=== PATIENT | male | born 1950 | race Caucasian/White ===

== ENCOUNTER → 2019-10-29 11:01 | Outpatient (BNVA) | payer OTHER, SELFPAY | PROVIDERS: Family Provider Internal Medicine; Visit Provider Internal Medicine | DX: B18.2 Chronic viral hepatitis C (principal) | CPT/HCPCS: 80053; 82140; 85025 ==

== ENCOUNTER 2020-02-15 10:03 | Outpatient (CLI) | payer OTHER, SELFPAY ==
--- NOTE | 2020-02-15 10:29 | CT_ITS ---
WS: [id number] CT CHEST WITH INTRAVENOUS CONTRAST HISTORY: ABNORMAL CT, FOLLOW UP TECHNIQUE: Contiguous 5 mm axial imaging performed on the thorax. Coronal and sagittal reformats are submitted. All CT scans at [facility] use at least one of these dose optimization techniq ues: automated exposure control; mA and/or kV adjustment per patient size (includes targeted exams wh ere dose is matched to clinical indication); or iterative reconstruction. CONTRAST: Omnipaque 300; 95 mL IV. DLP: 853.72 mGycm COMPARISON: 01/05/2019 Lungs and central airway: Hyperexpanded lungs with chronic emphysema. There are several small microno dules distributed in the periphery of the RIGHT upper lobe as seen on the prior study. No enlarging n odule or pneumonia. Pleura: Normal. No pleural effusion. Heart and pericardium: Normal size heart. No pericardial effusion. Mediastinum and jerel: Small subcentimeter mediastinal and hilar lymph nodes. Vessels: Atherosclerosis aorta. No aneurysm. Pulmonary artery size is normal. Chest wall and lower neck: No soft tissue masses. Upper abdomen: Moderate to large hiatal hernia. Bilateral renal cysts. The largest on the RIGHT is in completely visualized measuring at least 6.5 cm. No adrenal mass. Osseous structures: Thoracolumbar scoliosis. No fractures or osteolytic lesions. CT/CT chest w con* [id number] IMPRESSION: 1. RIGHT upper lobe micronodules. No interval increase in size since 01/05/2019 . 12 month follow-up for nodules of this size is at the discretion of the order ing physician as per Fleischner criteria. 2. Chronic emphysema. 3. Moderate to large hiatal hernia. 4. Bilateral renal cysts.
[2020-02-15 11:04] LABS: Blood Urea Nitrogen 12 mg/dL (8-23); Glomerular Filtration Rate 83.4 mL/min (90-130)
[2020-02-15] MEDS: iohexol 300 mg/mL 100 mL Btl IV (11:10)
== END 2020-02-15 10:04 | disposition home or self-care (01) ==
LOC: RADWPI 10:07
PROVIDERS: Family Provider Internal Medicine; Visit Provider Internal Medicine
DX: R93.89 Abnormal findings on diagnostic imaging of other specified body structures (principal); R91.8 Other nonspecific abnormal finding of lung field; J43.9 Emphysema, unspecified; K44.9 Diaphragmatic hernia without obstruction or gangrene; N28.1 Cyst of kidney, acquired
CPT/HCPCS: 71260; 82565; 84520; Q9967

== ENCOUNTER 2020-12-12 17:44 | Inpatient (IN) | payer OTHER, MEDICARE, SELFPAY ==
[2020-12-12] VITALS (19 sets, daily range): BP systolic 112–158; BP diastolic 66–94; PULSE 74–130; RESP 16–36; TEMP 37.7–37.8; O2SAT 84–98; BMI 23.6
--- NOTE | 2020-12-12 18:27 | ED_ITS ---
HPI - Abdominal Pain General: Chief Complaint: Abdominal Pain Stated Complaint: abd pain Time Seen by Provider: 12/12/20 18:20 History of Present Illness: HPI narrative: The patient is a 70-year-old male who comes to the ER complaining of diffuse abdominal pain for the past several hours. He says he woke this morning had a normal bowel movement and later in the day began to have severe right lower quadrant pain which then radiated throughout the entire rest of his abdomen. He said his belly feels full and is hard. EMS arrived with a blood pressure of 103/58. They gave him a liter of fluids IV and brought him to the ER. Here his belly is firm and he is complaining of severe pain. He says he has had 2 surgeries in the past for inguinal hernias but this does not feel similar to that. MD elicited complaint: abdominal pain Pertinent past history: none Onset (ago): hour(s) (6) Pain Consistency: constant Location: Diffuse Severity: severe Quality: sharp Associated Symptoms: Reports no associated symptoms; Denies GI cramping and diarrhea Review of Systems General: Reports: 10 or more systems reviewed and unremarkable except in HPI and below Const: Denies: fatigue Eyes: Denies: change in vision, blurry vision or eye redness ENMT: Denies: throat pain, swelling of lips/tongue, ear or mastoid pain or nasal congestion Card: Denies: chest pain, palpitations, irregular heart rhythm, edema, dyspnea on exertion or orthopnea Resp: Denies: dyspnea, productive cough or non-productive cough GI: Denies: abdominal pain, diarrhea or GI cramping : Denies: flank pain, urinary frequency or urinary urgency Musc: Denies: neck pain, back pain, extremity pain, joint pain, joint redness, limited range of motion or muscle weakness Skin/Breast: Denies: rash, pruritus, erythema, skin pain or skin tenderness Neuro: Denies: headache(s), numbness in extremities, weakness in extremities, sensory changes, difficulty walking, dizziness, confusion or Slurred speech present Psych: Denies: anxiety or depression Endo: Denies: polyuria All/Imm: Denies: urticaria, throat swelling or tongue swelling PFSH ED PFSH: Medical History (Updated 12/12/20 @ 21:37 by Neftali Goncalves MD) Arthritis COPD (chronic obstructive pulmonary disease) Diverticulosis Hepatitis C Completed Epclusa in 2019 Hiatal hernia Hypertension Surgical History (Updated 12/12/20 @ 20:49 by Neftali Goncalves MD) Bilateral inguinal hernia Bilateral repairs History of penile cancer local excision History of surgery on upper extremity L forearm fracture Social History (Updated 12/12/20 @ 20:50 by Neftali Goncalves MD) Smoking and tobacco status: current every day smoker cigarettes Packs smoked per day: 0.5 Years cigarettes smoked: 55 [ Other cigarette details: Heavier smoker in the past ] Alcohol intake: current Alcohol intake frequency: few times a month Alcohol type: hard liquor Alcohol use comment: Usually only once a month History of recent travel: No Current gender identity: Male Physical Exam Const: COMMON NORMALS: no acute distress, average body habitus, patient oriented x3, no limitations, healthy appearing, alert and well nourished GENERAL APPEARANCE: cooperative, comfortable, well kempt and well developed ORIENTATION/CONSCIOUSNESS: Yes awake, Yes oriented to person, Yes oriented to place and Yes oriented to time HENMT: COMMON NORMALS: normocephalic, external ears normal and Normal external nose present HEAD & SCALP: normal to inspection and normocephalic NOSE: Normal external nose present EXTERNAL EAR: Yes external ears normal MOUTH: Normal oral and palatal mucosa present THROAT: posterior oropharynx normal Eye: COMMON NORMALS: Equal, round and reactive pupils present and EOMs intact bilaterally GENERAL EYE: appearance normal, both eyes and all related structures PUPIL: Yes Equal, round and reactive pupils present Neck/C-Spine: COMMON NORMALS: full ROM, no lymphadenopathy, no meningeal signs and no JVD GENERAL: Yes normal visual inspection Lymph: LYMPHATIC: no lymphadenopathy noted Chest: COMMONS NORMALS: normal inspection of the chest and normal palpation of entire chest wall Resp: COMMON NORMALS: normal respiratory effort, No retractions, No use of accessory muscles, clear to auscultation bilaterally and percussion normal EFFORT & INSPECTION: Yes able to speak in complete sentences AUSCULTATION: clear to auscultation bilaterally PERCUSSION: percussion normal Cardio: COMMON NORMALS: no JVD, regular rate, regular rhythm, S1 normal heart sound present, S2 normal heart sound present and Peripheral pulses 2+ throughout RATE: regular rate RHYTHM: regular rhythm HEART SOUNDS: S1 normal heart sound present and S2 normal heart sound present PERIPHERAL PULSES: Peripheral pulses 2+ throughout GI: COMMON NORMALS: Normal to inspection, nondistended, normoactive bowel sounds present, non-tender and no masses INSPECTION: Yes abdominal distension (mild) PALPATION: Yes Firmness to palpation present (GI) and Yes Tenderness to palpation present (GI) (Tender in all areas. RLQ the greatest.) : COMMON NORMALS: Yes no CVA tenderness BLADDER/KIDNEY EXAM: Yes no CVA tenderness Back/Pelvis: COMMON NORMALS: no CVA tenderness, thoracic and lumbar spine no rmal to inspection, no thoracic nor lumbar tenderness and thoraco-lumbar ROM normal Extremity: COMMON NORMALS: normal to inspection, full ROM, capillary refill normal, no joint enlargement and no pedal edema GENERAL: Yes normal exam except as noted Neuro: COMMON NORMALS: patient oriented x3, CN's II-XII intact bilaterally, moves all extremities, no focal motor deficits, no sensory deficits noted and gait normal SENSORIUM/ORIENTATION: Yes alert, Yes oriented to person, Yes oriented to place and Yes oriented to time MENINGEAL SIGNS: Yes no meningeal signs Psych: COMMON NORMALS: mental status grossly normal, Normal thought process present, cooperative, normal affect and speech normal APPEARANCE: Yes well kempt ATTITUDE: Yes calm SPEECH: Yes normal speech THOUGHT PROCESS: Normal thought process present Skin: COMMON NORMALS: no rashes or lesions noted GENERAL SKIN EXAM: no rashes or lesions noted Course Vital Signs: Vital signs: Vital Signs Pulse Rate 84 12/12/20 21:32 Respiratory Rate 18 12/12/20 21:32 Blood Pressure 118/74 12/12/20 21:32 Pulse Oximetry 94 12/12/20 21:32 MDM - Abdominal Pain MDM Narrative: Medical decision making narrative: Patient is a 70-year-old male who comes to the ER complaining of abdominal pain. CT shows appendicitis and ileitis. Discussed with Dr. Goncalves who will admit the patient to surgery. Lab Data: Labs: Lab Results 12/12/20 12/12/20 12/12/20 Range/Units 18:22 18:22 19:27 WBC 16.5 H (4.0-10.0) 10^3/ uL RBC 4.02 L (4.1-5.3) 10^6/u L Hgb 12.8 (11.7-16.6) g/dL Hct 39.7 L (42.0-52.0) % MCV 98.8 H (80-94) fL MCH 31.8 (28.0-34.0) pg MCHC 32.2 (30.0-36.0) g/dL RDW 14.0 (12.1-15.1) % Plt Count 406 H (130-400) 10^3/c mm MPV 11.4 H (7.4-10.4) fL Neut % (Auto) 81.2 % Lymph % (Auto) 11.6 % [place] % (Auto) 6.1 % Eos % (Auto) 0.3 % Baso % (Auto) 0.4 % Neut # (Auto) 13.36 H (1.8-7.7) 10^3/u L Lymph # (Auto) 1.9 (0.8-4.8) 10^3/u L [place] # (Auto) 1.0 H (0.2-0.9) 10^3/u L Eos # (Auto) 0.1 (0.0-0.8) 10^3/u L Baso # (Auto) 0.1 (0.0-0.1) 10^3/u L Nucleated RBC % (a uto) 0 % Nucleated RBCs # 0.0 /100WBC Sodium 138 (136-145) mmol/L Potassium 3.8 (3.5-5.1) mmol/L Chloride 104 (98-107) mmol/L Carbon Dioxide 20 L (22-29) mmol/L Anion Gap 17.8 (5-19) BUN 12 (8-23) mg/dL Creatinine 1.0 (0.7-1.2) mg/dL GFR Calculation Not Reportable Glucose 127 H (65-115) mg/dL Calculated Osmolal ity 287 (285-295) mOsm/k g Lactate 3.2 H (0.5-2.2) mmol/L Calcium 8.7 (8.5-10.5) mg/dL Total Bilirubin 0.2 (0.15-1.2) mg/dL AST 13 (0-40) U/L ALT 8 (0-41) U/L Alkaline Phosphata se 77 (40-130) IU/L Total Protein 6.6 (6.6-8.7) g/dL Albumin 3.7 (3.5-5.2) g/dL Globulin 2.9 (1.3-4.6) g/dL Lipase 16 (13-60) U/L Discharge Plan Discharge Patient Disposition: Admitted As Inpatient Clinical Impression: Acute appendicitis Condition: Stable Coding Level of Care Code 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
--- NOTE | 2020-12-12 18:35 | CTR_ITS ---
PROCEDURE INFORMATION: Exam: CT Abdomen And Pelvis With Contrast Exam date and time: 12/12/2020 7:29 PM Age: 70 years old Clinical indication: Abdominal pain; Localized; Right lower quadrant (rlq); Prior surgery; Surgery type: Hernia; Additional info: Diffuse abd tenderness worst rlq TECHNIQUE: Imaging protocol: Computed tomography of the abdomen and pelvis with contrast. Total images: 235 Radiation optimization: All CT scans at this facility use at least one of these dose optimization techniques: automated exposure control; mA and/or kV adjustment per patient size (includes targeted exams where dose is matched to clinical indication); or iterative reconstruction. Contrast material: OMNI 300; Contrast volume: 95 ml; Contrast route: INTRAVENOUS (IV); COMPARISON: CT abdomen pelvis w con* [id number] 04/29/2016 7:50 PM RADIATION DOSE METRICS: Total DLP (mGy-cm): 668.69 FINDINGS: Lungs: Limited assessment lung bases reveals mild dependent atelectasis. Coronary artery disease. No visible pericardial effusion. Mediastinal space: Large hiatal hernia. Liver: No visible hepatic mass or cystic structure. Gallbladder and bile ducts: Gallbladder free of cholelithiasis. No visible intra or extrahepatic biliary ectasia. Pancreas: Pancreas unremarkable. No visible pancreatic ductal ectasia. Spleen: Spleen unremarkable. Adrenal glands: Adrenal glands unremarkable. Kidneys and ureters: No visible hydronephrosis or perinephric fluid. Stable bilateral simple renal cortical cysts the largest off the superior pole of the right kidney measuring 7 cm in diameter. No follow-up recommended. Renal arteriosclerosis. Stomach and bowel: Diverticulosis coli, primarily the sigmoid colon, without visible evidence for acute diverticulitis. Nonobstructive bowel pattern. Mucosal thickening of the ileal bowel loops suggesting either inflammatory or infectious ileitis. Appendix: Examination reveals evidence of uncomplicated low-grade acute appendicitis. No visible periappendiceal abscess or extraluminal gas. Mild periappendiceal fat inflammatory response. Intraperitoneal space: No visible pneumoperitoneum or intraperitoneal ascites. Vasculature: The abdominal aorta is nonaneurysmal. Moderately advanced arterial sclerotic disease. Lymph nodes: Unremarkable. No enlarged lymph nodes. Urinary bladder: Urinary bladder unremarkable. No visible filling defect or bladder stone. Reproductive: Prostate hypertrophy. Bones/joints: No visible active or acute osseous pathology. Dextroscoliosis. Degenerative disease and degenerative disc disease. Cavernous hemangioma T11. Soft tissues: Small right inguinal hernia containing fat only. Other findings: No visible significant adynamic or reactive ileus. CT/CT abdomen pelvis w con* [id number] IMPRESSION: 1. Acute uncomplicated low-grade appendicitis. 2. Mucosal thickening of the ileal bowel loops suggesting either inflammatory or infectious ileitis. 3. Diverticulosis coli without visible evidence for acute diverticulitis. 4. Other nonurgent, nonemergent, chronic, and age related findings as detailed in text above. Radiation Dose CTDIVOL = (mGy): DLP = 668.69 (mGy-cm)
[2020-12-12 18:36] LABS: Basophils # 0.1 10^3/uL (0.0-0.1); Basophils % 0.4 %; Eosinophils # 0.1 10^3/uL (0.0-0.8); Eosinophils % 0.3 %; Hematocrit 39.7 % (42.0-52.0); Hemoglobin 12.8 g/dL (11.7-16.6); Lymphocytes # 1.9 10^3/uL (0.8-4.8); Lymphocytes % 11.6 %; Mean Corpuscular HGB Conc 32.2 g/dL (30.0-36.0); Mean Corpuscular Hemoglobin 31.8 pg (28.0-34.0); Mean Corpuscular Volume 98.8 fL (80-94); Mean Platelet Volume 11.4 fL (7.4-10.4); Monocytes % 6.1 %; Neutrophils # 13.36 10^3/uL (1.8-7.7); Neutrophils % 81.2 %; Nucleated Red Blood Cells % 0 %; Platelet Count 406 10^3/cmm (130-400); Red Blood Count 4.02 10^6/uL (4.1-5.3); White Blood Count 16.5 10^3/uL (4.0-10.0)
[2020-12-12 19:07] LABS: Alanine Aminotransferase 8 U/L (0-41); Albumin Level 3.7 g/dL (3.5-5.2); Alkaline Phosphatase 77 IU/L (40-130); Anion Gap 17.8 (5-19); Aspartate Amino Transferase 13 U/L (0-40); Blood Urea Nitrogen 12 mg/dL (8-23); Calcium 8.7 mg/dL (8.5-10.5); Carbon Dioxide 20 mmol/L (22-29); Chloride 104 mmol/L (98-107); Creatinine Clr Calc Pharmacy 68.4729; Globulin 2.9 g/dL (1.3-4.6); Glucose 127 mg/dL (65-115); Lipase 16 U/L (13-60); Osmolality Calculated 287 mOsm/kg (285-295); Potassium 3.8 mmol/L (3.5-5.1); Sodium 138 mmol/L (136-145); Total Bilirubin 0.2 mg/dL (0.15-1.2); Total Protein 6.6 g/dL (6.6-8.7)
[2020-12-12] MEDS: morphine 4 mg/mL SDV 1 mL 2 MG IVP (19:20)
[2020-12-12] MEDS: iohexol 300 mg/mL 100 mL Btl IV (19:39)
[2020-12-12 19:53] LABS: Lactate (Lactic Acid level) 3.2 mmol/L (0.5-2.2)
[2020-12-12] MEDS: piperacillin-tazobactam 3.375 GM in sodium chloride 0.9% (plus) 50 ML IV (20:26)
--- NOTE | 2020-12-12 20:51 | P.HP_ITS ---
Providers/Chief Complaint Admitting Physician: General Surgery Neftali Goncalves MD Primary Care Provider: [facility] Chief Complaint: abd pain History of Present Illness Lonnie Rogers is a 70 year old male who says he developed a little bit of nausea this morning. It did not stop him from eating breakfast and running some errands. He says he had a normal bowel movement this morning. This afternoon around 1 PM he developed some right-sided abdominal pain in the right lower quadrant. He says that the pain subsequently seemed to spread superiorly as well as across his abdomen to the point where he came into the emergency department. A CAT scan showed changes consistent with acute appendicitis as well as some possible ileitis, etc. He denies any known fevers. He does tell me he had a colonoscopy about a year ago and everything was normal. Review of Systems General: Reports: 10 or more systems reviewed and unremarkable except in HPI and below Const: Denies: fever(s) GI: Reports: abdominal pain and nausea Medications/Allergies Home Medications Medication Instructions Recorded Confirmed Last Taken Type amlodipine 5 mg tablet 5 mg PO ONCE tab 10/16/19 02/02/20 Unknown History aspirin 81 mg tablet,delayed 81 mg PO ONCE 10/16/19 02/02/20 Unknown History release cetirizine 10 mg capsule PO ONCE cap 10/16/19 02/02/20 Unknown History diclofenac sodium 75 mg 75 mg PO BID 10/16/19 02/02/20 Unknown History tablet,delayed release lisinopril 40 mg tablet 40 mg PO ONCE 10/16/19 02/02/20 Unknown History metoprolol tartrate 100 mg tablet 100 mg PO ONCE tab 10/16/19 02/02/20 Unknown History multivitamin 1 tab PO QAM 10/16/19 02/02/20 Unknown History omeprazole 20 mg capsule,delayed 20 mg PO ONCE cap 10/16/19 02/02/20 Unknown History release prazosin 1 mg capsule 1 mg PO .AT BEDTIME cap 10/16/19 02/02/20 Unknown History trazodone 100 mg tablet 100 mg PO .AT BEDTIME tab 10/16/19 02/02/20 Unknown History sofosbuvir 400 mg-velpatasvir 100 1 tab PO DAILY 84 Days #28 tab 11/16/19 02/02/20 Unknown Rx mg tablet Allergies Allergy/AdvReac Type Severity Reaction Status Date / Time codeine Allergy rash Verified 12/12/20 20:57 PFSH Acute PFSH: Medical History (Updated 12/12/20 @ 21:00 by Neftali Goncalves MD) Arthritis Diverticulosis Hepatitis C Completed Epclusa in 2019 Hypertension Surgical History (Updated 12/12/20 @ 20:49 by Neftali Goncalves MD) Bilateral inguinal hernia Bilateral repairs History of penile cancer local excision History of surgery on upper extremity L forearm fracture Social History (Updated 12/12/20 @ 20:50 by Neftali Goncalves MD) Smoking and tobacco status: current every day smoker cigarettes Packs smoked per day: 0.5 Years cigarettes smoked: 55 [ Other cigarette details: Heavier smoker in the past ] Alcohol intake: current Alcohol intake frequency: few times a month Alcohol type: hard liquor Alcohol use comment: Usually only once a month History of recent travel: No Current gender identity: Male Vitals/I&O/Wt Last Vital Signs Pulse 83 12/12/20 18:38 Resp 22 H 12/12/20 19:20 BP 127/66 12/12/20 18:38 Pulse Ox 92 12/12/20 18:38 Weight last 48 hrs Weight 160 lb Physical Exam Narrative: EXAM NARRATIVE: The patient was encountered in his room in the emergency department. He does not appear to be in any acute distress but actually he does not feel very well. The pupils are equal. No carotid bruits are heard. The lungs are clear anteriorly. The heart is regular. The abdomen is somewhat protuberant but is fairly soft and has bowel sounds, although they are somewhat hypoactive. The patient does have tenderness over McBurney's point as well as superiorly and even into the epigastrium somewhat. Rovsing's sign is negative. No obvious masses are palpated. The extremities reveal no edema. Neurologically the patient appears to be grossly intact. Data : 12/12/20 18:22 12/12/20 18:22 Other Labs: Laboratory Tests 12/12/20 19:[address] Abd/Pel: Radiologist's impression: CT abdomen/pelvis 12/12/2020 IMPRESSION: 1. Acute uncomplicated low-grade appendicitis. 2. Mucosal thickening of the ileal bowel loops suggesting either inflammatory or infectious ileitis. 3. Diverticulosis coli without visible evidence for acute diverticulitis. A&P Assessment and plan (1) Acute appendicitis: CT reviewed. The patient appears to have a retrocecal appendix which is involved in an inflammatory process. I suspect all of his other inflammatory changes are secondary to this. Given the fact that his appendix is retrocecal, I imagine that it is probably been inflamed a little longer than what his sym ptoms would dictate. I discussed appendicitis with the patient in detail. Both medical and surgical techniques of management were gone over. Surgical risks of bleeding, infection, internal organ injury, etc. were all gone over. He seems to understand and would like to proceed with an appendectomy tonight. The patient says he last had something to drink around noon today, although he does admit that that was a bottle of whiskey. I am going to make arrangements for a laparoscopic or possibly open appendectomy tonight. Status: Acute Attestations Medical Necessity Statement*: Based on my medical assessment, presenting symptoms and consideration of the scope of surgical therapy, I expect this patient will require treatment in the hospital for a period of time spanning less than 2 midnights, and is therefore being placed in observation status. 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
[2020-12-12] MEDS: lactated ringers 1,000 ML 150 ML IV (21:08)
[2020-12-12] MEDS: metroNIDAZOLE IV 500 MG/100 ML PREMIX 100 MG IV (21:11)
--- NOTE | 2020-12-12 21:31 | ANES.PREANE2 ---
Pre-Anesthetic Assessment Pre-Anesthetic Assessment: Height/Weight: Height 1.75 m Weight 72.575 kg Pulse Resp BP Pulse Ox 78 16 118/74 96 12/12/20 20:44 12/12/20 20:44 12/12/20 20:44 12/12/20 20:44 Preop Diagnosis: Acute appendicitis Proposed Procedure: Operation Date: 12/12/20 21:15 Proposed Procedures p Laparoscopic Appendectomy(Not Applicable) - Neftali Goncalves MD Familial anesthetic complications: None Was Beta Silvina taken within 24 hours: Yes (took metoprolol this morning) Last intake: Intake Last Liquid Date 12/12/20 Last Liquid Time 12:00 Last Solid Date 12/12/20 Last Solid Time 11:00 Social: Social History: Tobacco and No alcohol Exam: Pre-Anes Outpt Exam: alert, oriented x 3, clear to auscultation bilaterally and regular rate & rhythm Airway: Cervical ROM: WNL MP: 4 Dentition: Other (no teeth) CV/HEM: CV/HEM: HTN Comments: States able to climb 2 flights of stairs w/ out SOB or chest pain Hepatic: Hepatic: Hepatitis (Hep C) GI: GI: Hiatus hernia Anesthetic Plan: ASA status: 2E Anesthesia: General Risk of > 500 ml blood loss (7ml/kg in children): No Meds/Allergies Current Medications: Current Medications Generic Name Dose Route Start Last Admin Trade Name Freq PRN Reason Stop Dose Admin Lactated Ringer's 1,000 mls @ 150 m ls/hr 12/12/20 21:00 12/12/20 21:08 Lactated Ringers IV 150 mls/hr .[id number] GENIA Administration Cefazolin Sodium/D extrose 2 gm in 50 mls @ 100 mls/hr 12/12/20 21:30 12/12/20 21:09 Kefzol IV 12/12/20 21:59 100 mls/hr PRODUCT DEVELOPMENT INTERN ONE Administration Protocol Metronidazole 500 mg in 100 mls @ 100 mls/hr 12/12/20 21:30 12/12/20 21:11 Flagyl Iv IV 12/12/20 22:29 100 mls/hr PRODUCT DEVELOPMENT INTERN ONE Administration PFSH Anesthesia PFSH: Medical History (Updated 12/12/20 @ 21:00 by Neftali Goncalves MD) Arthritis Diverticulosis Hepatitis C Completed Epclusa in 2019 Hypertension Surgical History (Updated 12/12/20 @ 20:49 by Neftali Goncalves MD) Bilateral inguinal hernia Bilateral repairs History of penile cancer local excision History of surgery on upper extremity L forearm fracture Social History (Updated 12/12/20 @ 20:50 by Neftali Goncalves MD) Smoking and tobacco status: current every day smoker cigarettes Packs smoked per day: 0.5 Years cigarettes smoked: 55 [ Other cigarette details: Heavier smoker in the past ] Alcohol intake: current Alcohol intake frequency: few times a month Alcohol type: hard liquor Alcohol use comment: Usually only once a month History of recent travel: No Current gender identity: Male Data Anesthesia CBC & Chem 7: 12/12/20 18:22 12/12/20 18:22 Other Labs: Laboratory Results - last 48 hr 12/12/20 12/12/20 12/12/20 18:22 18:22 19:27 WBC 16.5 H RBC 4.02 L Hgb 12.8 Hct 39.7 L MCV 98.8 H MCH 31.8 MCHC 32.2 RDW 14.0 Plt Count 406 H MPV 11.4 H Neut % (Auto) 81.2 Lymph % (Auto) 11.6 [place] % (Auto) 6.1 Eos % (Auto) 0.3 Baso % (Auto) 0.4 Neut # (Auto) 13.36 H Lymph # (Auto) 1.9 [place] # (Auto) 1.0 H Eos # (Auto) 0.1 Baso # (Auto) 0.1 Nucleated RBC % (auto) 0 Nucleated RBCs # 0.0 Sodium 138 Potassium 3.8 Chloride 104 Carbon Dioxide 20 L Anion Gap 17.8 BUN 12 Creatinine 1.0 GFR Calculation Not Reportable Glucose 127 H Calculated Osmolality 287 Lactate 3.2 H Calcium 8.7 Total Bilirubin 0.2 AST 13 ALT 8 Alkaline Phosphatase 77 Total Protein 6.6 Albumin 3.7 Globulin 2.9 Lipase 16 Cardiac Studies: No Data to Display
--- NOTE | 2020-12-12 21:57 | SUR.PHASEI ---
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
--- NOTE | 2020-12-12 22:46 | P.OP_ITS ---
Operative Report Date of procedure: December 12, 2020 Pre-op Diagnosis: Acute appendicitis. Post-op Diagnosis: Perforated appendicitis. Procedure Done: Laparoscopic appendectomy. Specimens removed/disposition: 1. Peritoneal fluid for Gram stain and culture. 2. Appendix. Surgeon: Neftali Goncalves Anesthesia: General Estimated blood loss (mL): 5 Complications: None. Condition: stable Disposition: PACU Procedure: The patient was brought to the Operating Room and was placed in a supine position on the operating room table. General endotracheal anesthesia was induced. The abdomen was prepped and draped in a sterile fashion. A small vertical incision was carried out in the superior aspect of the umbilicus. Blunt dissection was carried out down to the fascia, where a small umbilical hernia was found. The defect was simply enlarged somewhat superiorly and the underlying peritoneum was opened bluntly. A stay suture of 0 Vicryl was placed on either side of the fascial opening and the Jamir port was placed directly into the peritoneal cavity and was held in place with the inflatable balloon. The peritoneal cavity was insufflated with carbon dioxide. The laparoscope was used to inspect the peritoneal cavity. The patient was found to have some light yellow, watery purulent material in the pelvis. He had some very light omental adhesions in the left mid abdomen somewhat laterally which were eventually taken down. Two 5-millimeter ports were placed in the left lower quadrant under direct vision. The patient was tilted in a Trendelenburg position and slightly to the left side. Some of the pelvic fluid was obtained in a sterile container for Gram stain and culture. A laparoscopic [place] was used to elevate the cecum and the appendix was identified. The appendix was dilated and had exudate on its surface. Upon raising the appendix a little further some omentum that was surrounding the base fell off and a small perforation was noted. The mesoappendix was divided using cautery to maintain hemostasis at the base of the appendix. The base of the appendix appeared relatively healthy proximal to the small perforation and was divided using an endoscopic stapler. The appendix was removed from the peritoneal cavity after being placed in a laparoscopic bag. The abdomen was then extensively irrigated with multiple liters of saline in all quadrants until the irrigant returned reasonably clear. The staple line on the cecum was identified and appeared to be in good condition. The Jamir port was removed from the umbilical site and the stay sutures of Vicryl were tied to each other at the umbilicus, closing the fascial defect so that it was airtight. A final round of irrigation was carried out in the right lower quadrant and the pelvis. No ongoing problems were seen. The remaining ports were removed from the abdominal wall as the pneumoperitoneum was evacuated. All skin incisions were closed using inverted interrupted sutures of 4-0 Vicryl. Benzoin and Steri-Strips were placed over the incisions and Band- Aids followed. The patient was taken to the Recovery Room in stable condition postoperatively.
--- NOTE | 2020-12-12 23:20 | ANE.PACU2 ---
Inpatient post-anesthesia follow up: Airway intact: Yes Vital signs: Temperature 100.1 F Pulse Rate [Monito r] 80 Pulse Rate 110 Respiratory Rate 23 Blood Pressure [Ri ght Arm] 112/66 Blood Pressure 133/68 Pulse Oximetry 91 Oxygen Delivery Me thod Oxymask Oxygen Flow Rate 8 Fraction of Inspir ed Oxygen Hydration adequate: Yes Nausea and vomiting: No Pain level: 3 Mental status: Baseline Additional Comments: Requiring 8 L O2 to maintain spo2 90%, still febrile with tachycardia. Was 90% on room air pre-op. Will send to ICU for closer monitoring overnight.
[2020-12-13] VITALS (66 sets, daily range): BP systolic 120–146; BP diastolic 61–77; PULSE 75–110; RESP 10–29; TEMP 36.8; O2SAT 85–95
--- NOTE | 2020-12-13 00:10 | SUR.PHASEI ---
2330 PT REMAINS ORIENTED , AWAKES EASILY TO VOICE, RESP RAPID BUT NOT LABORED, HR ELEVATED MONITOR ST NO ECTOPY, DR MONSIVAIS AND DR QUIROZ CALLED WITH PT HR AND SATS OF 90% ON 8 LITER, ATTEMPTED TO WEAN TO 6LNC SATS DOWN TO 85% AND RESP UP TO 36 PT VERBALLY DENIES PAIN AND NAUSEA, ABD SOFT LUNGS CLEAR WITH SCATTERED RHONCHI TO LT LOWER LOBE ONLY, GOOD AIR MOVEMENT NOTED, ORDERS RECIEVED FROM DR MONSIVAIS AND DR QUIROZ TO SEND PT TO ICU [id number] REPORT CALLED AND PT TO ICU PER CART ON 8L O2 MASK PT ALERT AND VERBALIZING, HANDOFF AT BEDSIDE.
[2020-12-13] MEDS: piperacillin-tazobactam 3.375 GM in sodium chloride 0.9% (plus) 50 ML IV ×3 (01:11→15:38)
[2020-12-13] MEDS: D5-NS 0.45% + KCL 20 mEq 20 MEQ/1,000 ML BAG 100 MEQ IV (01:11)
[2020-12-13] MEDS: pantoprazole DR 40 mg Tablet PO (01:13)
[2020-12-13] MEDS: metoprolol tartrate 50 mg Tablet 100 MG PO (01:13)
[2020-12-13] MEDS: heparin 5,000 unit/mL INJ 1 mL 5000 UNIT SUBCUT ×2 (01:15→14:00)
[2020-12-13 01:21] LABS: Add Urine Microscopic? NO
[2020-12-13 01:23] LABS: Bilirubin Urine Neg (Negative); Blood Urine Neg (Negative); Glucose Urine UA Norm (Normal); Ketones Urine Negative (Negative); Leukocyte Esterase Urine Negative (Negative); Nitrate Urine Negative (Negative); Protein Urine Neg (Negative); Specific Gravity, Urine 1.005 (1.005-1.030); Urine Appearance Clear (CLEAR); Urine Color Yellow (Yellow); Urobilinogen Urine 1 mg/dL (Negative); pH Urine 6 (5-7)
[2020-12-13 05:13] LABS: Basophils # 0.1 10^3/uL (0.0-0.1); Basophils % 0.3 %; Eosinophils # 0.5 10^3/uL (0.0-0.8); Eosinophils % 2.4 %; Hematocrit 37.6 % (42.0-52.0); Lymphocytes # 0.7 10^3/uL (0.8-4.8); Lymphocytes % 3.3 %; Mean Corpuscular HGB Conc 31.9 g/dL (30.0-36.0); Mean Corpuscular Hemoglobin 31.7 pg (28.0-34.0); Mean Corpuscular Volume 99.2 fL (80-94); Mean Platelet Volume 11.1 fL (7.4-10.4); Monocytes # 0.9 10^3/uL (0.2-0.9); Monocytes % 4.4 %; Neutrophils # 18.64 10^3/uL (1.8-7.7); Neutrophils % 89.1 %; Nucleated Red Blood Cells % 0 %; Platelet Count 344 10^3/cmm (130-400); Red Blood Count 3.79 10^6/uL (4.1-5.3); White Blood Count 20.9 10^3/uL (4.0-10.0)
[2020-12-13 05:34] LABS: Lactate (Lactic Acid level) 1.9 mmol/L (0.5-2.2)
[2020-12-13 05:39] LABS: Anion Gap 13.7 (5-19); Blood Urea Nitrogen 11 mg/dL (8-23); Carbon Dioxide 21 mmol/L (22-29); Chloride 111 mmol/L (98-107); Creatinine Clr Calc Pharmacy 85.5911; Glucose 109 mg/dL (65-115); Osmolality Calculated 292 mOsm/kg (285-295); Potassium 4.7 mmol/L (3.5-5.1); Sodium 141 mmol/L (136-145)
--- NOTE | 2020-12-13 07:20 | PC.NURSE ---
ASSUMING CARE 2351 Patient received from JAIL KEEPERShelley at 2352. Patient on simple mask at 8L, respiratory changed to oxymask at 8L. Temperature of 100.8. 1L NS finished infusing. Incisions covered with steri-strips, belly button incision covered with steri strips and guaze with ABD to soak up drainage from irrigating abdominal cavity. Patient is alert and oriented x 4 and requesting drink of water.
--- NOTE | 2020-12-13 07:23 | PC.NURSE ---
SHIFT SUMMARY Patient alert and oriented since return from PACU. Patient has been independently using urinal throughout the night and using call light for assistance. Patient denies needs at this time and report given to YASMIN Villalta.
--- NOTE | 2020-12-13 07:31 | XR_ITS ---
WS: [id number] PORTABLE CHEST HISTORY: hypoxia, R rales COMPARISON: 10/31/2011 Diffusely thickened reticulations throughout both lungs. There is a new dense area of consolidation a t the medial RIGHT lung base with adjacent stranding. This consolidation was not present at the lung bases on 12/12/2020 CT evaluation. No pleural effusion or pneumothorax. Cardiac size: Normal. Mediastinum/Aorta: Mild atherosclerosis aorta. No osseous abnormality seen. XR/XR chest 1V portable [id number] IMPRESSION: 1. Development of a RIGHT lower lobe consolidation. This is most consistent wi th pneumonia with adjacent atelectasis. 2. Mild diffuse CHF superimposed on chronic interstitial fibrosis.
--- NOTE | 2020-12-13 07:33 | P.PN_ITS ---
Subjective Subjective: Interval history: The patient's appendix was found to be perforated at the time of surgery. In recovery, the patient remained tachycardic and somewhat hypoxic even though his blood pressure was adequate. The decision was made to put him in the intensive care unit overnight. The patient says he feels 100% better today as opposed to yesterday before surgery. He does report a productive cough but denies dyspnea. He is not passing any flatus. Vitals/I&O/Wt Last Vital Signs Temp 100.1 F H 12/12/20 23:45 Pulse 77 12/13/20 06:25 Resp 23 H 12/13/20 01:12 BP 133/68 12/12/20 23:45 Pulse Ox 91 12/13/20 01:12 12/12/20 12/13/20 12/13/20 22:59 06:59 14:59 Intake Total 970 / 970 Output Total 400 / 1305 905 / 1305 Balance -400 / -335 65 / -335 Weight last 48 hrs Weight 160 lb Physical Exam Narrative: EXAM NARRATIVE: The patient seems to have some rales on the right side. His oxygen saturations remain in the high 80s on nasal cannula. Bowel sounds are fairly infrequent. The abdominal dressings are intact (and ABD pad was placed over the umbilicus as the patient was waking up yesterday and some irrigation fluid was leaking from the umbilical incision). Data : 12/13/20 04:48 12/13/20 04:48 A&P Assessment and plan (1) Acute appendicitis: The patient's appendix was found to be perforated at the time of surgery yesterday. His white blood cell count remains elevated although his lactate is improved. He feels much better but remains somewhat hypoxic and has some rales on exam. Plan: Chest x-ray, continue intravenous antibiotics, increase activity. I am going to leave the patient in the intensive care unit for now. 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
[2020-12-13] MEDS: levalbuterol 0.63 mg/3 mL Neb INHALATION ×5 (08:21→20:49)
[2020-12-13] MEDS: nicotine 7 mg Patch 1 PATCH TRANSDERMA (08:29)
[2020-12-13] MEDS: FUROsemide 10 mg/mL SDV 10mL 60 MG IVP (09:13)
[2020-12-13 09:19] LABS: ABG PCO2 36.9 mmHg (35-45); ABG PH Result 7.37 (7.35-7.45); Alveolar-Arterial Oxygen Gradi 43.3 mmHg (5-10); Arterial Blood Gas Hematocrit 41.8 % (42-52); Base Excess ABG -3.6 mmol/L (-2.0-2.0); Blood Gas Allen Test Pos; Blood Gas Operator Identificat CAK; Blood Gas Sample Site Radial, right; Blood Gas Sample Type Arterial; Carboxyhemoglobin 1.4 %THgb (0.4-20.1); HCO3 ABG 21.2 mmol/L (22-26); HGB O2 Sat 87.4 % (95-100); Ionized Calcium Level - ABG 1.2 mmol/L (1.1-1.4); Methemoglobin 0.5 % (0.4-1.5); Oxygen Device BIPAP; Oxygen Saturation ABG 89.1; PO2 ABG 53.3 mmHg (80.0-100.0); Potassium Level - ABG 4.3 mmol/L (3.5-5.0); Total Hemoglobin 13.6 g/dL (14-18)
--- NOTE | 2020-12-13 09:39 | PC.CHAP ---
Pastoral Care Encounter/Spiritual Assessment Type of Contact [] Declined executive director of nursing visit [] Patient/Family/Request visit [] Outpatient visit [] Follow-up visit [] Physician referral [] Code/Alert [x] Routine visit [] Staff referral [] Actively dying [] Patient sleeping [] Family support [] [] Out of room [] Palliative care [] [x] Receiving care in room [] Pre-surgical visit [] Trauma [] Long length of stay [x] ICU visit [x] Other: ventilator Relational/Emotional Strength [] Patient feels connected with others/family/visitors/staff [] Distress [] Loneliness/isolation [] Abandonment Spirituality of Patient [] Person of Amanda [] Attends Anabaptist of their Amanda [] Believes in Prayer [] Reads Bible or Tenriism materials [] There are Spiritual issues to be addressed Glass Melt Operator Interventions [x] Prayer [] Active listening [] Non-anxious presence [] Spiritual/emotional support [] Crisis/trauma care [] Spiritual counseling [] Bereavement support [] Provided bereavement packet [] Provided Bible/devotional materials [] Provided toy/stuffed animal, coloring book to patient or family member [] Provided Communion [] Anointing/[place] [] Salvation [x] Completed spiritual assessment [] Other: Impact on Illness or Injury [] Angry [] Fearful [] Anxious [] Often cries [] Exhaustion [] Unable to work [] Unable to attend sikhism [] Unable to walk/stand [] Unable to read [] Unable to drive [] Unable to eat/drink [] Unable to sleep [] Unable to be with family [] Patient intubated [] Other: Summary Time spent with patient
--- NOTE | 2020-12-13 10:37 | P.HP_ITS ---
Providers/Chief Complaint Admitting Physician: Neftali Goncalves MD Chief Complaint: abd pain History of Present Illness Note the following should have been listed as a consultation. Lonnie Rogers is a 70 year old male who I was consulted by Dr. John for respiratory failure. He was rapidly requiring a large amount of FiO2 this morning. He presented to the hospital yesterday through the emergency department with abdominal discomfort. On evaluation there he was found to have appendicitis per CT. He was taken for an operative repair the same day, and found to have perforated appendicitis. He was moved to the ICU following surgery on IV antibiotics with close monitoring. From my understanding and recovery he was tachycardic and somewhat hypoxic and that was why he was placed in the ICU. He denies any vomiting prior to coming to the hospital. He reported no issues with dyspnea prior to coming to the hospital but does note t hat he has some currently. His abdomen does feel better than it did on admission prior to surgery. Review of Systems General: Reports: 10 or more systems reviewed and unremarkable except in HPI and below Const: Denies: fever(s) or chills Eyes: Denies: change in vision ENMT: Denies: throat pain Card: Denies: chest pain Resp: Reports: dyspnea and non-productive cough GI: Denies: abdominal pain : Denies: flank pain Musc: Denies: neck pain Skin/Breast: Denies: rash Neuro: Denies: headache(s) Psych: Denies: anxiety Endo: Denies: polyuria Greg/Lymph: Denies: easy bruising All/Imm: Denies: urticaria Medications/Allergies Home Medications Medication Instructions Recorded Confirmed Last Taken Type amlodipine 5 mg tablet 5 mg PO DAILY tab 10/16/19 12/13/20 Unknown History cetirizine 10 mg capsule 10 mg PO DAILY cap 10/16/19 12/13/20 Unknown History diclofenac sodium 75 mg 75 mg PO BID 10/16/19 12/13/20 Unknown History tablet,delayed release lisinopril 40 mg tablet 40 mg PO DAILY 10/16/19 12/13/20 Unknown History multivitamin 1 tab PO QAM 10/16/19 12/13/20 Unknown History omeprazole 20 mg capsule,delayed 20 mg PO DAILY cap 10/16/19 12/13/20 Unknown History release prazosin 1 mg capsule 1 mg PO BEDTIME cap 10/16/19 12/13/20 Unknown History trazodone 100 mg tablet 100 mg PO BEDTIME tab 10/16/19 12/13/20 Unknown History Allergies Allergy/AdvReac Type Severity Reaction Status Date / Time codeine Allergy rash Verified 12/12/20 20:57 PFSH Acute PFSH: Medical History (Updated 12/13/20 @ 10:51 by Cameron Macias MD) Arthritis COPD (chronic obstructive pulmonary disease) Diverticulosis Hepatitis C Completed Epclusa in 2019 Hiatal hernia Hypertension PTSD (post-traumatic stress disorder) Surgical History Bilateral inguinal hernia Bilateral repairs History of penile cancer local excision History of surgery on upper extremity L forearm fracture Family History (Updated 12/13/20 @ 10:42 by Cameron Macias MD) Other Dementia Social History Smoking and tobacco status: current every day smoker cigarettes Packs smoked per day: 0.5 Years cigarettes smoked: 55 [ Other cigarette details: Heavier smoker in the past ] Alcohol intake: current Alcohol intake frequency: few times a month Alcohol type: hard liquor Alcohol use comment: Usually only once a month History of recent travel: No Current gender identity: Male Vitals/I&O/Wt Last Vital Signs Temp 100.1 F H 12/12/20 23:45 Pulse 77 12/13/20 09:23 Resp 16 12/13/20 08:22 BP 133/68 12/12/20 23:45 Pulse Ox 90 12/13/20 09:23 12/12/20 12/13/20 12/13/20 22:59 06:59 14:59 Intake Total 970 / 970 Output Total 400 / 400 905 / 1305 300 / 300 Balance -400 / -400 65 / -335 -300 / -300 Weight last 48 hrs Weight 72.575 kg Physical Exam Narrative: EXAM NARRATIVE: General exam is a white male, with some shortness of breath. HEENT: Pupils equally round. Oropharynx clear. Neck is supple no lymphadenopathy or thyromegaly Cardiovascular regular rate and rhythm without murmur, no S3 or S4 Lungs few bibasilar expiratory wheezes and crackles Abdomen is soft with dressing intact. Hypoactive bowel sounds exam deferred Extremities no cyanosis clubbing or edema Data : 12/13/20 04:48 12/13/20 04:48 Other data: Chest x-ray which I reviewed demonstrates right-sided infiltrate, and evidence of interstitial edema consistent with pulmonary edema ABG demonstrates a pH of 7.37, PCO2 of 37, PO2 153 LFTs were normal Urinalysis negative A&P Assessment and plan (1) Acute respiratory failure: Acute hypoxic respiratory failure. Secondary to significant worsening just since this morning I suspect this is fluid overload. 60 mg of Lasix IV x1 given. ABG was performed to make sure no CO2 retention was present, and none was Patient was placed on BiPAP If improvement does not occur as anticipated would consider CTA Check BNP, echocardiogram Status: Acute (2) Pneumonia: May have evidence of right lower lobe infiltrate and pneumonia as well. Zosyn should be sufficient. Check MRSA PCR If any worsening consider addition of vancomycin Status: Acute (3) Pulmonary edema: See notations under acute respiratory failure Status: Acute (4) Acute appendicitis: Postoperative day number #1 for perforated appendicitis Currently on Zosyn Incentive spirometry Status: Acute (5) Hepatitis C: Hold medicines currently Status: Acute Qualifiers: Viral hepatitis chronicity: chronic Hepatic coma status: without hepatic coma Qualified Code(s): B18.2 - Chronic viral hepatitis C Additional A&P Information Hypertension. Add hydralazine as needed History of COPD. Xopenex as needed should be sufficient currently. No active wheezing Full code Heparin will suffice for DVT prophylaxis Attestations Medical Necessity Statement*: Needs continued close follow-up of respiratory failure following appendectomy. 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
--- NOTE | 2020-12-13 10:44 | USCV_ITS ---
Lonnie Rogers Age: 70 Gender: M : 1950 Exam Date: 12/13/2020 14:00 Ordering Phys: Cameron Macias MD Technologist: Isidoro Pang [place] [facility] [place]: CP BP: 130 / 87 HR: 79 Rhythm: Sinus Technical Quality: Fair MEASUREMENTS (Male / Female) Normal Values 2D ECHO LV Diastolic Diameter PLAX 4.4 cm 4.2 - 5.9 / 3.9 - 5.3 cm LV Systolic Diameter PLAX 3.2 cm IVS Diastolic Thickness 0.9 cm 0.6 - 1.0 / 0.6 - 0.9 cm IVS Systolic Thickness 1.2 cm LVPW Diastolic Thickness 1.2 cm 0.6 - 1.0 / 0.6 - 0.9 cm LVPW Systolic Thickness 1.2 cm LVOT Diameter 2.0 cm LV Ejection Fraction 2D Teich 55.2 % LV Ejection Fraction MOD 2C 73.4 % LV Ejection Fraction 2C AL 75.0 % LA Diameter 4.7 cm LA Width 3.7 cm LA Height 5.3 cm RA Width 3.2 cm RA Height 4.4 cm M-MODE LV Diastolic Diameter MM 6.6 cm 4.2 - 5.9 / 3.9 - 5.3 cm LV Systolic Diameter MM 5.2 cm LV Ejection Fraction MM Teich 43.0 % IVS Diastolic Thickness MM 1.1 cm 0.6 - 1.0 / 0.6 - 0.9 cm IVS Systolic Thickness MM 1.1 cm LVPW Diastolic Thickness MM 1.2 cm 0.6 - 1.0 / 0.6 - 0.9 cm LVPW Systolic Thickness MM 1.9 cm RV Diastolic Diameter MM 1.6 cm Aortic Annulus Diameter 4.0 cm LA Ao Ratio MM 1.4 MV E Point Septal Separation 2.6 cm DOPPLER AV Peak Velocity 126.0 cm/s LVOT Peak Velocity 101.0 cm/s AV Area Cont Eq vti 2.2 cm squared AV Area Cont Eq pk 2.5 cm squared MV Area PHT 5.0 cm squared Mitral E to A Ratio 1.8 MV E' Velocity 69.0 cm/s Mitral E to MV E' Ratio 11.4 Mitral E to LV E' Lateral Ratio 9.7 Mitral E to LV E' Septal Ratio 13.9 TR Peak Velocity 271.7 cm/s TR Peak Gradient 29.5 mmHg TV Peak E Velocity 69.0 cm/s Right Atrial Pressure 3.0 mmHg Pulmonary Artery Systolic Pressu 32.5 mmHg PV Peak Velocity 78.0 cm/s FINDINGS Left Ventricle Normal left ventricular size and systolic function, EF 62 %. No regional wall motion abnormalities. Right Ventricle The right ventricle is normal in size and function. Right Atrium The right atrium is normal in size. Left Atrium Mildly increased left atrial size. Mitral Valve Thickened mitral valve. Mild mitral annular calcification. Moderate-severe mitral valve regurgitation. Aortic Valve Thickened aortic valve. Tricuspid Valve Trace tricuspid valve regurgitation. Pulmonic Valve Trace pulmonary valve regurgitation. Pericardium Normal pericardium without effusion. Aorta Normal ascending aorta dimension. CONCLUSIONS Normal left ventricular size and systolic function, EF 62 %. No regional wall motion abnormalities. Thickened mitral valve. Mild mitral annular calcification. Moderately severe mitral valve regurgitation. Mildly increased left atrial size. Trace tricuspid valve regurgitation. Thickened aortic valve. There is no pericardial effusion. There are no intracardiac masses. No previous study is available for comparison. Dr Leo Pinto MD [facility] (Electronically Signed) Final Date: 14 December 2020 07:03 S
[2020-12-13 11:36] LABS: NT Pro B Type Natriuretic Pept 795 pg/mL (0-125)
[2020-12-13] MEDS: morphine 4 mg/mL SDV 1 mL IVP (15:39)
--- NOTE | 2020-12-13 18:30 | ECG_ITS ---
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
[2020-12-13] MEDS: FUROsemide 10 mg/mL SDV 2mL 20 MG IVP (19:01)
[2020-12-14] VITALS (106 sets, daily range): BP systolic 112–152; BP diastolic 70–109; PULSE 74–146; RESP 11–35; O2SAT 86–98
[2020-12-14] MEDS: heparin 5,000 unit/mL INJ 1 mL 5000 UNIT SUBCUT ×2 (00:27→11:43)
[2020-12-14] MEDS: piperacillin-tazobactam 3.375 GM in sodium chloride 0.9% (plus) 50 ML IV ×4 (00:27→23:37)
[2020-12-14] MEDS: morphine 4 mg/mL SDV 1 mL IVP ×2 (00:27→06:28)
--- NOTE | 2020-12-14 02:49 | PC.NURSE ---
ASSUMING CARE 1900 Patient is on high flow nasal cannula at 10L. Patient is alert and oriented x 4 and denies any need for pain medication at this time. IV zosyn is running. Abdominal incisions are covered with dermabond and steristrips, belly button incision covered in the same thing with guaze covering it to soak up drainage from irrigation. No drainage at this time or redness.
[2020-12-14 03:56] LABS: Basophils # 0.1 10^3/uL (0.0-0.1); Basophils % 0.3 %; Eosinophils # 0.1 10^3/uL (0.0-0.8); Eosinophils % 0.4 %; Hematocrit 39.5 % (42.0-52.0); Hemoglobin 12.6 g/dL (11.7-16.6); Lymphocytes # 1.7 10^3/uL (0.8-4.8); Lymphocytes % 8.8 %; Mean Corpuscular HGB Conc 31.9 g/dL (30.0-36.0); Mean Corpuscular Hemoglobin 31.7 pg (28.0-34.0); Mean Corpuscular Volume 99.2 fL (80-94); Mean Platelet Volume 11.8 fL (7.4-10.4); Monocytes # 0.6 10^3/uL (0.2-0.9); Monocytes % 2.9 %; Neutrophils # 16.83 10^3/uL (1.8-7.7); Neutrophils % 87.2 %; Nucleated Red Blood Cells % 0 %; Platelet Count 324 10^3/cmm (130-400); Red Blood Count 3.98 10^6/uL (4.1-5.3); Red Cell Distribution Width 13.9 % (12.1-15.1); White Blood Count 19.3 10^3/uL (4.0-10.0)
[2020-12-14 04:09] LABS: Lactate (Lactic Acid level) 1.1 mmol/L (0.5-2.2)
[2020-12-14 04:21] LABS: Anion Gap 12.6 (5-19); Blood Urea Nitrogen 15 mg/dL (8-23); Calcium 8.1 mg/dL (8.5-10.5); Carbon Dioxide 25 mmol/L (22-29); Chloride 104 mmol/L (98-107); Glucose 108 mg/dL (65-115); Osmolality Calculated 287 mOsm/kg (285-295); Potassium 3.6 mmol/L (3.5-5.1); Sodium 138 mmol/L (136-145)
--- NOTE | 2020-12-14 06:40 | XR_ITS ---
WS: [id number] Portable AP upright chest, 12/14/2020 Clinical Data: follow up pneumonia Comparison: Portable chest, 12/13/2020. Findings: Diffuse bilateral pulmonary opacities remain the same. The most dense area of opacification is in the right hilum extending toward the lung base and lateral aspect of the right middle lobe. No nodules or masses are seen. There are small bilateral pleural effusions. The heart is normal. The p ulmonary vascularity is not increased. No pneumothorax is seen. Monitor leads are on the chest wall. There is a dextroscoliosis of thoracic spine. XR/XR chest 1V portable [id number] Impression: 1. Bilateral pulmonary opacities with the largest opacity in the right hilum. 2. Small bilateral pleural effusions.
--- NOTE | 2020-12-14 06:42 | PM.PN ---
Subjective Subjective: Interval history: The patient continued to have some worsening hypoxia yesterday. Dr. Macias was consulted and the patient was diuresed. His chest xray showed some right-sided consolidation/pneumonia. The patient remains in the ICU. He says he had a really good night. He is now passing flatus. He still does not have much of an appetite. Vitals/I&O/Wt Last Vital Signs Temp 98.2 F 12/13/20 19:00 Pulse 92 12/14/20 06:00 Resp 17 12/14/20 06:28 BP 120/61 12/13/20 23:05 Pulse Ox 90 12/14/20 06:28 12/13/20 12/13/20 12/14/20 14:59 22:59 06:59 Intake Total 2610 / 2710 50 / 2710 50 / 2710 Output Total 2300 / 3425 925 / 3425 200 / 3425 Balance 310 / -715 -875 / -715 -150 / -715 Weight last 48 hrs Weight 160 lb Physical Exam Narrative: EXAM NARRATIVE: Bowel sounds are active. The superficial dressings were removed and all of the incisions look good. Data : 12/14/20 03:18 12/14/20 03:18 Micro: Microbiology 12/13/20 13:30 Gram Stain - Final Sputum - Expectorated Sputum 12/12/20 22:24 Gram Stain - Final Peritoneal Fluid A&P Assessment and plan (1) Acute appendicitis: The patient's appendix was found to be perforated at the time of surgery. Gram stain of peritoneal fluid surprisingly so far shows no organisms. Continue Zosyn. Appreciate Dr. Macias's assistance. Status: Acute Attestations Medical Necessity Statement*: The patient requires continued inpatient care/intravenous antibiotics for treatment following perforated appendicitis and pneumonia. 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
[2020-12-14] MEDS: levalbuterol 0.63 mg/3 mL Neb INHALATION (07:27)
[2020-12-14] MEDS: FUROsemide 10 mg/mL SDV 10mL 60 MG IVP (08:35)
[2020-12-14] MEDS: nicotine 7 mg Patch 1 PATCH TRANSDERMA (08:35)
[2020-12-14 08:57] LABS: SARS Covid-2 Antigen Negative (Negative)
--- NOTE | 2020-12-14 10:09 | PM.PN ---
Subjective Subjective: Interval history: Lonnie reports he feels better today. He weaned down to 7 L high flow nasal cannula. He denies any chest pain. Medications: Reviewed: Yes Vitals/I&O/Wt Last Vital Signs Temp 98.2 F 12/13/20 19:00 Pulse 89 12/14/20 07:35 Resp 18 12/14/20 07:25 BP 120/61 12/13/20 23:05 Pulse Ox 92 12/14/20 07:25 12/13/20 12/14/20 12/14/20 22:59 06:59 14:59 Intake Total 50 / 2660 50 / 2710 860 / 860 Output Total 925 / 3225 200 / 3425 1280 / 1280 Balance -875 / -565 -150 / -715 -420 / -420 Weight last 48 hrs Weight 79.651 kg Weight 72.575 kg Physical Exam Narrative: EXAM NARRATIVE: General exam is a white male no apparent shortness of breath HEENT: Pupils equally round. Oropharynx clear. Neck is supple no lymphadenopathy or thyromegaly Cardiovascular regular rate and rhythm without murmur, no S3 or S4 Lungs few bibasilar crackles. I do not hear any wheezing today. Abdomen is soft with dressing intact. Hypoactive bowel sounds exam deferred Extremities no cyanosis clubbing or edema Data : 12/14/20 03:18 12/14/20 03:18 Micro: Microbiology 12/13/20 13:30 Gram Stain - Final Sputum - Expectorated Sputum Sputum Culture - Preliminary 12/12/20 22:24 Gram Stain - Final Peritoneal Fluid Body Fluid Culture - Preliminary Other data: Echo showed preserved EF, moderately severe mitral regurgitation Chest x-ray today demonstrates persistent interstitial infiltrates Rapid Covid is negative A&P Assessment and plan (1) Acute respiratory failure: Acute hypoxic respiratory failure. Secondary to significant worsening just since this morning I suspect this in part was fluid overload. This is consistent with preserved EF acute heart failure BNP was elevated. A total of 80 mg of Lasix was given yesterday Persistent abnormalities present on x-ray today and patient still requiring oxygen so 60 mg IV Lasix will be given this morning Patient no longer has needed BiPAP since yesterday May transfer out of ICU Status: Acute (2) Pneumonia: May have evidence of right lower lobe infiltrate and pneumonia as well. Continue Zosyn Await MRSA PCR If any worsening consider addition of vancomycin Covid PCR pending Status: Acute (3) Pulmonary edema: See notations under acute respiratory failure Status: Acute (4) Acute appendicitis: Postoperative day number #2 for perforated appendicitis Currently on Zosyn Incentive spirometry Status: Acute (5) Hepatitis C: Hold medicines currently Status: Acute Qualifiers: Viral hepatitis chronicity: chronic Hepatic coma status: without hepatic coma Qualified Code(s): B18.2 - Chronic viral hepatitis C Additional A&P Information Hypertension. Add hydralazine as needed History of COPD. Xopenex as needed should be sufficient currently. No active wheezing Full code Heparin will suffice for DVT prophylaxis Attestations Medical Necessity Statement*: Needs continued hospitalization post appendectomy for perforated appendix as well as pneumonia and evidence of preserved EF congestive heart failure Coding Level of Care Code Acute Flue Cleaner for [facility] Fwd Diagnoses Acute respiratory failure J96.00 Pneumonia J18.9 Pulmonary edema J81.1 Acute appendicitis K35.80 Hepatitis C B18.2 Viral hepatitis chronicity: chronic Hepatic coma status: without hepatic coma
--- NOTE | 2020-12-14 10:16 | ECG_ITS ---
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 Measurements Intervals [place] Rate: 144 P: [place]: QRS: -45 QRSD: 110 T: 82 QT: 285 QTc: 442 Interpretive Statements ATRIAL FIBRILLATION WITH RAPID VENTRICULAR RESPONSE LEFT ANTERIOR FASCICULAR BLOCK [QRS AXIS <= -45, QR IN I, RS IN II] MODERATE ST DEPRESSION [0.05+ mV ST DEPRESSION] Compared to ECG 12/13/2020 18:58:56 Left anterior fascicular block now present ST (T wave) deviation now present Sinus rhythm no longer present Ventricular premature complex(es) no longer present Electronically Signed On 12-14-2020 20:55:48 POLICE CHIEF by Leo Pinto M.D. [id number]
[2020-12-14] MEDS: lidocaine 1% 5 ML in potassium chloride premix 100 ML 25 ML IV (10:24)
[2020-12-14] MEDS: metoprolol tartrate 1 mg/1 mL SDV 5 mL 5 MG IV (10:24)
[2020-12-14 10:55] LABS: Magnesium 1.9 mg/dL (1.7-2.3); Thyroid Stimulating Hormone 1.97 uIU/mL (0.27-4.20)
[2020-12-14 11:32] LABS: Troponin(5th) Baseline 21 ng/L (0-15)
--- NOTE | 2020-12-14 12:16 | ECG_ITS ---
[facility] Test Date: 2020-12-14 Pat Name: Lonnie Rogers Department: Room: [facility]05 Gender: Male [place]: : 1950 Requested By: Cameron Mcpherson Order Number: [id number] Teddy MD: Leo Pinto M.D. Measurements Intervals [place] Rate: 137 P: [place]: QRS: -35 QRSD: 105 T: 68 QT: 289 QTc: 437 Interpretive Statements ATRIAL FIBRILLATION WITH RAPID VENTRICULAR RESPONSE MARKED LEFT AXIS DEVIATION [QRS AXIS < -30] Compared to ECG 12/14/2020 10:27:32 Left-axis deviation now present Left anterior fascicular block no longer present ST (T wave) deviation no longer present Electronically Signed On 12-14-2020 21:01:00 PROJECT ARCHIVIST by Leo Pinto M.D. [id number]
[2020-12-14] MEDS: metoprolol tartrate 25 mg Tablet PO ×2 (13:37→20:14)
--- NOTE | 2020-12-14 16:16 | ECG_ITS ---
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 Measurements Intervals [place] Rate: 81 P: 89 NE: 159 QRS: -35 QRSD: 106 T: 37 QT: 362 QTc: 421 Interpretive Statements SINUS RHYTHM MARKED LEFT AXIS DEVIATION [QRS AXIS < -30] SEPTAL MYOCARDIAL INFARCTION [40+ ms Q WAVE IN V1/V2], OF INDETERMINATE AGE Compared to ECG 12/14/2020 12:06:18 Myocardial infarct finding now present Atrial fibrillation no longer present Electronically Signed On 12-14-2020 21:02:08 SPORTS MEDICINE SPECIALIST by Leo Pinto M.D. [email or web address] [id number]
[2020-12-14 18:05] LABS: Troponin 5 6HR 19.75 ng/L (0-15)
[2020-12-14 18:06] LABS: Troponin 5 6HR Delta -1.25 ng/L (0-12)
[2020-12-14] MEDS: enoxaparin 80 mg/0.8 mL Syringe SUBCUT (20:14)
--- NOTE | 2020-12-14 23:57 | PC.NURSE ---
ASSUMING CARE 1900 Patient is lying in bed on 4L nasal cannula. Patient is alert and oriented x 4. Patient denies any need for pain medication at this time. Abdominal incisions remain dry, clean and intact. No drainge, no abdominal distention, and abdomen is soft.
[2020-12-15] VITALS (101 sets, daily range): BP systolic 132–170; BP diastolic 72–102; PULSE 67–98; RESP 7–43; TEMP 36.5–36.8; O2SAT 93–98
[2020-12-15] MEDS: morphine 4 mg/mL SDV 1 mL IVP ×4 (01:00→20:33)
[2020-12-15 05:15] LABS: Basophils % 0.3 %; Eosinophils % 0.3 %; Hematocrit 39.8 % (42.0-52.0); Hemoglobin 13.3 g/dL (11.7-16.6); Lymphocytes # 0.9 10^3/uL (0.8-4.8); Lymphocytes % 7.1 %; Mean Corpuscular HGB Conc 33.4 g/dL (30.0-36.0); Mean Corpuscular Hemoglobin 32.3 pg (28.0-34.0); Mean Corpuscular Volume 96.6 fL (80-94); Mean Platelet Volume 11.3 fL (7.4-10.4); Monocytes # 0.4 10^3/uL (0.2-0.9); Monocytes % 3.4 %; Neutrophils # 11.12 10^3/uL (1.8-7.7); Neutrophils % 88.5 %; Nucleated Red Blood Cells % 0 %; Platelet Count 308 10^3/cmm (130-400); Red Blood Count 4.12 10^6/uL (4.1-5.3); Red Cell Distribution Width 13.4 % (12.1-15.1); White Blood Count 12.6 10^3/uL (4.0-10.0)
[2020-12-15 05:32] LABS: Anion Gap 13.5 (5-19); Blood Urea Nitrogen 17 mg/dL (8-23); Calcium 8.8 mg/dL (8.5-10.5); Carbon Dioxide 25 mmol/L (22-29); Chloride 95 mmol/L (98-107); Glucose 100 mg/dL (65-115); Osmolality Calculated 272 mOsm/kg (285-295); Potassium 3.5 mmol/L (3.5-5.1); Sodium 130 mmol/L (136-145)
--- NOTE | 2020-12-15 06:31 | PM.PN ---
Subjective Subjective: Interval history: Arrangements were being made for the patient to be transferred to the regular floor yesterday when he went into atrial fibrillation with RVR. He was started on a Cardizem drip and eventually converted to his beta-neal twice a day. He reportedly converted back to sinus rhythm on his own otherwise. He states he feels well this morning, continues to pass some flatus, but still does not have much of an appetite. He does like to drink the clear liquids, however. He has minimal discomfort in his abdomen. Vitals/I&O/Wt Last Vital Signs Temp 98.2 F 12/13/20 19:00 Pulse 74 12/14/20 22:09 Resp 20 H 12/15/20 01:00 BP 132/79 12/14/20 18:00 Pulse Ox 94 12/15/20 01:00 12/14/20 12/14/20 12/15/20 14:59 22:59 06:59 Intake Total 1055.917 / 1114.917 59.000 / 1114.917 Output Total 2480 / 3080 600 / 3080 Balance -1424.083 / -1965.083 -541.000 / -1965.083 Weight last 48 hrs Weight 175 lb 9.6 oz Physical Exam Narrative: EXAM NARRATIVE: Bowel sounds are still present. The abdomen is soft with the expected amount of tenderness. Data : 12/15/20 04:57 12/15/20 04:57 Micro: Microbiology 12/12/20 22:24 Gram Stain - Final Peritoneal Fluid Anaerobic Culture - Preliminary Body Fluid Culture - Preliminary 12/13/20 13:55 MRSA Culture - Final Nose 12/13/20 13:30 Gram Stain - Final Sputum - Expectorated Sputum Sputum Culture - Preliminary A&P Assessment and plan (1) Acute appendicitis: The patient's appendix was found to be perforated at the time of surgery. Culture results of the peritoneal fluid so far have been negative. The patient continues on Zosyn. His white blood cell count has almost normalized. Transfer to floor when felt stable enough by the hospitalist team. Status: Acute Attestations Medical Necessity Statement*: Patient requires continued inpatient care for postoperative treatment following perforated appendicitis, as well as atrial fibrillation/RVR, pneumonia, etc. Coding Level of Care Code Acute Physical Science Professor for [facility] Paddy Diagnoses Acute appendicitis K35.80
[2020-12-15] MEDS: piperacillin-tazobactam 3.375 GM in sodium chloride 0.9% (plus) 50 ML IV ×3 (06:44→23:16)
[2020-12-15] MEDS: FUROsemide 40 mg Tablet PO (08:09)
[2020-12-15] MEDS: lisinopril 20 mg Tablet PO (08:09)
[2020-12-15] MEDS: metoprolol tartrate 25 mg Tablet PO (08:09)
[2020-12-15] MEDS: enoxaparin 80 mg/0.8 mL Syringe SUBCUT ×2 (08:10→20:34)
[2020-12-15] MEDS: nicotine 7 mg Patch 1 PATCH TRANSDERMA (08:10)
--- NOTE | 2020-12-15 09:09 | PC.CHAP ---
Pastoral Care Encounter/Spiritual Assessment Type of Contact [] Declined manifold builder visit [] Patient/Family/Request visit [] Outpatient visit [] Follow-up visit [] Physician referral [] Code/Alert [x] Routine visit [] Staff referral [] Actively dying [] Patient sleeping [] Family support [] [] Out of room [] Palliative care [] [] Receiving care in room [] Pre-surgical visit [] Trauma [] Long length of stay [x] ICU visit [] Other: Relational/Emotional Strength [] Patient feels connected with others/family/visitors/staff [] Distress [] Loneliness/isolation [] Abandonment Spirituality of Patient [] Person of Amanda [] Attends Episcopal of their Amanda [] Believes in Prayer [] Reads Bible or Hinduism materials [] There are Spiritual issues to be addressed Ibm Websphere Portal Developer Interventions [x] Prayer [] Active listening [] Non-anxious presence [] Spiritual/emotional support [] Crisis/trauma care [] Spiritual counseling [] Bereavement support [] Provided bereavement packet [] Provided Bible/devotional materials [] Provided toy/stuffed animal, coloring book to patient or family member [] Provided Communion [] Anointing/[place] [] Salvation [x] Completed spiritual assessment [] Other: Impact on Illness or Injury [] Angry [] Fearful [] Anxious [] Often cries [] Exhaustion [] Unable to work [] Unable to attend sabianist [] Unable to walk/stand [] Unable to read [] Unable to drive [] Unable to eat/drink [] Unable to sleep [] Unable to be with family [] Patient intubated [] Other: Summary Time spent with patient
--- NOTE | 2020-12-15 09:22 | PM.PN ---
Subjective Subjective: Interval history: Lonnie reports he feels better. Denies any significant shortness of breath currently. Down to 2 L nasal cannula. Medications: Reviewed: Yes Vitals/I&O/Wt Last Vital Signs Temp 98.2 F 12/15/20 07:05 Pulse 97 12/15/20 09:00 Resp 18 12/15/20 09:00 BP 149/72 12/15/20 09:00 Pulse Ox 98 12/15/20 09:00 12/14/20 12/15/20 12/15/20 22:59 06:59 14:59 Intake Total 59.000 / 1114.917 170 / 1284.917 Output Total 600 / 3080 400 / 3480 50 / 50 Balance -541.000 / -1965.083 -230 / -2195.083 -50 / -50 Weight last 48 hrs Weight 76.158 kg Weight 79.651 kg Physical Exam Narrative: EXAM NARRATIVE: General exam is a white male no apparent shortness of breath. Telemetry shows sinus rhythm currently. Neck is supple no lymphadenopathy or thyromegaly Cardiovascular regular rate and rhythm without murmur, no S3 or S4 Lungs relatively clear Abdomen is soft with dressing intact. Hypoactive bowel sounds Extremities no cyanosis clubbing or edema Data : 12/15/20 04:57 12/15/20 04:57 Micro: Microbiology 12/12/20 22:24 Gram Stain - Final Peritoneal Fluid Anaerobic Culture - Preliminary Body Fluid Culture - Preliminary 12/13/20 13:55 MRSA Culture - Final Nose 12/13/20 13:30 Gram Stain - Final Sputum - Expectorated Sputum Sputum Culture - Preliminary A&P Assessment and plan (1) Acute respiratory failure: Acute hypoxic respiratory failure. To multi factorial. Likely aspiration pneumonitis as well as fluid overload Initiate Lasix 40 mg p.o. daily today Wean off oxygen as tolerated Transfer out of ICU Status: Acute (2) Pneumonia: Continue Zosyn Await MRSA PCR Covid PCR pending Status: Acute (3) Pulmonary edema: See notations under acute respiratory failure Clinically resolving Status: Acute (4) Acute appendicitis: Postoperative day number #3 for perforated appendicitis Currently on Zosyn Incentive spirometry Status: Acute (5) Hepatitis C: Hold medicines currently Status: Acute Qualifiers: Viral hepatitis chronicity: chronic Hepatic coma status: without hepatic coma Qualified Code(s): B18.2 - Chronic viral hepatitis C Additional A&P Information Atrial fibrillation with rapid ventricular rate. Now converted to sinus rhythm. Continue Lovenox full dose anticoagulation. Continue metoprolol. If remains stable could consider conversion to Eliquis tonight or tomorrow. Hypokalemia. Supplement Hypertension. Restart lisinopril 20 mg Continue metoprolol that was added History of COPD. Xopenex as needed should be sufficient currently. No active wheezing Full code Lovenox will suffice for DVT prophylaxis Attestations Medical Necessity Statement*: Needs continued hospitalization for close monitoring status post perforated appendicitis with aspiration pneumonitis and atrial fibrillation with rapid ventricular rate. 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
[2020-12-15] MEDS: potassium chloride ER 20 mEq Tablet 40 MEQ PO (09:36)
[2020-12-15] MEDS: pantoprazole DR 40 mg Tablet PO (10:15)
--- NOTE | 2020-12-15 10:48 | PC.NURSE ---
patient report given to Mary HOFFMAN in the CSU department. Patient transported to CSU room 104 via wheelchair. PAtient is still pending covid rule out. supervisor plate forming cleared hallways en route.
--- NOTE | 2020-12-15 11:55 | PC.NURSE ---
patient continues to report heart burn after protonix administration at 10:15 instructions given to start Mylanta 30 ml po Q6H PRN
[2020-12-15] MEDS: alum-mag-hydroxide-sime 30 mL UDC PO ×2 (12:01→20:34)
[2020-12-15 14:51] LABS: Coronavirus Test Green County Not Detected
[2020-12-15] MEDS: ondansetron 2 mg/ML SDV 2 mL 4 MG IVP (15:31)
--- NOTE | 2020-12-15 16:08 | PC.NURSE ---
patient having 2 episodes of vomitus and pain rated 8/10 in abdomen after episodes zofran given for nausea and 3 mg morphine given for moderate pain; notified Dr. crawford of serology reports isolation precautions discontinued
[2020-12-15] MEDS: metoprolol tartrate 50 mg Tablet PO (20:34)
[2020-12-16] VITALS (59 sets, daily range): BP systolic 157–162; BP diastolic 82–89; PULSE 62–93; RESP 6–35; TEMP 36.4; O2SAT 91–96
[2020-12-16] MEDS: morphine 4 mg/mL SDV 1 mL IVP (03:33)
[2020-12-16 04:55] LABS: Basophils % 0.3 %; Eosinophils # 0.1 10^3/uL (0.0-0.8); Eosinophils % 1.3 %; Hemoglobin 14.2 g/dL (11.7-16.6); Lymphocytes % 10.9 %; Mean Corpuscular HGB Conc 33.8 g/dL (30.0-36.0); Mean Corpuscular Hemoglobin 31.8 pg (28.0-34.0); Mean Platelet Volume 11.4 fL (7.4-10.4); Monocytes # 0.5 10^3/uL (0.2-0.9); Monocytes % 5.6 %; Neutrophils # 7.49 10^3/uL (1.8-7.7); Neutrophils % 81.6 %; Nucleated Red Blood Cells % 0 %; Platelet Count 354 10^3/cmm (130-400); Red Blood Count 4.47 10^6/uL (4.1-5.3); Red Cell Distribution Width 13.3 % (12.1-15.1); White Blood Count 9.2 10^3/uL (4.0-10.0)
[2020-12-16 05:32] LABS: Anion Gap 16.5 (5-19); Blood Urea Nitrogen 18 mg/dL (8-23); Calcium 9.3 mg/dL (8.5-10.5); Carbon Dioxide 27 mmol/L (22-29); Chloride 95 mmol/L (98-107); Glucose 106 mg/dL (65-115); Osmolality Calculated 282 mOsm/kg (285-295); Potassium 3.5 mmol/L (3.5-5.1); Sodium 135 mmol/L (136-145)
[2020-12-16] MEDS: ondansetron 2 mg/ML SDV 2 mL 4 MG IVP (06:10)
[2020-12-16] MEDS: alum-mag-hydroxide-sime 30 mL UDC PO (06:10)
--- NOTE | 2020-12-16 07:59 | P.PN_ITS ---
Subjective Subjective: Interval history: Lonnie has now been moved to first floor. He says he feels great. He is anxious to get out of the hospital. He is passing a lot of flatus but has not had any bowel movements yet. He says his appetite is improving but he still seems to be most comfortable sticking with a liquid diet for now. Vitals/I&O/Wt Last Vital Signs Temp 97.7 F 12/15/20 19:17 Pulse 71 12/16/20 06:00 Resp 17 12/16/20 04:25 BP 162/89 12/16/20 04:25 Pulse Ox 96 12/16/20 03:33 12/15/20 12/16/20 12/16/20 22:59 06:59 14:59 Intake Total 290 / 510 50 / 510 Output Total 0 / 275 225 / 275 Balance 290 / 235 -175 / 235 Weight last 48 hrs Weight 164 lb 1.6 oz Weight 167 lb 14.4 oz Physical Exam Narrative: EXAM NARRATIVE: The patient has been afebrile for several days. Vital signs appear stable. He remains on a nasal cannula with low flow oxygen. Bowel sounds are present. The surgical incisions look good. Data : 12/16/20 04:25 12/16/20 04:25 Micro: Microbiology 12/12/20 22:24 Gram Stain - Final Peritoneal Fluid Anaerobic Culture - Preliminary Body Fluid Culture - Preliminary 12/13/20 13:30 Gram Stain - Final Sputum - Expectorated Sputum Sputum Culture - Final A&P Assessment and plan (1) Acute appendicitis: Status post laparoscopic appendectomy on 12/12/2020. The patient's appendix was found to be perforated at the time of surgery. Culture results of the peritoneal fluid so far have still been negative. The patient's white blood cell count has normalized and he is afebrile. The patient continues on Zosyn, but I suspect that can probably be discontinued within the next 24 to 48 hours. From my perspective, when the hospitalist team feels comfortable, the patient can be safely discharged. I may or may not leave him on some oral antibiotics at that time depending on when his discharge occurs. Status: Acute Attestations Medical Necessity Statement*: Patient requires continued inpatient care for intravenous antibiotics following perforated appendicitis and treatment for pneumonia/fluid overload in addition to an episode of atrial fibrillation with RVR. Coding Level of Care Code Acute Behavioral Psychologist for [facility] Fwd Diagnoses Acute appendicitis K35.80
[2020-12-16] MEDS: piperacillin-tazobactam 3.375 GM in sodium chloride 0.9% (plus) 50 ML IV (09:13)
[2020-12-16] MEDS: enoxaparin 80 mg/0.8 mL Syringe SUBCUT (09:14)
[2020-12-16] MEDS: FUROsemide 40 mg Tablet PO (09:14)
[2020-12-16] MEDS: nicotine 7 mg Patch 1 PATCH TRANSDERMA (09:15)
[2020-12-16] MEDS: lisinopril 20 mg Tablet PO (09:15)
[2020-12-16] MEDS: pantoprazole DR 40 mg Tablet PO (09:15)
[2020-12-16] MEDS: metoprolol tartrate 50 mg Tablet PO (09:17)
--- NOTE | 2020-12-16 10:56 | P.PN_ITS ---
Subjective Subjective: Interval history: Lonnie reports he has no chest discomfort. He is not short of breath currently. He would like to go home. He reports his abdomen is not bothering him. Medications: Reviewed: Yes Vitals/I&O/Wt Last Vital Signs Temp 97.7 F 12/15/20 19:17 Pulse 77 12/16/20 08:00 Resp 32 H 12/16/20 08:00 BP 160/82 12/16/20 08:00 Pulse Ox 94 12/16/20 10:39 12/15/20 12/16/20 12/16/20 22:59 06:59 14:59 Intake Total 290 / 460 50 / 510 120 / 120 Output Total 0 / 50 225 / 275 100 / 100 Balance 290 / 410 -175 / 235 20 / 20 Weight last 48 hrs Weight 74.435 kg Weight 76.158 kg Physical Exam Narrative: EXAM NARRATIVE: General exam is a white male no apparent shortness of breath. Telemetry continues to show sinus rhythm. Home O2 evaluation demons trates no need for oxygen Neck is supple no lymphadenopathy or thyromegaly Cardiovascular regular rate and rhythm without murmur, no S3 or S4 Lungs clear Abdomen is soft with dressing intact. Hypoactive bowel sounds Extremities no cyanosis clubbing or edema Data : 12/16/20 04:25 12/16/20 04:25 Micro: Microbiology 12/12/20 22:24 Gram Stain - Final Peritoneal Fluid Anaerobic Culture - Preliminary Body Fluid Culture - Preliminary 12/13/20 13:30 Gram Stain - Final Sputum - Expectorated Sputum Sputum Culture - Final A&P Assessment and plan (1) Acute respiratory failure: Acute hypoxic respiratory failure. To multi factorial. Likely aspiration pneumonitis as well as fluid overload Continue Lasix 40 mg p.o. daily today Wean off oxygen as tolerated Does not qualify for home oxygen Status: Acute (2) Pneumonia: Will need 7 more days of Augmentin MRSA PCR negative Covid PCR negative Status: Acute (3) Pulmonary edema: See notations under acute respiratory failure Resolved Status: Acute (4) Acute appendicitis: Postoperative day number #4 for perforated appendicitis. Doing well Currently on Zosyn Incentive spirometry Status: Deleted (5) Hepatitis C: Hold medicines currently Status: Acute Qualifiers: Viral hepatitis chronicity: chronic Hepatic coma status: without hepatic coma Qualified Code(s): B18.2 - Chronic viral hepatitis C Additional A&P Information Atrial fibrillation with rapid ventricular rate. Now converted to sinus rhythm. Continue Eliquis and metoprolol on discharge. Risks and benefits discussed. Hypokalemia. Supplement Hypertension. Lisinopril 40 mg a day on discharge Continue metoprolol that was added History of COPD. Xopenex as needed should be sufficient currently. No active wheezing Full code Lovenox will suffice for DVT prophylaxis Attestations Medical Necessity Statement*: As per primary. Potential discharge today. 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
--- NOTE | 2020-12-16 12:07 | PM.DCS ---
Discharge Providers Date of Admission: 12/13/20 07:31 Date of Discharge: December 16, 2020 Attending Provider at Admission: Neftali Goncalves MD Attending Provider at Discharge: Neftali Goncalves MD Consults: Cameron Macias, hospitalist team. Diagnoses at Discharge Discharge Diagnosis (1) Acute respiratory failure: Status: Acute (2) Pneumonia: Status: Acute (3) Pulmonary edema: Status: Acute (4) Acute appendicitis: Status: Deleted Permanent problem details: Status post appendectomy for perforated appendicitis (5) Hepatitis C: Status: Acute Permanent problem details: Completed Epclusa in 2019 Qualifiers: Viral hepatitis chronicity: chronic Hepatic coma status: without hepatic coma Qualified Code(s): B18.2 - Chronic viral hepatitis C Reason for Visit Reason for Visit: abd pain Hospital Course Hospital Course This is a 70-year-old white male who presented to the emergency room with a recent ongoing history of right lower quadrant abdominal pain. A CAT scan showed changes consistent with appendicitis. He was taken to the operating room where an obvious perforation was present. Some peritoneal fluid was collected but initial Gram stain and culture results were negative. His appendix was removed. Postoperatively he was tachycardic and somewhat hypoxic. He was placed in the intensive care unit and the hospitalist team was consulted. He was felt to be at least partially fluid overloaded and was diuresed, but also had some changes of pneumonia/consolidation involving the right lung field. He was kept on broad-spectrum antibiotics. His bowel function returned. He initially otherwise did well following diuresis but then developed an episode of atrial fibrillation with rapid ventricular response and was kept in the intensive care unit for another day. This stabilized and the patient was kept on an oral beta-neal and transferred to the cardiac floor where he continued to do well. The following day he said he felt great and was very anxious to go home. His white blood cell count had normalized and he was doing well off of oxygen. The patient was discharged on oral Augmentin for a period of 7 days. Arrangements were made for him to follow-up in my office postoperatively and arrangements were also made for him to follow-up from a cardiac standpoint with the [facility] where he normally receives his medical care. He was instructed with respect to diet, wound care, activity limitations, etc. Physical Exam Narrative: EXAM NARRATIVE: Vital signs are stable. Bowel sounds are present. The abdominal exam reveals the expected amount of tenderness. All of the surgical wounds look good. Discharge Data Data Completed and Pending: Completed Studies During Hospitalization Category Date Time Status CT abdomen pelvis w con* [id number] Stat Cat Scan 12/12/20 18:35 Completed XR chest 1V omid ble [id number] Routine Exams 12/13/20 07:31 Completed XR chest 1V omid ble [id number] Routine Exams 12/14/20 06:40 Completed Pathology: Surgic al [PTH] Routine Pth 12/12/20 22:36 Completed CV echo complete* [id number] Routine Ultrasound 12/13/20 10:44 Completed Pending at discharge Category Date Time Status Anaerobic Culture Routine Lab 12/12/20 22:24 Results Body Fluid Cultur e & GS Routine Lab 12/12/20 22:24 Results Labs from last 24 hours 12/16/20 12/16/20 12/14/20 04:25 04:25 10:40 WBC 9.2 RBC 4.47 Hgb 14.2 Hct 42.0 MCV 94.0 MCH 31.8 MCHC 33.8 RDW 13.3 Plt Count 354 MPV 11.4 H Neut % (Auto) 81.6 Lymph % (Auto) 10.9 [place] % (Auto) 5.6 Eos % (Auto) 1.3 Baso % (Auto) 0.3 Neut # (Auto) 7.49 Lymph # (Auto) 1.0 [place] # (Auto) 0.5 Eos # (Auto) 0.1 Baso # (Auto) 0.0 Nucleated RBC % (a uto) 0 Nucleated RBCs # 0.0 Sodium 135 L Potassium 3.5 Chloride 95 L Carbon Dioxide 27 Anion Gap 16.5 BUN 18 Creatinine 0.8 GFR Calculation Not Reportable Glucose 106 Calculated Osmolal ity 282 L Calcium 9.3 Nasal/Oral COVID-1 9 PCR Not detected Vitals: Last Vital Signs Temp 97.6 F 12/16/20 08:00 Pulse 77 12/16/20 08:00 Resp 32 H 12/16/20 08:00 BP 160/82 12/16/20 08:00 Pulse Ox 94 12/16/20 10:39 Discharge Plan Discharge Patient Disposition: Home Condition: Stable Prescriptions: New Eliquis 5 mg tablet 5 mg PO BID Qty: 60 RF: 0 furosemide 40 mg Tablet 40 mg PO DAILY@0800 Qty: 30 RF: 0 metoprolol tartrate 50 mg Tablet 50 mg PO BID@0900,2100 Qty: 60 RF: 0 Augmentin 875-125 mg tablet 1 tab PO BID Qty: 14 RF: 0 Combivent Respimat 20-100 mcg/actuation mist 1 puff inhalation Q6H Qty: 4 RF: 0 Continued cetirizine 10 mg capsule 10 mg PO DAILY RF: 0 prazosin 1 mg capsule 1 mg PO BEDTIME RF: 0 trazodone 100 mg tablet 100 mg PO BEDTIME RF: 0 omeprazole 20 mg capsule,delayed release(DR/EC) 20 mg PO DAILY RF: 0 multivitamin Tablet 1 tab PO QAM RF: 0 lisinopril 40 mg tablet 40 mg PO DAILY RF: 0 Discontinued amlodipine 5 mg tablet 5 mg PO DAILY RF: 0 diclofenac sodium 75 mg tablet,delayed release (DR/EC) 75 mg PO BID RF: 0 Discharge Orders: Discharge Order (Routine); Ordered 12/16/20 Ordered By: Neftali Goncalves Referrals: Neftali Goncalves MD [Physician] - 12/27/20 9:15 am (You have a hospital followup with Dr. Goncalves at his office on December 27 at 9:15am) Amie Hernández MD [Physician] - 12/29/20 12:30 pm (You have a cardiology followup with Dr. Hernández at [facility] on December 29 at 12:30) Hyun Mittal MD [Referring] - 12/20/20 1:00 pm (You have a hospital followup with Dr. Mittal at the [facility] and will have BMP & CBC bloodwork done on December 20 at 1:00pm) Discharge Diet: Advance as tolerated Discharge Activity: Limit activity as instructed Patient Instructions: Metoprolol (By mouth), Furosemide (By mouth), Amoxicillin/Clavulanate Potassium (By mouth), Ipratropium/Albuterol (By breathing), Apixaban (By mouth) Activity Restrictions/Additional Instructions: 1. Keep remaining steri-strips on abdominal wounds until they fall off (okay to shower). 2. Appointment to see Dr. Goncalves as above. Avoid lifting over 20 lbs. for now. No repetetive bending, twisting, pushing, pulling, etc. Ok to go up and down stairs if needed. Ambulate regularly. For any evidence of bleeding such as black or tarry stools, bright red blood per stool, frequent nosebleeds please return to the emergency department or contact primary care provider. You are being prescribed an anticoagulant secondary to risk of stroke with atrial fibrillation. Please arrange follow-up with cardiology clinic prior to discharge, for 2-week follow-up secondary to atrial fibrillation, mitral regurgitation. Follow-up with your primary care provider in 3 to 5 days with a CBC and BMP. Do not smoke. Discharge Attestations Time Spent in Discharge Care*: less than 30 min Quality Metrics Clinical Quality Measures During this hospital stay, did patient experience: None Coding Level of Care Code Acute Php Web Developer for Jayme Thomason Diagnoses Acute respiratory failure J96.00 Pneumonia J18.9 Pulmonary edema J81.1 Acute appendicitis K35.80 Hepatitis C B18.2 Viral hepatitis chronicity: chronic Hepatic coma status: without hepatic coma
--- NOTE | 2020-12-16 12:12 | DCPLANNER ---
IMM completed on 12/16/20 @ 4243. Copy of rights given to pt.
--- NOTE | 2020-12-16 13:09 | PC.NURSE ---
patient IV discontinued cath intact min bleeding noted patient requested a cab ride [facility]J ride set up patient assisted to wheel chair and accompanied to ANJ ride patient alert oriented and in stable condition
== END 2020-12-16 13:00 | disposition home or self-care (01) | DRG 853 ==
LOC: ER 20:57 → OR 21:03 → MEDSURG 22:11 → ICU 23:36 → CSU 12-15 10:40
PROVIDERS: Internal Medicine; Admitting Provider Surgery; Emergency Provider Family Medicine; PCP Family Medicine; Visit Provider Surgery
PROC: 0DTJ4ZZ Resection of Appendix, Percutaneous Endoscopic Approach (ICD-10-PCS; CPT 44970; principal; 2020-12-12 21:15)
DX: A41.9 Sepsis, unspecified organism (principal); K35.32 Acute appendicitis with perforation, localized peritonitis, and gangrene, without abscess; J96.01 Acute respiratory failure with hypoxia; J18.9 Pneumonia, unspecified organism; J81.0 Acute pulmonary edema; I50.31 Acute diastolic (congestive) heart failure; J44.0 Chronic obstructive pulmonary disease with (acute) lower respiratory infection; I10 Essential (primary) hypertension; B18.2 Chronic viral hepatitis C; F17.210 Nicotine dependence, cigarettes, uncomplicated
CPT/HCPCS: 12345; 36415; 36600; 71045; 74177; 80048; 80051; 80053; 81003; 82330; 82805; 83605; 83690; 83735; 83880; 84443; 84484; 85025; 87070; 87075; 87077; 87205; 87426; 87635; 87641; 88304; 90471; 90686; 93005; 93306; 94640; 94660; 96365; 96367; 96372; 96375; 99285; G0378; J0330; J0690; J1644; J1650; J1940; J2250; J2270; J2405; J2543; J2704; J2710; J3010; J3480; J3490; J3535; J7614; Q9967; S0030

== ENCOUNTER 2023-01-24 08:19 | Outpatient (CLI) | payer OTHER, SELFPAY ==
--- NOTE | 2023-01-24 08:31 | USCV_ITS ---
Rogers Lonnie Age: 72 Gender: M : 1950 Exam Date: 01/24/2023 08:54 Ordering Phys: Hyun Mittal MD Technologist: Exam Location: [facility] Indication: screening HISTORY: Diameter (cm) AP x Transverse x Length Velocity (cm/s) Waveform Prox Aorta: 2.35 x 2.22 x 106.30 Triphasic Mid Aorta: 2.35 x 2.45 x 70.00 Triphasic Distal Aorta: 1.41 x 1.73 x 77.90 Triphasic Right Iliac Prox: 0.98 x 0.94 x 84.00 Triphasic Left Iliac Prox: 0.93 x 1.07 x 77.10 Triphasic Stent Prox Landing x x Aneurysmal Sac Max x x Lt Lat Sac Dim Rt Lat Sac Dim Stent Dist Landing x x Right Iliac Stent x x Left Iliac Stent x x Right Renal Art Left Renal Art FINDINGS: CONCLUSIONS No evidence of abdominal aortic or bilateral iliac aneurysm. Eron Reyes MD (Electronically Signed) Final Date: 24 January 2023 09:47 S
--- NOTE | 2023-01-24 08:31 | CTR_ITS ---
PROCEDURE INFORMATION: Exam: CT Chest With Contrast; Diagnostic Exam date and time: 01/24/2023 9:57 AM Age: 72 years old Clinical indication: Abnormal findings; Abnormal radiologic exam of lung or chest; Additional info: Abnormal ct/lung nodules TECHNIQUE: Imaging protocol: Diagnostic computed tomography of the chest with contrast. Radiation optimization: All CT scans at this facility use at least one of these dose optimization techniques: automated exposure control; mA and/or kV adjustment per patient size (includes targeted exams where dose is matched to clinical indication); or iterative reconstruction. Contrast material: OMNI 350; Contrast volume: 100 ml; Contrast route: INTRAVENOUS (IV); REPORTING DATA: Count of CT and Cardiac NM exams in prior 12 months: This patient has received 0 known CTs and 0 known cardiac nuclear medicine studies in the 12 months prior to the current study. COMPARISON: 1. XR chest 12/14/2020. 2. CT chest 02/15/2020. 3. CT chest 01/05/2019. RADIATION DOSE METRICS: Total DLP (mGy-cm): 217.98 FINDINGS: Thyroid: Unremarkable Trachea: Unremarkable. Bronchial tree: Unremarkable. Lungs: Multiple 2 mm nodules in the anterior aspects of both upper lobes, right more than left, are benign because they are unchanged from 01/05/2019. In the right lung, they are seen on images 23, 25, 29 35, 36, and 37. In the left lung, they are seen on images 19, 24, and 25. The lungs are otherwise clear. There are no new or suspicious pulmonary nodules. Pleural spaces: Unremarkable. No pneumothorax. No pleural effusion. Heart: Heart size is normal. Esophagus: Unremarkable. Mediastinal space: The esophagus is normal. Lymph nodes: There is no hilar, mediastinal or axillary lymphadenopathy. Vasculature: There are no filling defects in the pulmonary arterial tree to suggest a pulmonary embolus. Mild calcific atherosclerosis of the thoracic aorta. There is no aneurysm. There are no filling defects in the pulmonary arterial tree to suggest a pulmonary embolus. Diaphragm: A moderate hiatal hernia is slightly larger than it was in 2019. It is 5.1 x 3.9 x 5.8 cm (previously 4.9 x 3.7 x 5.7 cm). Kidneys and ureters: At the upper pole the right kidney, a stable simple appearing cyst is 6.7 cm. Bones/joints: 22 degree dextroscoliosis between T11 and L3 is unchanged. Stable benign hemangioma in the T11 vertebral body. It has characteristic vertical striations. Soft tissues: Unremarkable. CT/CT chest w con* [id number] IMPRESSION: 1. Multiple 2 mm nodules in the anterior aspects of both upper lobes, right more than left, are benign because they are unchanged from 01/05/2019. They do not require imaging follow-up. The lungs are otherwise clear. 2. A moderate hiatal hernia is slightly larger than it was 4 years ago. 3. Mild centrilobular emphysema. 4. No lymphadenopathy.
[2023-01-24] MEDS: iohexol 350 mg/mL 500 mL Btl (per mL) IV (09:53)
[2023-01-24 09:57] LABS: Blood Urea Nitrogen 16 mg/dL (8-23)
== END 2023-01-24 08:20 | disposition home or self-care (01) ==
PROVIDERS: PCP Family Medicine; Visit Provider Family Medicine
DX: R91.8 Other nonspecific abnormal finding of lung field (principal); J43.2 Centrilobular emphysema; K44.9 Diaphragmatic hernia without obstruction or gangrene
CPT/HCPCS: 71260; 76706; 82565; 84520; Q9967

== ENCOUNTER 2023-04-04 07:16 | Outpatient (CLI) | payer OTHER, SELFPAY ==
--- NOTE | 2023-04-04 07:25 | CT_ITS ---
WS: [id number] CT ABDOMEN AND PELVIS WITH CONTRAST HISTORY: UNINTENTIONAL WEIGHT LOSS TECHNIQUE: Imaging performed of the abdomen and pelvis with IV contrast. Single phase imaging of the abdomen. Coronal and sagittal reformats are submitted. All CT scans at [facility] use at [address] one of these dose optimization techniques: automated exposure control; mA and/or kV adjustment per patient size (includes targeted exams where dose is matched to clinical indication); or iterative re construction. IV CONTRAST: Omnipaque 350; 100 mL IV. Oral contrast: Yes. DLP: 272.02 mGy.cm COMPARISON: 12/12/2021 Lower thorax: Lung bases are clear. Heart is normal size. Large hiatal hernia. Hernia has slightly in creased in size since 2020. Liver/biliary system: Normal size with no intrahepatic dilatation. Gallbladder: Normal. No gallstones or wall thickening. No pericholecystic fluid. Pancreas: Normal size pancreas and pancreatic duct. No adjacent inflammation. Spleen: Normal size spleen. No mass or infarct. Adrenal glands: Normal RIGHT adrenal gland. Stable thickening of the LEFT adrenal gland. Right kidney: Normal size RIGHT kidney. Large superior pole cyst measures 6.5 x 5.8 cm. There is earnest tional smaller cortical cyst in the mid kidney. Nonobstructing central calcifications. Left kidney: Multiple small cortical cysts. The largest in the anterior mid kidney measures 2.8 x 3.6 cm. Nonobstructing calcifications. Aorta: Moderate atherosclerosis with no aneurysm. Calcified plaque SMA and celiac axis. Lymphadenopathy: None. Free fluid: None. GI tract: Normally distended stomach. No small bowel obstruction. Mild diffuse fecal retention. Prior appendectomy. Moderate distal colon diverticular burden. No evidence for acute diverticulitis. Abdominal wall: Unremarkable abdominal wall. No hernia. Pelvis: No free fluid or adenopathy within the pelvis. Normally distended urinary bladder. Posterior RIGHT bladder nodule measuring 7 mm. There is mild enhancement. This could represent very early neopl asm in the urinary bladder or be bladder wall hypertrophy. Prostate gland is enlarged and heterogeneo us with mild encroachment centrally. Bones: Advanced degenerative changes within the lumbar spine. Asymmetric disc space narrowing. CT/CT abdomen pelvis w con* [id number] IMPRESSION: 1. Moderate-sized hiatal hernia, slightly enlarged since 2020. 2. No ascites or adenopathy. 3. Bilateral renal cysts. 4. Moderate atherosclerotic disease aorta. 5. Prior appendectomy. 6. Distal colon diverticulosis without acute diverticulitis. 7. Very subtle 7 mm nodular enhancement in the RIGHT posterior urinary bladder . Could represent very early bladder neoplasm. 8. Prostate enlargement.
--- NOTE | 2023-04-04 07:27 | US_ITS ---
WS: [id number] ULTRASOUND THYROID TECHNIQUE: Ultrasound of the thyroid. CLINICAL INFORMATION: POSSIBLE NODULE, ABNORMAL THYROID FUNCTION COMPARISON: Ultrasound 2017 FINDINGS: Thyroid: Right and left thyroid lobes are normal in size and echotexture. Right thyroid lobe: 4.3 cm x 1.5 cm x 1.6 cm No suspicious RIGHT thyroid nodules. Left thyroid lobe: 3.9 cm x 1.4 cm x 1.7 cm. Complex cystic nodule upper pole LEFT thyroid measuring 1.0 x 0.9 x 1.2 cm with internal nodule measu ring 6 mm. Isthmus: 0.3 mm. Cervical lymphadenopathy: None. US/US thyroid [id number] IMPRESSION: 1. Complex cystic nodule upper pole LEFT thyroid measuring 1.0 x 0.9 x 1.2 cm with internal nodule measuring 6 mm. Recommend 12 month follow-up. 2. No suspicious RIGHT thyroid nodules.
[2023-04-04] MEDS: iohexol 350 mg/mL 500 mL Btl (per mL) PO (07:44)
[2023-04-04] MEDS: iohexol 350 mg/mL 500 mL Btl (per mL) IV (07:44)
[2023-04-04 08:38] LABS: Blood Urea Nitrogen 18 mg/dL (8-23)
== END 2023-04-04 07:17 | disposition home or self-care (01) ==
LOC: RAD 07:16
PROVIDERS: PCP Family Medicine; Visit Provider Family Medicine
DX: R63.4 Abnormal weight loss (principal); R94.6 Abnormal results of thyroid function studies; E04.1 Nontoxic single thyroid nodule; K44.9 Diaphragmatic hernia without obstruction or gangrene; N28.1 Cyst of kidney, acquired; K57.30 Diverticulosis of large intestine without perforation or abscess without bleeding; N40.0 Benign prostatic hyperplasia without lower urinary tract symptoms
CPT/HCPCS: 74177; 76536; 82565; 84520; Q9967

== ENCOUNTER 2024-01-27 07:31 | Outpatient (CLI) | payer OTHER, SELFPAY ==
--- NOTE | 2024-01-27 08:00 | USCV_ITS ---
Lonnie Rogers Age: 73 Gender: M : 1950 Exam Date: 01/27/2024 08:09 Ordering Phys: Yuli Russ Technologist: KENIA Exam Location: [facility] [place] Indication: murmur, BP: 130 / 88 HR: 172 Rhythm: Sinus Technical Quality: Adequate MEASUREMENTS (Male / Female) Normal Values 2D ECHO LV Diastolic Diameter PLAX 4.5 cm 4.2 - 5.9 / 3.9 - 5.3 cm IVS Diastolic Thickness 0.8 cm 0.6 - 1.0 / 0.6 - 0.9 cm IVS Systolic Thickness 1.5 cm LVPW Diastolic Thickness 0.7 cm 0.6 - 1.0 / 0.6 - 0.9 cm LVPW Systolic Thickness 0.8 cm LVOT Diameter 2.2 cm LV Ejection Fraction 2D Teich 52.9 % LV Ejection Fraction MOD 2C 53.0 % LV Ejection Fraction 2C AL 53.4 % LA Diameter 3.4 cm RA Systolic Volume 4C AL 16.7 ml RA Systolic Volume 4C MOD 15.7 ml LA Sys Volume AL 31.3 cm cubed LA Sys Volume Index AL 17.2 cm cubed/m squared Aorta at Sinotubular Diameter 3.4 cm IVC Diameter 1.1 cm M-MODE LA Ao Ratio MM 0.6 AV Cusp Separation MM 2.3 cm DOPPLER AV Peak Velocity 110.0 cm/s LVOT Peak Velocity 101.0 cm/s AV Area Cont Eq vti 3.7 cm squared AV Area Cont Eq pk 3.4 cm squared MV Peak Velocity 98.0 cm/s MV Area PHT 3.0 cm squared Mitral E to A Ratio 1.4 TV Peak Velocity 191.5 cm/s TR Peak Velocity 215.0 cm/s TR Peak Gradient 18.5 mmHg TR Mean Velocity 103.0 cm/s TR Mean Gradient 5.7 mmHg TR Velocity Time Integral 37.3 cm TV Peak E Velocity 0.0 cm/s Right Atrial Pressure 3.0 mmHg Pulmonary Artery Systolic Pressu 21.5 mmHg PV Peak Velocity 78.0 cm/s RV Ejection Time 0.3 s FINDINGS Left Ventricle Left ventricle is normal in size. LV systolic function is normal with EF of 50-55%. No regional wall motion abnormalities. Right Ventricle Normal in size and function Right Atrium Normal in size Left Atrium Normal in size Mitral Valve Mild mitral annular calcification. Mild mitral regurgitation Aortic Valve Grossly normal. No significant or regurgitation. Tricuspid Valve Insufficient TR jet to calculate RVSP Pulmonic Valve Not well visualized Pericardium Normal Aorta Ascending aorta is mildly dilated with diameter of 3.72 cm. IVC Appears to be normal CONCLUSIONS LV systolic function is normal with EF of 50-55% Mild mitral regurgitation Ascending aorta is mildly dilated with diameter of 3.72cm. Chuck Almeida MD (Electronically Signed) Final Date: 10 February 2024 17:44 S
== END 2024-01-27 07:32 | disposition home or self-care (01) ==
PROVIDERS: PCP Family Medicine; Visit Provider Nurse Practitioner Family
DX: R01.1 Cardiac murmur, unspecified (principal)
CPT/HCPCS: 93306

== ENCOUNTER 2024-06-15 14:16 | Observation (INO) | payer OTHER, SELFPAY ==
[2024-06-15] VITALS (9 sets, daily range): BP systolic 86–145; BP diastolic 43–79; PULSE 66–87; RESP 16–22; TEMP 36.7–37; O2SAT 85–99; BMI 22.1; BMI 21.9
--- NOTE | 2024-06-15 14:21 | XRR_ITS ---
PROCEDURE INFORMATION: Exam: XR Chest Exam date and time: 06/15/2024 2:27 PM Age: 73 years old Clinical indication: Shortness of breath and other: Hypotensive; Additional info: Luis TECHNIQUE: Imaging protocol: Radiologic exam of the chest. Views: 1 view. COMPARISON: CT chest w con* [id number] 01/24/2023 9:57 AM FINDINGS: Lungs: Mild interstitial prominence diffusely. Pleural spaces: Unremarkable. No pleural effusion. No pneumothorax. Heart/Mediastinum: Moderate hiatal hernia. Bones/joints: Unremarkable. XR/XR chest 1V portable [id number] IMPRESSION: No acute findings.
--- NOTE | 2024-06-15 14:23 | ED_ITS ---
HPI - General Adult 2 General: Chief complaint: Dizziness Stated complaint: hypotensive, dizzy Time Seen by Provider: 06/15/24 14:17 Source: patient Mode of arrival: ambulatory Limitations: no limitations History of Present Illness: 73-year-old male states that this week h is PCP had increase his lisinopril from 40 daily to 60 daily. States his blood pressure has been running low but he still been taking his meds he states he had taken this morning and also smokes marijuana and felt like he was going to pass out patient was found to be hypotensive he is hypotensive here states he did take the 60 of lisinopril this morning. Denies any chest pain denies any headache. Associated symptoms: Reports malaise; Deny chest pain, dyspnea, headache(s), nausea, rash or vomiting Related Data Home Medications Medication Instructions Recorded Confirmed cetirizine 10 mg capsule 10 mg PO DAILY 10/16/19 12/13/20 lisinopril 40 mg tablet 40 mg PO DAILY 10/16/19 12/13/20 multivitamin 1 tab PO QAM 10/16/19 12/13/20 omeprazole 20 mg capsule,delayed 20 mg PO DAILY 10/16/19 12/13/20 release prazosin 1 mg capsule 1 mg PO BEDTIME 10/16/19 12/13/20 trazodone 100 mg tablet 100 mg PO BEDTIME 10/16/19 12/13/20 Previous Rx's Medication Instructions Recorded amoxicillin 875 mg-potassium 1 tab PO BID #14 tabs 12/16/20 clavulanate 125 mg tablet (Augmentin) apixaban 5 mg tablet (Eliquis) 5 mg PO BID #60 tabs 12/16/20 furosemide 40 mg tablet 40 mg PO DAILY@0800 #30 tabs 12/16/20 ipratropium 20 mcg-albuterol 100 1 puff inhalation Q6H #4 grams 12/16/20 mcg/actuation mist for inhalation (Combivent Respimat) metoprolol tartrate 50 mg tablet 50 mg PO BID@0900,2100 #60 tabs 12/16/20 Allergies Allergy/AdvReac Type Severity Reaction Status Date / Time codeine Allergy rash Verified 12/12/20 20:57 Review of Systems 2 Const: Reports: fatigue and malaise; Denies: fever(s), chills, body aches or change in appetite ENMT: Denies: throat pain or dental pain Card: Reports: pre-syncope; Denies: chest pain Resp: Denies: dyspnea GI: Denies: abdominal pain, nausea, vomiting or diarrhea : Denies: dysuria Musc: Denies: neck pain or back pain Skin/Breast: Denies: rash Neuro: Denies: headache(s) PFSH ED 2 PFSH: Medical History PTSD (post-traumatic stress disorder) COPD (chronic obstructive pulmonary disease) Hiatal hernia Diverticulosis Arthritis Hypertension Hepatitis C Completed Epclusa in 2019 Surgical History Bilateral inguinal hernia Bilateral repairs History of surgery on upper extremity L forearm fracture History of penile cancer local excision Family History Other Dementia Social History Smoking and tobacco/nicotine status: current every day tobacco/nicotine user cigarettes Packs smoked per day: 0.5 Years cigarettes smoked: 55 [ Other cigarette details: Heavier smoker in the past] Alcohol intake: current Alcohol intake frequency: few times a month Alcohol type: hard liquor Substance/Drug Use: never Current gender identity: Male Physical Exam 2 Const: COMMON NORMALS: no acute distress, patient oriented x3 and healthy appearing HENMT: COMMON NORMALS: normocephalic and atraumatic HEAD & SCALP: n ormocephalic and atraumatic Eye: COMMON NORMALS: conjunctivae normal CONJUNCTIVA: Yes conjunctivae normal Neck/C-Spine: COMMON NORMALS: full ROM and supple Chest: COMMONS NORMALS: normal inspection of the chest Resp: COMMON NORMALS: normal respiratory effort, No retractions, No use of accessory muscles and clear to auscultation bilaterally AUSCULTATION: clear to auscultation bilaterally Cardio: COMMON NORMALS: regular rate, regular rhythm and No murmurs present (Cardio) RATE: regular rate RHYTHM: regular rhythm GI: COMMON NORMALS: Normal to inspection, nondistended, normoactive bowel sounds present, Soft to palpation, non-tender and no masses PALPATION: Yes Soft to palpation Extremity: COMMON NORMALS: normal to inspection and full ROM Neuro: COMMON NORMALS: patient oriented x3, moves all extremities and no focal motor deficits Psych: COMMON NORMALS: mental status grossly normal, Normal thought process present and cooperative THOUGHT PROCESS: Normal thought process present Skin: COMMON NORMALS: no rashes or lesions noted and no wounds GENERAL SKIN EXAM: no rashes or lesions noted Course 2 Vital Signs: Vital signs: Vital Signs Temperature 98.1 F 06/15/24 14:22 Pulse Rate 72 06/15/24 16:21 Respiratory Rate 18 06/15/24 16:21 Blood Pressure 131/70 06/15/24 16:21 Pulse Oximetry 99 06/15/24 16:21 Oxygen Delivery Me thod Room Air 06/15/24 16:00 MDM - General Adult Medical Decision Making Patient presents here with near syncopal event he was hypotensive likely from his blood pressure medication he is also been drinking heavily he appears dehydrated on his labs with elevated creatinine he also has elevated lactate likely due to dehydration he has no signs of sepsis here. White count is normal no fever I spoke to hospitalist will admit for hydration. Medical Records I reviewed the patient's medical records. Lab Data I reviewed the patient's lab results. 06/15/24 14:01 06/15/24 14:01 Radiology Impressions Chest X-Ray 06/15/24 14:21 IMPRESSION: No acute findings. Laboratory Results WBC 9.21 10^3/uL (3.29-11.43) 06/15/24 14:01 RBC 3.27 10^6/uL (3.85-5.65) L 06/15/24 14:01 Hgb 10.60 g/dL (11.27-16.99) L 06/15/24 14:01 Hct 32.0 % (37-53) L 06/15/24 14:01 MCV 97.9 fl (82-101) 06/15/24 14:01 MCH 32.4 pg (27-33) 06/15/24 14:01 MCHC 33.1 g/dL (30-55) 06/15/24 14:01 RDW 12.8 % (12.1-15.1) 06/15/24 14:01 Plt Count 326 10^3/cmm (157-399) 06/15/24 14:01 MPV 10.4 fL (7.4-10.4) 06/15/24 14:01 Neut % (Auto) 47.8 % 06/15/24 14:01 Lymph % (Auto) 30.1 % 06/15/24 14:01 [place] % (Auto) 6.9 % 06/15/24 14:01 Eos % (Auto) 14.0 % 06/15/24 14:01 Baso % (Auto) 0.9 % 06/15/24 14:01 Neut # (Auto) 4.40 10^3/uL (1.8-7.7) 06/15/24 14:01 Lymph # (Auto) 2.8 10^3/uL (0.8-4.8) 06/15/24 14:01 [place] # (Auto) 0.6 10^3/uL (0.2-0.9) 06/15/24 14:01 Eos # (Auto) 1.3 10^3/uL (0.0-0.8) H 06/15/24 14:01 Baso # (Auto) 0.1 10^3/uL (0.0-0.1) 06/15/24 14:01 Nucleated RBC % (auto) 0 % 06/15/24 14:01 Nucleated RBCs # 0.0 /100WBC 06/15/24 14:01 Sodium 135 mmol/L (136-145) L 06/15/24 14:01 Potassium 3.9 mmol/L (3.5-5.1) 06/15/24 14:01 Chloride 102 mmol/L (98-107) 06/15/24 14:01 Carbon Dioxide 15 mmol/L (22-29) L 06/15/24 14:01 Anion Gap 21.9 (5-19) H 06/15/24 14:01 BUN 36 mg/dL (8-23) H 06/15/24 14:01 Creatinine 2.4 mg/dL (0.7-1.2) H 06/15/24 14:01 GFR Calculation Not Reportable 06/15/24 14:01 Glucose 75 mg/dL (65-115) 06/15/24 14:01 Calculated Osmolality 287 mOsm/kg (285-295) 06/15/24 14:01 Lactic Acid 4.8 mmol/L (0.5-2.2) H* 06/15/24 14:01 Lactic Acid (Sepsis) 1.3 mmol/L (0.5-2.2) 06/15/24 17:03 Calcium 8.4 mg/dL (8.5-10.5) L 06/15/24 14:01 Total Bilirubin 0.2 mg/dL (0.15-1.2) 06/15/24 14:01 AST 13 U/L (0-40) 06/15/24 14:01 ALT 8 U/L (0-41) 06/15/24 14:01 Alkaline Phosphatase 74 U/L (40-130) 06/15/24 14:01 Total Protein 6.4 g/dL (6.6-8.7) L 06/15/24 14:01 Albumin 3.9 g/dL (3.5-5.2) 06/15/24 14:01 Globulin 2.5 g/dL (1.3-4.6) 06/15/24 14:01 TSH 0.41 uIU/mL (0.27-4.20) 06/15/24 14:01 Urine Color Yellow (Yellow) 06/15/24 15:20 Urine Appearance Clear (CLEAR) 06/15/24 15:20 Urine pH 5.5 (5-7) 06/15/24 15:20 Ur Specific [place] 1.007 (1.005-1.030) 06/15/24 15:20 Urine Protein Negative (Negative) 06/15/24 15:20 Urine Glucose (UA) Negative (Normal) 06/15/24 15:20 Urine Ketones Negative (Negative) 06/15/24 15:20 Urine Blood Negative (Negative) 06/15/24 15:20 Urine Nitrate Negative (Negative) 06/15/24 15:20 Urine Bilirubin Negative (Negative) 06/15/24 15:20 Urine Urobilinogen 0.2 mg/dL (Negative) 06/15/24 15:20 Ur Leukocyte Esterase Negative (Negative) 06/15/24 15:20 Urine RBC 0-2 /hpf (0-2) 06/15/24 15:20 Urine WBC 0-5 /hpf (0-5) 06/15/24 15:20 Ur Squamous Epith Cells 0-5 /hpf (0-5) 06/15/24 15:20 Amorphous Sediment Not Reportable 06/15/24 15:20 Urine Bacteria None seen /hpf (NONE) 06/15/24 15:20 Hyaline Casts 6.17 /lpf 06/15/24 15:20 Ethyl Alcohol 168 mg/dL (0-10) H 06/15/24 14:01 All radiology interpretation(s) finalized by discharge EKG Data EKG 1: I personally reviewed and interpreted this EKG as follows: EKG interpretation date: 06/15/24 EKG interpretation time: 14:26 Interpretation: nsr hr [address] elevation qrs 105 qtc 428 Computer generated interpretation: Chest X-Ray 06/15/24 14:21 IMPRESSION: No acute findings. Discharge Plan Discharge Admit Provider: Amie Adler Condition: Stable Coding Level of Care Code ED Production Designer for Chg Paddy
--- NOTE | 2024-06-15 14:26 | ECG_ITS ---
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 Measurements Intervals [place] Rate: 73 P: 253 WV: 167 QRS: -36 QRSD: 105 T: 44 QT: 402 QTc: 444 Interpretive Statements SINUS RHYTHM LEFT AXIS DEVIATION [QRS AXIS < -30] SEPTAL MYOCARDIAL INFARCTION , OF INDETERMINATE AGE [40+ ms Q WAVE IN V1/V2] Compared to ECG 12/14/2020 16:25:17 No significant changes Electronically Signed On 06-15-2024 18:07:41 CDT by Chuck Almeida M.D. [id number]
[2024-06-15 14:35] LABS: Basophils # 0.1 10^3/uL (0.0-0.1); Basophils % 0.9 %; Eosinophils # 1.3 10^3/uL (0.0-0.8); Lymphocytes # 2.8 10^3/uL (0.8-4.8); Lymphocytes % 30.1 %; Mean Corpuscular HGB Conc 33.1 g/dL (30-55); Mean Corpuscular Hemoglobin 32.4 pg (27-33); Mean Corpuscular Volume 97.9 fl (82-101); Mean Platelet Volume 10.4 fL (7.4-10.4); Monocytes # 0.6 10^3/uL (0.2-0.9); Monocytes % 6.9 %; Neutrophils % 47.8 %; Nucleated Red Blood Cells % 0 %; Platelet Count 326 10^3/cmm (157-399); Red Blood Count 3.27 10^6/uL (3.85-5.65); Red Cell Distribution Width 12.8 % (12.1-15.1); White Blood Count 9.21 10^3/uL (3.29-11.43)
[2024-06-15] MEDS: sodium chloride 0.9% 1,000 ML 999 ML IV ×2 (14:42→15:20)
[2024-06-15 14:57] LABS: Alanine Aminotransferase 8 U/L (0-41); Albumin Level 3.9 g/dL (3.5-5.2); Alkaline Phosphatase 74 U/L (40-130); Anion Gap 21.9 (5-19); Aspartate Amino Transferase 13 U/L (0-40); Blood Urea Nitrogen 36 mg/dL (8-23); Calcium 8.4 mg/dL (8.5-10.5); Carbon Dioxide 15 mmol/L (22-29); Chloride 102 mmol/L (98-107); Creatinine Clr Calc Pharmacy 26.5969; Globulin 2.5 g/dL (1.3-4.6); Glucose 75 mg/dL (65-115); Osmolality Calculated 287 mOsm/kg (285-295); Potassium 3.9 mmol/L (3.5-5.1); Sodium 135 mmol/L (136-145); Thyroid Stimulating Hormone 0.41 uIU/mL (0.27-4.20); Total Bilirubin 0.2 mg/dL (0.15-1.2); Total Protein 6.4 g/dL (6.6-8.7)
[2024-06-15 15:17] LABS: Lactic Sepsis W/Reflex 4.8 mmol/L (0.5-2.2)
[2024-06-15 16:01] LABS: Alcohol Level 168 mg/dL (0-10)
[2024-06-15 16:16] LABS: Charge for UA Resulting for Rev
[2024-06-15] MEDS: sodium chloride 0.9% 250 ML IV (16:16)
[2024-06-15 16:17] LABS: Bilirubin Urine Negative (Negative); Blood Urine Negative (Negative); Glucose Urine UA Negative (Normal); Ketones Urine Negative (Negative); Leukocyte Esterase Urine Negative (Negative); Nitrate Urine Negative (Negative); Protein Urine Negative (Negative); Specific Gravity, Urine 1.007 (1.005-1.030); Urine Appearance Clear (CLEAR); Urine Color Yellow (Yellow); Urobilinogen Urine 0.2 mg/dL (Negative); pH Urine 5.5 (5-7)
[2024-06-15 16:22] LABS: Bacteria Urine None Seen /hpf; Hyaline Casts Urine 6.17 /lpf; RBC Urine 0-2 /hpf (0-2); Squamous Epithelial Cell Urine 0-5 /hpf (0-5); WBC Urine 0-5 /hpf (0-5)
[2024-06-15 16:40] LABS: Reflex Lactate Order REFLEX LACTIC ORDERD
--- NOTE | 2024-06-15 16:52 | P.HP_ITS ---
Providers/Chief Complaint 2 Primary Care Provider: Hyun Mittal MD Chief Complaint: hypotensive, dizzy History of Present Illness Lonnie Rogers is a 73 year old male who came in for chief complaint of feeling lethargic and Free related to low blood pressure. Patient is stating that recently his antihypertensive regimen was titrated up by his PCP. He takes Eliquis but he is not sure about indication. He drinks 4-5 beers a day, lives alone. Smokes half a pack a day. In the ER at the time of evaluation patient is hemodynamically stable blood pressure 133/73 mmHg, I requested MedSurg bed and cancel ICU request. Patient is on room air doing well. Added CIWA protocol. Review of Systems 2 Const: Denies: fever(s) Eyes: Denies: change in vision ENMT: Denies: throat pain Card: Denies: chest pain Resp: Denies: dyspnea GI: Denies: abdominal pain Medications/Allergies Home Medications Medication Instructions Recorded Confirmed Last Taken Type cetirizine 10 mg capsule 10 mg PO DAILY 10/16/19 12/13/20 Unknown History lisinopril 40 mg tablet 40 mg PO DAILY 10/16/19 12/13/20 Unknown History multivitamin 1 tab PO QAM 10/16/19 12/13/20 Unknown History omeprazole 20 mg capsule,delayed 20 mg PO DAILY 10/16/19 12/13/20 Unknown History release prazosin 1 mg capsule 1 mg PO BEDTIME 10/16/19 12/13/20 Unknown History trazodone 100 mg tablet 100 mg PO BEDTIME 10/16/19 12/13/20 Unknown History amoxicillin 875 mg-potassium 1 tab PO BID #14 tabs 12/16/20 Unknown Rx clavulanate 125 mg tablet (Augmentin) apixaban 5 mg tablet (Eliquis) 5 mg PO BID #60 tabs 12/16/20 Unknown Rx furosemide 40 mg tablet 40 mg PO DAILY@0800 #30 tabs 12/16/20 Unknown Rx ipratropium 20 mcg-albuterol 100 1 puff inhalation Q6H #4 grams 12/16/20 Unknown Rx mcg/actuation mist for inhalation (Combivent Respimat) metoprolol tartrate 50 mg tablet 50 mg PO BID@0900,2100 #60 tabs 12/16/20 Unknown Rx Allergies Allergy/AdvReac Type Severity Reaction Status Date / Time codeine Allergy rash Verified 12/12/20 20:57 PFSH Acute 2 PFSH: Medical History PTSD (post-traumatic stress disorder) COPD (chronic obstructive pulmonary disease) Hiatal hernia Diverticulosis Arthritis Hypertension Hepatitis C Completed Epclusa in 2019 Surgical History Bilateral inguinal hernia Bilateral repairs History of surgery on upper extremity L forearm fracture History of penile cancer local excision Family History Other Dementia Social History Smoking and tobacco/nicotine status: current every day tobacco/nicotine user cigarettes Packs smoked per day: 0.5 Years cigarettes smoked: 55 [ Other cigarette details: Heavier smoker in the past] Alcohol intake: current Alcohol intake frequency: few times a month Alcohol type: hard liquor Substance/Drug Use: never Current gender identity: Male Vitals/I&O/Wt Last Vital Signs Temp 98.1 F 06/15/24 14:22 Pulse 72 06/15/24 16:21 Resp 18 06/15/24 16:21 BP 131/70 06/15/24 16:21 Pulse Ox 99 06/15/24 16:21 O2 Del Method Room Air 06/15/24 16:00 06/15/24 06/15/24 06/15/24 06:59 14:59 22:59 Intake Total 1999 Balance 1999 Weight last 48 hrs Weight 68.039 kg Physical Exam 2 Narrative: Clinical looks dehydrated Awake and alert Nonfocal neuroexam CIWA 0 Pleasant cooperative abdomen soft Lower extremity no edema Currently on room air S1, S2 sinus rhythm Data 06/15/24 14:01 06/15/24 14:01 A&P Assessment and plan (1) Hypotension: (2) Alcohol intoxication: Plan Polypharmacy related hypotension Improved with IV fluids Clinically looks dehydrated Hold antihypertensive regimen and decrease the dose Alcohol intoxication Start CIWA protocol Cardiac diet DVT prophylaxis continue Eliquis patient is not sure about the indication for Eliquis but has been taking it for quite some time Currently he is in sinus rhythm It could be related to A-fib in the past I will continue metoprolol and Eliquis for now Discontinue prazosin and trazodone Attestations 2 Medical Necessity Statement*: Likely will be discharged within 48 hours Diagnoses Hypotension I95.9 Alcohol intoxication F10.922
[2024-06-15 17:50] LABS: Lactic Acid level (Lactate) 1.3 mmol/L (0.5-2.2)
[2024-06-15 20:11] LABS: Estmated Average Glucose 100; Hemoglobin A1C 5.1 % (4.0-6.0)
[2024-06-15 20:49] LABS: Vitamin B12 485 pg/mL (232-1245)
[2024-06-15 21:16] LABS: Thyroid Stimulating Hormone 0.42 uIU/mL (0.27-4.20)
--- NOTE | 2024-06-15 22:30 | PC.NURSE ---
Pt was brought to med-surg 261 at 1900 by YASMIN Austin. YASMIN Austin administered 21mg nicotine patch to pt and placed it on his left upper arm.
[2024-06-15] MEDS: sodium chloride 0.9% 1,000 ML 50 ML IV (22:47)
[2024-06-15] MEDS: pantoprazole 40 mg SDV IVP (22:51)
[2024-06-15] MEDS: metoprolol tartrate 50 mg Tablet PO (22:51)
[2024-06-15] MEDS: apixaban 5 mg Tablet PO (22:51)
[2024-06-15] MEDS: ipratropium-albuterol 3 mL Neb INHALATION (23:26)
[2024-06-16] VITALS (8 sets, daily range): BP systolic 151–181; BP diastolic 73–88; PULSE 79–88; RESP 16–18; TEMP 36.7–37; O2SAT 88–98
--- NOTE | 2024-06-16 01:07 | PC.NURSE ---
Pt requested trazodone to help him sleep, which he normally takes at bedtime each day. This nurse contacted Dr Rocha and asked if the pt's home dose of trazodone could be restarted, which he said yes. This nurse then put in the order. Shortly after this nurse reviewed Dr Adler's daytime documentation and saw that he had requested trazodone to be discontinued d/t suspected polypharmacy causing hypotension. This nurse then communicated that with Dr. Rocha who stated to discontinue trazodone, monitor blood pressures, and pass on that the use of trazodone for a sleep aid should be discussed with the daytime care team.
[2024-06-16 04:57] LABS: Basophils # 0.1 10^3/uL (0.0-0.1); Basophils % 0.9 %; Eosinophils # 0.6 10^3/uL (0.0-0.8); Eosinophils % 6.8 %; Hematocrit 31.6 % (37-53); Lymphocytes % 21.5 %; Mean Corpuscular HGB Conc 33.2 g/dL (30-55); Mean Corpuscular Hemoglobin 32.8 pg (27-33); Mean Corpuscular Volume 98.8 fl (82-101); Mean Platelet Volume 10.8 fL (7.4-10.4); Monocytes # 0.7 10^3/uL (0.2-0.9); Monocytes % 7.2 %; Neutrophils # 5.74 10^3/uL (1.8-7.7); Neutrophils % 63.4 %; Nucleated Red Blood Cells % 0 %; Platelet Count 277 10^3/cmm (157-399); White Blood Count 9.06 10^3/uL (3.29-11.43)
[2024-06-16 05:18] LABS: Anion Gap 13.4 (5-19); Blood Urea Nitrogen 24 mg/dL (8-23); Calcium 7.9 mg/dL (8.5-10.5); Carbon Dioxide 18 mmol/L (22-29); Chloride 113 mmol/L (98-107); Creatinine Clr Calc Pharmacy 48.8846; Glucose 96 mg/dL (65-115); Osmolality Calculated 294 mOsm/kg (285-295); Phosphorus 2.1 mg/dL (2.5-4.5); Potassium 4.4 mmol/L (3.5-5.1); Sodium 140 mmol/L (136-145)
[2024-06-16] MEDS: ipratropium-albuterol 3 mL Neb INHALATION ×2 (08:12→15:04)
--- NOTE | 2024-06-16 09:11 | P.DS_ITS ---
Discharge Providers Date of Admission: 06/15/24 17:45 Date of Discharge: June 16, 2024 Attending Provider at Admission: Amie Adler MD Attending Provider at Discharge: Amie Adler MD Primary Care Provider: Hyun Mittal MD Diagnoses at Discharge Discharge Diagnosis (1) Hypotension: Status: Acute (2) Alcohol intoxication: Status: Acute Reason for Visit Reason for Visit: hypotensive, dizzy Hospital Course Hospital Course 73-year-old male who was admitted for management evaluation of hypotension. Patient is stating that his lisinopril dose was increased and he took 60 mg I counseled him to only take 20 mg twice daily and avoid taking anything above 40 mg. His blood pressure remained stable after IV fluid hydration in the ER. He was monitored overnight he remained hemodynamically stable lactic acid improved he is not showing any signs of withdrawal from alcohol. B12 and TSH within normal range no signs of UTI. LINDSEY improving as well. Patient takes Eliquis but he is not sure about exact indication I do believe this is related to A-fib but right now patient is staying in sinus rhythm. I would asked patient to follow-up with PCP to discuss if we need to continue anticoagulating agent. Physical Exam Narrative: Pleasant cooperative Hemodynamic stable Sinus rhythm Nonfocal neuroexam Hypertensive Discharge Data Studies Completed and Pending Completed Studies During Hospitalization Category Date Time Status XR chest 1V portable [id number] Stat Exams 06/15/24 14:21 Completed Radiology Impressions Chest X-Ray 06/15/24 14:21 IMPRESSION: No acute findings. Laboratory Results WBC 9.06 10^3/uL (3.29-11.43) 06/16/24 04:19 RBC 3.20 10^6/uL (3.85-5.65) L 06/16/24 04:19 Hgb 10.50 g/dL (11.27-16.99) L 06/16/24 04:19 Hct 31.6 % (37-53) L 06/16/24 04:19 MCV 98.8 fl (82-101) 06/16/24 04:19 MCH 32.8 pg (27-33) 06/16/24 04:19 MCHC 33.2 g/dL (30-55) 06/16/24 04:19 RDW 13.0 % (12.1-15.1) 06/16/24 04:19 Plt Count 277 10^3/cmm (157-399) 06/16/24 04:19 MPV 10.8 fL (7.4-10.4) H 06/16/24 04:19 Neut % (Auto) 63.4 % 06/16/24 04:19 Lymph % (Auto) 21.5 % 06/16/24 04:19 [place] % (Auto) 7.2 % 06/16/24 04:19 Eos % (Auto) 6.8 % 06/16/24 04:19 Baso % (Auto) 0.9 % 06/16/24 04:19 Neut # (Auto) 5.74 10^3/uL (1.8-7.7) 06/16/24 04:19 Lymph # (Auto) 2.0 10^3/uL (0.8-4.8) 06/16/24 04:19 [place] # (Auto) 0.7 10^3/uL (0.2-0.9) 06/16/24 04:19 Eos # (Auto) 0.6 10^3/uL (0.0-0.8) 06/16/24 04:19 Baso # (Auto) 0.1 10^3/uL (0.0-0.1) 06/16/24 04:19 Nucleated RBC % (auto) 0 % 06/16/24 04:19 Nucleated RBCs # 0.0 /100WBC 06/16/24 04:19 Sodium 140 mmol/L (136-145) 06/16/24 04:19 Potassium 4.4 mmol/L (3.5-5.1) 06/16/24 04:19 Chloride 113 mmol/L (98-107) H 06/16/24 04:19 Carbon Dioxide 18 mmol/L (22-29) L 06/16/24 04:19 Anion Gap 13.4 (5-19) 06/16/24 04:19 BUN 24 mg/dL (8-23) H 06/16/24 04:19 Creatinine 1.3 mg/dL (0.7-1.2) H 06/16/24 04:19 GFR Calculation Not Reportable 06/16/24 04:19 Glucose 96 mg/dL (65-115) 06/16/24 04:19 Estimat Average Glucose 100 06/15/24 14:01 Hemoglobin A1c 5.1 % (4.0-6.0) 06/15/24 14:01 Calculated Osmolality 294 mOsm/kg (285-295) 06/16/24 04:19 Lactic Acid 4.8 mmol/L (0.5-2.2) H* 06/15/24 14:01 Lactic Acid (Sepsis) 1.3 mmol/L (0.5-2.2) 06/15/24 17:03 Calcium 7.9 mg/dL (8.5-10.5) L 06/16/24 04:19 Phosphorus 2.1 mg/dL (2.5-4.5) L 06/16/24 04:19 Magnesium 2.0 mg/dL (1.7-2.3) 06/16/24 04:19 Total Bilirubin 0.2 mg/dL (0.15-1.2) 06/15/24 14:01 AST 13 U/L (0-40) 06/15/24 14:01 ALT 8 U/L (0-41) 06/15/24 14:01 Alkaline Phosphatase 74 U/L (40-130) 06/15/24 14:01 Total Protein 6.4 g/dL (6.6-8.7) L 06/15/24 14:01 Albumin 3.9 g/dL (3.5-5.2) 06/15/24 14:01 Globulin 2.5 g/dL (1.3-4.6) 06/15/24 14:01 Vitamin B12 485 pg/mL (232-1245) 06/15/24 14:01 TSH 0.41 uIU/mL (0.27-4.20) 06/15/24 14:01 TSH 0.42 uIU/mL (0.27-4.20) 06/15/24 14:01 Urine Color Yellow (Yellow) 06/15/24 15:20 Urine Appearance Clear (CLEAR) 06/15/24 15:20 Urine pH 5.5 (5-7) 06/15/24 15:20 Ur Specific [place] 1.007 (1.005-1.030) 06/15/24 15:20 Urine Protein Negative (Negative) 06/15/24 15:20 Urine Glucose (UA) Negative (Normal) 06/15/24 15:20 Urine Ketones Negative (Negative) 06/15/24 15:20 Urine Blood Negative (Negative) 06/15/24 15:20 Urine Nitrate Negative (Negative) 06/15/24 15:20 Urine Bilirubin Negative (Negative) 06/15/24 15:20 Urine Urobilinogen 0.2 mg/dL (Negative) 06/15/24 15:20 Ur Leukocyte Esterase Negative (Negative) 06/15/24 15:20 Urine RBC 0-2 /hpf (0-2) 06/15/24 15:20 Urine WBC 0-5 /hpf (0-5) 06/15/24 15:20 Ur Squamous Epith Cells 0-5 /hpf (0-5) 06/15/24 15:20 Amorphous Sediment Not Reportable 06/15/24 15:20 Urine Bacteria None seen /hpf (NONE) 06/15/24 15:20 Hyaline Casts 6.17 /lpf 06/15/24 15:20 Ethyl Alcohol 168 mg/dL (0-10) H 06/15/24 14:01 Vitals Last Vital Signs Temp 98.6 F 06/16/24 04:00 Pulse 88 06/16/24 08:16 Resp 18 06/16/24 08:16 BP 167/88 06/16/24 07:14 Pulse Ox 91 06/16/24 08:16 O2 Del Method Nasal Cannula 06/16/24 08:16 O2 Flow Rate 3 06/16/24 08:16 Discharge Plan Discharge Patient Disposition: Home Condition: Stable Prescriptions: New folic acid 1 mg Tablet 1 mg PO DAILY Qty: 60 0RF thiamine mononitrate (vit B1) [Vitamin B-1 (mononitrate)] 100 mg Tablet 100 mg PO DAILY Qty: 60 0RF lisinopril 20 mg tablet 20 mg PO BID Qty: 60 3RF Continued cetirizine 10 mg capsule 10 mg PO DAILY omeprazole 20 mg capsule,delayed release(DR/EC) 20 mg PO DAILY multivitamin Tablet 1 tab PO QAM Eliquis 5 mg tablet 5 mg PO BID Qty: 60 0RF furosemide 40 mg Tablet 40 mg PO DAILY@0800 Qty: 30 0RF metoprolol tartrate 50 mg Tablet 50 mg PO BID@0900,2100 Qty: 60 0RF Combivent Respimat 20-100 mcg/actuation mist 1 puff inhalation Q6H Qty: 4 4RF Discontinued prazosin 1 mg capsule 1 mg PO BEDTIME trazodone 100 mg tablet 100 mg PO BEDTIME lisinopril 40 mg tablet 40 mg PO DAILY Augmentin 875-125 mg tablet 1 tab PO BID Qty: 14 0RF Discharge Orders: Discharge Order (Routine); Ordered 06/16/24 Ordered By: Amie Adler Referrals: Hyun Mittal MD [Primary Care Provider] - Patient Instructions: Opioid Safety Activity Restrictions/Additional Instructions: I would advise using lisinopril 20 mg twice a day you can take 20 mg in the morning and monitor blood pressure at nighttime if it is above 140/90 mmHg then you can take another 20 mg please do not exceed more than 40 mg in a day. You can resume your metoprolol. Continue thiamine and folic acid. Discharge Attestations Time Spent in Discharge Care*: greater than 30 min Quality Metrics Clinical Quality Measures [ No reported AMI, CVA or VTE this stay] Coding Level of Care Code Acute Code for Chg Fwd Diagnoses Hypotension I95.9 Alcohol intoxication F10.929
[2024-06-16] MEDS: apixaban 5 mg Tablet PO (09:55)
[2024-06-16] MEDS: folic acid 1 mg Tablet PO (09:55)
[2024-06-16] MEDS: metoprolol tartrate 50 mg Tablet PO (09:56)
[2024-06-16] MEDS: lisinopril 10 mg Tablet PO (09:56)
[2024-06-16] MEDS: nicotine 21 mg Patch 1 PATCH TRANSDERMA (09:56)
[2024-06-16] MEDS: pantoprazole 40 mg SDV IVP (09:56)
[2024-06-16] MEDS: multivitamin therapeutic Tablet 1 TAB PO (09:56)
[2024-06-16] MEDS: thiamine 100 mg Tablet PO (09:56)
== END 2024-06-16 15:41 | disposition home or self-care (01) ==
LOC: ER 15:55 → ICU 18:00 → MEDSURG 18:38
PROVIDERS: Admitting Provider Internal Medicine; Emergency Provider Emergency Medicine; PCP Family Medicine; Visit Provider Internal Medicine
DX: I95.9 Hypotension, unspecified (principal); Z79.01 Long term (current) use of anticoagulants; F10.929 Alcohol use, unspecified with intoxication, unspecified; Y90.6 Blood alcohol level of 120-199 mg/100 ml; M19.90 Unspecified osteoarthritis, unspecified site; I10 Essential (primary) hypertension; Z86.19 Personal history of other infectious and parasitic diseases; F17.210 Nicotine dependence, cigarettes, uncomplicated; E86.0 Dehydration
CPT/HCPCS: 36415; 71045; 80048; 80053; 80307; 81003; 81015; 82607; 83036; 83605; 83735; 84100; 84443; 85025; 93005; 94640; 94760; 96361; 96374; 96375; 99285; G0378; J2470; J3411; J7030; J7050

== ENCOUNTER 2024-07-24 09:50 | Outpatient (CLI) | payer OTHER, SELFPAY ==
--- NOTE | 2024-07-24 09:57 | USCV_ITS ---
Lonnie Rogers Age: 73 Gender: M : 1950 Exam Date: 07/24/2024 10:24 Ordering Phys: Hyun Mittal MD Technologist: LYNDSEY Exam Location: [facility] [place] Indication: HTN Aortic Velocity @ SMA (cm/s) 44.2 RIGHT KIDNEY LEFT KIDNEY Velocity (cm/s) Velocity (cm/s) Sys/Torres Sys/Torres Resistive Index Resistive Index 76.5 / 17.7 0.77 Proximal Renal Artery 80.8 / 20.0 0.75 78.3 / 21.3 0.73 Mid Renal Artery 81.6 / 22.4 0.73 109.6 / 31.0 0.72 Distal Renal Artery 66.0 / 15.5 0.77 45.1 / 10.0 0.78 [place]ilar 56.1 / 13.9 0.75 14.9 / 3.3 0.78 Upper Pole 20.8 / 4.5 0.78 31.3 / 7.4 0.76 Mid Pole 21.8 / 5.5 0.75 18.5 / 3.3 0.82 Lower Pole 15.4 / 5.0 0.67 2.46 Renal Aortic Ratio 1.85 Accleration Time (sec) 181.00 Hilar 195.20 41.90 Upper Pole 72.90 108.60 Mid Pole 105.40 77.20 Lower Pole 51.90 9.2 Kidney Length (cm) 10.3 CONCLUSIONS No evidence of renal artery stenosis No hydronephrosis in either kidney Large simple cyst RT kidney 4.8 x 5.6cm Simple LEFT renal cyst 3.9x 2.6cm Normal kidney dimensions above Eron Reyes MD (Electronically Signed) Final Date: 24 July 2024 14:21 S
== END 2024-07-24 09:51 | disposition home or self-care (01) ==
LOC: RAD 09:51
PROVIDERS: PCP Family Medicine; Visit Provider Family Medicine
DX: I15.1 Hypertension secondary to other renal disorders (principal); Q61.02 Congenital multiple renal cysts
CPT/HCPCS: 93975

== ENCOUNTER 2024-08-31 06:41 | Outpatient (CLI) | payer OTHER, SELFPAY ==
--- NOTE | 2024-08-31 06:48 | US_ITS ---
WS: [id number] Complete ABDOMINAL ULTRASOUND HISTORY: Hx Hep C COMPARISON: None available. Liver: 15.0 cm in length. Normal size liver. Surface of the liver is very slightly irregular which ca n be seen with early changes of cirrhosis. No mass identified. Portal Vein: Normal hepatopetal flow with monophasic waveform. Gallbladder: Normally distended gallbladder with numerous gallstones. No pericholecystic fluid. CBD: 0.5 cm Pancreas: Normal size and echogenicity. Right kidney: 9.8 cm x 4.2 x 4.2 cm. Cortex:0.9 cm. Mild diffuse thinning of the renal cortex. Cyst from the upper pole 5.6 x 4.3 x 4.2 cm. No solid mass or obstruction. Left kidney: 10.4 cm x 4.8 cm x 4.3 cm. Cortex: 1.1 cm. Normal size kidney. Cortical cyst lower pole 4.0 x 3.7 x 2.9 cm. No solid mass. Spleen: 8.7 cm. Spleen is very difficult to visualize due to GI tract content. Aorta and IVC: Unremarkable abdominal aorta and IVC. US/US abdomen complete* [id number] Impression: 1. Cholelithiasis. Numerous stones of nearly filling the gallbladder. No evide nce for acute cholecystitis or bowel obstruction. 2. Bilateral simple renal cysts. No obstruction. 3. Mild nodular appearance of the liver surface. Correlate for early changes o f cirrhosis.
== END 2024-08-31 06:42 | disposition home or self-care (01) ==
PROVIDERS: PCP Family Medicine; Visit Provider Family Medicine
DX: K80.20 Calculus of gallbladder without cholecystitis without obstruction (principal); Q61.02 Congenital multiple renal cysts
CPT/HCPCS: 76700

== ENCOUNTER 2025-03-17 14:32 | Inpatient (IN) | payer OTHER, SELFPAY ==
[2025-03-17] VITALS (14 sets, daily range): BP systolic 80–111; BP diastolic 51–63; PULSE 87–132; RESP 15–21; TEMP 36.4; O2SAT 89–100
--- NOTE | 2025-03-17 14:47 | W.ED.NAVMDI ---
Documented by User: Vy Crump MD 03/17/25 15:43 HPI - Nausea/Vomiting/Diarrhea General: Chief complaint: Nausea/Vomiting/Diarrhea Stated complaint: diarrhe - dizziness Time Seen by Provider: 03/17/25 14:35 History of Present Illness: 74-year-old man with a history of alcohol abuse in remission, PTSD, COPD, diverticulosis and hypertension who presents the emergency room with nausea and diarrhea. He is had no vomiting. He says the nausea is very mild. He has had diarrhea for couple of days now. Blood pressure is 80/51 on arrival. Says he thinks he drinks about well water. Alert and oriented. No abdominal pain. He did receive some Zofran en route. Related Data Home Medications ?Medication ?Instructions ?Recorded ?Confirmed cetirizine 10 mg capsule 10 mg PO DAILY 10/16/19 03/17/25 multivitamin 1 tab PO QAM 10/16/19 03/17/25 cholecalciferol (vitamin D3) 50 50 mcg PO DAILY 03/17/25 03/17/25 mcg (2,000 unit) capsule diclofenac sodium 3 % topical gel 1 applic topical BID PRN Pain 03/17/25 03/17/25 diclofenac sodium 50 mg 50 mg PO Q12H PRN Pain 03/17/25 03/17/25 tablet,delayed release ferrous gluconate 324 mg (37.5 mg 324 mg PO DAILY 03/17/25 03/17/25 iron) tablet lisinopril 40 mg tablet 40 mg PO DAILY 03/17/25 03/17/25 metoprolol tartrate 100 mg tablet 50 mg PO DAILY 03/17/25 03/17/25 omeprazole 40 mg capsule,delayed 40 mg PO DAILY 03/17/25 03/17/25 release rosuvastatin 10 mg tablet 5 mg PO BEDTIME 03/17/25 03/17/25 thiamine HCl (vitamin B1) 100 mg 100 mg PO DAILY 03/17/25 03/17/25 tablet trazodone 100 mg tablet 100 mg PO BEDTIME 03/17/25 03/17/25 Previous Rx's ?Medication ?Instructions ?Recorded apixaban 5 mg tablet (Eliquis) 5 mg PO BID #60 tabs 12/16/20 furosemide 40 mg tablet 40 mg PO DAILY@0800 #30 tabs 12/16/20 folic acid 1 mg tablet 1 mg PO DAILY #60 tabs 06/16/24 ipratropium 20 mcg-albuterol 100 1 puff inhalation Q6H #4 grams 06/16/24 mcg/actuation mist for inhalation (Combivent Respimat) Allergies Allergy/AdvReac Type Severity Reaction Status Date / Time codeine Allergy rash Verified 12/12/20 20:57 Review of Systems Narrative: Constitutional symptoms: Negative except as documented in HPI. Skin symptoms: Negative except as documented in HPI. Eye symptoms: Negative except as documented in HPI. ENMT symptoms: Negative except as documented in HPI. Respiratory symptoms: Negative except as documented in HPI. Cardiovascular symptoms: Negative except as documented in HPI. Gastrointestinal symptoms: Negative except as documented in HPI. Genitourinary symptoms: Negative except as documented in HPI. Musculoskeletal symptoms: Negative except as documented in HPI. Neurologic symptoms: Negative except as documented in HPI. Psychiatric symptoms: Negative except as documented in HPI. Endocrine symptoms: Negative except as documented in HPI. PFSH ED PFSH: Medical History PTSD (post-traumatic stress disorder) COPD (chronic obstructive pulmonary disease) Hiatal hernia Diverticulosis Arthritis Hypertension Hepatitis C Completed Epclusa in 2019 Surgical History Bilateral inguinal hernia Bilateral repairs History of surgery on upper extremity L forearm fracture History of penile cancer local excision Family History Other Dementia Social History Smoking and tobacco/nicotine status: current every day tobacco/nicotine user cigarettes Packs smoked per day: 0.5 Years cigarettes smoked: 55 [ Other cigarette details: Heavier smoker in the past] Alcohol intake: current Alcohol intake frequency: few times a month Alcohol type: hard liquor Substance/Drug Use: never Current gender identity: Male Physical Exam Narrative: EXAM NARRATIVE: General: Alert, no acute distress. Skin: Warm, dry. Head: Normocephalic, atraumatic. Neck: Supple, trachea midline. Eye: Extraocular movements are intact. Ears, nose, mouth and throat: Dry oral mucosa Cardiovascular: Regular, Normal peripheral perfusion. Respiratory: Lungs are clear to auscultation, respirations are non-labored, breath sounds are equal, Symmetrical chest wall expansion. Gastrointestinal: Soft, Nontender, Non distended Musculoskeletal: Normal ROM, no deformity. Neurological: Alert and oriented, No focal neurological deficit observed. Psychiatric: Cooperative, appropriate mood & affect. Course Vital Signs: Vital signs: Vital Signs Temperature 97.5 F L 03/17/25 17:11 Pulse Rate 131 H 03/17/25 17:54 Blood Pressure 91/60 03/17/25 17:54 Pulse Oximetry 94 03/17/25 17:54 Oxygen Delivery Me thod Room Air 03/17/25 17:54 MDM - Nausea/Vomiting/Diarrhea Medical Decision Making Medical decision making: Differential diagnosis including but not limited to and based on the above HPI, review of systems and physical exam: In this patient with diarrhea would have concern for viral gastroenteritis, C. difficile, also have concern for renal failure. Orders placed to evaluate differential diagnosis based on the above differential, HPI and physical exam Lab Review: Laboratory results were reviewed and interpreted by myself the emergency room physician. Mild leukocytosis. Mild worsening of anemia. BUN and creatinine are extremely elevated with a BUN of 167 and a creatinine of 3.2 Consultation: I spoke with Dr. Leiva who will admit the patient pending CT to rule out obstructive uropathy. Assessment and plan: Renal failure Diarrhea Dehydration ?2 L normal saline bolus. Patient will be admitted after CT scan. Care transitioned to Dr. Rosario. -I discussed the patient with the hospitalist on-call who is admitting the patient. - Discussed findings and plan with patient. Answered any questions. - All laboratory values were reviewed and interpreted personally by myself, the ER physician - All imaging was reviewed and interpreted personally by myself, the ER physician. - Evaluation and treatment of this problem were appropriate in the emergency setting Lab Data 03/17/25 14:40 03/17/25 14:40 Radiology Impressions Abdomen/Pelvis CT 03/17/25 15:30 IMPRESSION: 1. Diffuse colitis 2. Hiatal hernia 3. Cholelithiasis 4. A benign renal cyst or cysts have been detected. No further follow-up imaging is required. 5. Prostate enlargement COMMENTS: Consistent with the [employer]'s Incidental Findings Committee white paper (J Am Jake Radiol 2018): Any incidental renal lesion less than 1 cm or classified as too small to characterize, or any incidental cystic renal lesion characterized as simple-appearing, is likely benign. No follow-up imaging is recommended for these lesions per consensus recommendations based on imaging criteria. Laboratory Results WBC 12.59 10^3/uL (3.29-11.43) H 03/17/25 14:40 RBC 3.05 10^6/uL (3.85-5.65) L 03/17/25 14:40 Hgb 9.40 g/dL (11.27-16.99) L 03/17/25 14:40 Hct 27.7 % (37-53) L 03/17/25 14:40 MCV 90.8 fl (82-101) 03/17/25 14:40 MCH 30.8 pg (27-33) 03/17/25 14:40 MCHC 33.9 g/dL (30-55) 03/17/25 14:40 RDW 13.1 % (12.1-15.1) 03/17/25 14:40 Plt Count 326 10^3/cmm (157-399) 03/17/25 14:40 MPV 11.0 fL (7.4-10.4) H 03/17/25 14:40 Neut % (Auto) 84.3 % 03/17/25 14:40 Lymph % (Auto) 5.0 % 03/17/25 14:40 [place] % (Auto) 4.1 % 03/17/25 14:40 Eos % (Auto) 5.4 % 03/17/25 14:40 Baso % (Auto) 0.3 % 03/17/25 14:40 Neut # (Auto) 10.62 10^3/uL (1.8-7.7) H 03/17/25 14:40 Lymph # (Auto) 0.6 10^3/uL (0.8-4.8) L 03/17/25 14:40 [place] # (Auto) 0.5 10^3/uL (0.2-0.9) 03/17/25 14:40 Eos # (Auto) 0.7 10^3/uL (0.0-0.8) 03/17/25 14:40 Baso # (Auto) 0.0 10^3/uL (0.0-0.1) 03/17/25 14:40 Nucleated RBC % (auto) 0 % 03/17/25 14:40 Nucleated RBCs # 0.0 /100WBC 03/17/25 14:40 Sodium 130 mmol/L (136-145) L 03/17/25 14:40 Potassium 4.9 mmol/L (3.5-5.1) 03/17/25 14:40 Chloride 99 mmol/L (98-107) 03/17/25 14:40 Carbon Dioxide 9 mmol/L (22-29) L 03/17/25 14:40 Anion Gap 26.9 (5-19) H 03/17/25 14:40 BUN 167 mg/dL (8-23) H* D 03/17/25 14:40 Creatinine 3.2 mg/dL (0.7-1.2) H 03/17/25 14:40 GFR Calculation Not Reportable 03/17/25 14:40 Glucose 82 mg/dL (65-115) 03/17/25 14:40 Calculated Osmolality 324 mOsm/kg (285-295) H 03/17/25 14:40 Lactic Acid 1.4 mmol/L (0.5-2.2) 03/17/25 15:00 Calcium 7.4 mg/dL (8.5-10.5) L 03/17/25 14:40 Total Bilirubin 0.3 mg/dL (0.15-1.2) 03/17/25 14:40 AST 24 U/L (0-40) 03/17/25 14:40 ALT 14 U/L (0-41) 03/17/25 14:40 Alkaline Phosphatase 89 U/L (40-130) 03/17/25 14:40 Total Protein 6.5 g/dL (6.6-8.7) L 03/17/25 14:40 Albumin 3.4 g/dL (3.5-5.2) L 03/17/25 14:40 Globulin 3.1 g/dL (1.3-4.6) 03/17/25 14:40 Lipase 58 U/L (13-60) 03/17/25 14:40 Ethyl Alcohol < 10 mg/dL (0-10) 03/17/25 14:40 Discharge Plan Discharge Patient Disposition: Admitted As Inpatient Admit Provider: Allison Leiva Clinical Impression: Renal failure, Dehydration, Atrial fibrillation with RVR, Colitis Condition: Stable Coding Level of Care Code ED Countersinker for Jayme Thomason Documented by User: Saqib Rosario MD 03/17/25 18:25 HPI - Nausea/Vomiting/Diarrhea General: Chief complaint: Nausea/Vomiting/Diarrhea Stated complaint: diarrhe - dizziness Time Seen by Provider: 03/17/25 14:35 Related Data Home Medications ?Medication ?Instructions ?Recorded ?Confirmed cetirizine 10 mg capsule 10 mg PO DAILY 10/16/19 03/17/25 multivitamin 1 tab PO QAM 10/16/19 03/17/25 cholecalciferol (vitamin D3) 50 50 mcg PO DAILY 03/17/25 03/17/25 mcg (2,000 unit) capsule diclofenac sodium 3 % topical gel 1 applic topical BID PRN Pain 03/17/25 03/17/25 diclofenac sodium 50 mg 50 mg PO Q12H PRN Pain 03/17/25 03/17/25 tablet,delayed release ferrous gluconate 324 mg (37.5 mg 324 mg PO DAILY 03/17/25 03/17/25 iron) tablet lisinopril 40 mg tablet 40 mg PO DAILY 03/17/25 03/17/25 metoprolol tartrate 100 mg tablet 50 mg PO DAILY 03/17/25 03/17/25 omeprazole 40 mg capsule,delayed 40 mg PO DAILY 03/17/25 03/17/25 release rosuvastatin 10 mg tablet 5 mg PO BEDTIME 03/17/25 03/17/25 thiamine HCl (vitamin B1) 100 mg 100 mg PO DAILY 03/17/25 03/17/25 tablet trazodone 100 mg tablet 100 mg PO BEDTIME 03/17/25 03/17/25 Previous Rx's ?Medication ?Instructions ?Recorded apixaban 5 mg tablet (Eliquis) 5 mg PO BID #60 tabs 12/16/20 furosemide 40 mg tablet 40 mg PO DAILY@0800 #30 tabs 12/16/20 folic acid 1 mg tablet 1 mg PO DAILY #60 tabs 06/16/24 ipratropium 20 mcg-albuterol 100 1 puff inhalation Q6H #4 grams 06/16/24 mcg/actuation mist for inhalation (Combivent Respimat) Allergies Allergy/AdvReac Type Severity Reaction Status Date / Time codeine Allergy rash Verified 12/12/20 20:57 PFSH ED PFSH: Medical History PTSD (post-traumatic stress disorder) COPD (chronic obstructive pulmonary disease) Hiatal hernia Diverticulosis Arthritis Hypertension Hepatitis C Completed Epclusa in 2019 Surgical History Bilateral inguinal hernia Bilateral repairs History of surgery on upper extremity L forearm fracture History of penile cancer local excision Family History Other Dementia Social History Smoking and tobacco/nicotine status: current every day tobacco/nicotine user cigarettes Packs smoked per day: 0.5 Years cigarettes smoked: 55 [ Other cigarette details: Heavier smoker in the past] Alcohol intake: current Alcohol intake frequency: few times a month Alcohol type: hard liquor Substance/Drug Use: never Current gender identity: Male Course Vital Signs: Vital signs: Vital Signs Temperature 97.5 F L 03/17/25 17:11 Pulse Rate 131 H 03/17/25 17:54 Blood Pressure 91/60 03/17/25 17:54 Pulse Oximetry 94 03/17/25 17:54 Oxygen Delivery Me thod Room Air 03/17/25 17:54 MDM - Nausea/Vomiting/Diarrhea Medical Decision Making Medical decision making: Differential diagnosis including but not limited to and based on the above HPI, review of systems and physical exam: In this patient with diarrhea would have concern for viral gastroenteritis, C. difficile, also have concern for renal failure. Orders placed to evaluate differential diagnosis based on the above differential, HPI and physical exam Lab Review: Laboratory results were reviewed and interpreted by myself the emergency room physician. Mild leukocytosis. Mild worsening of anemia. BUN and creatinine are extremely elevated with a BUN of 167 and a creatinine of 3.2 Consultation: I spoke with Dr. Leiva who will admit the patient pending CT to rule out obstructive uropathy. Assessment and plan: Renal failure Diarrhea Dehydration ?2 L normal saline bolus. Patient will be admitted after CT scan. Care transitioned to Dr. Rosario. -I discussed the patient with the hospitalist on-call who is admitting the patient. - Discussed findings and plan with patient. Answered any questions. - All laboratory values were reviewed and interpreted personally by myself, the ER physician - All imaging was reviewed and interpreted personally by myself, the ER physician. - Evaluation and treatment of this problem were appropriate in the emergency setting I took patient over from Dr. Crump does have acute kidney injury elevated BUN likely from dehydration CT showed colitis did start IV antibiotics he did receive a sepsis bolus he was in A-fib with RVR start him on amiodarone his blood pressures improved is currently 131/70 spoke to the hospitalist will admit Medical Records I reviewed the patient's medical records. Lab Data I reviewed the patient's lab results. 03/17/25 14:40 03/17/25 14:40 Radiology Impressions Abdomen/Pelvis CT 03/17/25 15:30 IMPRESSION: 1. Diffuse colitis 2. Hiatal hernia 3. Cholelithiasis 4. A benign renal cyst or cysts have been detected. No further follow-up imaging is required. 5. Prostate enlargement COMMENTS: Consistent with the [employer]'s Incidental Findings Committee white paper (J Am Jake Radiol 2018): Any incidental renal lesion less than 1 cm or classified as too small to characterize, or any incidental cystic renal lesion characterized as simple-appearing, is likely benign. No follow-up imaging is recommended for these lesions per consensus recommendations based on imaging criteria. Laboratory Results WBC 12.59 10^3/uL (3.29-11.43) H 03/17/25 14:40 RBC 3.05 10^6/uL (3.85-5.65) L 03/17/25 14:40 Hgb 9.40 g/dL (11.27-16.99) L 03/17/25 14:40 Hct 27.7 % (37-53) L 03/17/25 14:40 MCV 90.8 fl (82-101) 03/17/25 14:40 MCH 30.8 pg (27-33) 03/17/25 14:40 MCHC 33.9 g/dL (30-55) 03/17/25 14:40 RDW 13.1 % (12.1-15.1) 03/17/25 14:40 Plt Count 326 10^3/cmm (157-399) 03/17/25 14:40 MPV 11.0 fL (7.4-10.4) H 03/17/25 14:40 Neut % (Auto) 84.3 % 03/17/25 14:40 Lymph % (Auto) 5.0 % 03/17/25 14:40 [place] % (Auto) 4.1 % 03/17/25 14:40 Eos % (Auto) 5.4 % 03/17/25 14:40 Baso % (Auto) 0.3 % 03/17/25 14:40 Neut # (Auto) 10.62 10^3/uL (1.8-7.7) H 03/17/25 14:40 Lymph # (Auto) 0.6 10^3/uL (0.8-4.8) L 03/17/25 14:40 [place] # (Auto) 0.5 10^3/uL (0.2-0.9) 03/17/25 14:40 Eos # (Auto) 0.7 10^3/uL (0.0-0.8) 03/17/25 14:40 Baso # (Auto) 0.0 10^3/uL (0.0-0.1) 03/17/25 14:40 Nucleated RBC % (auto) 0 % 03/17/25 14:40 Nucleated RBCs # 0.0 /100WBC 03/17/25 14:40 Sodium 130 mmol/L (136-145) L 03/17/25 14:40 Potassium 4.9 mmol/L (3.5-5.1) 03/17/25 14:40 Chloride 99 mmol/L (98-107) 03/17/25 14:40 Carbon Dioxide 9 mmol/L (22-29) L 03/17/25 14:40 Anion Gap 26.9 (5-19) H 03/17/25 14:40 BUN 167 mg/dL (8-23) H* D 03/17/25 14:40 Creatinine 3.2 mg/dL (0.7-1.2) H 03/17/25 14:40 GFR Calculation Not Reportable 03/17/25 14:40 Glucose 82 mg/dL (65-115) 03/17/25 14:40 Calculated Osmolality 324 mOsm/kg (285-295) H 03/17/25 14:40 Lactic Acid 1.4 mmol/L (0.5-2.2) 03/17/25 15:00 Calcium 7.4 mg/dL (8.5-10.5) L 03/17/25 14:40 Total Bilirubin 0.3 mg/dL (0.15-1.2) 03/17/25 14:40 AST 24 U/L (0-40) 03/17/25 14:40 ALT 14 U/L (0-41) 03/17/25 14:40 Alkaline Phosphatase 89 U/L (40-130) 03/17/25 14:40 Total Protein 6.5 g/dL (6.6-8.7) L 03/17/25 14:40 Albumin 3.4 g/dL (3.5-5.2) L 03/17/25 14:40 Globulin 3.1 g/dL (1.3-4.6) 03/17/25 14:40 Lipase 58 U/L (13-60) 03/17/25 14:40 Ethyl Alcohol < 10 mg/dL (0-10) 03/17/25 14:40 All radiology interpretation(s) finalized by discharge EKG Data EKG 1: I personally reviewed and interpreted this EKG as follows: EKG interpretation date: 03/17/25 EKG interpretation time: 17:14 Interpretation: atrial flutter hr [address] elevation qrs 106 qtc 375 Critical Care Time Critical Care Time: Critical Care Time: Yes Total Critical Care Time: 45 Attestation: The high probability of a clinically significant, sudden or life threatening deterioration of the patient's gi/cv system(s) required my full and direct attention, intervention and personal management. The critical care time is as shown. This time is in addition to time spent performing any reported procedures but includes the following: [x] Data and vital sign review and interpretation [x] Patient assessment, examination and intervention [x] Documentation [x] Medication orders and management Discharge Plan Discharge Patient Disposition: Admitted As Inpatient Admit Provider: Allison Leiva Clinical Impression: Renal failure, Dehydration, Atrial fibrillation with RVR, Colitis Condition: Stable Coding Level of Care Code ED Countersinker for Jayme Thomason
[2025-03-17 14:50] LABS: Basophils % 0.3 %; Eosinophils # 0.7 10^3/uL (0.0-0.8); Eosinophils % 5.4 %; Hematocrit 27.7 % (37-53); Lymphocytes # 0.6 10^3/uL (0.8-4.8); Mean Corpuscular HGB Conc 33.9 g/dL (30-55); Mean Corpuscular Hemoglobin 30.8 pg (27-33); Mean Corpuscular Volume 90.8 fl (82-101); Monocytes # 0.5 10^3/uL (0.2-0.9); Monocytes % 4.1 %; Neutrophils # 10.62 10^3/uL (1.8-7.7); Neutrophils % 84.3 %; Nucleated Red Blood Cells % 0 %; Platelet Count 326 10^3/cmm (157-399); Red Blood Count 3.05 10^6/uL (3.85-5.65); Red Cell Distribution Width 13.1 % (12.1-15.1); White Blood Count 12.59 10^3/uL (3.29-11.43)
[2025-03-17] MEDS: sodium chloride 0.9% 1,000 ML 999 ML IV ×2 (15:04→16:04)
--- NOTE | 2025-03-17 15:04 | PC.NURSE ---
dr. gutierrez, verbal order to give fluids remaining from EMS 1000 mL
[2025-03-17 15:12] LABS: Alanine Aminotransferase 14 U/L (0-41); Albumin Level 3.4 g/dL (3.5-5.2); Alkaline Phosphatase 89 U/L (40-130); Anion Gap 26.9 (5-19); Aspartate Amino Transferase 24 U/L (0-40); Calcium 7.4 mg/dL (8.5-10.5); Chloride 99 mmol/L (98-107); Creatinine Clr Calc Pharmacy 19.6455; Globulin 3.1 g/dL (1.3-4.6); Glucose 82 mg/dL (65-115); Lipase 58 U/L (13-60); Potassium 4.9 mmol/L (3.5-5.1); Sodium 130 mmol/L (136-145); Total Bilirubin 0.3 mg/dL (0.15-1.2); Total Protein 6.5 g/dL (6.6-8.7)
[2025-03-17 15:22] LABS: Alcohol Level < 10 mg/dL (0-10)
[2025-03-17 15:23] LABS: Blood Urea Nitrogen 167 mg/dL (8-23); Carbon Dioxide 9 mmol/L (22-29); Osmolality Calculated 324 mOsm/kg (285-295)
--- NOTE | 2025-03-17 15:30 | CTR_ITS ---
PROCEDURE INFORMATION: Exam: CT Abdomen And Pelvis Without Contrast Exam date and time: 03/17/2025 3:40 PM Age: 74 years old Clinical indication: Other: Diarrhea; Prior surgery; Surgery date: 6+ months; Surgery type: Penile; Additional info: Renal failure, R/O obstructive uropathy TECHNIQUE: Imaging protocol: Computed tomography of the abdomen and pelvis without contrast. Radiation optimization: All CT scans at this facility use at least one of these dose optimization techniques: automated exposure control; mA and/or kV adjustment per patient size (includes targeted exams where dose is matched to clinical indication); or iterative reconstruction. COMPARISON: CT abdomen pelvis w con* [id number] 04/04/2023 8:37 AM RADIATION DOSE METRICS: Total DLP (mGy-cm): 353.19 FINDINGS: Lungs: Lung bases are clear. No pleural effusion. Diaphragm: A hiatal hernia is noted in the lower mediastinum. Liver: Normal. No mass. Gallbladder and biliary ducts: Multiple gallstones are noted in the gallbladder but the gallbladder does not appear inflamed and demonstrates normal wall thickness. Pancreas: Normal. No ductal dilation. Spleen: Normal. No splenomegaly. Adrenal glands: Normal. No mass. Kidneys and ureters: A 5.5 cm simple cyst involves the right kidney. A 4 cm simple cyst involves the left kidney. Stomach and bowel: Multiple diverticula involve the sigmoid colon. There is no sign of diverticulitis. There is diffuse mild inflammation involving the wall of the entire colon. Liquid stool is also noted in the colon. Appendix: No evidence of appendicitis. Intraperitoneal space: Unremarkable. No free air. No significant fluid collection. Vasculature: Unremarkable. No abdominal aortic aneurysm. Lymph nodes: Unremarkable. No enlarged lymph nodes. Urinary bladder: Unremarkable as visualized. Reproductive: The prostate gland is abnormally enlarged. Bones/joints: The lumbar spine demonstrates scoliosis with multilevel arthritic changes. Soft tissues: Unremarkable. CT/CT abdomen pelvis wo con [id number] IMPRESSION: 1. Diffuse colitis 2. Hiatal hernia 3. Cholelithiasis 4. A benign renal cyst or cysts have been detected. No further follow-up imaging is required. 5. Prostate enlargement COMMENTS: Consistent with the [employer]'s Incidental Findings Committee white paper (J Am Jake Radiol 2018): Any incidental renal lesion less than 1 cm or classified as too small to characterize, or any incidental cystic renal lesion characterized as simple-appearing, is likely benign. No follow-up imaging is recommended for these lesions per consensus recommendations based on imaging criteria.
--- NOTE | 2025-03-17 15:40 | PM.HP ---
Providers/Chief Complaint Primary Care Provider: Hyun Mittal MD Chief Complaint: diarrhe - dizziness History of Present Illness Lonnie Rogers is a 74 yo man w/ HTN, HLD, GERD, COPD, who presents to the ED on 03/17/2025, via EMS, w/ complaints of diarrhea, and subsequent dizziness, light headedness. The patient states that he takes his meds in the morning. On Saturday03/15/2025, he ran out of his bottled water, so he drank the water from his faucet, which is well water. He states that 30mins later, he became nauseous and started having diarrhea. he drank well water. He states that he states that he had at least 6, voluminous, malodorous, watery, but non-bloody stools. He states that he had at least 2 BMs on 03/16/2025. He drank a lot of gatorade provided by his sister. He endorses dizziness, light headedness, He denies abdominal pain, abdominal cramps, emesis, syncope, CP, palpitations, SOB, visual disturbances, headaches, fever, chills, . He endorses a little non-productive cough, that he attributes to his COPD. He denies wheezing. He endorses dysuria, decreased UOP, increased urinary urgency/frequency. He denies hematuria. In the ED, he was hypotensive to 80/51 mmHg and HR in the 130s. His EKG showed a flutter with RVR, but no ST changes. He had a leukocytosis of 12.59, hyponatremia of 130, severe metabolic acidosis, BUN/Cr of 167/3.2 respectively (baseline Cr of 1.3 in 06/2024). A CT abd/pelvis was done in the ED that showed diffuse colitis and an abnormally enlarged prostate. His UA was negative for UTI. He was given a total of 3L NS bolus, and amiodarone bolus, Cipro IV, Flagyl IV, 100 mEq of sodium bicarb in the ED. A Philip catheter was also placed in the ED prior to the patient being admitted to the ICU. On admission, the patient briefly converted to NSR, but went back into A-fib with RVR, so the Amiodarone drip was initiated. Review of Systems Narrative: Constitutional: (-) fever(s), (-) chills, (-) body aches, (-) change in appetite, (-) change in weight, (-) fatigue, (+) malaise, (-) night sweats, (-) diaphoresis Eyes: (-) change in vision, (-) blurry vision, (-) diplopia, (-) floaters, ENT: (-) ear pain, (-) ear discharge, (-) aural fullness, (-) tinnitus, (-)nasal discharge, (-)nasal congestion, (-) post nasal drip, (-)dysphagia, (-)odynophagia, (-)hoarseness, Card: (-) Chest pain, (-) palpitations, (-) pedal edema, (-) orthopnea, (+) lightheadedness, (-) syncope, (-) pre-syncope, (-) leg pain with exertion Resp: (-)dyspnea, (-)dyspnea on exertion, (-) cough, (-) wheezing, (-) hemoptysis GI: (-) abdominal pain, (+) nausea, (-) vomiting, (-) hematemesis, (-) diarrhea, (-) constipation, (-) hematochezia, (-) melena : (-) flank pain, (-) dysuria, (-) hematuria, (+) urinary urgency, (+) urinary frequency, (+)oliguria, (-) difficulty voiding, (-) urinary incontinence, (-) urinary hesitancy, (-) dribbling, (-) nocturia MSK: (-) myalgias, (-) arthralgias Skin/Breast: (-) rash, (+) sores, (+) new lesions ( chigger bites ), (-) breast tenderness, (-) breast pain, or (-) nipple discharge Neuro: (-) headaches, (+) dizziness, (+) generalized weakness, (-) weakness in the extremities, (-) numbness in extremities, (-) tingling, (-) frequent falls, (-) Slurred speech present, (-) seizure-like activity, (-) involuntary movements, (-) restless legs Psych: (-) anxiety, (-) depression, (-)paranoia, (-) visual hallucinations, (-) auditory hallucinations, (-)tactile hallucinations, (-) suicidal ideation, (-) homicidal ideation Endo: (-) polyuria, (-) polydipsia, (-) polyphagia, (-)cold intolerance, (-) heat intolerance Heme/Lymph: (-) easy bruising, (-) easy bleeding, (-) petechiae, (-) purpura, (-) enlarged lymph nodes, (-) tender lymph nodes Allergy/Immunlogy: (-) food intolerance, (-) hives/urticaria, (-) itchy/watery eyes, (-) tongue/throat swelling, (-) facial swelling, Medications/Allergies Home Medications ?Medication ?Instructions ?Recorded ?Confirmed ?Last Taken ?Type cetirizine 10 mg capsule 10 mg PO DAILY 10/16/19 03/17/25 03/16/25 History multivitamin 1 tab PO QAM 10/16/19 03/17/25 03/16/25 History apixaban 5 mg tablet (Eliquis) 5 mg PO BID #60 tabs 12/16/20 03/17/25 03/16/25 Rx furosemide 40 mg tablet 40 mg PO DAILY@0800 #30 tabs 12/16/20 03/17/25 03/16/25 Rx folic acid 1 mg tablet 1 mg PO DAILY #60 tabs 06/16/24 03/17/25 03/16/25 Rx ipratropium 20 mcg-albuterol 100 1 puff inhalation Q6H #4 grams 06/16/24 03/17/25 03/16/25 Rx mcg/actuation mist for inhalation (Combivent Respimat) cholecalciferol (vitamin D3) 50 50 mcg PO DAILY 03/17/25 03/17/25 03/16/25 History mcg (2,000 unit) capsule diclofenac sodium 3 % topical gel 1 applic topical BID PRN Pain 03/17/25 03/17/25 Unknown History diclofenac sodium 50 mg 50 mg PO Q12H PRN Pain 03/17/25 03/17/25 Unknown History tablet,delayed release ferrous gluconate 324 mg (37.5 mg 324 mg PO DAILY 03/17/25 03/17/25 03/16/25 History iron) tablet lisinopril 40 mg tablet 40 mg PO DAILY 03/17/25 03/17/25 03/16/25 History metoprolol tartrate 100 mg tablet 50 mg PO DAILY 03/17/25 03/17/25 03/16/25 History omeprazole 40 mg capsule,delayed 40 mg PO DAILY 03/17/25 03/17/25 03/16/25 History release rosuvastatin 10 mg tablet 5 mg PO BEDTIME 03/17/25 03/17/25 03/16/25 21:00 History thiamine HCl (vitamin B1) 100 mg 100 mg PO DAILY 03/17/25 03/17/25 03/16/25 History tablet trazodone 100 mg tablet 100 mg PO BEDTIME 03/17/25 03/17/25 03/16/25 20:00 History Allergies Allergy/AdvReac Type Severity Reaction Status Date / Time codeine Allergy rash Verified 12/12/20 20:57 PFSH Acute PFSH: Medical History (Updated 03/18/25 @ 01:31 by Allison Leiva MD) Hypotension Alcohol intoxication PTSD (post-traumatic stress disorder) COPD (chronic obstructive pulmonary disease) Hiatal hernia Diverticulosis Arthritis Hypertension Hepatitis C Completed Epclusa in 2019 Surgical History (Updated 03/17/25 @ 23:57 by Allison Leiva MD) History of laparoscopic appendectomy Bilateral inguinal hernia Bilateral repairs History of surgery on upper extremity L forearm fracture History of penile cancer local excision Family History (Updated 03/17/25 @ 23:58 by Allison Leiva MD) Father Congestive heart failure (CHF) Other Dementia Social History (Updated 03/17/25 @ 23:59 by Allison Leiva MD) Smoking and tobacco/nicotine status: current every day tobacco/nicotine user cigarettes Packs smoked per day: 0.5 Years cigarettes smoked: 55 [ Other cigarette details: Heavier smoker in the past. started smoking at age 15. ] Alcohol intake: current Alcohol intake frequency: few times a month Alcohol type: hard liquor Substance/Drug Use: never Current gender identity: Male Vitals/I&O/Wt Last Vital Signs Pulse 99 03/17/25 14:34 BP 80/51 03/17/25 14:34 Pulse Ox 98 03/17/25 14:34 O2 Del Method Room Air 03/17/25 14:34 Weight last 48 hrs Weight 68.039 kg Physical Exam Narrative: Constitutional: GENERAL APPEARANCE: cooperative, comfortable, appears older than stated age; not combative, not disheveled, but he is ill appearing and frail appearing. HENT: HEAD & SCALP: normocephalic and atraumatic; cachectic, with bitemporal wasting NOSE: external nose not normal EXTERNAL EAR: no external ears normal MOUTH: Normal oral and palatal mucosa present THROAT: posterior oropharynx normal Eye: PERRL, EOMI, pale conjunctiva b/l Neck: normal visual inspection, trachea midline, No anterior neck swelling, No tracheal deviation, no submandibular swelling, Thyroid normal , cervical ROM normal Lymph: no cervical, supraclavicular LAD Resp: no use of accessory muscles, decreased breath sounds in the right middle and lower lung otero. No wheezes, rales, or rhonchi. Cardio: Difficult to appreciate rate or rhythm, given his chest. 2+ radial pulses, and difficult to appreciate DP pulses and PT pulses. Cyanotic bilateral periphery. GI: normoactive bowel sounds, non-tender, non-distended, no guarding, no rigidity, no rebound tenderness, no hepatosplenomegaly. : (+) Philip in place draining urine, (-) CVA tenderness Back/Pelvis: Deferred Extremity: No clubbing, + cyanosis in the bilateral upper and lower extremities. No edema Neuro: AO to person, place and time. CN normal except as noted. Normal gait present. 5/5 motor strength present throughout. Normal motor muscle tone present throughout. No tremor noted. No motor abnormalities present. No motor fasciculations present Psych: APPEARANCE: Yes grossly normal ATTITUDE: Yes calm and Yes engaged ACTIVITY/MOTOR BEHAVIOR: Yes appropriate eye contact SPEECH: Yes normal speech MOOD & AFFECT: Yes euthymic mood THOUGHT PROCESS: Normal thought process present THOUGHT CONTENT: Yes Normal thought content present ATTENTION/CONCENTRATION: Yes attention grossly intact MEMORY/COGNITION: Yes memory grossly intact Skin: dermis showing in the bilateral gluteal cleft with a 1cm unstageable ulcer in the R. gluteus. Data 03/17/25 14:40 03/17/25 14:40 A&P Assessment and plan (1) Sepsis: (2) Colitis: (3) Atrial fibrillation with RVR: (4) High anion gap metabolic acidosis: (5) Uremia: (6) Severe protein-calorie malnutrition: Cleve Rogers is a 74 yo man w/ HTN, HLD, GERD, COPD, who presents to the ED on 03/17/2025, via EMS, w/ complaints of diarrhea, after drinking well water, and was found to have subsequent Colitis, LINDSEY, severe metabolic acidosis, electrolyte derangement and Afib w/ RVR. #Sepsis #Diarrhea: #Diffuse Colitis: - GI pathogen panel PCR ordered. F/u BCx. - Continue ciprofloxacin and metronidazole. # Afib w/ RVR - Continue Amiodarone drip. - On Eliquis at home, but he does not know why he is on Eliquis. Start full dose Lovenox - Held on ordering ECHO until HR is improved. #LINDSEY - s/p 3L NS in the ED and started NS at 150cc/hr in the ED reduced to 100cc/hr. D/c NS and switch to bicarb drip. #likely hypotonic hypovolemic hyponatremia: - Urine electrolytes ordered in the ED, but he already received normal saline in the ED, prior to the urine electrolytes being collected -F/u repeat BMP. #Severe AGAP Metabolic Acidosis #Uremia: Continue to monitor. - s/p 2amps of bicarb in the ED. Another 3 Amps of bicarb total x1 ordered on admission to the ICU in addition to starting 150mEQ of [id number] in water @100cc/hr. #Hypotension: Responsive to IVF. #Hypertension: No acute issues at this time. Resume home meds as needed. #Alcohol use d/o: There is conflicting information from the patient and what the patient's sister called the nurse to report. Will continue folic acid and thiamine; nevertheless, per patient's sister, patient has not had a drink in approximately 2 weeks. #b/l gluteal cleft wounds with a 1cm unstageable ulcer in the R. gluteus - Consult wound care. - q2hr turns and barrier cream for now. #Severe Protein Calorie Malnutrition - Consulted [employer] for evaluation and supplement recommendations. #BPH: Defer to day hospitalist to address as appropriate. #COPD: DuoNebs ordered #GERD: PPI ordered #HLD: Held homemeds. #Insomnia: Resumed home meds DVT ppx: Lovenox GI ppx: PPI. Code Status: Full code PDMP PDMP Reviewed: Not Reviewed Attestations Medical Necessity Statement*: The patient needs to be hospitalized for >2 midnights for sepsis, due to diffuse colitis, LINDSEY, uremia, and severe protein calorie malnutrition. Critical Care Time: The high probability of a clinically significant, sudden or life threatening deterioration of the patient's [cardia, renal, infectious] system(s) required my full and direct attention, intervention and personal management. The critical care time is as shown. This time is in addition to time spent performing any reported procedures but includes the following: [x] Data and vital sign review and interpretation [x] Patient assessment, examination and intervention [x] Documentation [x] Medication orders and management Coding Level of Care Code Critical Care >/= 30 minutes Critical care time (in minutes): 70 The high probability of a clinically significant, sudden or life threatening deterioration, as referenced in this documentation, required my full and direct attention, intervention and personal management. The critical care time shown is in addition to time spent performing any reported separately billable procedures and includes the following: [x] Data and vital sign review and interpretation [x] Patient assessment, examination and intervention [x] Medication orders and management [x] Patient/Family updates as able [x] Care Coordination and Documentation. Diagnoses Sepsis A41.9 Colitis K52.9 Atrial fibrillation with RVR I48.91 High anion gap metabolic acidosis E87.29 Uremia N19 Severe protein-calorie malnutrition E43
[2025-03-17] MEDS: nicotine 21 mg Patch 1 PATCH TRANSDERMA (16:04)
[2025-03-17] MEDS: sodium chloride 0.9% 500 ML 999 ML IV (16:05)
[2025-03-17 16:14] LABS: Lactic Sepsis W/Reflex 1.4 mmol/L (0.5-2.2)
[2025-03-17] MEDS: sodium bicarbonate 8.4% 1 mEq/mL 50mL Syr 100 MEQ IVP ×2 (16:44→23:56)
[2025-03-17] MEDS: metroNIDAZOLE IV 500 MG/100 ML PREMIX 100 MG IV (16:47)
[2025-03-17] MEDS: sodium chloride 0.9% 1,000 ML 150 ML IV (17:06)
--- NOTE | 2025-03-17 17:14 | ECG_ITS ---
[facility]: 2025-03-17 Pat Name: Lonnie Rogers Department: Room: Gender: Male Process Manager: : 1950 Requested By: Saqib Rosario Order Number: [id number] Reading MD: HSANTHI ALONSO Measurements Intervals [place] Rate: 142 P: 0 UT: 0 QRS: -45 QRSD: 106 T: 93 QT: 293 QTc: 451 Interpretive Statements ATRIAL FLUTTER/TACHYCARDIA WITH RAPID VENTRICULAR RESPONSE LEFT AXIS DEVIATION [QRS AXIS < -30] ANTEROSEPTAL MYOCARDIAL INFARCTION , OF INDETERMINATE AGE [40+ ms Q WAVE IN V1-V4] Compared to ECG 06/15/2024 14:26:03 Sinus rhythm no longer present Myocardial infarct finding still present Electronically Signed On 03-17-2025 22:52:17 CDT by SHANTHI ALONSO [email or web address]
[2025-03-17] MEDS: amiodarone 150 MG/100 ML PREMIX 400 MG IV (17:30)
[2025-03-17] MEDS: ciprofloxacin 400 MG/200 ML PREMIX 200 MG IV (17:50)
[2025-03-17 18:39] LABS: Bilirubin Urine Negative (Negative); Blood Urine Trace (Negative); Glucose Urine UA Negative (Normal); Ketones Urine Negative (Negative); Leukocyte Esterase Urine Negative (Negative); Nitrate Urine Negative (Negative); Protein Urine Trace (Negative); Urine Appearance Clear (CLEAR); Urine Color Yellow (Yellow); Urobilinogen Urine 0.2 mg/dL (Negative)
[2025-03-17 18:44] LABS: Bacteria Urine None Seen /hpf; Hyaline Casts Urine 2.87 /lpf; RBC Urine 0-2 /hpf (0-2); Squamous Epithelial Cell Urine 0-5 /hpf (0-5); WBC Urine 0-5 /hpf (0-5)
[2025-03-17 18:52] LABS: Potassium, Radom Urine 19 mmol/L; Urine Random Chloride 27 mmol/L; Urine Random Sodium 30 mmol/L
--- NOTE | 2025-03-17 23:33 | ECG_ITS ---
[facility] Test Date: 2025-03-17 Pat Name: Lonnie Rogers Department: Room: ICU03 Gender: Male Second Miller: : 1950 Requested By: Allison Leiva Order Number: [id number] Reading MD: SHANTHI ALONSO Measurements Intervals [place] Rate: 92 P: -16 MN: 162 QRS: 199 QRSD: 113 T: -45 QT: 376 QTc: 466 Interpretive Statements SINUS RHYTHM WITH SINUS ARRHYTHMIA POSSIBLE RIGHT VENTRICULAR HYPERTROPHY [SOME/ALL OF: PROMINENT R IN V1, LATE TRANSITION, RAD, ARLET, SSS] SEPTAL MYOCARDIAL INFARCTION , OF INDETERMINATE AGE [40+ ms Q WAVE IN V1/V2] INFERIOR MYOCARDIAL INFARCTION , OF INDETERMINATE AGE [40+ ms Q WAVE AND/OR ST/T ABNORMALITY IN II/aVF] Compared to ECG 03/17/2025 17:14:24 Atrial flutter no longer present Left-axis deviation no longer present Myocardial infarct finding still present Electronically Signed On 03-20-2025 23:48:42 CDT by SHANTHI ALONSO [email or web address]
[2025-03-17] MEDS: thiamine 100 mg/mL 2mL SDV IVP (23:55)
[2025-03-18] VITALS (51 sets, daily range): BP systolic 79–137; BP diastolic 37–72; PULSE 72–135; RESP 11–23; TEMP 36.6–36.7; O2SAT 84–99
--- NOTE | 2025-03-18 00:13 | USR_ITS ---
PROCEDURE INFORMATION: Exam: US Duplex Bilateral Lower Extremity Arteries Exam date and time: 03/18/2025 1:54 AM Age: 74 years old Clinical indication: Other: No palpable pedal pulses; Additional info: Unpalpable pulses TECHNIQUE: Imaging protocol: Real-time ultrasound scan of the arteries of the bilateral lower extremities with 2-D toribio scale, color Doppler flow and spectral waveform analysis. Images documented and saved. COMPARISON: 1. CT abdomen pelvis wo con [id number] 03/17/2025 3:[address] abdomen pelvis w con* [id number] 04/04/2023 8:37 AM FINDINGS: Right external iliac artery: The right external iliac artery is patent. Peak systolic velocities are mildly elevated. Waveforms are biphasic. Right common femoral artery: Right common femoral artery is patent. Diffuse echogenic atherosclerotic wall plaque. Biphasic waveform. Unremarkable peak systolic velocity. Right profunda femoris artery: Right profunda femoral artery is patent. Mildly elevated velocity proximally measuring 280 cm/s. Biphasic waveform. Right superficial femoral artery: Right superficial femoral artery origin is patent. There is a large volume of atherosclerotic plaque. Peak systolic velocity is reduced. Dampened, monophasic waveform. Segmental occlusion is noted in the proximal aspect just distal to the origin. Flow reconstitutes in the midportion and distal portion which shows dampened, monophasic waveform patterns. Right popliteal artery: Right popliteal artery is patent with severe waveform dampening and monophasic waveforms. Severe reduction in the peak systolic velocity measuring 18 cm/s. Right calf/foot arteries: Right dorsalis pedis artery is occluded. Right posterior tibial artery is occluded. Left external iliac artery: Left external iliac artery is patent but the waveforms are severely dampened and monophasic. Reduced peak systolic velocities measuring between 28 and 34 cm/s. Left common femoral artery: Left common femoral artery is patent. Dampened, monophasic waveform pattern. Distal aneurysm redemonstrated. Left profunda femoris artery: Left profunda femoral artery is patent but shows severe reduction and flows with diminished velocities measuring 16 cm/s. Severely dampened, monophasic waveform. Left superficial femoral artery: Left superficial femoral artery is patent proximally but the waveforms are severely dampened and monophasic. Reduced peak systolic velocity measuring 22 cm/s. Large volume atherosclerotic plaque. Segmental occlusion in the midportion of the artery. Reconstitution distally with a severely dampened, monophasic waveform. Left popliteal artery: Left popliteal artery is patent but demonstrates a severely dampened, monophasic waveform. Left calf/foot arteries: The left posterior tibial artery is occluded. The left dorsalis pedis artery is [place]cluded. US/[place] [id number] IMPRESSION: 1. Severe bilateral lower extremity peripheral arterial occlusive disease changes are noted. 2. Multiple arterial occlusions are identified bilaterally.
--- NOTE | 2025-03-18 00:21 | XRR_ITS ---
PROCEDURE INFORMATION: Exam: XR Chest Exam date and time: 03/18/2025 12:24 AM Age: 74 years old Clinical indication: Other: Diminished breath sounds; Additional info: Diminished breath sounds in the R. Middle lower lung bases TECHNIQUE: Imaging protocol: Radiologic exam of the chest. Views: 1 view. COMPARISON: CR XR chest 1V portable [id number] 06/15/2024 2:27 PM FINDINGS: Lungs: Lungs are hyperinflated. Clear parenchyma. Pleural spaces: No pleural effusion. No pneumothorax. Skin folds are noted over the left upper chest which should not be mistaken for pneumothorax. Heart/Mediastinum: Cardiac silhouette is normal in size for technique. Bones/joints: Subjective bony demineralization. No displaced fractures. XR/XR chest 1V portable [id number] IMPRESSION: Hyperinflated but clear lungs. No other acute cardiopulmonary abnormality.
[2025-03-18] MEDS: metroNIDAZOLE IV 500 MG/100 ML PREMIX 100 MG IV ×3 (00:53→16:21)
[2025-03-18] MEDS: sodium bicarbonate 8.4% 1 mEq/mL 50mL Syr 50 MEQ IVP (00:53)
[2025-03-18] MEDS: trazodone 100 mg Tablet PO ×2 (00:53→21:15)
[2025-03-18] MEDS: sodium bicarbonate 150 MEQ in dextrose 5% 1,000 ML 100 MEQ IV ×2 (00:54→14:09)
[2025-03-18 01:16] LABS: Partial Thromboplastin Time 28.7 SECONDS (23.9-36.7)
[2025-03-18 01:23] LABS: Anion Gap 21.7 (5-19); Calcium 6.5 mg/dL (8.5-10.5); Carbon Dioxide 17 mmol/L (22-29); Chloride 107 mmol/L (98-107); Creatinine Clr Calc Pharmacy 27.1697; Glucose 93 mg/dL (65-115); Phosphorus 5.3 mg/dL (2.5-4.5); Potassium 3.7 mmol/L (3.5-5.1); Sodium 142 mmol/L (136-145)
[2025-03-18 01:32] LABS: Free T4 Free Thyroxine 1.24 ng/dL (0.82-1.77); Osmolality Calculated 333 mOsm/kg (285-295)
[2025-03-18 01:33] LABS: Blood Urea Nitrogen 123 mg/dL (8-23)
[2025-03-18 01:34] LABS: Troponin T (5th) Once 128 ng/L (0-15)
[2025-03-18 02:09] LABS: Troponin T (5th) Once 94 ng/L (0-15)
[2025-03-18] MEDS: ciprofloxacin 400 MG/200 ML PREMIX 200 MG IV (04:58)
[2025-03-18] MEDS: pantoprazole 40 mg SDV IVP (04:58)
[2025-03-18 05:11] LABS: INR 1.31 (0.8-1.2)
[2025-03-18] MEDS: magnesium sulfate premix 4 GM/100 ML PREMIX IV (05:14)
[2025-03-18 05:21] LABS: Alanine Aminotransferase 11 U/L (0-41); Albumin Level 2.5 g/dL (3.5-5.2); Alkaline Phosphatase 68 U/L (40-130); Anion Gap 18.5 (5-19); Aspartate Amino Transferase 19 U/L (0-40); Calcium 6.3 mg/dL (8.5-10.5); Carbon Dioxide 21 mmol/L (22-29); Chloride 105 mmol/L (98-107); Creatinine Clr Calc Pharmacy 27.1191; Globulin 2.6 g/dL (1.3-4.6); Glucose 136 mg/dL (65-115); Potassium 3.5 mmol/L (3.5-5.1); Sodium 141 mmol/L (136-145); Total Bilirubin 0.2 mg/dL (0.15-1.2); Total Protein 5.1 g/dL (6.6-8.7)
[2025-03-18 05:42] LABS: Osmolality Calculated 331 mOsm/kg (285-295)
[2025-03-18 05:43] LABS: Blood Urea Nitrogen 115 mg/dL (8-23)
--- NOTE | 2025-03-18 06:01 | PC.NURSE ---
Pt with multiple lab abnormalities, seen by Dr. Leiva and gave multiple verbal orders for correction. See orders and mar for administration.
[2025-03-18] MEDS: enoxaparin 30 mg/0.3 mL Syringe 70 MG SUBCUT (09:39)
[2025-03-18 09:52] LABS: Basophils % 0.3 %; Eosinophils # 0.4 10^3/uL (0.0-0.8); Eosinophils % 6.7 %; Hematocrit 23.7 % (37-53); Lymphocytes # 0.2 10^3/uL (0.8-4.8); Mean Corpuscular Volume 88.4 fl (82-101); Mean Platelet Volume 10.4 fL (7.4-10.4); Monocytes # 0.3 10^3/uL (0.2-0.9); Monocytes % 5.7 %; Neutrophils # 4.98 10^3/uL (1.8-7.7); Neutrophils % 82.8 %; Nucleated Red Blood Cells % 0 %; Platelet Count 266 10^3/cmm (157-399); Red Blood Count 2.68 10^6/uL (3.85-5.65); Red Cell Distribution Width 12.8 % (12.1-15.1); White Blood Count 6.01 10^3/uL (3.29-11.43)
--- NOTE | 2025-03-18 12:19 | P.PN_ITS ---
Subjective 2 Subjective: No acute events overnight. Patient seen at bedside and has no new complaints today. RVR is resolved. He denies worsening abdominal pain. Vitals/I&O/Wt Last Vital Signs Temp 98.0 F 03/18/25 03:30 Pulse 98 03/18/25 09:30 Resp 16 03/18/25 09:30 BP 104/53 03/18/25 09:30 Pulse Ox 98 03/18/25 09:30 O2 Del Method Room Air 03/18/25 09:21 03/17/25 03/18/25 03/18/25 22:59 06:59 14:59 Intake Total 1879 / 1879 3485.555 / 5365.555 161.699 / 161.699 Output Total 3000 / 3000 Balance 1879 485.555 / 2365.555 161.699 / 161.699 Weight last 48 hrs Weight 66.678 kg Weight 67 kg Weight 68.039 kg Physical Exam 2 Narrative: General -Awake, but lethargic, acutely ill-appearing HEENT-normocephalic, atraumatic, neck is supple Lungs-clear to auscultation bilaterally, no wheezes or crackles CVS -S1-S2, regular rate and rhythm Abdomen -soft, nontender, normal bowel sounds Extremities-no pedal edema Neurology -no gross focal deficits Urinary Catheter Management: Philip: Cath Placed During This Visit: yes Urinary Catheter Date of Insertion: 03/17/25 Urinary Catheter Time of Insertion: 20:10 Data 03/18/25 09:46 03/18/25 04:27 Micro: Microbiology 03/17/25 17:38 Blood Culture - Preliminary Blood SPECIMEN COLLECTED 03/17/25 16:16 Blood Culture - Preliminary Blood SPECIMEN COLLECTED A&P Assessment and plan (1) Sepsis: (2) Colitis: (3) Atrial fibrillation with RVR: (4) Renal failure: (5) Hypotension: Plan ##Sepsis #Diarrhea: #Diffuse Colitis - Signs of sepsis improving - Continue ciprofloxacin and Flagyl - Follow GI pathogen panel # Atrial fibrillation with RVR - RVR is resolved - Will discontinue amiodarone - Resume home metoprolol as BP tolerates - Patient currently on Lovenox, will plan to resume Eliquis # Hypotension - Blood pressure improving with IV fluids # Acute kidney injury - Prerenal etiology in the setting of diarrhea -Kidney function improving today -Continue IV fluids -Avoid nephrotoxic medications # Elevated anion gap metabolic acidosis -Complete course of bicarb infusion -Acidosis improving # Suspected alcohol use disorder -Continue thiamine, multivitamins # Suspected protein calorie malnutrition -Nutrition consult #b/l gluteal cleft wounds with a 1cm unstageable ulcer in the R. gluteus - Consult wound care. - q2hr turns and barrier cream for now. PDMP PDMP Reviewed: Not Reviewed Attestations 2 Medical Necessity Statement*: Patient to continue inpatient care for LINDSEY, colitis requiring IV fluids, antibiotics Coding Level of Care Code Acute Code for [facility] Diagnoses Sepsis A41.9 Colitis K52.9 Atrial fibrillation with RVR I48.91 Renal failure N19 Hypotension I95.9
--- NOTE | 2025-03-18 15:00 | PC.NURSE ---
Patient has converted from A Fib with RVR to A Fib with a rate of 70-80 BPM per telemetry. I called and spoke with Dr. Billings and discussed this with her as well as patient's BP of 88 systolic. She provided a verbal order to d/c the Amiodarone and administer Albumin 25 once via IV. Order read back per policy and entered in EMR. After speaking with Faye Oseguera, Critical Binder Sorter, I messaged Dr. Billings via [employer] and inquired if we should bridge with PO Amiodarone. She replied at 1530 stating that she wanted to keep her prior orders and states that she will place the order for PO Amiodarone. No further orders received. Provided this in report to Rimma Badillo RN as well.
--- NOTE | 2025-03-18 16:04 | PC.NURSE ---
Ron RN informed dr. Sierra patient is approaching 24 hour of amio drip is is in afib with controlled rate in the 80s dr germain ordered to shut off amio drip and put in order for albumin
[2025-03-18] MEDS: albumin 25 G/100 ML BAG 60 G IV (16:21)
[2025-03-18] MEDS: sodium chloride 0.9% 1,000 ML 100 ML IV (18:00)
--- NOTE | 2025-03-18 18:12 | PC.NURSE ---
PO amio ordered to start tomorrow morning, this nurse clarified that and no diet order, approved starting amio po now and diet order
[2025-03-18] MEDS: amiodarone 200 mg Tablet PO (18:34)
[2025-03-19] VITALS (35 sets, daily range): BP systolic 117–141; BP diastolic 56–78; PULSE 78–110; RESP 9–24; TEMP 36.6–36.8; O2SAT 91–98; BMI 23.1
[2025-03-19] MEDS: metroNIDAZOLE IV 500 MG/100 ML PREMIX 100 MG IV ×3 (00:28→17:51)
[2025-03-19] MEDS: folic acid 1 mg Tablet PO ×2 (00:28→08:26)
[2025-03-19] MEDS: sodium bicarbonate 150 MEQ in dextrose 5% 1,000 ML 100 MEQ IV ×2 (02:28→13:35)
[2025-03-19] MEDS: sodium chloride 0.9% 1,000 ML 100 ML IV ×3 (03:46→23:43)
[2025-03-19] MEDS: ciprofloxacin 400 MG/200 ML PREMIX 200 MG IV (03:46)
[2025-03-19 04:42] LABS: Alanine Aminotransferase 9 U/L (0-41); Albumin Level 2.7 g/dL (3.5-5.2); Alkaline Phosphatase 59 U/L (40-130); Aspartate Amino Transferase 19 U/L (0-40); Blood Urea Nitrogen 51 mg/dL (8-23); Calcium 6.1 mg/dL (8.5-10.5); Carbon Dioxide 27 mmol/L (22-29); Chloride 103 mmol/L (98-107); Creatinine Clr Calc Pharmacy 41.5827; Globulin 1.8 g/dL (1.3-4.6); Glucose 123 mg/dL (65-115); Magnesium 1.4 mg/dL (1.7-2.3); Osmolality Calculated 309 mOsm/kg (285-295); Sodium 142 mmol/L (136-145); Total Bilirubin 0.2 mg/dL (0.15-1.2); Total Protein 4.5 g/dL (6.6-8.7)
[2025-03-19 04:54] LABS: Anion Gap 15.4 (5-19); Potassium 3.4 mmol/L (3.5-5.1)
[2025-03-19] MEDS: pantoprazole 40 mg SDV IVP (05:08)
[2025-03-19] MEDS: amiodarone 200 mg Tablet PO (08:26)
[2025-03-19 09:21] LABS: Basophils % 0.4 %; Eosinophils # 0.9 10^3/uL (0.0-0.8); Eosinophils % 16.7 %; Hematocrit 22.9 % (37-53); Lymphocytes # 0.4 10^3/uL (0.8-4.8); Lymphocytes % 7.1 %; Mean Corpuscular HGB Conc 33.2 g/dL (30-55); Mean Corpuscular Hemoglobin 30.6 pg (27-33); Mean Corpuscular Volume 92.3 fl (82-101); Mean Platelet Volume 11.5 fL (7.4-10.4); Monocytes # 0.4 10^3/uL (0.2-0.9); Monocytes % 6.9 %; Neutrophils # 3.69 10^3/uL (1.8-7.7); Neutrophils % 68.3 %; Nucleated Red Blood Cells % 0 %; Platelet Count 248 10^3/cmm (157-399); Red Blood Count 2.48 10^6/uL (3.85-5.65); Red Cell Distribution Width 13.2 % (12.1-15.1); White Blood Count 5.39 10^3/uL (3.29-11.43)
[2025-03-19] MEDS: enoxaparin 80 mg/0.8 mL Syringe 70 MG SUBCUT (10:58)
--- NOTE | 2025-03-19 11:43 | PM.PN ---
Subjective Subjective: No acute events overnight. Patient seen at bedside and has no new complaints today. RVR is resolved. He denies worsening abdominal pain. Vitals/I&O/Wt Last Vital Signs Temp 98.3 F 03/19/25 04:00 Pulse 78 03/19/25 10:00 Resp 22 H 03/19/25 10:00 BP 117/57 03/19/25 10:00 Pulse Ox 93 03/19/25 10:00 O2 Del Method Room Air 03/19/25 10:00 03/18/25 03/19/25 03/19/25 22:59 06:59 14:59 Intake Total 700 / 2111.699 2670.000 / 4781.699 Output Total 1999 750 / 2750 Balance -1300 / 652.992 4217.000 / 2031.699 Weight last 48 hrs Weight 71 kg Weight 66.678 kg Weight 67 kg Weight 68.039 kg Physical Exam Narrative: General -Awake, alert , acutely ill-appearing HEENT-normocephalic, atraumatic, neck is supple Lungs-clear to auscultation bilaterally, no wheezes or crackles CVS -S1-S2, regular rate and rhythm Abdomen -soft, nontender, normal bowel sounds Extremities-no pedal edema Neurology -no gross focal deficits Urinary Catheter Management: Philip: Cath Placed During This Visit: yes Reason for Continuing Indwelling Catheter: Accurate Measurement of Urinary Output in Critically Ill Patients Urinary Catheter Date of Insertion: 03/17/25 Urinary Catheter Time of Insertion: 20:10 Data 03/19/25 03:36 03/19/25 03:36 Micro: Microbiology 03/17/25 17:38 Blood Culture - Preliminary Blood NEGATIVE TO DATE 03/17/25 16:16 Blood Culture - Preliminary Blood NEGATIVE TO DATE A&P Assessment and plan (1) Sepsis: (2) Colitis: (3) Atrial fibrillation with RVR: (4) Renal failure: (5) Hypotension: Plan ##Sepsis #Diarrhea: #Diffuse Colitis - Signs of sepsis improved - Continue ciprofloxacin and Flagyl - Follow GI pathogen panel # Atrial fibrillation with RVR - RVR is resolved - Amiodarone infusion dc - Resume home metoprolol as BP tolerates - Patient currently on Lovenox, will plan to resume Eliquis # Hypotension - Blood pressure improved with IVF # Acute kidney injury - Prerenal etiology in the setting of diarrhea -Kidney function improving today with IVF -Avoid nephrotoxic medications # Elevated anion gap metabolic acidosis -Acidosis improved after bicard infusion # Suspected alcohol use disorder -Continue thiamine, multivitamins # Suspected protein calorie malnutrition -Nutrition consult #b/l gluteal cleft wounds with a 1cm unstageable ulcer in the R. gluteus - Consult wound care. - q2hr turns and barrier cream for now. #Hypokalemia -Replace #Generalized Weakness -PT/OT Eval PDMP PDMP Reviewed: Not Reviewed Attestations Medical Necessity Statement*: Patient to continue inpatient care for LINDSEY, colitis requiring IV antibiotics Coding Level of Care Code Acute Code for [facility] Diagnoses Sepsis A41.9 Colitis K52.9 Atrial fibrillation with RVR I48.91 Renal failure N19 Hypotension I95.9
--- NOTE | 2025-03-19 13:04 | PC.SOCIAL ---
IMM Updated Updated pt on IMM. No questions voiced. Provided pt a copy. Initialed, dated, & timed a copy & placed in chart.
[2025-03-19] MEDS: potassium chloride ER 20 mEq Tablet 40 MEQ PO (13:06)
--- NOTE | 2025-03-19 14:34 | PC.NURSE ---
patient assisted back to bed with minimal assistance.
--- NOTE | 2025-03-19 14:43 | PC.NURSE ---
pt here for cardiac cath tech. unable to obtain access in right or left radial or femoral sites. gauze and tegaderm noted to each site. no hematomas noted.
[2025-03-19] MEDS: apixaban 5 mg Tablet PO (21:12)
[2025-03-19] MEDS: trazodone 100 mg Tablet PO (21:12)
[2025-03-20] VITALS (51 sets, daily range): BP systolic 110–144; BP diastolic 62–80; PULSE 77–113; RESP 4–23; TEMP 36.6–37.7; O2SAT 88–99
[2025-03-20] MEDS: metroNIDAZOLE IV 500 MG/100 ML PREMIX 100 MG IV ×3 (01:24→17:15)
[2025-03-20 03:30] LABS: Basophils % 0.4 %; Eosinophils # 0.7 10^3/uL (0.0-0.8); Eosinophils % 13.1 %; Hematocrit 21.5 % (37-53); Lymphocytes # 0.5 10^3/uL (0.8-4.8); Lymphocytes % 9.5 %; Mean Corpuscular Hemoglobin 30.9 pg (27-33); Mean Corpuscular Volume 93.5 fl (82-101); Mean Platelet Volume 10.3 fL (7.4-10.4); Monocytes # 0.4 10^3/uL (0.2-0.9); Monocytes % 6.7 %; Neutrophils # 3.72 10^3/uL (1.8-7.7); Neutrophils % 69.6 %; Nucleated Red Blood Cells % 0 %; Platelet Count 267 10^3/cmm (157-399); Red Cell Distribution Width 13.1 % (12.1-15.1); White Blood Count 5.35 10^3/uL (3.29-11.43)
[2025-03-20 03:51] LABS: Alanine Aminotransferase 9 U/L (0-41); Albumin Level 2.3 g/dL (3.5-5.2); Alkaline Phosphatase 58 U/L (40-130); Anion Gap 10.5 (5-19); Aspartate Amino Transferase 16 U/L (0-40); Blood Urea Nitrogen 26 mg/dL (8-23); Calcium 6.5 mg/dL (8.5-10.5); Carbon Dioxide 28 mmol/L (22-29); Chloride 103 mmol/L (98-107); Creatinine Clr Calc Pharmacy 53.2789; Globulin 2.2 g/dL (1.3-4.6); Glucose 97 mg/dL (65-115); Magnesium 1.2 mg/dL (1.7-2.3); Osmolality Calculated 291 mOsm/kg (285-295); Potassium 3.5 mmol/L (3.5-5.1); Sodium 138 mmol/L (136-145); Total Bilirubin 0.2 mg/dL (0.15-1.2); Total Protein 4.5 g/dL (6.6-8.7)
[2025-03-20] MEDS: ciprofloxacin 400 MG/200 ML PREMIX 200 MG IV (04:25)
[2025-03-20] MEDS: pantoprazole 40 mg SDV IVP (05:02)
[2025-03-20] MEDS: folic acid 1 mg Tablet PO (08:57)
[2025-03-20] MEDS: apixaban 5 mg Tablet PO ×2 (08:57→20:04)
[2025-03-20] MEDS: amiodarone 200 mg Tablet PO (08:57)
--- NOTE | 2025-03-20 08:58 | PC.NURSE ---
Patient up to chair for breakfast, standby assistance required. No IV access, delay in magnesium due to this.
[2025-03-20] MEDS: magnesium sulfate premix 2 GM/50 ML PIGGYBACK IV (09:10)
[2025-03-20] MEDS: metoprolol tartrate 50 mg Tablet PO (09:26)
[2025-03-20] MEDS: sodium chloride 0.9% 1,000 ML 100 ML IV ×2 (10:32→20:53)
--- NOTE | 2025-03-20 10:46 | PC.NURSE ---
Philip catheter removed, no complications. Patient instructed to use urinal and alert nurse so that accurate output can be documented.
--- NOTE | 2025-03-20 11:04 | P.PN_ITS ---
Subjective 2 Subjective: No acute events overnight. Patient seen at bedside and has no new complaints today. Vitals/I&O/Wt Last Vital Signs Temp 99.9 F H 03/20/25 08:30 Pulse 78 03/20/25 10:30 Resp 21 H 03/20/25 10:30 BP 110/66 03/20/25 10:30 Pulse Ox 90 03/20/25 10:30 O2 Del Method Room Air 03/20/25 10:30 03/19/25 03/20/25 03/20/25 22:59 06:59 14:59 Intake Total 341.667 / 3016.667 1300 / 4316.667 1550 / 1550 Output Total 1050 / 1050 400 / 400 Balance -708.333 / 3979.712 4271 / 3266.667 1150 / 1150 Weight last 48 hrs Weight 71 kg Physical Exam 2 Narrative: General -Awake, alert , no acute distress HEENT-normocephalic, atraumatic, neck is supple Lungs-clear to auscultation bilaterally, no wheezes or crackles CVS -S1-S2, regular rate and rhythm Abdomen -soft, nontender, normal bowel sounds Extremities-no pedal edema Neurology -no gross focal deficits Urinary Catheter Management: Philip: Cath Placed During This Visit: yes Reason for Continuing Indwelling Catheter: Accurate Measurement of Urinary Output in Critically Ill Patients Urinary Catheter Date of Insertion: 03/17/25 Urinary Catheter Time of Insertion: 20:10 Data 03/20/25 03:12 03/20/25 03:12 A&P Assessment and plan (1) Sepsis: (2) Colitis: (3) Atrial fibrillation with RVR: (4) Renal failure: (5) Hypotension: Plan #Sepsis #Diarrhea: #Diffuse Colitis - Signs of sepsis improved - Continue ciprofloxacin and Flagyl - Follow GI pathogen panel # Atrial fibrillation with RVR - RVR is resolved - Amiodarone infusion dc - Resume home metoprolol , Eliquis # Hypotension - Blood pressure improved with IVF # Acute kidney injury - Prerenal etiology in the setting of diarrhea -Kidney function improved with IVF -Avoid nephrotoxic medications # Elevated anion gap metabolic acidosis -Acidosis improved after bicard infusion # Suspected alcohol use disorder -Continue thiamine, multivitamins #Acute on Chronic Anemia -Repeat Hgb in the pm, transfuse as appropriate -No evidence of gross active GI bleeding -Colonoscopy/EGD needed likely outpatient # Suspected protein calorie malnutrition -Nutrition consult #b/l gluteal cleft wounds with a 1cm unstageable ulcer in the R. gluteus - Consult wound care. - q2hr turns and barrier cream for now. #Hypokalemia -Replace as appropriate #Generalized Weakness -PT/OT Eval PDMP PDMP Reviewed: Not Reviewed Attestations 2 Medical Necessity Statement*: Patient to continue inpatient care for LINDSEY, colitis requiring IV antibiotics Coding Level of Care Code Acute Code for [facility] Diagnoses Sepsis A41.9 Colitis K52.9 Atrial fibrillation with RVR I48.91 Renal failure N19 Hypotension I95.9
[2025-03-20] MEDS: trazodone 100 mg Tablet PO (20:03)
[2025-03-21] VITALS (49 sets, daily range): BP systolic 111–153; BP diastolic 69–94; PULSE 78–112; RESP 15–27; TEMP 36.4–37.2; O2SAT 88–97
[2025-03-21] MEDS: metroNIDAZOLE IV 500 MG/100 ML PREMIX 100 MG IV ×3 (02:15→17:06)
[2025-03-21] MEDS: ciprofloxacin 400 MG/200 ML PREMIX 200 MG IV (05:41)
[2025-03-21] MEDS: pantoprazole 40 mg SDV IVP (05:41)
[2025-03-21 05:59] LABS: Basophils % 0.6 %; Eosinophils # 1.2 10^3/uL (0.0-0.8); Lymphocytes # 0.8 10^3/uL (0.8-4.8); Lymphocytes % 11.5 %; Mean Corpuscular HGB Conc 32.7 g/dL (30-55); Mean Corpuscular Hemoglobin 31.3 pg (27-33); Mean Corpuscular Volume 95.7 fl (82-101); Mean Platelet Volume 10.8 fL (7.4-10.4); Monocytes # 0.5 10^3/uL (0.2-0.9); Monocytes % 6.8 %; Neutrophils # 4.53 10^3/uL (1.8-7.7); Neutrophils % 62.7 %; Nucleated Red Blood Cells % 0 %; Platelet Count 309 10^3/cmm (157-399); Red Cell Distribution Width 12.9 % (12.1-15.1); White Blood Count 7.22 10^3/uL (3.29-11.43)
[2025-03-21 06:29] LABS: Albumin Level 2.1 g/dL (3.5-5.2); Anion Gap 10.4 (5-19); Blood Urea Nitrogen 19 mg/dL (8-23); Calcium 6.7 mg/dL (8.5-10.5); Carbon Dioxide 24 mmol/L (22-29); Chloride 107 mmol/L (98-107); Creatinine Clr Calc Pharmacy 60.5846; Glucose 90 mg/dL (65-115); Magnesium 1.4 mg/dL (1.7-2.3); Phosphorus 1.6 mg/dL (2.5-4.5); Potassium 3.4 mmol/L (3.5-5.1); Sodium 138 mmol/L (136-145)
[2025-03-21] MEDS: sodium chloride 0.9% 1,000 ML 100 ML IV (07:46)
[2025-03-21] MEDS: folic acid 1 mg Tablet PO (09:39)
[2025-03-21] MEDS: amiodarone 200 mg Tablet PO (09:39)
[2025-03-21] MEDS: apixaban 5 mg Tablet PO (09:39)
[2025-03-21] MEDS: metoprolol tartrate 50 mg Tablet PO (09:39)
--- NOTE | 2025-03-21 09:47 | P.PN_ITS ---
Subjective 2 Subjective: No complaints this morning or overnight. Urine is very dark. Denies pain. Appetite diminished this morning. Medications: Reviewed: Yes Vitals/I&O/Wt Last Vital Signs Temp 98 F 03/21/25 05:50 Pulse 94 03/21/25 06:00 Resp 21 H 03/21/25 04:30 BP 140/85 03/21/25 04:30 Pulse Ox 92 03/21/25 04:30 O2 Del Method Room Air 03/21/25 05:50 O2 Flow Rate 2 03/21/25 02:00 03/20/25 03/21/25 03/21/25 22:59 06:59 14:59 Intake Total 1500 / 3050 1100 / 4150 200 / 200 Output Total 500 / 900 400 / 1300 Balance 1000 / 2150 700 / 2850 200 / 200 Weight last 48 hrs Weight 173 lb 1.006 oz Physical Exam 2 Narrative: General: Cooperative patient in no apparent distress. Well developed. HEENT: Normocephalic, Atraumatic. External ears normal. Nasal passages patent without drainage. MMM. Heart: RRR. Resp: LCTA. No respiratory distress, no use of accessory muscles. Abd: Soft, non-tender. Non-distended. Extremities: No edema. Skin: No rash or lesions on exposed areas. Neuro: No focal motor or sensory loss. Urinary Catheter Management: Philip: Cath Placed During This Visit: yes Reason for Continuing Indwelling Catheter: Accurate Measurement of Urinary Output in Critically Ill Patients Urinary Catheter Date of Insertion: 03/17/25 Urinary Catheter Time of Insertion: 20:10 Data 03/21/25 04:19 03/21/25 04:19 A&P Assessment and plan (1) Sepsis: (2) Colitis: (3) Atrial fibrillation with RVR: (4) Renal failure: (5) Hypotension: (6) Blood loss anemia: Plan 74-year-old male admitted for septic shock acute renal failure secondary to colitis. Continue close ICU monitoring. Septic shock currently resolved. Acute kidney injury is resolving. Creatinine is now at 1.1. His hemoglobin has decreased over the last several days. He is currently at 7.2. He has an elevated risk for a cardiovascular event such as NE or stroke, and he is on beta-neal and statin. Will transfuse 1 unit RBCs today. A-fib with RVR. RVR is no longer present. His rate is well-controlled. His blood pressure is beginning to elevate, and we can consider restarting his home blood pressure medications. This could also, be a result of his anemia. Will hold his Eliquis for now and recheck hgb tomorrow. If Hgb improves, can consider restarting. Recommend that he have upper endoscopy and colonoscopy once he is stable and discharged from the hospital. He should follow-up with his PCP to have this arranged. Continue Cipro and Flagyl for treatment of colitis. Blood cultures remain negative today. PT/OT to evaluate and treat. Continue turning schedule for his gluteal ulcer. There is a presumed alcohol use disorder. Will continue to monitor for withdrawal symptoms. Will also continue to supplement and replace vitamin deficiencies. Code Status: Full IVF: NS @ 50 DVT PPx: SCD's, eliquis GI PPx: Protonix ABx: Cipro, Flagyl Diet: Regular Discharge plan: Home when stable. PDMP PDMP Reviewed: Not Reviewed Attestations 2 Medical Necessity Statement*: Patient to continue inpatient care for LINDSEY, colitis requiring IV antibiotics Coding Level of Care Code Acute Code for [facility] Diagnoses Sepsis with acute renal failure and septic shock, due to unspecified organism, unspecified acute renal failure type A41.9; R65.21; N17.9 Sepsis type: sepsis due to unspecified organism Sepsis acute organ dysfunction status: with acute organ dysfunction Severe sepsis acute organ dysfunction type: acute renal failure Acute renal failure type: unspecified Severe sepsis shock status: with septic shock Colitis K52.9 Atrial fibrillation with RVR I48.91 Acute renal failure, unspecified acute renal failure type N17.9 Renal failure chronicity: acute Acute renal failure type: unspecified Other specified hypotension I95.89 Hypotension type: other hypotension type Blood loss anemia D50.0
--- NOTE | 2025-03-21 17:20 | XRR_ITS ---
PROCEDURE INFORMATION: Exam: XR Chest Exam date and time: 03/21/2025 5:34 PM Age: 74 years old Clinical indication: Shortness of breath; Additional info: Short of breath, fluid TECHNIQUE: Imaging protocol: Radiologic exam of the chest. Views: 1 view. COMPARISON: CR (CHEST, ) 03/18/2025 12:24 AM FINDINGS: Lungs: Diffuse coarsening of the lung parenchyma. Minor linear atelectasis or scarring in the right lung base. No focal consolidation. Pleural spaces: Unremarkable. No pleural effusion. No pneumothorax. Heart/Mediastinum: Unremarkable. No cardiomegaly. Bones/joints: Unremarkable. XR/XR chest 1V portable [id number] IMPRESSION: No acute findings.
--- NOTE | 2025-03-21 17:21 | PC.NURSE ---
Spoke with Dr. Mg regarding patient shortness of breath, crackles, and requirement for 2L NC. Order for Chest xray and 20 of lasix.
[2025-03-21] MEDS: FUROsemide 10 mg/mL SDV 2mL 20 MG IVP (17:32)
[2025-03-21] MEDS: trazodone 100 mg Tablet PO (20:56)
--- NOTE | 2025-03-21 22:01 | PC.NURSE ---
Nicotine patch Patient requesting nicotine patch. Dr. Soto contacted and order received for 14 mg nicotine patch daily.
[2025-03-22] VITALS (12 sets, daily range): BP systolic 103–150; BP diastolic 56–86; PULSE 86–106; RESP 16–20; TEMP 36.5–36.8; O2SAT 92–100
[2025-03-22] MEDS: metroNIDAZOLE IV 500 MG/100 ML PREMIX 100 MG IV ×2 (00:59→09:45)
[2025-03-22 02:19] LABS: Glucose Point of Care 106 mg/dL (70-110)
[2025-03-22] MEDS: ciprofloxacin 400 MG/200 ML PREMIX 200 MG IV (04:29)
[2025-03-22] MEDS: sodium chloride 0.9% 1,000 ML 100 ML IV (05:02)
[2025-03-22] MEDS: pantoprazole 40 mg SDV IVP (05:02)
[2025-03-22 05:32] LABS: Basophils # 0.1 10^3/uL (0.0-0.1); Basophils % 0.7 %; Eosinophils # 1.2 10^3/uL (0.0-0.8); Eosinophils % 17.5 %; Lymphocytes % 13.9 %; Mean Corpuscular HGB Conc 32.7 g/dL (30-55); Mean Corpuscular Hemoglobin 30.2 pg (27-33); Mean Corpuscular Volume 92.5 fl (82-101); Mean Platelet Volume 10.2 fL (7.4-10.4); Monocytes # 0.6 10^3/uL (0.2-0.9); Monocytes % 8.5 %; Neutrophils # 4.14 10^3/uL (1.8-7.7); Neutrophils % 58.3 %; Nucleated Red Blood Cells % 0 %; Platelet Count 289 10^3/cmm (157-399); Red Blood Count 2.81 10^6/uL (3.85-5.65); Red Cell Distribution Width 15.2 % (12.1-15.1)
[2025-03-22 05:51] LABS: Alanine Aminotransferase 12 U/L (0-41); Albumin Level 2.2 g/dL (3.5-5.2); Alkaline Phosphatase 103 U/L (40-130); Anion Gap 12.6 (5-19); Aspartate Amino Transferase 24 U/L (0-40); Blood Urea Nitrogen 16 mg/dL (8-23); Calcium 7.3 mg/dL (8.5-10.5); Carbon Dioxide 21 mmol/L (22-29); Chloride 106 mmol/L (98-107); Creatinine Clr Calc Pharmacy 66.6431; Globulin 2.5 g/dL (1.3-4.6); Glucose 124 mg/dL (65-115); Osmolality Calculated 285 mOsm/kg (285-295); Potassium 3.6 mmol/L (3.5-5.1); Sodium 136 mmol/L (136-145); Total Bilirubin 0.2 mg/dL (0.15-1.2); Total Protein 4.7 g/dL (6.6-8.7)
[2025-03-22] MEDS: folic acid 1 mg Tablet PO (09:45)
[2025-03-22] MEDS: amiodarone 200 mg Tablet PO (09:45)
[2025-03-22] MEDS: nicotine 14 mg Patch 1 PATCH TRANSDERMA (09:45)
[2025-03-22] MEDS: metoprolol tartrate 50 mg Tablet PO (09:46)
--- NOTE | 2025-03-22 12:00 | PC.NURSE ---
Report given to [facility] nurse. Patient's belongings were given to patient (alan in the Pyx[facility]). Patient was stable during transfer.
[2025-03-22] MEDS: FUROsemide 20 mg Tablet PO (12:26)
[2025-03-22] MEDS: metroNIDAZOLE 500 MG Tablet PO ×2 (14:18→20:20)
--- NOTE | 2025-03-22 14:28 | PC.SOCIAL ---
IMM Update pg 2 of IMM Updated and reviewed w/ patient. Copy provided and copy dated, initialed and placed in chart.
--- NOTE | 2025-03-22 14:43 | P.PN_ITS ---
Subjective 2 Subjective: Patient has been transferred from ICU to [facility] where he is seen today. Noted to have bilateral lower extremity pitting edema. Otherwise denies any new complaints. States that his diarrhea is improving. Medications: Reviewed: Yes Vitals/I&O/Wt Last Vital Signs Temp 98.2 F 03/22/25 12:00 Pulse 97 03/22/25 12:57 Resp 16 03/22/25 12:00 BP 107/68 03/22/25 12:00 Pulse Ox 93 03/22/25 12:00 O2 Del Method Room Air 03/22/25 12:00 O2 Flow Rate 2 03/22/25 10:00 03/21/25 03/22/25 03/22/25 22:59 06:59 14:59 Intake Total 1373.333 / 2073.333 100 / 2173.333 360 / 360 Output Total 950 / 1750 325 / 2075 Balance 423.333 / 323.333 -225 / 98.333 360 / 360 Weight last 48 hrs Weight 78 kg Weight 78.5 kg Physical Exam 2 Urinary Catheter Management: Philip: Cath Placed During This Visit: yes Reason for Continuing Indwelling Catheter: Accurate Measurement of Urinary Output in Critically Ill Patients Urinary Catheter Date of Insertion: 03/17/25 Urinary Catheter Time of Insertion: 20:10 Data 03/22/25 04:52 03/22/25 04:52 A&P Assessment and plan (1) Sepsis: (2) Colitis: (3) Atrial fibrillation with RVR: (4) Renal failure: (5) Hypotension: (6) Blood loss anemia: Plan 74-year-old male admitted for septic shock acute renal failure secondary to colitis. Continue close ICU monitoring. Septic shock currently resolved. Acute kidney injury is resolving. Creatinine is now at 1.1. His hemoglobin has decreased over the last several days. He is currently at 7.2. He has an elevated risk for a cardiovascular event such as [place] or stroke, and he is on beta-neal and statin. Will transfuse 1 unit RBCs today. A-fib with RVR. RVR is no longer present. His rate is well-controlled. His blood pressure is beginning to elevate, and we can consider restarting his home blood pressure medications. This could also, be a result of his anemia. Will hold his Eliquis for now and recheck hgb tomorrow. If Hgb improves, can consider restarting. Recommend that he have upper endoscopy and colonoscopy once he is stable and discharged from the hospital. He should follow-up with his PCP to have this arranged. Continue Cipro and Flagyl for treatment of colitis. Blood cultures remain negative today. PT/OT to evaluate and treat. Continue turning schedule for his gluteal ulcer. There is a presumed alcohol use disorder. Will continue to monitor for withdrawal symptoms. Will also continue to supplement and replace vitamin deficiencies. Code Status: Full IVF: NS @ 50 DVT PPx: SCD's, eliquis GI PPx: Protonix ABx: Cipro, Flagyl Diet: Regular Discharge plan: Home when stable. March 22, 2025 Chart reviewed. 74M with Admitted on 03/17 with profuse watery diarrhea. CT abdomen showed diffuse colitis. He started on treatment on Ciprofloxacin and metronidazole which improved his diarrhea. Transition from iv to po meds today as he is tolerating po intake. He was hypotensive on admission and had A fib with RVR. He received IVF and amiodarone. Today IVF has been discontinued due to devlopment of anasarca. Recived 20mg iv lasix last evening. Resume 20mg po lasix today. C diff PCR has not been sent. Will order to be taken today. Hb current admission low, s/p transfusion 1PRBC. Check iron panel, b12, folate, FOBT. Eliquis on hold due to this reason. incidentally noted to have severe PAD for which he will need outpatient follow up. PDMP PDMP Reviewed: Not Reviewed Attestations 2 Medical Necessity Statement*: transition iv to oral abx, needs C diff PCR tested as a priority. LAsix today. D/c IV fluids due to anasarca. Check FOBT before resuming eliquis Coding Level of Care Code Acute Code for [facility]g Fwd High MDM includes number and complexity of problems actively addressed during encounter, amount and/or complexity of data reviewed/ordered and described risk of complication, morbidity or mortality of management as documented Diagnoses Sepsis with acute renal failure and septic shock, due to unspecified organism, unspecified acute renal failure type A41.9; R65.21; N17.9 Sepsis type: sepsis due to unspecified organism Sepsis acute organ dysfunction status: with acute organ dysfunction Severe sepsis acute organ dysfunction type: acute renal failure Acute renal failure type: unspecified Severe sepsis shock status: with septic shock Colitis K52.9 Atrial fibrillation with RVR I48.91 Acute renal failure, unspecified acute renal failure type N17.9 Acute renal failure type: unspecified Renal failure chronicity: acute Other specified hypotension I95.89 Hypotension type: other hypotension type Blood loss anemia D50.0
[2025-03-22 16:50] LABS: C.Diff PCR (Lab) NEGATIVE (Negative)
[2025-03-22] MEDS: pantoprazole DR 40 mg Tablet PO (17:03)
[2025-03-22] MEDS: trazodone 100 mg Tablet PO (20:20)
[2025-03-22] MEDS: ciprofloxacin 500 mg Tablet PO (20:20)
[2025-03-23] VITALS: BP 103/56; PULSE 105; RESP 16; TEMP 36.5; O2SAT 92
[2025-03-23 02:00] VITALS: BP 100/52; PULSE 58; RESP 16; TEMP 36.7; O2SAT 97
[2025-03-23 04:00] VITALS: BP 100/52; PULSE 58; RESP 16; TEMP 36.7; O2SAT 97
[2025-03-23 05:22] LABS: Basophils % 0.3 %; Eosinophils # 1.2 10^3/uL (0.0-0.8); Eosinophils % 16.1 %; Hematocrit 23.6 % (37-53); Lymphocytes # 1.1 10^3/uL (0.8-4.8); Lymphocytes % 14.8 %; Mean Corpuscular HGB Conc 32.2 g/dL (30-55); Mean Corpuscular Hemoglobin 29.8 pg (27-33); Mean Corpuscular Volume 92.5 fl (82-101); Mean Platelet Volume 9.6 fL (7.4-10.4); Monocytes # 0.6 10^3/uL (0.2-0.9); Monocytes % 8.5 %; Neutrophils # 4.38 10^3/uL (1.8-7.7); Neutrophils % 59.4 %; Nucleated Red Blood Cells % 0 %; Platelet Count 312 10^3/cmm (157-399); Red Blood Count 2.55 10^6/uL (3.85-5.65); Red Cell Distribution Width 15.3 % (12.1-15.1); White Blood Count 7.38 10^3/uL (3.29-11.43)
[2025-03-23 05:41] LABS: Alanine Aminotransferase 10 U/L (0-41); Albumin Level 2.2 g/dL (3.5-5.2); Alkaline Phosphatase 60 U/L (40-130); Anion Gap 14.4 (5-19); Aspartate Amino Transferase 16 U/L (0-40); Blood Urea Nitrogen 14 mg/dL (8-23); Calcium 7.1 mg/dL (8.5-10.5); Carbon Dioxide 20 mmol/L (22-29); Chloride 111 mmol/L (98-107); Creatinine Clr Calc Pharmacy 60.4205; Globulin 2.1 g/dL (1.3-4.6); Glucose 94 mg/dL (65-115); Magnesium 1.3 mg/dL (1.7-2.3); Osmolality Calculated 294 mOsm/kg (285-295); Potassium 3.4 mmol/L (3.5-5.1); Sodium 142 mmol/L (136-145); Total Bilirubin 0.2 mg/dL (0.15-1.2); Total Protein 4.3 g/dL (6.6-8.7)
[2025-03-23 05:45] LABS: Ferritin 253 ng/mL (30-400); Iron 32 ug/dL (59-158); Percent Saturation 38.5 % (20-50); Total Iron Binding Capacity 83 mcg/dl; Unsaturated Iron Binding 51 ug/dL (112-347)
[2025-03-23 06:00] VITALS: PULSE 93
[2025-03-23 06:42] LABS: Vitamin B12 558 pg/mL (232-1245)
[2025-03-23 06:56] LABS: Folate Level > 20.0 ng/mL (4.5-32.2)
[2025-03-23 07:42] VITALS: BP 115/70; PULSE 112; RESP 16; TEMP 36.6; O2SAT 96
[2025-03-23] MEDS: metroNIDAZOLE 500 MG Tablet PO (07:50)
[2025-03-23] MEDS: amiodarone 200 mg Tablet PO (07:50)
[2025-03-23] MEDS: pantoprazole DR 40 mg Tablet PO (07:50)
[2025-03-23] MEDS: folic acid 1 mg Tablet PO (07:51)
[2025-03-23] MEDS: metoprolol tartrate 50 mg Tablet PO (07:51)
[2025-03-23] MEDS: nicotine 14 mg Patch 1 PATCH TRANSDERMA (07:51)
[2025-03-23] MEDS: ciprofloxacin 500 mg Tablet PO (07:53)
[2025-03-23 09:44] VITALS: BP 115/70; PULSE 93; O2SAT 96
--- NOTE | 2025-03-23 15:27 | P.DS_ITS ---
Discharge Providers Date of Admission: 03/17/25 17:24 Date of Discharge: March 23, 2025 Attending Provider at Admission: Allison Leiva MD Attending Provider at Discharge: Eleni Cobb MD Primary Care Provider: Hyun Mittal MD Diagnoses at Discharge Discharge Diagnosis (1) Sepsis: Status: Acute Qualifiers: Sepsis type: sepsis due to unspecified organism Sepsis acute organ dysfunction status: with acute organ dysfunction Severe sepsis acute organ dysfunction type: acute renal failure Acute renal failure type: unspecified Severe sepsis shock status: with septic shock Qualified Code(s): A41.9 - Sepsis, unspecified organism; R65.21 - Severe sepsis with septic shock; N17.9 - Acute kidney failure, unspecified (2) Colitis: Status: Acute (3) Atrial fibrillation with RVR: Status: Acute (4) Renal failure: Status: Acute Qualifiers: Acute renal failure type: unspecified Renal failure chronicity: acute Qualified Code(s): N17.9 - Acute kidney failure, unspecified (5) Hypotension: Status: Acute Qualifiers: Hypotension type: other hypotension type Qualified Code(s): I95.89 - Other hypotension (6) Blood loss anemia: Status: Acute Reason for Visit Reason for Visit: diarrhe - dizziness Hospital Course Hospital Course 5M with Admitted on 03/17 with profuse watery diarrhea. CT abdomen showed diffuse colitis. He started on treatment on Ciprofloxacin and metronidazole which improved his diarrhea. Transitioned from iv to po meds as he is tolerating po intake. He was hypotensive on admission and had A fib with RVR. He received IVF and amiodarone. C diff PCR tested on 03/22 was negative. Noted to have anemia, appeats to have some degree of chronic anemia as he is on iron and MV supplementation as oupatient, Hb current admission lowest at 7.6 s/p transfusion 1PRBC. FOBT revealed + FOBT, likely from acute colitis. He states he had colonoscopy one year ago which was normal as far as he knows. He is unwilling to have another one. Eliquis has been placed on hold over the next week while colitis improves. Lisinopril placed on hold at discharge due to remaining normotensive during admission course. Instrcuted to keep BP chart at home and resume lisinopril if SBP > 140 mmhg. Incidentally noted to have severe PAD for which he will need outpatient follow up. Currently does not have signs of acute limb ischemia. Physical Exam Narrative: General: No acute distress, AO x3 HEENT: PERRLA, pupils bilaterally equal and reactive, pallors not present Chest: Normal vesicular breath sounds, no added sounds, equal good air entry bilaterally CVS: S1-S2 regular, no murmurs, no tachycardia, no gallops, no rubs Abdomen: Soft, nontender, no organomegaly, bowel sounds present Neuro: No focal deficits, no facial deformity, AO x3, power 5/5 in all limbs Urinary Catheter Management: Philip: Cath Placed During This Visit: yes Reason for Continuing Indwelling Catheter: Accurate Measurement of Urinary Output in Critically Ill Patients Urinary Catheter Date of Insertion: 03/17/25 Urinary Catheter Time of Insertion: 20:10 Discharge Data Studies Completed and Pending Completed Studies During Hospitalization Category Date Time Status CT abdomen pelvis wo con [id number] Stat Cat Scan 03/17/25 15:30 Completed CXRP [XR chest 1V portable [id number]] Stat Exams 03/18/25 00:21 Completed XR chest 1V portable [id number] Stat Exams 03/21/25 17:20 [place] [id number] Routine Ultrasound 03/18/25 00:13 Completed Radiology Impressions Abdomen/Pelvis CT 03/17/25 15:30 IMPRESSION: 1. Diffuse colitis 2. Hiatal hernia 3. Cholelithiasis 4. A benign renal cyst or cysts have been detected. No further follow-up imaging is required. 5. Prostate enlargement COMMENTS: Consistent with the [employer]'s Incidental Findings Committee white paper (J Am Jake Radiol 2018): Any incidental renal lesion less than 1 cm or classified as too small to characterize, or any incidental cystic renal lesion characterized as simple-appearing, is likely benign. No follow-up imaging is recommended for these lesions per consensus recommendations based on imaging criteria. Duplex Scan Lower Extremity Artery 03/18/25 00:13 IMPRESSION: 1. Severe bilateral lower extremity peripheral arterial occlusive disease changes are noted. 2. Multiple arterial occlusions are identified bilaterally. Chest X-Ray 03/21/25 17:20 IMPRESSION: No acute findings. Laboratory Results WBC 7.38 10^3/uL (3.29-11.43) 03/23/25 05:01 RBC 2.55 10^6/uL (3.85-5.65) L 03/23/25 05:01 Hgb 7.60 g/dL (11.27-16.99) L 03/23/25 05:01 Hct 23.6 % (37-53) L 03/23/25 05:01 MCV 92.5 fl (82-101) 03/23/25 05:01 MCH 29.8 pg (27-33) 03/23/25 05:01 MCHC 32.2 g/dL (30-55) 03/23/25 05:01 RDW 15.3 % (12.1-15.1) H 03/23/25 05:01 Plt Count 312 10^3/cmm (157-399) 03/23/25 05:01 MPV 9.6 fL (7.4-10.4) 03/23/25 05:01 Neut % (Auto) 59.4 % 03/23/25 05:01 Lymph % (Auto) 14.8 % 03/23/25 05:01 [place] % (Auto) 8.5 % 03/23/25 05:01 Eos % (Auto) 16.1 % 03/23/25 05:01 Baso % (Auto) 0.3 % 03/23/25 05:01 Neut # (Auto) 4.38 10^3/uL (1.8-7.7) 03/23/25 05:01 Lymph # (Auto) 1.1 10^3/uL (0.8-4.8) 03/23/25 05:01 [place] # (Auto) 0.6 10^3/uL (0.2-0.9) 03/23/25 05:01 Eos # (Auto) 1.2 10^3/uL (0.0-0.8) H 03/23/25 05:01 Baso # (Auto) 0.0 10^3/uL (0.0-0.1) 03/23/25 05:01 Nucleated RBC % (auto) 0 % 03/23/25 05:01 Nucleated RBCs # 0.0 /100WBC 03/23/25 05:01 PT 17.20 SECONDS (12.1-14.9) H 03/18/25 04:27 INR 1.31 (0.8-1.2) H 03/18/25 04:27 APTT 28.7 SECONDS (23.9-36.7) 03/18/25 00:39 Sodium 142 mmol/L (136-145) 03/23/25 05:01 Potassium 3.4 mmol/L (3.5-5.1) L 03/23/25 05:01 Chloride 111 mmol/L (98-107) H 03/23/25 05:01 Carbon Dioxide 20 mmol/L (22-29) L 03/23/25 05:01 Anion Gap 14.4 (5-19) 03/23/25 05:01 BUN 14 mg/dL (8-23) 03/23/25 05:01 Creatinine 1.1 mg/dL (0.7-1.2) 03/23/25 05:01 GFR Calculation Not Reportable 03/23/25 05:01 Glucose 94 mg/dL (65-115) 03/23/25 05:01 POC Glucose 106 mg/dL (70-110) 03/22/25 01:05 Calculated Osmolality 294 mOsm/kg (285-295) 03/23/25 05:01 Lactic Acid 1.4 mmol/L (0.5-2.2) 03/17/25 15:00 Calcium 7.1 mg/dL (8.5-10.5) L 03/23/25 05:01 Phosphorus 1.6 mg/dL (2.5-4.5) L 03/21/25 04:19 Magnesium 1.3 mg/dL (1.7-2.3) L 03/23/25 05:01 Iron 32 ug/dL (59-158) L 03/23/25 05:01 TIBC 83 mcg/dl 03/23/25 05:01 % Saturation 38.5 % (20-50) 03/23/25 05:01 Unsat Iron Binding 51 ug/dL (112-347) L 03/23/25 05:01 Ferritin 253 ng/mL (30-400) 03/23/25 05:01 Total Bilirubin 0.2 mg/dL (0.15-1.2) 03/23/25 05:01 AST 16 U/L (0-40) 03/23/25 05:01 ALT 10 U/L (0-41) 03/23/25 05:01 Alkaline Phosphatase 60 U/L (40-130) 03/23/25 05:01 Troponin T 5th Gen ng/L 128 ng/L (0-15) H* 03/18/25 00:39 Total Protein 4.3 g/dL (6.6-8.7) L 03/23/25 05:01 Albumin 2.2 g/dL (3.5-5.2) L 03/23/25 05:01 Globulin 2.1 g/dL (1.3-4.6) 03/23/25 05:01 Lipase 58 U/L (13-60) 03/17/25 14:40 Vitamin B12 558 pg/mL (232-1245) 03/23/25 05:01 Folate > 20.0 ng/mL (4.5-32.2) 03/23/25 05:01 TSH 1.40 uIU/mL (0.27-4.20) 03/18/25 00:39 Free T4 1.24 ng/dL (0.82-1.77) 03/18/25 00:39 Urine Color Yellow (Yellow) 03/17/25 18:05 Urine Appearance Clear (CLEAR) 03/17/25 18:05 Urine pH 5.0 (5-7) 03/17/25 18:05 Ur Specific [place] 1.010 (1.005-1.030) 03/17/25 18:05 Urine Protein Trace (Negative) A 03/17/25 18:05 Urine Glucose (UA) Negative (Normal) 03/17/25 18:05 Urine Ketones Negative (Negative) 03/17/25 18:05 Urine Blood Trace (Negative) A 03/17/25 18:05 Urine Nitrate Negative (Negative) 03/17/25 18:05 Urine Bilirubin Negative (Negative) 03/17/25 18:05 Urine Urobilinogen 0.2 mg/dL (Negative) 03/17/25 18:05 Ur Leukocyte Esterase Negative (Negative) 03/17/25 18:05 Urine RBC 0-2 /hpf (0-2) 03/17/25 18:05 Urine WBC 0-5 /hpf (0-5) 03/17/25 18:05 Ur Squamous Epith Cells 0-5 /hpf (0-5) 03/17/25 18:05 Amorphous Sediment Not Reportable 03/17/25 18:05 Urine Bacteria None seen /hpf (NONE) 03/17/25 18:05 Hyaline Casts 2.87 /lpf 03/17/25 18:05 Ur Random Sodium 30 mmol/L 03/17/25 18:05 Ur Random Potassium 19 mmol/L 03/17/25 18:05 Ur Random Chloride 27 mmol/L 03/17/25 18:05 Ethyl Alcohol < 10 mg/dL (0-10) 03/17/25 14:40 C. difficile (PCR) Negative (Negative) 03/22/25 15:50 Blood Type O Positive 03/21/25 10:00 Rho(D) Type Rh positive 03/21/25 10:00 Antibody Screen Negative 03/21/25 10:00 Crossmatch See Detail 03/21/25 10:00 Vitals Last Vital Signs Temp 97.9 F 03/23/25 07:42 Pulse 93 03/23/25 09:44 Resp 16 03/23/25 07:42 BP 115/70 03/23/25 09:44 Pulse Ox 96 03/23/25 09:44 O2 Del Method Nasal Cannula 03/23/25 07:42 O2 Flow Rate 2 03/23/25 07:42 Discharge Plan Discharge Patient Disposition: Home Condition: Stable Prescriptions: New amiodarone [Pacerone] 200 mg Tablet 200 mg PO DAILY 30 Days Qty: 30 0RF metronidazole 500 mg Tablet 500 mg PO TID 7 Days Qty: 21 0RF ciprofloxacin HCl 500 mg Tablet 500 mg PO BID@0900,2100 7 Days Qty: 14 0RF Continued cetirizine 10 mg capsule 10 mg PO DAILY multivitamin Tablet 1 tab PO QAM furosemide 40 mg Tablet 40 mg PO DAILY@0800 Qty: 30 0RF folic acid 1 mg Tablet 1 mg PO DAILY Qty: 60 0RF Combivent Respimat 20-100 mcg/actuation mist 1 puff inhalation Q6H Qty: 4 4RF diclofenac sodium 3 % Gel 1 applic TOPICAL BID PRN (Reason: Pain) metoprolol tartrate 100 mg Tablet 50 mg PO DAILY ferrous gluconate 324 mg (37.5 mg iron) Tablet 324 mg PO DAILY thiamine HCl (vitamin B1) 100 mg Tablet 100 mg PO DAILY omeprazole 40 mg Capsule,Delayed Release(Dr/Ec) 40 mg PO DAILY trazodone 100 mg Tablet 100 mg PO BEDTIME rosuvastatin 10 mg Tablet 5 mg PO BEDTIME cholecalciferol (vitamin D3) 50 mcg (2,000 unit) Capsule 50 mcg PO DAILY Held Eliquis 5 mg tablet 5 mg PO BID Qty: 60 0RF Hold Instructions: Resume on 03/23/25. lisinopril 40 mg Tablet 40 mg PO DAILY Hold Instructions: Resume on 03/23/25. Discontinued diclofenac sodium 50 mg Tablet,Delayed Release (Dr/Ec) 50 mg PO Q12H PRN (Reason: Pain) Rx Instructions: take 1 tablet by mouth in the am and the pm do not take with diclofenac gel. Discharge Orders: Discharge Order (Routine); Ordered 03/23/25 Ordered By: Eleni Cobb Other Ambulatory Orders: DME: Bill (Order) Location: None Selected Ordered By: Allison Leiva Referrals: Hyun Mittal MD [Primary Care Provider, [facility]] - 1 week Referral Note: please contact your doctor for hospital discharge follow up for Hanks colitis, Eliquis on hold due to + FOB, 1PRBC transfusion during stay. Lisinopril held due to low BP Discharge Diet: Advance as tolerated Discharge Activity: Resume usual activity Patient Instructions: Ciprofloxacin (By mouth) (Cipro), Metronidazole (By mouth) (Flagyl, Flagyl 375, Flagyl ER, Likmez), Amiodarone (By mouth) (Cordarone, Pacerone), Sepsis (DC), Colitis (ED), Opioid Safety Discharge Attestations Time Spent in Discharge Care*: greater than 30 min Quality Metrics Clinical Quality Measures [ No reported AMI, CVA or VTE this stay] Coding Level of Care Code Acute Code for [facility] Fwd Diagnoses Sepsis with acute renal failure and septic shock, due to unspecified organism, unspecified acute renal failure type A41.9; R65.21; N17.9 Sepsis type: sepsis due to unspecified organism Sepsis acute organ dysfunction status: with acute organ dysfunction Severe sepsis acute organ dysfunction type: acute renal failure Acute renal failure type: unspecified Severe sepsis shock status: with septic shock Colitis K52.9 Atrial fibrillation with RVR I48.91 Acute renal failure, unspecified acute renal failure type N17.9 Acute renal failure type: unspecified Renal failure chronicity: acute Other specified hypotension I95.89 Hypotension type: other hypotension type Blood loss anemia D50.0
== END 2025-03-23 09:47 | disposition home or self-care (01) | DRG 871 ==
LOC: ER 15:47 → ER IP 17:26 → ICU 18:41 → MEDSURG 03-22 11:41
PROVIDERS: Emergency Medicine; Family Medicine; Student in an Organized Health Care Education/Training Program; Admitting Provider Internal Medicine; Emergency Provider Emergency Medicine; PCP Family Medicine; Visit Provider Student in an Organized Health Care Education/Training Program
DX: A41.9 Sepsis, unspecified organism (principal); E43 Unspecified severe protein-calorie malnutrition; R65.21 Severe sepsis with septic shock; N17.9 Acute kidney failure, unspecified; E87.20 Acidosis, unspecified; E87.1 Hypo-osmolality and hyponatremia; I48.92 Unspecified atrial flutter; K52.9 Noninfective gastroenteritis and colitis, unspecified; I48.91 Unspecified atrial fibrillation; D50.0 Iron deficiency anemia secondary to blood loss (chronic); F10.11 Alcohol abuse, in remission; F43.10 Post-traumatic stress disorder, unspecified; K57.90 Diverticulosis of intestine, part unspecified, without perforation or abscess without bleeding; J44.9 Chronic obstructive pulmonary disease, unspecified; K44.9 Diaphragmatic hernia without obstruction or gangrene; I10 Essential (primary) hypertension; E87.6 Hypokalemia; G47.00 Insomnia, unspecified; K21.9 Gastro-esophageal reflux disease without esophagitis; E86.1 Hypovolemia; L89.150 Pressure ulcer of sacral region, unstageable; E86.0 Dehydration; F17.210 Nicotine dependence, cigarettes, uncomplicated; Z68.23 Body mass index [BMI] 23.0-23.9, adult; Z79.891 Long term (current) use of opiate analgesic; Z86.19 Personal history of other infectious and parasitic diseases
CPT/HCPCS: 36415; 36416; 36430; 51702; 71045; 74176; 80048; 80053; 80069; 80307; 81001; 82274; 82436; 82607; 82728; 82746; 82962; 83540; 83550; 83605; 83690; 83735; 84100; 84133; 84300; 84439; 84443; 84484; 85018; 85025; 85610; 85730; 86850; 86900; 86920; 87040; 87493; 93005; 93925; 94760; 96365; 96367; 96372; 96374; 96375; 96376; 97110; 97116; 97162; 97165; 99285; 99291; 99292; J0283; J0744; J1650; J1938; J2470; J3411; J3475; J3490; J7030; J7040; J7070; J9999; P9016; P9046

== ENCOUNTER 2025-03-27 10:20 | Inpatient (IN) | payer OTHER, MEDICARE, SELFPAY ==
[2025-03-27] VITALS (9 sets, daily range): BP systolic 100–167; BP diastolic 59–98; PULSE 82–91; RESP 18–21; TEMP 36.4; O2SAT 95–99; BMI 22.1
--- NOTE | 2025-03-27 10:33 | XRR_ITS ---
PROCEDURE INFORMATION: Exam: XR Chest Exam date and time: 03/27/2025 10:45 AM Age: 74 years old Clinical indication: Other: Edema; Fluid retention; Lower ext swelling TECHNIQUE: Imaging protocol: Radiologic exam of the chest. Views: 1 view. COMPARISON: CR (CHEST, ) 03/21/2025 5:34 PM FINDINGS: Lungs: Left basilar consolidation is increased. Mild right basilar atelectasis or opacity is decreased. Interstitial prominence or opacities have nearly resolved. Pleural spaces: Small left pleural effusion is increased. Trace right pleural effusion again noted. Heart/Mediastinum: Unremarkable. No cardiomegaly. Bones/joints: Unremarkable. XR/XR chest 1V portable [id number] IMPRESSION: Increased left basilar consolidation and small left pleural effusion.
--- NOTE | 2025-03-27 10:43 | ECG_ITS ---
[facility] Test Date: 2025-03-27 Pat Name: Lonnie Rogers Department: Room: Gender: Male [employer] Research Assistant: : 1950 Requested By: Vy Ibarra Order Number: [id number] Teddy MD: Leo Pinto M.D. Measurements Intervals [place] Rate: 90 P: 43 IN: 163 QRS: -33 QRSD: 110 T: -4 QT: 387 QTc: 476 Interpretive Statements SINUS RHYTHM WITH FREQUENT SUPRAVENTRICULAR PREMATURE COMPLEXES LEFT AXIS DEVIATION [QRS AXIS < -30] LOW QRS VOLTAGE IN PRECORDIAL LEADS [QRS DEFLECTION < 1.0 mV IN CHEST LEADS] ANTEROSEPTAL MYOCARDIAL INFARCTION , OF INDETERMINATE AGE [40+ ms Q WAVE IN V1-V4] Non diagnostic T wave changes Compared to ECG 03/17/2025 23:37:56 Left-axis deviation now present Low QRS voltage now present Sinus arrhythmia no longer present Myocardial infarct finding still present Electronically Signed On 03-27-2025 14:31:50 CDT by Leo Pinto M.D. [email or web address]
--- NOTE | 2025-03-27 10:48 | W.ED.EXTPRO ---
HPI - Extremity Problem General: Chief complaint: Extremity Problem,Nontraumatic Stated complaint: swelling in legs-leaking Time Seen by Provider: 03/27/25 10:32 History of Present Illness: 74-year-old man with a history of alcohol abuse in remission, PTSD, COPD, diverticulosis and hypertension with recent admission for renal failure after having an episode of colitis and diarrhea resulting in severe dehydration who presents to the emergency room with lower extremity swelling. No history of heart failure. No chest pain anytime recently. No heart history. No history of heart failure. No shortness of breath. No orthopnea. No abdominal pain. No nausea or vomiting. He says the swelling is gone to be so much he can barely walk Related Data Home Medications ?Medication ?Instructions ?Recorded ?Confirmed cetirizine 10 mg capsule 10 mg PO DAILY 10/16/19 03/27/25 multivitamin 1 tab PO QAM 10/16/19 03/27/25 cholecalciferol (vitamin D3) 50 50 mcg PO DAILY 03/17/25 03/27/25 mcg (2,000 unit) capsule diclofenac sodium 3 % topical gel 1 applic topical BID PRN Pain 03/17/25 03/27/25 ferrous gluconate 324 mg (37.5 mg 324 mg PO DAILY 03/17/25 03/27/25 iron) tablet lisinopril 40 mg tablet 40 mg PO DAILY 03/17/25 03/27/25 Held on 03/23/25. Instructions: Resume on 03/23/25. metoprolol tartrate 100 mg tablet 50 mg PO DAILY 03/17/25 03/27/25 omeprazole 40 mg capsule,delayed 40 mg PO DAILY 03/17/25 03/27/25 release rosuvastatin 10 mg tablet 5 mg PO BEDTIME 03/17/25 03/27/25 thiamine HCl (vitamin B1) 100 mg 100 mg PO DAILY 03/17/25 03/27/25 tablet trazodone 100 mg tablet 100 mg PO BEDTIME 03/17/25 03/27/25 Previous Rx's ?Medication ?Instructions ?Recorded apixaban 5 mg tablet (Eliquis) 5 mg PO BID #60 tabs 12/16/20 Held on 03/23/25. Instructions: Resume on 03/23/25. furosemide 40 mg tablet 40 mg PO DAILY@0800 #30 tabs 12/16/20 folic acid 1 mg tablet 1 mg PO DAILY #60 tabs 06/16/24 ipratropium 20 mcg-albuterol 100 1 puff inhalation Q6H #4 grams 06/16/24 mcg/actuation mist for inhalation (Combivent Respimat) amiodarone 200 mg tablet (Pacerone) 200 mg PO DAILY 30 days #30 tabs 03/23/25 ciprofloxacin HCl 500 mg tablet 500 mg PO BID@0900,2100 7 days #14 03/23/25 tabs metronidazole 500 mg tablet 500 mg PO TID 7 days #21 tabs 03/23/25 Allergies Allergy/AdvReac Type Severity Reaction Status Date / Time codeine Allergy rash Verified 12/12/20 20:57 Review of Systems Narrative: Constitutional symptoms: Negative except as documented in HPI. Skin symptoms: Negative except as documented in HPI. Eye symptoms: Negative except as documented in HPI. ENMT symptoms: Negative except as documented in HPI. Respiratory symptoms: Negative except as documented in HPI. Cardiovascular symptoms: Negative except as documented in HPI. Gastrointestinal symptoms: Negative except as documented in HPI. Genitourinary symptoms: Negative except as documented in HPI. Musculoskeletal symptoms: Negative except as documented in HPI. Neurologic symptoms: Negative except as documented in HPI. Psychiatric symptoms: Negative except as documented in HPI. Endocrine symptoms: Negative except as documented in HPI. PFSH ED PFSH: Medical History (Updated 03/27/25 @ 15:34 by Vy Crump MD) Hypotension Alcohol intoxication PTSD (post-traumatic stress disorder) COPD (chronic obstructive pulmonary disease) Hiatal hernia Diverticulosis Arthritis Hypertension Hepatitis C Completed Epclusa in 2019 Surgical History (Updated 03/17/25 @ 23:57 by Allison Leiva MD) History of laparoscopic appendectomy Bilateral inguinal hernia Bilateral repairs History of surgery on upper extremity L forearm fracture History of penile cancer local excision Family History (Updated 03/17/25 @ 23:58 by Allison Leiva MD) Father Congestive heart failure (CHF) Other Dementia Social History (Updated 03/17/25 @ 23:59 by Allison Leiva MD) Smoking and tobacco/nicotine status: current every day tobacco/nicotine user cigarettes Packs smoked per day: 0.5 Years cigarettes smoked: 55 [ Other cigarette details: Heavier smoker in the past. started smoking at age 15. ] Alcohol intake: current Alcohol intake frequency: few times a month Alcohol type: hard liquor Substance/Drug Use: never Current gender identity: Male Physical Exam Narrative: EXAM NARRATIVE: General: Alert, no acute distress. Skin: Warm, dry. Head: Normocephalic, atraumatic. Neck: Supple, trachea midline. Eye: Extraocular movements are intact. Ears, nose, mouth and throat: mucosa moist. Cardiovascular: Regular, Normal peripheral perfusion. 2-3+ pedal and tibial edema Respiratory: Lungs are clear to auscultation, respirations are non-labored, breath sounds are equal, Symmetrical chest wall expansion. Gastrointestinal: Soft, Nontender, Non distended Musculoskeletal: Normal ROM, no deformity. Neurological: Alert and oriented, No focal neurological deficit observed. Psychiatric: Cooperative, appropriate mood & affect. Course Vital Signs: Vital signs: Vital Signs Pulse Rate 84 03/27/25 15:31 Respiratory Rate 18 03/27/25 14:19 Blood Pressure 148/84 03/27/25 15:31 Pulse Oximetry 98 03/27/25 15:31 Oxygen Delivery Me thod Room Air 03/27/25 15:31 MDM - Extremity (Nontraumatic) Medical Decision Making Medical decision making: Differential diagnosis including but not limited to and based on the above HPI, review of systems and physical exam: for patient with edema: Congestive heart failure. Kidney failure. DVT / Pulmonary embolism. Protein malnutrition. Cirrhosis. In this patient likely iatrogenic as he received copious amounts of fluids after being admitted for renal failure recently. Orders placed to evaluate differential diagnosis based on the above differential, HPI and physical exam EKG: Time 1043. Rate 90. Sinus with sinus dysrhythmia. No ST-T changes, normal AK & QRS intervals, This was reviewed and interpreted by myself the ER physician at 1047 Chest x-ray: Increased left basilar consolidation and small left pleural effusion. This was reviewed and interpreted by myself the emergency room physician. I also reviewed the radiology report. Lab Review: Laboratory results were reviewed and interpreted by myself the emergency room physician. No leukocytosis. Continued stable anemia from previous admission. Renal function has improved greatly with BUN and creatinine at 12 and 1.2. proBNP is very elevated at 22,000. Troponin is slightly elevated but unchanged at repeat at 63. I reviewed the patient's medical record. 74-year-old man with a history of alcohol abuse in remission, PTSD, COPD, diverticulosis and hypertension. I reviewed my note from a few days back. Also reviewed the discharge summary. Reexamination: Patient remained stable. No increased work of breathing. No altered mental status. No focal motor deficits. Consultation: I spoke with Dr. Pinto about an echocardiogram that I did here in the emergency room. Patient was very adamant he did not want to be admitted but after the echocardiogram and the results he has agreed to admission. Dr. Pinto will consult. Echocardiogram: Grade 3 diastolic dysfunction. EF of 64%. Severe mitral regurgitation. I discussed these findings with Dr. Pinto who read the studies. Consultation: I spoke with Dr. Solo who is on-call for the hospitalist service who agrees to admission to cardiac stepdown. Assessment and plan: Edema Grade 3 diastolic dysfunction Severe mitral regurgitation ?40 mg IV Lasix in the emergency room with good diuresis. -I discussed the patient with the hospitalist on-call who is admitting the patient. - Discussed findings and plan with patient. Answered any questions. - All laboratory values were reviewed and interpreted personally by myself, the ER physician - All imaging was reviewed and interpreted personally by myself, the ER physician. - Evaluation and treatment of this problem were appropriate in the emergency setting Lab Data 03/27/25 10:43 03/27/25 10:43 Radiology Impressions Chest X-Ray 03/27/25 10:33 IMPRESSION: Increased left basilar consolidation and small left pleural effusion. Laboratory Results WBC 8.63 10^3/uL (3.29-11.43) 03/27/25 10:43 RBC 2.60 10^6/uL (3.85-5.65) L 03/27/25 10:43 Hgb 7.80 g/dL (11.27-16.99) L 03/27/25 10:43 Hct 25.5 % (37-53) L 03/27/25 10:43 MCV 98.1 fl (82-101) 03/27/25 10:43 MCH 30.0 pg (27-33) 03/27/25 10:43 MCHC 30.6 g/dL (30-55) 03/27/25 10:43 RDW 15.9 % (12.1-15.1) H 03/27/25 10:43 Plt Count 392 10^3/cmm (157-399) 03/27/25 10:43 MPV 9.8 fL (7.4-10.4) 03/27/25 10:43 Neut % (Auto) 77.1 % 03/27/25 10:43 Lymph % (Auto) 11.4 % 03/27/25 10:43 [place] % (Auto) 7.0 % 03/27/25 10:43 Eos % (Auto) 3.2 % 03/27/25 10:43 Baso % (Auto) 0.6 % 03/27/25 10:43 Neut # (Auto) 6.66 10^3/uL (1.8-7.7) 03/27/25 10:43 Lymph # (Auto) 1.0 10^3/uL (0.8-4.8) 03/27/25 10:43 [place] # (Auto) 0.6 10^3/uL (0.2-0.9) 03/27/25 10:43 Eos # (Auto) 0.3 10^3/uL (0.0-0.8) 03/27/25 10:43 Baso # (Auto) 0.1 10^3/uL (0.0-0.1) 03/27/25 10:43 Nucleated RBC % (auto) 0 % 03/27/25 10:43 Nucleated RBCs # 0.0 /100WBC 03/27/25 10:43 Sodium 139 mmol/L (136-145) 03/27/25 10:43 Potassium 3.7 mmol/L (3.5-5.1) 03/27/25 10:43 Chloride 109 mmol/L (98-107) H 03/27/25 10:43 Carbon Dioxide 19 mmol/L (22-29) L 03/27/25 10:43 Anion Gap 14.7 (5-19) 03/27/25 10:43 BUN 12 mg/dL (8-23) 03/27/25 10:43 Creatinine 1.2 mg/dL (0.7-1.2) 03/27/25 10:43 GFR Calculation Not Reportable 03/27/25 10:43 Glucose 101 mg/dL (65-115) 03/27/25 10:43 Calculated Osmolality 288 mOsm/kg (285-295) 03/27/25 10:43 Calcium 7.5 mg/dL (8.5-10.5) L 03/27/25 10:43 Total Bilirubin 0.2 mg/dL (0.15-1.2) 03/27/25 10:43 AST 14 U/L (0-40) 03/27/25 10:43 ALT 8 U/L (0-41) 03/27/25 10:43 Alkaline Phosphatase 64 U/L (40-130) 03/27/25 10:43 Troponin T Baseline 62 ng/L (0-15) H 03/27/25 10:43 Troponin T 120 Minute 58.81 ng/L (0-15) H 03/27/25 12:20 Delta Troponin T -3.19 ABS# (0-10) L 03/27/25 12:20 NT-Pro-B Natriuret Pep 34846 pg/mL (0-450) H 03/27/25 10:43 Total Protein 4.5 g/dL (6.6-8.7) L 03/27/25 10:43 Albumin 2.7 g/dL (3.5-5.2) L 03/27/25 10:43 Globulin 1.8 g/dL (1.3-4.6) 03/27/25 10:43 All radiology interpretation(s) finalized by discharge Discharge Plan Discharge Patient Disposition: Admitted As Inpatient Clinical Impression: Edema, Severe mitral regurgitation, Grade III diastolic dysfunction Condition: Stable Coding Level of Care Code ED Bilingual Instructor for Jayme Thomason
[2025-03-27 11:26] LABS: Basophils # 0.1 10^3/uL (0.0-0.1); Basophils % 0.6 %; Eosinophils # 0.3 10^3/uL (0.0-0.8); Eosinophils % 3.2 %; Hematocrit 25.5 % (37-53); Lymphocytes % 11.4 %; Mean Corpuscular HGB Conc 30.6 g/dL (30-55); Mean Corpuscular Volume 98.1 fl (82-101); Mean Platelet Volume 9.8 fL (7.4-10.4); Monocytes # 0.6 10^3/uL (0.2-0.9); Neutrophils # 6.66 10^3/uL (1.8-7.7); Neutrophils % 77.1 %; Nucleated Red Blood Cells % 0 %; Platelet Count 392 10^3/cmm (157-399); Red Cell Distribution Width 15.9 % (12.1-15.1); White Blood Count 8.63 10^3/uL (3.29-11.43)
[2025-03-27 11:44] LABS: Troponin(5th) Baseline 62 ng/L (0-15)
[2025-03-27 11:52] LABS: Alanine Aminotransferase 8 U/L (0-41); Albumin Level 2.7 g/dL (3.5-5.2); Alkaline Phosphatase 64 U/L (40-130); Anion Gap 14.7 (5-19); Aspartate Amino Transferase 14 U/L (0-40); Blood Urea Nitrogen 12 mg/dL (8-23); Calcium 7.5 mg/dL (8.5-10.5); Carbon Dioxide 19 mmol/L (22-29); Chloride 109 mmol/L (98-107); Creatinine Clr Calc Pharmacy 52.3879; Globulin 1.8 g/dL (1.3-4.6); Glucose 101 mg/dL (65-115); NT Pro B Type Natriuretic Pept 22378 pg/mL (0-450); Osmolality Calculated 288 mOsm/kg (285-295); Potassium 3.7 mmol/L (3.5-5.1); Sodium 139 mmol/L (136-145); Total Bilirubin 0.2 mg/dL (0.15-1.2); Total Protein 4.5 g/dL (6.6-8.7)
--- NOTE | 2025-03-27 12:10 | USCV_ITS ---
Lonnie Rogers Age: 74 Gender: M : 1950 Exam Date: 03/27/2025 14:33 Ordering Phys: Vy Crump MD Technologist: Liam Wynne Exam Location: [facility] [place] Indication: new onset heart failure BP: 130 / 71 HR: 86 Rhythm: Sinus Technical Quality: Adequate MEASUREMENTS (Male / Female) Normal Values 2D ECHO LV Diastolic Diameter PLAX 4.1 cm 4.2 - 5.9 / 3.9 - 5.3 cm IVS Diastolic Thickness 1.2 cm 0.6 - 1.0 / 0.6 - 0.9 cm IVS Systolic Thickness 1.4 cm LVPW Diastolic Thickness 1.6 cm 0.6 - 1.0 / 0.6 - 0.9 cm LVPW Systolic Thickness 1.7 cm LVOT Diameter 2.0 cm LV Ejection Fraction 2D Teich 62.7 % LV Ejection Fraction MOD 4C 56.6 % LV Ejection Fraction MOD 2C 64.5 % LV Ejection Fraction 2C AL 64.3 % LA Diameter 4.1 cm RA Systolic Volume 4C AL 43.2 ml RA Systolic Volume 4C MOD 43.7 ml LA Sys Volume AL 54.6 cm cubed LA Sys Volume Index AL 30.0 cm cubed/m squared Aorta at Sinotubular Diameter 2.3 cm IVC Diameter 2.0 cm M-MODE LA Ao Ratio MM 1.2 AV Cusp Separation MM 1.6 cm DOPPLER AV Peak Velocity 119.0 cm/s LVOT Peak Velocity 98.0 cm/s AV Area Cont Eq vti 2.3 cm squared AV Area Cont Eq pk 2.7 cm squared MV Peak Velocity 147.0 cm/s MV Area PHT 5.6 cm squared Mitral E to A Ratio 1.8 TR Peak Velocity 441.0 cm/s TR Peak Gradient 77.8 mmHg TR Mean Velocity 349.0 cm/s TR Mean Gradient 52.2 mmHg TR Velocity Time Integral 124.0 cm PV Peak Velocity 65.0 cm/s RV Ejection Time 0.2 s FINDINGS Left Ventricle Normal left ventricular size and systolic function, EF 64%. Mild concentric left-ventricular hypertrophy.no regional wall motion abnormalities. Grade II/IV diastolic dysfunction, moderately elevated filling pressures. Right Ventricle The right ventricle is normal in size and function. Right Atrium The right atrium is normal in size. Left Atrium Moderately increased left atrial size. Mitral Valve Mild mitral annular calcification. Thickened mitral valve. Possibly severe mitral valve regurgitation. Aortic Valve Thickened aortic valve. Tricuspid Valve Trace to mild tricuspid valve regurgitation. Estimated pulmonary artery peak systolic pressure 55 mmHg Pulmonic Valve Pulmonic valve not well visualized. Pericardium Normal pericardium without effusion. Aorta Normal aortic annulus size. IVC Normal inferior vena cava. CONCLUSIONS Normal left ventricular size and systolic function, EF 64%. Mild concentric left-ventricular hypertrophy.no regional wall motion abnormalities. Grade II/IV diastolic dysfunction, moderately elevated filling pressures. Moderately increased left atrial size. Possibly severe mitral valve regurgitation. Mild mitral annular calcification. Thickened mitral valve. Thickened aortic valve. Trace to mild tricuspid valve regurgitation. Estimated pulmonary artery peak systolic pressure 55 mmHg. There is no pericardial effusion. There are no intracardiac masses. Compared to the study from 01/23/2024, there is worsening of the mitral regurgitation Dr. Crump was informed about these findings Dr Leo Pinto MD [facility] (Electronically Signed) Final Date: 27 March 2025 15:20 S
[2025-03-27] MEDS: FUROsemide 10 mg/mL SDV 4mL 40 MG IVP (12:14)
--- NOTE | 2025-03-27 12:33 | ECG_ITS ---
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 Measurements Intervals [place] Rate: 83 P: 83 LA: 173 QRS: -1 QRSD: 114 T: 30 QT: 421 QTc: 496 Interpretive Statements SINUS RHYTHM WITH FREQUENT SUPRAVENTRICULAR PREMATURE COMPLEXES LOW QRS VOLTAGE IN EXTREMITY LEADS [QRS DEFLECTION < 0.5 mV IN LIMB LEADS] POSSIBLE ANTERIOR MYOCARDIAL INFARCTION , OF INDETERMINATE AGE [30 ms Q WAVE IN V3/V4, OR R < 0.2 mV IN V4] Compared to ECG 03/27/2025 10:43:53 Left-axis deviation no longer present Myocardial infarct finding still present Electronically Signed On 03-27-2025 14:36:17 CDT by Leo Pinto M.D. [email or web address] [id number]
[2025-03-27 12:46] LABS: Troponin 5 2HR 58.81 ng/L (0-15)
[2025-03-27 12:48] LABS: Troponin 5 2HR Delta -3.19 ABS# (0-10)
--- NOTE | 2025-03-27 15:32 | PM.HP ---
Providers/Chief Complaint Primary Care Provider: Hyun Mittal MD Chief Complaint: swelling in legs-leaking History of Present Illness Lonnie Rogers is a 74 year old male w/ HTN, HLD, GERD, COPD, recent diarrhea and diagnosed with diffuse colitis who was treated with Cipro Flagyl with improvement in diarrhea was recently discharged on 23 March. He was hypotensive on admission and had A-fib with RVR and was treated with IV fluids and amiodarone. C. difficile testing on 03/22 was negative. He was noted to have anemia with some degree of chronic anemia and he was on iron supplementation as an outpatient. He did receive 1 unit packed RBCs at the last visit. FOBT was positive likely from acute colitis. He had a colonoscopy 1 year ago which was mainly in normal. Eliquis was held for next week until colitis improved. Lisinopril was also held at discharge. Patient had an LINDSEY secondary to dehydration at previous hospitalization. He presented to the hospital today for bilateral lower extremity edema to the point that he can barely walk. He does not have any shortness of breath no orthopnea no abdominal pain no nausea no vomiting no history of heart failure. Echo was obtained in the ER which showed grade 3 diastolic dysfunction severe mitral regurgitation, EF of 64%. His echo findings were discussed with Dr. Pinto over the phone who agreed to hospital admission for further workup. Patient's proBNP is 22,000. Creatinine was 12 at previous hospitalization and it is 1.2 today. Troponin is slightly elevated but unchanged repeat at 63. Chest x-ray also shows increased left basilar consolidation and small left oral effusion. His only complaint and main complaint today is bilateral lower extremity edema. Medications/Allergies Home Medications ?Medication ?Instructions ?Recorded ?Confirmed ?Last Taken ?Type cetirizine 10 mg capsule 10 mg PO DAILY 10/16/19 03/27/25 03/16/25 History multivitamin 1 tab PO QAM 10/16/19 03/27/25 03/26/25 History apixaban 5 mg tablet (Eliquis) 5 mg PO BID #60 tabs 12/16/20 03/27/25 03/16/25 Rx Held on 03/23/25. Instructions: Resume on 03/23/25. furosemide 40 mg tablet 40 mg PO DAILY@0800 #30 tabs 12/16/20 03/27/25 03/26/25 Rx folic acid 1 mg tablet 1 mg PO DAILY #60 tabs 06/16/24 03/27/25 03/26/25 Rx ipratropium 20 mcg-albuterol 100 1 puff inhalation Q6H #4 grams 06/16/24 03/27/25 03/16/25 Rx mcg/actuation mist for inhalation (Combivent Respimat) cholecalciferol (vitamin D3) 50 50 mcg PO DAILY 03/17/25 03/27/25 03/26/25 History mcg (2,000 unit) capsule diclofenac sodium 3 % topical gel 1 applic topical BID PRN Pain 03/17/25 03/27/25 Unknown History ferrous gluconate 324 mg (37.5 mg 324 mg PO DAILY 03/17/25 03/27/25 03/26/25 History iron) tablet lisinopril 40 mg tablet 40 mg PO DAILY 03/17/25 03/27/25 03/16/25 History Held on 03/23/25. Instructions: Resume on 03/23/25. metoprolol tartrate 100 mg tablet 50 mg PO DAILY 03/17/25 03/27/25 03/27/25 History omeprazole 40 mg capsule,delayed 40 mg PO DAILY 03/17/25 03/27/25 03/16/25 History release rosuvastatin 10 mg tablet 5 mg PO BEDTIME 03/17/25 03/27/25 03/16/25 21:00 History thiamine HCl (vitamin B1) 100 mg 100 mg PO DAILY 03/17/25 03/27/25 03/26/25 History tablet trazodone 100 mg tablet 100 mg PO BEDTIME 03/17/25 03/27/25 03/26/25 20:00 History amiodarone 200 mg tablet (Pacerone) 200 mg PO DAILY 30 days #30 tabs 03/23/25 03/27/25 03/27/25 Rx ciprofloxacin HCl 500 mg tablet 500 mg PO BID@0900,2100 7 days #14 03/23/25 03/27/25 03/27/25 Rx tabs metronidazole 500 mg tablet 500 mg PO TID 7 days #21 tabs 03/23/25 03/27/25 03/27/25 Rx Allergies Allergy/AdvReac Type Severity Reaction Status Date / Time codeine Allergy rash Verified 12/12/20 20:57 PFSH Acute PFSH: Medical History (Updated 03/27/25 @ 16:50 by Radha Solo MD) Hypotension Alcohol intoxication PTSD (post-traumatic stress disorder) COPD (chronic obstructive pulmonary disease) Hiatal hernia Diverticulosis Arthritis Hypertension Hepatitis C Completed Epclusa in 2019 Surgical History (Updated 03/17/25 @ 23:57 by Allison Leiva MD) History of laparoscopic appendectomy Bilateral inguinal hernia Bilateral repairs History of surgery on upper extremity L forearm fracture History of penile cancer local excision Family History (Updated 03/17/25 @ 23:58 by Allison Leiva MD) Father Congestive heart failure (CHF) Other Dementia Social History (Updated 03/17/25 @ 23:59 by Allison Leiva MD) Smoking and tobacco/nicotine status: current every day tobacco/nicotine user cigarettes Packs smoked per day: 0.5 Years cigarettes smoked: 55 [ Other cigarette details: Heavier smoker in the past. started smoking at age 15. ] Alcohol intake: current Alcohol intake frequency: few times a month Alcohol type: hard liquor Substance/Drug Use: never Current gender identity: Male Vitals/I&O/Wt Last Vital Signs Pulse 84 03/27/25 15:31 Resp 18 03/27/25 14:19 BP 148/84 03/27/25 15:31 Pulse Ox 98 03/27/25 15:31 O2 Del Method Room Air 03/27/25 15:31 Weight last 48 hrs Weight 68.039 kg Physical Exam Narrative: General: No acute distress, AO x3 HEENT: PERRLA, pupils bilaterally equal and reactive, pallors not present Chest: Normal vesicular breath sounds, no added sounds, equal good air entry bilaterally CVS: S1-S2 regular, no murmurs, no tachycardia, no gallops, no rubs Abdomen: Soft, nontender, no organomegaly, bowel sounds present Neuro: No focal deficits, no facial deformity, AO x3, Data 03/27/25 10:43 03/27/25 10:43 A&P Assessment and plan (1) Grade III diastolic dysfunction: (2) Severe mitral regurgitation: (3) Severe protein-calorie malnutrition: (4) Edema: (5) New onset of congestive heart failure: (6) Chronic anemia: Plan #Bilateral lower extremity edema most likely secondary to diastolic heart failure #Diastolic heart failure #Severe mitral regurgitation #CKD #Hypertension #New onset congestive heart failure ? Continue diuresis with Lasix 40 IV daily ? Patient does have bilateral lower extremity edema. Will request for compression wraps ? Consult cardiology ? Continue amiodarone 200 daily, folic acid, ? Hold metoprolol tartrate ? Continue omeprazole, rosuvastatin, thiamine ? Ciprofloxacin given at time of discharge. We will continue at this time to complete a 7-day course as per previous hospitalization. Same with metronidazole. Continue to complete 7-day course. Diarrhea has resolved. ? Echo results as follows:Normal left ventricular size and systolic function, EF 64%. Mild concentric left-ventricular hypertrophy.no regional wall motion abnormalities. Grade II/IV diastolic dysfunction, moderately elevated filling pressures. Moderately increased left atrial size. Possibly severe mitral valve regurgitation. Mild mitral annular calcification. Thickened mitral valve. Thickened aortic valve. Trace to mild tricuspid valve regurgitation. Estimated pulmonary artery peak systolic pressure 55 mmHg. There is no pericardial effusion. There are no intracardiac masses. Compared to the study from 01/23/2024, there is worsening of the mitral regurgitation Dr. Crump was informed about these findings - EKG without acute ischemic changes ? BNP 22,000. This is likely secondary to poor renal clearance due to recent LINDSEY with component of severe mitral regurgitation. We will repeat in AM. ? Does have bilateral lower extremity edema. Will continue diuresis. ? Does have chronic anemia with hemoglobin stable at 7 range. FOBT positive however that may be in setting of recent colitis. ? Iron studies obtained a few days ago with iron 32, TIBC 83, percent saturation 38.5, ferritin 253. There is possibility of anemia of chronic disease secondary to kidney disease. ? Will recheck CBC in AM. - Continue to hold Eliquis at this time. full code dvt ppx: mechanical hold of on heparin/lovenox PDMP PDMP Reviewed: Not Reviewed Attestations Medical Necessity Statement*: Greater than 2 midnight stay for workup of severe mitral regurgitation new onset diastolic heart failure. Diagnoses Grade III diastolic dysfunction I51.89 Severe mitral regurgitation I34.0 Severe protein-calorie malnutrition E43 Edema R60.9 New onset of congestive heart failure I50.9 Chronic anemia D64.9
--- NOTE | 2025-03-27 16:31 | ECG_ITS ---
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 Measurements Intervals [place] Rate: 91 P: 0 UT: 0 QRS: -10 QRSD: 109 T: 39 QT: 393 QTc: 485 Interpretive Statements Possible sinus rhythm with frequent PACs POSSIBLE ANTERIOR MYOCARDIAL INFARCTION , OF INDETERMINATE AGE [30 ms Q WAVE IN V3/V4, OR R < 0.2 mV IN V4] Compared to ECG 03/27/2025 16:27:47 Sinus rhythm no longer present Myocardial infarct finding still present Electronically Signed On 03-28-2025 21:49:33 CDT by Leo Pinto M.D. [id number] [id number]
--- NOTE | 2025-03-27 16:34 | ECG_ITS ---
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 Measurements Intervals [place] Rate: 84 P: 27 LA: 177 QRS: -6 QRSD: 106 T: 41 QT: 409 QTc: 486 Interpretive Statements SINUS RHYTHM WITH OCCASIONAL SUPRAVENTRICULAR PREMATURE COMPLEXES LOW QRS VOLTAGE IN EXTREMITY LEADS [QRS DEFLECTION < 0.5 mV IN LIMB LEADS] ANTERIOR MYOCARDIAL INFARCTION , PROBABLY RECENT [40+ ms Q WAVE AND/OR ST/T ABNORMALITY IN V3/V4] ACUTE [place] Compared to ECG 03/27/2025 12:33:40 No significant changes Electronically Signed On 03-28-2025 21:49:41 CDT by Leo Pinto M.D. [email or web address] [id number]
[2025-03-27 17:16] LABS: Cholesterol 87 mg/dL (0-200); HDL Cholesterol 30 mg/dL (60-100); LDL Cholesterol Calculated 32 mg/dL (50-129); Triglycerides 124 mg/dL (0-150); VLDL Cholestrol Calculation 25 mg/dL (0-30)
[2025-03-27 17:16] LABS: Troponin 5 6HR 58.45 ng/L (0-15); Troponin 5 6HR Delta -3.55 ng/L (0-12)
[2025-03-27 17:22] LABS: Procalcitonin 0.09 ng/mL (0-0.5)
--- NOTE | 2025-03-27 19:13 | PM.CONSULT ---
Providers/Reason For Consult Consulting Physician/Specialty*: ALONSO Pinto MD/cardiology Reason for Consult*: Patient with congestive heart failure, severe mitral regurgitation, atrial fibrillation Requesting Physician: Dr. Solo Attending Physician: Radha Solo MD Primary Care Provider: Hyun Mittal MD History of Present Illness History of Present Illness Lonnie Rogers is a 74 year old male is admitted to hospital through the emergency room where he presented with complaints of progressive swelling of the lower extremities for the last 3 or 4 days. He had an echocardiogram which revealed possibly severe mitral regurgitation with a normal ejection fraction. His BNP was in the 22,000 range. Cardiology consult is requested for further cardiac evaluation and recommendations. This patient apparently was discharged from this hospital only on the of this month . He was admitted for diarrhea, dehydration. Found to have acute kidney injury and also new onset of atrial fibrillation. He was treated with IV fluids and other symptomatic measures. He was placed on amiodarone for the arrhythmia and was discharged home in stable condition. According to the patient, he started noticing swelling of the extremities on the following day and started getting worse. He also noticed swelling of his scrotum and penis. Did not have any fever or chills. No unusual shortness of breath. He may have some shortness of breath with activities. Denies any orthopnea or PND. He was found to be anemic during the hospital admission and was given 1 unit of blood transfusion. He has no previous history of early cardiac illness. No history of any rheumatic valvular heart disease. No history of endocarditis. 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 He also has a history of hepatitis C. Currently uses marijuana. Used to drink heavily which he quit 10 years ago. No other substance abuse. Has a history of hypertension. No diabetes or dyslipidemia. No other significant past medical history. His father had a coronary disease in his 60s and of congestive heart failure. No other relevant family history. He apparently was found to be anemic during the last admission. He had features of colitis. He received 1 unit of blood. Review of Systems Narrative: CONSTITUTIONAL: No fever or chills. EYES: No blurring of vision or other visual disturbances lately. ENT: No hoarseness of voice, auditory disturbances or sore throat. CARDIOVASCULAR: As mentioned above. RESPIRATORY: No significant cough. GASTROINTESTINAL: Diarrhea/colitis GENITOURINARY: History of acute kidney injury. Edema of the scrotum and penis INTEGUMENTARY: No skin rashes . History of cancer of the penis? NEURO: No transient ischemic attacks or amaurosis. PSYCHIATRIC: No history of psychosis or major depression. HEMATOLOGIC: Anemia? Chronic ENDOCRINE: No history of polyuria or polydipsia. MUSCULOSKELETAL: No recent joint pain or swelling. ALLERGY/IMMUNOLOGY: As mentioned above. Medications/Allergies Home Medications ?Medication ?Instructions ?Recorded ?Confirmed ?Last Taken ?Type cetirizine 10 mg capsule 10 mg PO DAILY 10/16/19 03/27/25 03/16/25 History multivitamin 1 tab PO QAM 10/16/19 03/27/25 03/26/25 History apixaban 5 mg tablet (Eliquis) 5 mg PO BID #60 tabs 12/16/20 03/27/25 03/16/25 Rx Held on 03/23/25. Instructions: Resume on 03/23/25. furosemide 40 mg tablet 40 mg PO DAILY@0800 #30 tabs 12/16/20 03/27/25 03/26/25 Rx folic acid 1 mg tablet 1 mg PO DAILY #60 tabs 06/16/24 03/27/25 03/26/25 Rx ipratropium 20 mcg-albuterol 100 1 puff inhalation Q6H #4 grams 06/16/24 03/27/25 03/16/25 Rx mcg/actuation mist for inhalation (Combivent Respimat) cholecalciferol (vitamin D3) 50 50 mcg PO DAILY 03/17/25 03/27/25 03/26/25 History mcg (2,000 unit) capsule diclofenac sodium 3 % topical gel 1 applic topical BID PRN Pain 03/17/25 03/27/25 Unknown History ferrous gluconate 324 mg (37.5 mg 324 mg PO DAILY 03/17/25 03/27/25 03/26/25 History iron) tablet lisinopril 40 mg tablet 40 mg PO DAILY 03/17/25 03/27/25 03/16/25 History Held on 03/23/25. Instructions: Resume on 03/23/25. metoprolol tartrate 100 mg tablet 50 mg PO DAILY 03/17/25 03/27/25 03/27/25 History omeprazole 40 mg capsule,delayed 40 mg PO DAILY 03/17/25 03/27/25 03/16/25 History release rosuvastatin 10 mg tablet 5 mg PO BEDTIME 03/17/25 03/27/25 03/16/25 21:00 History thiamine HCl (vitamin B1) 100 mg 100 mg PO DAILY 03/17/25 03/27/25 03/26/25 History tablet trazodone 100 mg tablet 100 mg PO BEDTIME 03/17/25 03/27/25 03/26/25 20:00 History amiodarone 200 mg tablet (Pacerone) 200 mg PO DAILY 30 days #30 tabs 03/23/25 03/27/25 03/27/25 Rx ciprofloxacin HCl 500 mg tablet 500 mg PO BID@0900,2100 7 days #14 03/23/25 03/27/25 03/27/25 Rx tabs metronidazole 500 mg tablet 500 mg PO TID 7 days #21 tabs 03/23/25 03/27/25 03/27/25 Rx Allergies Allergy/AdvReac Type Severity Reaction Status Date / Time codeine Allergy rash Verified 12/12/20 20:57 Current Medications Generic Name Dose Route Start Last Admin Trade Name Freq PRN Reason Stop Dose Admin Furosemide 40 mg 03/27/25 17:00 03/27/25 18:51 Furosemide 10 Mg/Ml Sdv 4ml IVP Not Given Q24H GENIA PFSH Acute PFSH: Medical History (Updated 03/27/25 @ 19:57 by Leo Pinto MD) Hypertension Hypotension Alcohol intoxication PTSD (post-traumatic stress disorder) COPD (chronic obstructive pulmonary disease) Hiatal hernia Diverticulosis Arthritis Hepatitis C Completed Epclusa in 2019 Surgical History History of laparoscopic appendectomy Bilateral inguinal hernia Bilateral repairs History of surgery on upper extremity L forearm fracture History of penile cancer local excision Family History Father Congestive heart failure (CHF) Other Dementia Social History Smoking and tobacco/nicotine status: current every day tobacco/nicotine user cigarettes Packs smoked per day: 0.5 Years cigarettes smoked: 55 [ Other cigarette details: Heavier smoker in the past. started smoking at age 15. ] Alcohol intake: current Alcohol intake frequency: few times a month Alcohol type: hard liquor Substance/Drug Use: never Current gender identity: Male Vitals/I&O/Wt Last Vital Signs Temp 97.5 F L 03/27/25 16:54 Pulse 91 03/27/25 17:28 Resp 18 03/27/25 17:28 BP 140/79 03/27/25 16:54 Pulse Ox 95 03/27/25 17:28 O2 Del Method Room Air 03/27/25 17:28 03/27/25 03/27/25 03/27/25 06:59 14:59 22:59 Intake Total 480 / 480 Balance 480 / 480 Weight last 48 hrs Weight 154 lb 6.4 oz Weight 150 lb Physical Exam Narrative: GENERAL: The patient is alert and oriented times three. Not in any acute distress. HEENT: Moderate pallor, no icterus or lymphadenopathy.Oral cavity: There are no mucous membrane lesions. NECK: Trachea appears to be central. No masses noted. No JVD or thyromegaly appreciated. RESPIRATORY: Chest is symmetrical. No intercostals muscle retraction or any accessory muscle activation. There is no chest wall tenderness. Breath sounds are heard bilaterally. No rales or rhonchi heard. No evidence of any consolidation. BREASTS: Deferred. HEART: The heart sounds are normal. No S3 or S4. Short systolic murmur in the mitral area. No diastolic murmur. No pericardial rub ABDOMEN: No vessel pulsations or distention. No tenderness. No organomegaly appreciated. Bowel sounds are normally heard. : Deferred. RECTAL: Deferred. LYMPHATIC: No lymphadenopathy noted in the neck. EXTREMITIES: 3+ pitting edema both lower extremities. No cyanosis. MUSCULOSKELETAL: No acute joint deformities or swelling SKIN: There are no significant rashes or ecchymosis NEUROPSYCHIATRIC: The patient is alert and oriented x3. Appears to be in a good mood. No tremors or rigidity noted. Data 03/28/25 04:11 03/28/25 04:11 Other Labs: Laboratory Last Values WBC 8.63 10^3/uL (3.29-11.43) 03/27/25 10:43 RBC 2.60 10^6/uL (3.85-5.65) L 03/27/25 10:43 Hgb 7.80 g/dL (11.27-16.99) L 03/27/25 10:43 Hct 25.5 % (37-53) L 03/27/25 10:43 MCV 98.1 fl (82-101) 03/27/25 10:43 MCH 30.0 pg (27-33) 03/27/25 10:43 MCHC 30.6 g/dL (30-55) 03/27/25 10:43 RDW 15.9 % (12.1-15.1) H 03/27/25 10:43 Plt Count 392 10^3/cmm (157-399) 03/27/25 10:43 MPV 9.8 fL (7.4-10.4) 03/27/25 10:43 Neut % (Auto) 77.1 % 03/27/25 10:43 Lymph % (Auto) 11.4 % 03/27/25 10:43 [place] % (Auto) 7.0 % 03/27/25 10:43 Eos % (Auto) 3.2 % 03/27/25 10:43 Baso % (Auto) 0.6 % 03/27/25 10:43 Neut # (Auto) 6.66 10^3/uL (1.8-7.7) 03/27/25 10:43 Lymph # (Auto) 1.0 10^3/uL (0.8-4.8) 03/27/25 10:43 [place] # (Auto) 0.6 10^3/uL (0.2-0.9) 03/27/25 10:43 Eos # (Auto) 0.3 10^3/uL (0.0-0.8) 03/27/25 10:43 Baso # (Auto) 0.1 10^3/uL (0.0-0.1) 03/27/25 10:43 Nucleated RBC % (auto) 0 % 03/27/25 10:43 Nucleated RBCs # 0.0 /100WBC 03/27/25 10:43 Sodium 139 mmol/L (136-145) 03/27/25 10:43 Potassium 3.7 mmol/L (3.5-5.1) 03/27/25 10:43 Chloride 109 mmol/L (98-107) H 03/27/25 10:43 Carbon Dioxide 19 mmol/L (22-29) L 03/27/25 10:43 Anion Gap 14.7 (5-19) 03/27/25 10:43 BUN 12 mg/dL (8-23) 03/27/25 10:43 Creatinine 1.2 mg/dL (0.7-1.2) 03/27/25 10:43 GFR Calculation Not Reportable 03/27/25 10:43 Glucose 101 mg/dL (65-115) 03/27/25 10:43 Calculated Osmolality 288 mOsm/kg (285-295) 03/27/25 10:43 Calcium 7.5 mg/dL (8.5-10.5) L 03/27/25 10:43 Total Bilirubin 0.2 mg/dL (0.15-1.2) 03/27/25 10:43 AST 14 U/L (0-40) 03/27/25 10:43 ALT 8 U/L (0-41) 03/27/25 10:43 Alkaline Phosphatase 64 U/L (40-130) 03/27/25 10:43 Troponin T Baseline 62 ng/L (0-15) H 03/27/25 10:43 Troponin T 120 Minute 58.81 ng/L (0-15) H 03/27/25 12:20 Delta Troponin T -3.19 ABS# (0-10) L 03/27/25 12:20 Troponin T Hi Sens 6Hr 58.45 ng/L (0-15) H 03/27/25 16:31 Troponin T Hi Sens 6Hr Delta -3.55 ng/L (0-12) L 03/27/25 16:31 NT-Pro-B Natriuret Pep 96464 pg/mL (0-450) H 03/27/25 10:43 Total Protein 4.5 g/dL (6.6-8.7) L 03/27/25 10:43 Albumin 2.7 g/dL (3.5-5.2) L 03/27/25 10:43 Globulin 1.8 g/dL (1.3-4.6) 03/27/25 10:43 Triglycerides 124 mg/dL (0-150) 03/27/25 10:43 Cholesterol 87 mg/dL (0-200) 03/27/25 10:43 LDL Cholesterol, Calc 32 mg/dL (50-129) L 03/27/25 10:43 Total VLDL Cholesterol 25 mg/dL (0-30) 03/27/25 10:43 HDL Cholesterol 30 mg/dL (60-100) L 03/27/25 10:43 Cholesterol/HDL Ratio 2.90 mg/dL (1.0-5.00) 03/27/25 10:43 Procalcitonin 0.09 ng/mL (0-0.5) 03/27/25 10:43 EKG 1: My Interpretation: Normal sinus rhythm with occasional PACs. Poor R wave progression, Suggestive of old anterior wall NC. No acute ST-T changes. Other data: echocardiogram from today Normal left ventricular size and systolic function, EF 64%. Mild concentric left-ventricular hypertrophy.no regional wall motion abnormalities. Grade II/IV diastolic dysfunction, moderately elevated filling pressures. Moderately increased left atrial size. Possibly severe mitral valve regurgitation. Mild mitral annular calcification. Thickened mitral valve. Thickened aortic valve. Trace to mild tricuspid valve regurgitation. Estimated pulmonary artery peak systolic pressure 55 mmHg. There is no pericardial effusion. There are no intracardiac masses. Compared to the study from 01/23/2024, there is worsening of the mitral regurgitation Dr. Crump was informed about these findings A&P Assessment and plan (1) Severe mitral regurgitation: the echocardiogram is suggestive of possibly severe eccentric mitral regurgitation. But based on the auscultation, the MR does not appear to be severe. this may need to be further evaluated (2) New onset of congestive heart failure: this patient has severe diastolic dysfunction. The LV systolic function is normal. May be carefully treated with IV diuretics. (3) History of atrial fibrillation: Currently he is staying in the sinus rhythm. May continue on the current management. (4) Hepatitis C: Management as per the primary (5) Chronic anemia: ? require further workup. Etiology? (6) Severe protein-calorie malnutrition: the patient edema could be multifactorial. Anemia, hypoalbuminemia, heart failure, etc. are contributing factors Plan After appropriate diuresis, may consider doing a DEANDRE, to better evaluate the mitral valve and then decide on further management. May continue on the current medications. Need to be closely monitoring the hemoglobin Thank you for the opportunity to evaluate this patient and make these recommendations PDMP PDMP Reviewed: Not Reviewed Consult Attestations Medical Necessity Statement: Patient requires continued hospital stay for close monitoring and further management Coding Level of Care Code 45639 Diagnoses Severe mitral regurgitation I34.0 New onset of congestive heart failure I50.9 History of atrial fibrillation Z86.79 Chronic hepatitis C without hepatic coma B18.2 Hepatic coma status: without hepatic coma Viral hepatitis chronicity: chronic Chronic anemia D64.9 Severe protein-calorie malnutrition E43
[2025-03-27] MEDS: trazodone 100 mg Tablet PO (21:00)
[2025-03-27] MEDS: ciprofloxacin 500 mg Tablet PO (21:00)
[2025-03-27] MEDS: nicotine 21 mg Patch 1 PATCH TRANSDERMA (21:00)
[2025-03-27] MEDS: ATORVASTATIN 10 MG TABLET 20 MG PO (21:01)
[2025-03-27] MEDS: metroNIDAZOLE 500 MG Tablet PO (21:12)
[2025-03-28] VITALS (15 sets, daily range): BP systolic 111–141; BP diastolic 57–90; PULSE 88–114; RESP 16–30; TEMP 36.4–37.3; O2SAT 92–99
[2025-03-28 04:49] LABS: Basophils % 0.5 %; Eosinophils # 0.5 10^3/uL (0.0-0.8); Eosinophils % 5.9 %; Hematocrit 22.9 % (37-53); Lymphocytes % 11.9 %; Mean Corpuscular HGB Conc 31.9 g/dL (30-55); Mean Corpuscular Volume 94.2 fl (82-101); Mean Platelet Volume 10.3 fL (7.4-10.4); Monocytes # 0.5 10^3/uL (0.2-0.9); Monocytes % 6.5 %; Neutrophils # 6.21 10^3/uL (1.8-7.7); Neutrophils % 74.5 %; Nucleated Red Blood Cells % 0 %; Platelet Count 321 10^3/cmm (157-399); Red Blood Count 2.43 10^6/uL (3.85-5.65); Red Cell Distribution Width 15.9 % (12.1-15.1); White Blood Count 8.33 10^3/uL (3.29-11.43)
[2025-03-28 05:00] LABS: INR 1.17 (0.8-1.2)
[2025-03-28 05:13] LABS: Alanine Aminotransferase 7 U/L (0-41); Albumin Level 2.3 g/dL (3.5-5.2); Alkaline Phosphatase 57 U/L (40-130); Aspartate Amino Transferase 13 U/L (0-40); Blood Urea Nitrogen 11 mg/dL (8-23); Calcium 7.3 mg/dL (8.5-10.5); Carbon Dioxide 20 mmol/L (22-29); Chloride 109 mmol/L (98-107); Creatinine Clr Calc Pharmacy 58.2971; Glucose 93 mg/dL (65-115); Magnesium 1.4 mg/dL (1.7-2.3); Osmolality Calculated 287 mOsm/kg (285-295); Sodium 139 mmol/L (136-145); Total Bilirubin 0.2 mg/dL (0.15-1.2); Total Protein 4.3 g/dL (6.6-8.7)
[2025-03-28 05:15] LABS: Anion Gap 13.7 (5-19); Potassium 3.7 mmol/L (3.5-5.1)
[2025-03-28 05:17] LABS: NT Pro B Type Natriuretic Pept 16692 pg/mL (0-450)
[2025-03-28] MEDS: metoprolol tartrate 1 mg/1 mL SDV 5 mL 10 MG IVP (05:17)
[2025-03-28] MEDS: potassium chloride ER 20 mEq Tablet 40 MEQ PO ×2 (05:18→11:45)
[2025-03-28] MEDS: multivitamin therapeutic Tablet 1 TAB PO (05:18)
--- NOTE | 2025-03-28 05:25 | PC.NURSE ---
At approximately 0500 patient heart rate increased to the 140s. NOtified Dr. Lozano. Given orders for KCL 40meq PO ONCE and Metoprolol 10mg IVP ONCE.
[2025-03-28] MEDS: ipratropium-albuterol 3 mL Neb INHALATION (08:22)
--- NOTE | 2025-03-28 08:25 | PC.NURSE ---
Provider is notified that Mr Rogers has potassium chloride 60 meq (total) ordered for this morning (due now) his K+ = 3.7. Provider ordered, Only give 20.
[2025-03-28] MEDS: nicotine 21 mg Patch 1 PATCH TRANSDERMA (09:17)
[2025-03-28] MEDS: magnesium sulfate premix 4 GM/100 ML PREMIX IV (09:17)
[2025-03-28] MEDS: cholecalciferol (vitamin D3) 1,000 unit Tablet 2000 UNIT PO (09:18)
[2025-03-28] MEDS: thiamine 100 mg Tablet PO (09:18)
[2025-03-28] MEDS: ferrous gluconate 324 mg Tablet PO (09:18)
[2025-03-28] MEDS: potassium chloride ER 20 mEq Tablet PO (09:18)
[2025-03-28] MEDS: folic acid 1 mg Tablet PO (09:18)
[2025-03-28] MEDS: ciprofloxacin 500 mg Tablet PO ×2 (09:18→20:48)
[2025-03-28] MEDS: amiodarone 200 mg Tablet PO (09:19)
[2025-03-28] MEDS: cetirizine 10 mg Tablet PO (09:19)
--- NOTE | 2025-03-28 09:23 | P.PN_ITS ---
Subjective 2 Subjective: Patient is feeling better. Swelling is slowly improving. Denies any chest pain. No fever or chills. No cough. No other specific complaints. Medications: Medication Review Details: Current Medications Acetaminophen (Acetaminophen 325 Mg Tablet) 650 mg PO Q6H PRN PRN Reason: Mild/Mod Pain Or Temp >/= 101 Albuterol/Ipratropium (Ipratropium-Albuterol 3 Ml Neb) 3 ml INHALATION Q6H PRN PRN Reason: SHORTNESS OF BREATH Last Admin: 03/28/25 08:22 Dose: 3 ml Amiodarone HCl (Amiodarone 200 Mg Tablet) 200 mg PO DAILY [facility] Atorvastatin Calcium (Atorvastatin 10 Mg Tablet) 20 mg PO BEDTIME [facility] Last Admin: 03/27/25 21:01 Dose: 20 mg Cetirizine HCl (Cetirizine 10 Mg Tablet) 10 mg PO DAILY [facility] Ciprofloxacin HCl (Ciprofloxacin 500 Mg Tablet) 500 mg PO BID@0900,2100 [facility]; Protocol Last Admin: 03/27/25 21:00 Dose: 500 mg Ferrous Gluconate (Ferrous Gluconate 324 Mg Tablet) 324 mg PO DAILY [facility] Folic Acid (Folic Acid 1 Mg Tablet) 1 mg PO DAILY [facility] Furosemide (Furosemide 10 Mg/Ml Sdv 4ml) 40 mg IVP Q24H [facility] Last Admin: 03/27/25 18:51 Dose: Not Given Metronidazole (Metronidazole 500 Mg Tablet) 500 mg PO TID [facility] Last Admin: 03/27/25 21:12 Dose: 500 mg Multivitamins Therapeutic (Multivitamin Therapeutic Tablet) 1 tab PO QAM [facility] Last Admin: 03/28/25 05:18 Dose: 1 tab Nicotine (Nicotine 21 Mg Patch) 1 patch TRANSDERMA DAILY [facility] Last Admin: 03/27/25 21:00 Dose: 1 patch Ondansetron HCl (Ondansetron 2 Mg/Ml Sdv 2 Ml) 4 mg IVP Q8H PRN PRN Reason: vomiting, or N/V if npo Potassium Chloride (Potassium Chloride Er 20 Meq Tablet) 20 meq PO DAILY [facility] Potassium Chloride (Potassium Chloride Er 20 Meq Tablet) 40 meq PO Q4H [facility] Stop: 03/28/25 11:16 Thiamine Mononitrate (Thiamine 100 Mg Tablet) 100 mg PO DAILY [facility] Trazodone HCl (Trazodone 100 Mg Tablet) 100 mg PO BEDTIME [facility] Last Admin: 03/27/25 21:00 Dose: 100 mg Vitamin D (Cholecalciferol (Vitamin D3) 1,000 Unit Tablet) 2,000 unit PO DAILY [facility] Vitals/I&O/Wt Last Vital Signs Temp 98.4 F 03/28/25 08:00 Pulse 94 03/28/25 08:25 Resp 18 03/28/25 08:18 BP 127/68 03/28/25 08:00 Pulse Ox 97 03/28/25 08:18 O2 Del Method Nasal Cannula 03/28/25 08:18 O2 Flow Rate 0.5 03/28/25 08:18 03/27/25 03/28/25 03/28/25 22:59 06:59 14:59 Intake Total 580 / 580 120 / 700 Output Total 200 / 200 100 / 300 200 / 200 Balance 380 / 380 20 / 400 -200 / -200 Weight last 48 hrs Weight 157 lb 11.2 oz Weight 154 lb 6.4 oz Weight 150 lb Physical Exam 2 Narrative: GENERAL: The patient is alert and oriented times three. Not in any acute distress. HEENT: Moderate pallor, no icterus or lymphadenopathy.Oral cavity: There are no mucous membrane lesions. NECK: Trachea appears to be central. No masses noted. No JVD or thyromegaly appreciated. RESPIRATORY: Chest is symmetrical. No intercostals muscle retraction or any accessory muscle activation. There is no chest wall tenderness. Breath sounds are heard bilaterally. No rales or rhonchi heard. No evidence of any consolidation. BREASTS: Deferred. HEART: The heart sounds are normal. No S3 or S4. Short systolic murmur in the mitral area. No diastolic murmur. No pericardial rub ABDOMEN: No vessel pulsations or distention. No tenderness. No organomegaly appreciated. Bowel sounds are normally heard. : Deferred. RECTAL: Deferred. LYMPHATIC: No lymphadenopathy noted in the neck. EXTREMITIES:2-3+ pitting edema both lower extremities. No cyanosis. MUSCULOSKELETAL: No acute joint deformities or swelling SKIN: There are no significant rashes or ecchymosis NEUROPSYCHIATRIC: The patient is alert and oriented x3. Appears to be in a good mood. No tremors or rigidity noted. Data 03/28/25 04:11 03/28/25 04:11 Other Labs: Laboratory Last Values WBC 8.33 10^3/uL (3.29-11.43) 03/28/25 04:11 RBC 2.43 10^6/uL (3.85-5.65) L 03/28/25 04:11 Hgb 7.30 g/dL (11.27-16.99) L 03/28/25 04:11 Hct 22.9 % (37-53) L 03/28/25 04:11 MCV 94.2 fl (82-101) 03/28/25 04:11 MCH 30.0 pg (27-33) 03/28/25 04:11 MCHC 31.9 g/dL (30-55) 03/28/25 04:11 RDW 15.9 % (12.1-15.1) H 03/28/25 04:11 Plt Count 321 10^3/cmm (157-399) 03/28/25 04:11 MPV 10.3 fL (7.4-10.4) 03/28/25 04:11 Neut % (Auto) 74.5 % 03/28/25 04:11 Lymph % (Auto) 11.9 % 03/28/25 04:11 [place] % (Auto) 6.5 % 03/28/25 04:11 Eos % (Auto) 5.9 % 03/28/25 04:11 Baso % (Auto) 0.5 % 03/28/25 04:11 Neut # (Auto) 6.21 10^3/uL (1.8-7.7) 03/28/25 04:11 Lymph # (Auto) 1.0 10^3/uL (0.8-4.8) 03/28/25 04:11 [place] # (Auto) 0.5 10^3/uL (0.2-0.9) 03/28/25 04:11 Eos # (Auto) 0.5 10^3/uL (0.0-0.8) 03/28/25 04:11 Baso # (Auto) 0.0 10^3/uL (0.0-0.1) 03/28/25 04:11 Nucleated RBC % (auto) 0 % 03/28/25 04:11 Nucleated RBCs # 0.0 /100WBC 03/28/25 04:11 PT 15.70 SECONDS (12.1-14.9) H 03/28/25 04:11 INR 1.17 (0.8-1.2) 03/28/25 04:11 Sodium 139 mmol/L (136-145) 03/28/25 04:11 Potassium 3.7 mmol/L (3.5-5.1) 03/28/25 04:11 Chloride 109 mmol/L (98-107) H 03/28/25 04:11 Carbon Dioxide 20 mmol/L (22-29) L 03/28/25 04:11 Anion Gap 13.7 (5-19) 03/28/25 04:11 BUN 11 mg/dL (8-23) 03/28/25 04:11 Creatinine 1.1 mg/dL (0.7-1.2) 03/28/25 04:11 GFR Calculation Not Reportable 03/28/25 04:11 Glucose 93 mg/dL (65-115) 03/28/25 04:11 Calculated Osmolality 287 mOsm/kg (285-295) 03/28/25 04:11 Calcium 7.3 mg/dL (8.5-10.5) L 03/28/25 04:11 Magnesium 1.4 mg/dL (1.7-2.3) L 03/28/25 04:11 Total Bilirubin 0.2 mg/dL (0.15-1.2) 03/28/25 04:11 AST 13 U/L (0-40) 03/28/25 04:11 ALT 7 U/L (0-41) 03/28/25 04:11 Alkaline Phosphatase 57 U/L (40-130) 03/28/25 04:11 Troponin T Baseline 62 ng/L (0-15) H 03/27/25 10:43 Troponin T 120 Minute 58.81 ng/L (0-15) H 03/27/25 12:20 Delta Troponin T -3.19 ABS# (0-10) L 03/27/25 12:20 Troponin T Hi Sens 6Hr 58.45 ng/L (0-15) H 03/27/25 16:31 Troponin T Hi Sens 6Hr Delta -3.55 ng/L (0-12) L 03/27/25 16:31 NT-Pro-B Natriuret Pep 87100 pg/mL (0-450) H 03/28/25 04:11 Total Protein 4.3 g/dL (6.6-8.7) L 03/28/25 04:11 Albumin 2.3 g/dL (3.5-5.2) L 03/28/25 04:11 Globulin 2.0 g/dL (1.3-4.6) 03/28/25 04:11 Triglycerides 124 mg/dL (0-150) 03/27/25 10:43 Cholesterol 87 mg/dL (0-200) 03/27/25 10:43 LDL Cholesterol, Calc 32 mg/dL (50-129) L 03/27/25 10:43 Total VLDL Cholesterol 25 mg/dL (0-30) 03/27/25 10:43 HDL Cholesterol 30 mg/dL (60-100) L 03/27/25 10:43 Cholesterol/HDL Ratio 2.90 mg/dL (1.0-5.00) 03/27/25 10:43 Procalcitonin 0.09 ng/mL (0-0.5) 03/27/25 10:43 A&P Assessment and plan (1) Severe mitral regurgitation: the echocardiogram is suggestive of possibly severe eccentric mitral regurgitation. But based on the auscultation, the MR does not appear to be severe. this may need to be further evaluated May schedule the patient for a DEANDRE to further evaluate the mitral regurgitation. The needs for the study, risks and benefits were discussed with the patient. The risk of aspiration, bleeding, soft tissue injury, perforation of the stomach/esophagus and other concomitant complications were explained to the patient in detail. The patient understood this well and consented to proceed (2) New onset of congestive heart failure: This patient has severe diastolic dysfunction. The LV systolic function is normal. May be carefully treated with IV diuretics. (3) History of atrial fibrillation: Currently he is staying in the sinus rhythm. May continue on the current management. (4) Hepatitis C: Management as per the primary. May continue on the current measures (5) Chronic anemia: ? require further workup as per the primary attending. Etiology? (6) Severe protein-calorie malnutrition: the patient edema could be multifactorial. Anemia, hypoalbuminemia, heart failure, etc. are contributing factors Plan May schedule for the DEANDRE tomorrow. Continue the current medication for the time being Based on the DEANDRE findings, further recommendations will be made. PDMP PDMP Reviewed: Not Reviewed Attestations 2 Medical Necessity Statement*: Patient requires continued hospital stay for close monitoring and further management Coding Level of Care Code Acute Code for Chg Fwd Diagnoses Severe mitral regurgitation I34.0 New onset of congestive heart failure I50.9 History of atrial fibrillation Z86.79 Chronic hepatitis C without hepatic coma B18.2 Viral hepatitis chronicity: chronic Hepatic coma status: without hepatic coma Chronic anemia D64.9 Severe protein-calorie malnutrition E43
[2025-03-28] MEDS: metroNIDAZOLE 500 MG Tablet PO ×3 (09:45→20:48)
[2025-03-28] MEDS: FUROsemide 10 mg/mL SDV 4mL 40 MG IVP ×2 (10:16→20:56)
--- NOTE | 2025-03-28 10:48 | PC.NURSE ---
Provider is updated that Mr Rogers, he is asking for something for pain. Pain 10/10 in his legs/ankles Provider ordered: Morphine 2 mg iv x1. Order entered.
--- NOTE | 2025-03-28 11:03 | PC.NURSE ---
Patient questioned about his codeine allergy and the order for morphine. Patient has tolerated morphine in the past with no problems.
[2025-03-28] MEDS: morphine 4 mg/mL SDV 1 mL 2 MG IVP ×2 (11:44→18:26)
--- NOTE | 2025-03-28 12:11 | P.PN_ITS ---
Subjective 2 Subjective: seen this morning no acute events overnight, he states he feels a lot better however complains of leg pain still wearing jeans, unable to examine pedal pulses, have asked RN to switch pt into a gown so we can examine LE better. RN will check pulses with doppler Vitals/I&O/Wt Last Vital Signs Temp 98.5 F 03/28/25 11:13 Pulse 88 03/28/25 11:13 Resp 22 H 03/28/25 11:44 BP 113/62 03/28/25 11:13 Pulse Ox 99 03/28/25 11:44 O2 Del Method Nasal Cannula 03/28/25 11:13 O2 Flow Rate 0.5 03/28/25 08:18 03/27/25 03/28/25 03/28/25 22:59 06:59 14:59 Intake Total 580 / 580 120 / 700 100 / 100 Output Total 200 / 200 100 / 300 1400 / 1400 Balance 380 / 380 20 / 400 -1300 / -1300 Weight last 48 hrs Weight 71.532 kg Weight 70.035 kg Weight 68.039 kg Physical Exam 2 Narrative: General: No acute distress, AO x3 HEENT: PERRLA, pupils bilaterally equal and reactive, pallors not present Chest: Normal vesicular breath sounds, no added sounds, equal good air entry bilaterally CVS: S1-S2 regular, no murmurs, no tachycardia, no gallops, no rubs Abdomen: Soft, nontender, no organomegaly, bowel sounds present Neuro: No focal deficits, no facial deformity, AO x3, 3+ edema b/l till knees on day of admiss ion, edema slightly improving however 2+ still present, unable to check for pedal pulses. We will be checking with doppler shortly Data 03/28/25 04:11 03/28/25 04:11 A&P Assessment and plan (1) Grade III diastolic dysfunction: (2) Severe mitral regurgitation: (3) Severe protein-calorie malnutrition: (4) Edema: (5) New onset of congestive heart failure: (6) Chronic anemia: Plan #Bilateral lower extremity edema most likely secondary to diastolic heart failure #Diastolic heart failure #Severe mitral regurgitation #CKD #Hypertension #New onset congestive heart failure ? Continue diuresis with Lasix 40 IV daily ? Patient does have bilateral lower extremity edema. Will request for compression wraps ? Consult cardiology ? Continue amiodarone 200 daily, folic acid, ? Hold metoprolol tartrate ? Continue omeprazole, rosuvastatin, thiamine ? Ciprofloxacin given at time of discharge. We will continue at this time to complete a 7-day course as per previous hospitalization. Same with metronidazole. Continue to complete 7-day course. Diarrhea has resolved. ? Echo results as follows:Normal left ventricular size and systolic function, EF 64%. Mild concentric left-ventricular hypertrophy.no regional wall motion abnormalities. Grade II/IV diastolic dysfunction, moderately elevated filling pressures. Moderately increased left atrial size. Possibly severe mitral valve regurgitation. Mild mitral annular calcification. Thickened mitral valve. Thickened aortic valve. Trace to mild tricuspid valve regurgitation. Estimated pulmonary artery peak systolic pressure 55 mmHg. There is no pericardial effusion. There are no intracardiac masses. Compared to the study from 01/23/2024, there is worsening of the mitral regurgitation Dr. Crump was informed about these findings - EKG without acute ischemic changes ? BNP 22,000. This is likely secondary to poor renal clearance due to recent LINDSEY with component of severe mitral regurgitation. We will repeat in AM. ? Does have bilateral lower extremity edema. Will continue diuresis. ? Does have chronic anemia with hemoglobin stable at 7 range. FOBT positive however that may be in setting of recent colitis. ? Iron studies obtained a few days ago with iron 32, TIBC 83, percent saturation 38.5, ferritin 253. There is possibility of anemia of chronic disease secondary to kidney disease. ? Will recheck CBC in AM. - Continue to hold Eliquis at this time. full code dvt ppx: mechanical hold of on heparin/lovenox 03/28/2025 pt had arterial duplex done 03/18 indication severe PAD will check cta abd runoff, pt complains of right leg pain, will check pulses with doppler. will r/o acute limb ischemia continue lasix 40 IV daily HB 7.3 this am, transfuse for Hb < 7 add protonix 40 BID sucralfate 1g BID he will likely need GI workup going forward no active bleed at this time DEANDRE recommended by cardiology for eval of severe mitral regurg appreciate cardio recommendations continue diuresis today he does have a new O2 requirement of 2L, will continue PDMP PDMP Reviewed: Not Reviewed Attestations 2 Medical Necessity Statement*: Greater than 2 midnight stay for workup of severe mitral regurgitation new onset diastolic heart failure. Diagnoses Grade III diastolic dysfunction I51.89 Severe mitral regurgitation I34.0 Severe protein-calorie malnutrition E43 Edema R60.9 New onset of congestive heart failure I50.9 Chronic anemia D64.9
--- NOTE | 2025-03-28 12:13 | CTR_ITS ---
PROCEDURE INFORMATION: Exam: CTA Abdominal Aorta and Bilateral Lower Extremities (Run-off) With Contrast Exam date and time: 03/28/2025 2:02 PM Age: 74 years old Clinical indication: Pain; Other: Leg; Additional info: HX pad, severe leg pain TECHNIQUE: Imaging protocol: Computed tomographic angiography of the of the abdominal aorta, pelvis and bilateral lower extremities with contrast. 3D rendering (Not supervised by radiologist): MIP and/or 3D reconstructed images were created by the technologist. Radiation optimization: All CT scans at this facility use at least one of these dose optimization techniques: automated exposure control; mA and/or kV adjustment per patient size (includes targeted exams where dose is matched to clinical indication); or iterative reconstruction. Contrast material: OMNI 350; Contrast volume: 100 ml; Contrast route: INTRAVENOUS (IV); COMPARISON: CT abdomen pelvis wo con [id number] 03/17/2025 3:40 PM RADIATION DOSE METRICS: Total DLP (mGy-cm): 830.98 FINDINGS: Aorta: No aortic aneurysm. No aortic dissection. Celiac trunk and mesenteric arteries: No occlusion or significant stenosis. Renal arteries: No occlusion or significant stenosis. Right iliac arteries: Mild stenosis of the right common iliac artery and [id number] stenosis of the right external iliac artery. Right femoral/popliteal arteries: Moderate stenosis of the common femoral artery and severe stenosis of the proximal superficial femoral artery. More distally the SFA is occluded and then reconstitutes more distally. High-grade stenosis of the popliteal artery. Right infrapopliteal arteries: These are very poorly and inconsistently visualized. The distal anterior tibial artery reconstitutes and flow is seen in the dorsalis pedis artery. Left iliac arteries: Occlusion of the left common iliac and external iliac artery with reconstitution of the distal left external iliac artery. Left femoral/popliteal arteries: High-grade stenosis of the common femoral artery and moderate to severe stenosis of the superficial femoral artery throughout. The popliteal artery is poorly visualized proximally and may be occluded. More distally the popliteal artery reconstitutes. Left infrapopliteal arteries: These are poorly and inconsistently visualized. Anterior and peroneal arteries are faintly visualized at the ankle as well as the dorsalis pedis. A low bowel thank you thank you Pleural spaces: Small bilateral pleural effusions with bilateral lower lobe consolidation/atelectasis. Moderate hiatal hernia. Liver: Slight nodularity of the liver surface may represent cirrhosis. No mass. Gallbladder and biliary ducts: Unremarkable. No calcified stones. No ductal dilation. Pancreas: Unremarkable. No mass. No ductal dilation. Spleen: Normal. No splenomegaly. Adrenal glands: Minimal left adrenal nodularity again seen. Kidneys and ureters: Bilateral renal cysts, measuring up to 6 cm on the right upper pole. No hydronephrosis. Stomach and bowel: Colonic diverticulosis especially sigmoid. No obstruction. No mucosal thickening. Appendix: No evidence of appendicitis. Urinary bladder: Unremarkable. No mass. Reproductive: Unremarkable as visualized. Intraperitoneal space: Unremarkable. No free air. No significant fluid collection. Lymph nodes: No lymphadenopathy. Bones/joints: No acute fracture. No dislocation. Scoliosis of the lumbar spine convex to the left. Soft tissues: Generalized body wall edema or anasarca. CT/CT angio abd aorta runof [id number] IMPRESSION: 1. Extensive vascular disease with occlusion of the left iliac arteries in the pelvis. Moderate to severe bilateral femoral artery stenoses. High-grade stenosis of the right popliteal artery and probable occlusion of the left popliteal artery. Details discussed above. 2. Possible hepatic cirrhosis.
[2025-03-28] MEDS: iohexol 350 mg/mL 500 mL Btl (per mL) IV (14:09)
[2025-03-28 17:26] LABS: Basophils % 0.5 %; Eosinophils # 0.4 10^3/uL (0.0-0.8); Eosinophils % 4.5 %; Hematocrit 23.2 % (37-53); Lymphocytes # 1.1 10^3/uL (0.8-4.8); Lymphocytes % 13.3 %; Mean Corpuscular HGB Conc 31.5 g/dL (30-55); Mean Corpuscular Hemoglobin 29.3 pg (27-33); Mean Corpuscular Volume 93.2 fl (82-101); Mean Platelet Volume 9.7 fL (7.4-10.4); Monocytes # 0.7 10^3/uL (0.2-0.9); Monocytes % 8.7 %; Neutrophils # 5.96 10^3/uL (1.8-7.7); Neutrophils % 72.3 %; Nucleated Red Blood Cells % 0 %; Platelet Count 449 10^3/cmm (157-399); Red Blood Count 2.49 10^6/uL (3.85-5.65); Red Cell Distribution Width 15.9 % (12.1-15.1); White Blood Count 8.25 10^3/uL (3.29-11.43)
[2025-03-28] MEDS: pantoprazole DR 40 mg Tablet PO (17:42)
[2025-03-28] MEDS: sucralfate 1 gm Tablet PO (17:42)
--- NOTE | 2025-03-28 17:51 | PC.NURSE ---
Dr Solo called to verify orders with nursing. Patient is complaining of pain and would like something. Dr. Solo ordered morphine 2mg Q6hr PRN pain. Blood transfusion is to be hung as soon as it is ready. Heparin drip is to be started per protocol after blood transfusion is completed. Hold the heparin 4 hours prior to EGD/DEANDRE on Saturday.
[2025-03-28 18:21] LABS: Basophils # 0.1 10^3/uL (0.0-0.1); Basophils % 0.6 %; Eosinophils # 0.5 10^3/uL (0.0-0.8); Eosinophils % 5.1 %; Hematocrit 26.5 % (37-53); Lymphocytes # 1.4 10^3/uL (0.8-4.8); Lymphocytes % 14.3 %; Mean Corpuscular HGB Conc 30.9 g/dL (30-55); Mean Corpuscular Volume 97.1 fl (82-101); Mean Platelet Volume 9.7 fL (7.4-10.4); Monocytes # 0.9 10^3/uL (0.2-0.9); Monocytes % 9.2 %; Neutrophils # 6.84 10^3/uL (1.8-7.7); Neutrophils % 70.3 %; Nucleated Red Blood Cells % 0 %; Platelet Count 458 10^3/cmm (157-399); Red Blood Count 2.73 10^6/uL (3.85-5.65); White Blood Count 9.74 10^3/uL (3.29-11.43)
--- NOTE | 2025-03-28 20:31 | PM.CONSULT ---
Providers/Reason For Consult Consulting Physician/Specialty*: Dr. Gilliam general surgery Reason for Consult*: Anemia Attending Physician: Radha Solo MD Primary Care Provider: Hyun Mittal MD History of Present Illness History of Present Illness Lonnie Rogers is a 74 year old male whom surgery was consulted to rule out GI bleed. Patient is anemic. Patient has had colitis at last week. Reports melanotic stools intermittently. Medications/Allergies Home Medications ?Medication ?Instructions ?Recorded ?Confirmed ?Last Taken ?Type cetirizine 10 mg capsule 10 mg PO DAILY 10/16/19 03/27/25 03/16/25 History multivitamin 1 tab PO QAM 10/16/19 03/27/25 03/26/25 History apixaban 5 mg tablet (Eliquis) 5 mg PO BID #60 tabs 12/16/20 03/27/25 03/16/25 Rx Held on 03/23/25. Instructions: Resume on 03/23/25. furosemide 40 mg tablet 40 mg PO DAILY@0800 #30 tabs 12/16/20 03/27/25 03/26/25 Rx folic acid 1 mg tablet 1 mg PO DAILY #60 tabs 06/16/24 03/27/25 03/26/25 Rx ipratropium 20 mcg-albuterol 100 1 puff inhalation Q6H #4 grams 06/16/24 03/27/25 03/16/25 Rx mcg/actuation mist for inhalation (Combivent Respimat) cholecalciferol (vitamin D3) 50 50 mcg PO DAILY 03/17/25 03/27/25 03/26/25 History mcg (2,000 unit) capsule diclofenac sodium 3 % topical gel 1 applic topical BID PRN Pain 03/17/25 03/27/25 Unknown History ferrous gluconate 324 mg (37.5 mg 324 mg PO DAILY 03/17/25 03/27/25 03/26/25 History iron) tablet lisinopril 40 mg tablet 40 mg PO DAILY 03/17/25 03/27/25 03/16/25 History Held on 03/23/25. Instructions: Resume on 03/23/25. metoprolol tartrate 100 mg tablet 50 mg PO DAILY 03/17/25 03/27/25 03/27/25 History omeprazole 40 mg capsule,delayed 40 mg PO DAILY 03/17/25 03/27/25 03/16/25 History release rosuvastatin 10 mg tablet 5 mg PO BEDTIME 03/17/25 03/27/25 03/16/25 21:00 History thiamine HCl (vitamin B1) 100 mg 100 mg PO DAILY 03/17/25 03/27/25 03/26/25 History tablet trazodone 100 mg tablet 100 mg PO BEDTIME 03/17/25 03/27/25 03/26/25 20:00 History amiodarone 200 mg tablet (Pacerone) 200 mg PO DAILY 30 days #30 tabs 03/23/25 03/27/25 03/27/25 Rx ciprofloxacin HCl 500 mg tablet 500 mg PO BID@0900,2100 7 days #14 03/23/25 03/27/25 03/27/25 Rx tabs metronidazole 500 mg tablet 500 mg PO TID 7 days #21 tabs 03/23/25 03/27/25 03/27/25 Rx Allergies Allergy/AdvReac Type Severity Reaction Status Date / Time codeine Allergy rash Verified 12/12/20 20:57 Current Medications Generic Name Dose Route Start Last Admin Trade Name Freq PRN Reason Stop Dose Admin Albuterol/Ipratropium 3 ml 03/27/25 16:52 03/28/25 08:22 Ipratropium-Albuterol 3 Ml Neb INHALATION 3 ml Q6H PRN Administration SHORTNESS OF BREATH Amiodarone HCl 200 mg 03/28/25 09:00 03/28/25 09:19 Amiodarone 200 Mg Tablet PO 200 mg DAILY GENIA Administration Atorvastatin Calcium 20 mg 03/27/25 21:00 03/27/25 21:01 Atorvastatin 10 Mg Tablet PO 20 mg BEDTIME GENIA Administration Cetirizine HCl 10 mg 03/28/25 09:00 03/28/25 09:19 Cetirizine 10 Mg Tablet PO 10 mg DAILY GENIA Administration Ciprofloxacin HCl 500 mg 03/27/25 21:00 03/28/25 09:18 Ciprofloxacin 500 Mg Tablet PO 500 mg BID@0900,2100 GENIA Administration Protocol Ferrous Gluconate 324 mg 03/28/25 09:00 03/28/25 09:18 Ferrous Gluconate 324 Mg Tablet PO 324 mg DAILY GENIA Administration Folic Acid 1 mg 03/28/25 09:00 03/28/25 09:18 Folic Acid 1 Mg Tablet PO 1 mg DAILY GENIA Administration Furosemide 40 mg 03/28/25 09:45 03/28/25 10:16 Furosemide 10 Mg/Ml Sdv 4ml IVP 40 mg Q12H GENIA Administration Metronidazole 500 mg 03/27/25 21:00 03/28/25 15:47 Metronidazole 500 Mg Tablet PO 500 mg TID GENIA Administration Morphine Sulfate 2 mg 03/28/25 18:01 03/28/25 18:26 Morphine 4 Mg/Ml Sdv 1 Ml IVP 2 mg Q6H PRN Administration SEVERE PAIN Multivitamins Therapeutic 1 tab 03/28/25 06:00 03/28/25 05:18 Multivitamin Therapeutic Tablet PO 1 tab QAM GENIA Administration Nicotine 1 patch 03/27/25 20:02 03/28/25 09:17 Nicotine 21 Mg Patch TRANSDERMA 1 patch DAILY GENIA Administration Pantoprazole Sodium 40 mg 03/28/25 18:00 03/28/25 17:[address] 40 Mg Tablet PO 40 mg BID GENIA Administration Potassium Chloride 20 meq 03/28/25 09:00 03/28/25 09:18 Potassium Chloride Er 20 Meq Tablet PO 20 meq DAILY GENIA Administration Sucralfate 1 gm 03/28/25 17:00 03/28/25 17:42 Sucralfate 1 Gm Tablet PO 1 gm BIDAC GENIA Administration Thiamine Mononitrate 100 mg 03/28/25 09:00 03/28/25 09:18 Thiamine 100 Mg Tablet PO 100 mg DAILY GENIA Administration Trazodone HCl 100 mg 03/27/25 21:00 03/27/25 21:00 Trazodone 100 Mg Tablet PO 100 mg BEDTIME GENIA Administration Vitamin D 2,000 unit 03/28/25 09:00 03/28/25 09:18 Cholecalciferol (Vitamin D3) 1,000 Unit Tablet PO 2,000 unit DAILY GENIA Administration PFSH Acute PFSH: Medical History (Updated 03/29/25 @ 11:10 by Manuel Gilliam MD) Hypertension Hypotension Alcohol intoxication PTSD (post-traumatic stress disorder) COPD (chronic obstructive pulmonary disease) Hiatal hernia Diverticulosis Arthritis Hepatitis C Completed Epclusa in 2019 Surgical History History of laparoscopic appendectomy Bilateral inguinal hernia Bilateral repairs History of surgery on upper extremity L forearm fracture History of penile cancer local excision Family History Father Congestive heart failure (CHF) Other Dementia Social History Smoking and tobacco/nicotine status: current every day tobacco/nicotine user cigarettes Packs smoked per day: 0.5 Years cigarettes smoked: 55 [ Other cigarette details: Heavier smoker in the past. started smoking at age 15. ] Alcohol intake: current Alcohol intake frequency: few times a month Alcohol type: hard liquor Substance/Drug Use: never Current gender identity: Male Vitals/I&O/Wt Last Vital Signs Temp 99.1 F 03/28/25 19:48 Pulse 96 03/28/25 19:48 Resp 27 H 03/28/25 19:48 BP 116/57 03/28/25 19:48 Pulse Ox 95 03/28/25 19:48 O2 Del Method Room Air 03/28/25 19:48 O2 Flow Rate 0.5 03/28/25 08:18 03/28/25 03/28/25 03/28/25 06:59 14:59 22:59 Intake Total 120 / 700 580 / 580 480 / 1060 Output Total 100 / 300 2200 / 2200 600 / 2800 Balance 20 / 400 -1620 / -1620 -120 / -1740 Weight last 48 hrs Weight 157 lb 11.2 oz Weight 154 lb 6.4 oz Weight 150 lb Physical Exam Narrative: Chest: Unlabored breathing room air. No lymphadenopathy. Heart: Regular rate and rhythm. Abdomen: Soft, nontender, nondistended. No masses or lymphadenopathy. Data 03/29/25 10:15 03/29/25 02:00 A&P Assessment and plan (1) Anemia: Plan 74-year-old male whom surgery was consulted to rule out GI bleed. History of melanotic stools last few days. I have explained the risks and benefits of a diagnostic EGD with biopsy and the patient agrees to proceed. Will hold off on colonoscopy due to colitis. PDMP PDMP Reviewed: Not Reviewed Coding Level of Care Code 11734 Diagnoses Anemia D64.9
[2025-03-28] MEDS: trazodone 100 mg Tablet PO (20:48)
[2025-03-28] MEDS: ATORVASTATIN 10 MG TABLET 20 MG PO (20:48)
[2025-03-28] MEDS: sodium chloride 0.9% 100 mL Bag 50 ML IV (20:51)
[2025-03-29] VITALS (10 sets, daily range): BP systolic 112–142; BP diastolic 52–80; PULSE 86–110; RESP 12–24; TEMP 36.1–37.2; O2SAT 93–96
[2025-03-29] MEDS: heparin drip 25,000 UNIT/500 ML PREMIX 20 UNIT IV (00:55)
[2025-03-29] MEDS: heparin 5,000 unit/mL INJ 1 mL IVP (00:58)
[2025-03-29 02:10] LABS: Basophils # 0.1 10^3/uL (0.0-0.1); Basophils % 0.9 %; Eosinophils # 0.7 10^3/uL (0.0-0.8); Eosinophils % 6.6 %; Hematocrit 27.4 % (37-53); Lymphocytes # 1.6 10^3/uL (0.8-4.8); Lymphocytes % 15.7 %; Mean Corpuscular HGB Conc 32.8 g/dL (30-55); Mean Corpuscular Hemoglobin 30.6 pg (27-33); Mean Corpuscular Volume 93.2 fl (82-101); Mean Platelet Volume 9.4 fL (7.4-10.4); Monocytes # 0.9 10^3/uL (0.2-0.9); Monocytes % 9.2 %; Neutrophils # 6.67 10^3/uL (1.8-7.7); Neutrophils % 66.9 %; Nucleated Red Blood Cells % 0 %; Platelet Count 455 10^3/cmm (157-399); Red Blood Count 2.94 10^6/uL (3.85-5.65); Red Cell Distribution Width 15.1 % (12.1-15.1); White Blood Count 9.98 10^3/uL (3.29-11.43)
[2025-03-29 02:26] LABS: Alanine Aminotransferase 7 U/L (0-41); Albumin Level 2.6 g/dL (3.5-5.2); Alkaline Phosphatase 69 U/L (40-130); Anion Gap 13.3 (5-19); Aspartate Amino Transferase 13 U/L (0-40); Blood Urea Nitrogen 13 mg/dL (8-23); Calcium 7.9 mg/dL (8.5-10.5); Carbon Dioxide 22 mmol/L (22-29); Chloride 105 mmol/L (98-107); Creatinine Clr Calc Pharmacy 58.2971; Globulin 2.9 g/dL (1.3-4.6); Glucose 102 mg/dL (65-115); Magnesium 1.8 mg/dL (1.7-2.3); Osmolality Calculated 282 mOsm/kg (285-295); Potassium 4.3 mmol/L (3.5-5.1); Sodium 136 mmol/L (136-145); Total Bilirubin 0.4 mg/dL (0.15-1.2); Total Protein 5.5 g/dL (6.6-8.7)
--- NOTE | 2025-03-29 07:15 | PM.PN ---
Subjective Subjective: Patient had the EGD today. Was found to have no evidence of any active bleed. He continues to have resting claudication with no worsening. Evaluated by Dr. Almeida and is scheduled for peripheral angiogram and possible intervention tomorrow Medications: Medication Review Details: Current Medications Acetaminophen (Acetaminophen 325 Mg Tablet) 650 mg PO Q6H PRN PRN Reason: Mild/Mod Pain Or Temp >/= 101 Albuterol/Ipratropium (Ipratropium-Albuterol 3 Ml Neb) 3 ml INHALATION Q6H PRN PRN Reason: SHORTNESS OF BREATH Last Admin: 03/28/25 08:22 Dose: 3 ml Amiodarone HCl (Amiodarone 200 Mg Tablet) 200 mg PO DAILY [facility] Last Admin: 03/28/25 09:19 Dose: 200 mg Atorvastatin Calcium (Atorvastatin 10 Mg Tablet) 20 mg PO BEDTIME [facility] Last Admin: 03/28/25 20:48 Dose: 20 mg Cetirizine HCl (Cetirizine 10 Mg Tablet) 10 mg PO DAILY [facility] Last Admin: 03/28/25 09:19 Dose: 10 mg Ciprofloxacin HCl (Ciprofloxacin 500 Mg Tablet) 500 mg PO BID@0900,2100 [facility]; Protocol Last Admin: 03/28/25 20:48 Dose: 500 mg Ferrous Gluconate (Ferrous Gluconate 324 Mg Tablet) 324 mg PO DAILY [facility] Last Admin: 03/28/25 09:18 Dose: 324 mg Folic Acid (Folic Acid 1 Mg Tablet) 1 mg PO DAILY [facility] Last Admin: 03/28/25 09:18 Dose: 1 mg Furosemide (Furosemide 10 Mg/Ml Sdv 4ml) 40 mg IVP Q12H [facility] Last Admin: 03/28/25 20:56 Dose: 40 mg Heparin Sodium (Porcine) (Heparin 5,000 Unit/Ml Inj 1 Ml) 0 unit IVP PRN PRN; Protocol PRN Reason: Heparin Weight Based Protocol -Subsequent Bolus Sodium Chloride (Sodium Chloride 0.9%) 1,000 mls @ 50 mls/hr IV .Q20H ONE Stop: 03/29/25 12:37 Heparin Sodium/Sodium Chloride (Heparin Drip) 25,000 unit in 500 mls @ 0 mls/hr IV CONT GENIA; Protocol Last Titration: 03/29/25 07:05 Dose: 0 unit/kg/hr, 0 mls/hr Metronidazole (Metronidazole 500 Mg Tablet) 500 mg PO TID [facility] Last Admin: 03/28/25 20:48 Dose: 500 mg Morphine Sulfate (Morphine 4 Mg/Ml Sdv 1 Ml) 2 mg IVP Q6H PRN PRN Reason: SEVERE PAIN Last Admin: 03/28/25 18:26 Dose: 2 mg Multivitamins Therapeutic (Multivitamin Therapeutic Tablet) 1 tab PO QAM [facility] Last Admin: 03/29/25 06:36 Dose: Not Given Nicotine (Nicotine 21 Mg Patch) 1 patch TRANSDERMA DAILY [facility] Last Admin: 03/28/25 09:17 Dose: 1 patch Ondansetron HCl (Ondansetron 2 Mg/Ml Sdv 2 Ml) 4 mg IVP Q8H PRN PRN Reason: vomiting, or N/V if npo Pantoprazole Sodium (Pantoprazole Dr 40 Mg Tablet) 40 mg PO BID [facility] Last Admin: 03/28/25 17:42 Dose: 40 mg Potassium Chloride (Potassium Chloride Er 20 Meq Tablet) 20 meq PO DAILY [facility] Last Admin: 03/28/25 09:18 Dose: 20 meq Sodium Chloride (Sodium Chloride 0.9% 100 Ml Bag) 50 ml IV PRN PRN PRN Reason: Blood transfusion prime and flush Stop: 03/29/25 16:51 Last Admin: 03/28/25 20:51 Dose: 50 ml Sucralfate (Sucralfate 1 Gm Tablet) 1 gm PO BIDAC [facility] Last Admin: 03/29/25 06:36 Dose: Not Given Thiamine Mononitrate (Thiamine 100 Mg Tablet) 100 mg PO DAILY [facility] Last Admin: 03/28/25 09:18 Dose: 100 mg Trazodone HCl (Trazodone 100 Mg Tablet) 100 mg PO BEDTIME [facility] Last Admin: 03/28/25 20:48 Dose: 100 mg Vitamin D (Cholecalciferol (Vitamin D3) 1,000 Unit Tablet) 2,000 unit PO DAILY [facility] Last Admin: 03/28/25 09:18 Dose: 2,000 unit Vitals/I&O/Wt Last Vital Signs Temp 97.7 F 03/29/25 04:00 Pulse 91 03/29/25 04:00 Resp 19 H 03/29/25 04:00 BP 125/72 03/29/25 04:00 Pulse Ox 93 03/29/25 04:00 O2 Del Method Room Air 03/29/25 04:00 O2 Flow Rate 0.5 03/28/25 08:18 03/28/25 03/29/25 03/29/25 22:59 06:59 14:59 Intake Total 480 / 1060 250 / 1310 123.333 / 123.333 Output Total 1150 / 3350 900 / 4250 200 / 200 Balance -670 / -2290 -650 / -2940 -76.667 / -76.667 Weight last 48 hrs Weight 148 lb 6.4 oz Weight 157 lb 11.2 oz Weight 154 lb 6.4 oz Weight 150 lb Physical Exam Narrative: GENERAL: The patient is alert and oriented times three. Not in any acute distress. HEENT: Moderate pallor, no icterus or lymphadenopathy.Oral cavity: There are no mucous membrane lesions. NECK: Trachea appears to be central. No masses noted. No JVD or thyromegaly appreciated. RESPIRATORY: Chest is symmetrical. No intercostals muscle retraction or any accessory muscle activation. There is no chest wall tenderness. Breath sounds are heard bilaterally. No rales or rhonchi heard. No evidence of any consolidation. BREASTS: Deferred. HEART: The heart sounds are normal. No S3 or S4. Short systolic murmur in the mitral area. No diastolic murmur. No pericardial rub ABDOMEN: No vessel pulsations or distention. No tenderness. No organomegaly appreciated. Bowel sounds are normally heard. : Deferred. RECTAL: Deferred. LYMPHATIC: No lymphadenopathy noted in the neck. EXTREMITIES: 1-2+ pitting edema both lower extremities. Has some pinkish discoloration of both legs. MUSCULOSKELETAL: No acute joint deformities or swelling SKIN: There are no significant rashes or ecchymosis NEUROPSYCHIATRIC: The patient is alert and oriented x3. Appears to be in a good mood. No tremors or rigidity noted. Data 03/29/25 18:00 03/29/25 02:00 Other Labs: Laboratory Last Values WBC 9.98 10^3/uL (3.29-11.43) 03/29/25 02:00 RBC 2.94 10^6/uL (3.85-5.65) L 03/29/25 02:00 Hgb 9.00 g/dL (11.27-16.99) L 03/29/25 02:00 Hct 27.4 % (37-53) L 03/29/25 02:00 MCV 93.2 fl (82-101) 03/29/25 02:00 MCH 30.6 pg (27-33) 03/29/25 02:00 MCHC 32.8 g/dL (30-55) D 03/29/25 02:00 RDW 15.1 % (12.1-15.1) 03/29/25 02:00 Plt Count 455 10^3/cmm (157-399) H 03/29/25 02:00 MPV 9.4 fL (7.4-10.4) 03/29/25 02:00 Neut % (Auto) 66.9 % 03/29/25 02:00 Lymph % (Auto) 15.7 % 03/29/25 02:00 Metcalfe % (Auto) 9.2 % 03/29/25 02:00 Eos % (Auto) 6.6 % 03/29/25 02:00 Baso % (Auto) 0.9 % 03/29/25 02:00 Neut # (Auto) 6.67 10^3/uL (1.8-7.7) 03/29/25 02:00 Lymph # (Auto) 1.6 10^3/uL (0.8-4.8) 03/29/25 02:00 Metcalfe # (Auto) 0.9 10^3/uL (0.2-0.9) 03/29/25 02:00 Eos # (Auto) 0.7 10^3/uL (0.0-0.8) 03/29/25 02:00 Baso # (Auto) 0.1 10^3/uL (0.0-0.1) 03/29/25 02:00 Nucleated RBC % (auto) 0 % 03/29/25 02:00 Nucleated RBCs # 0.0 /100WBC 03/29/25 02:00 PT 15.70 SECONDS (12.1-14.9) H 03/28/25 04:11 INR 1.17 (0.8-1.2) 03/28/25 04:11 Sodium 136 mmol/L (136-145) 03/29/25 02:00 Potassium 4.3 mmol/L (3.5-5.1) 03/29/25 02:00 Chloride 105 mmol/L (98-107) 03/29/25 02:00 Carbon Dioxide 22 mmol/L (22-29) 03/29/25 02:00 Anion Gap 13.3 (5-19) 03/29/25 02:00 BUN 13 mg/dL (8-23) 03/29/25 02:00 Creatinine 1.1 mg/dL (0.7-1.2) 03/29/25 02:00 GFR Calculation Not Reportable 03/29/25 02:00 Glucose 102 mg/dL (65-115) 03/29/25 02:00 Calculated Osmolality 282 mOsm/kg (285-295) L 03/29/25 02:00 Calcium 7.9 mg/dL (8.5-10.5) L 03/29/25 02:00 Magnesium 1.8 mg/dL (1.7-2.3) 03/29/25 02:00 Total Bilirubin 0.4 mg/dL (0.15-1.2) 03/29/25 02:00 AST 13 U/L (0-40) 03/29/25 02:00 ALT 7 U/L (0-41) 03/29/25 02:00 Alkaline Phosphatase 69 U/L (40-130) 03/29/25 02:00 Troponin T Baseline 62 ng/L (0-15) H 03/27/25 10:43 Troponin T 120 Minute 58.81 ng/L (0-15) H 03/27/25 12:20 Delta Troponin T -3.19 ABS# (0-10) L 03/27/25 12:20 Troponin T Hi Sens 6Hr 58.45 ng/L (0-15) H 03/27/25 16:31 Troponin T Hi Sens 6Hr Delta -3.55 ng/L (0-12) L 03/27/25 16:31 NT-Pro-B Natriuret Pep 30783 pg/mL (0-450) H 03/28/25 04:11 Total Protein 5.5 g/dL (6.6-8.7) L D 03/29/25 02:00 Albumin 2.6 g/dL (3.5-5.2) L 03/29/25 02:00 Globulin 2.9 g/dL (1.3-4.6) 03/29/25 02:00 Triglycerides 124 mg/dL (0-150) 03/27/25 10:43 Cholesterol 87 mg/dL (0-200) 03/27/25 10:43 LDL Cholesterol, Calc 32 mg/dL (50-129) L 03/27/25 10:43 Total VLDL Cholesterol 25 mg/dL (0-30) 03/27/25 10:43 HDL Cholesterol 30 mg/dL (60-100) L 03/27/25 10:43 Cholesterol/HDL Ratio 2.90 mg/dL (1.0-5.00) 03/27/25 10:43 Procalcitonin 0.09 ng/mL (0-0.5) 03/27/25 10:43 Blood Type O Positive 03/28/25 18:03 Rho(D) Type Rh positive 03/28/25 18:03 Antibody Screen Negative 03/28/25 18:03 Crossmatch See Detail 03/28/25 18:03 A&P Assessment and plan (1) Chronic limb-threatening ischemia: Patient has features of a chronic limb ischemia. Scheduled for peripheral angiogram and possible intervention tomorrow (2) New onset of congestive heart failure: This patient has severe diastolic dysfunction. The LV systolic function is normal. The heart failure is getting compensated. May continue on the current management. (3) Severe mitral regurgitation: the echocardiogram is suggestive of possibly severe eccentric mitral regurgitation. But based on the auscultation, the MR does not appear to be severe. this may need to be further evaluated May consider further workup of the mitral regurgitation after dealing with a limb ischemia (4) History of atrial fibrillation: Currently he is staying in the sinus rhythm. May continue on the current management. (5) Hepatitis C: Management as per the primary. May continue on the current measures (6) Chronic anemia: No evidence of any upper GI bleed. Patient had a colitis recently which could be a contributing factor. Also seems to have features of chronic malnutrition Plan Patient is scheduled for peripheral angiogram and possible intervention tomorrow. Also may consider a cardiac catheterization. May continue on the other current measures Based on the clinical progress, further recommendations will be made PDMP PDMP Reviewed: Not Reviewed Attestations Medical Necessity Statement*: Patient requires continued hospital stay for close monitoring and further management Coding Level of Care Code 05170 Diagnoses Chronic limb-threatening ischemia I70.229 New onset of congestive heart failure I50.9 Severe mitral regurgitation I34.0 History of atrial fibrillation Z86.79 Chronic hepatitis C without hepatic coma B18.2 Hepatic coma status: without hepatic coma Viral hepatitis chronicity: chronic Chronic anemia D64.9
[2025-03-29 07:24] LABS: Partial Thromboplastin Time 28.7 SECONDS (23.9-36.7)
[2025-03-29] MEDS: amiodarone 200 mg Tablet PO (08:41)
--- NOTE | 2025-03-29 09:18 | P.PN_ITS ---
Subjective 2 Subjective: Patient was seen this morning on rounds. He states that he has had bilateral lower extremity claudication in his calves for years but it is progressively gotten worse recently. He states is worse in his left lower extremity. I was able to Doppler pulses in the left leg but they are poor. Left DP and PT 1+ monophasic. On the right he has a 2+ monophasic dorsalis pedis. I can palpate his right femoral but I cannot palpate his left femoral. He denies any pain at this time. Reports pain with movement and walking. Anemia is stable. H&H is 9/27.4. Creatinine is 1.1, which is baseline. Vitals are stable. Patient denies shortness of breath or chest pain. O2 sat 94% on room air. He is going for an EGD today. CTA AFRO showed extensive vascular disease with occlusion of the left iliac, moderate to severe bilateral femoral artery stenosis, high grade stenosis of the right popliteal and probable occlusion of the left popliteal artery. Vitals/I&O/Wt Last Vital Signs Temp 98.1 F 03/29/25 08:00 Pulse 87 03/29/25 08:31 Resp 20 H 03/29/25 08:31 BP 127/74 03/29/25 08:00 Pulse Ox 94 03/29/25 08:31 O2 Del Method Room Air 03/29/25 08:31 O2 Flow Rate 0.5 03/28/25 08:18 03/28/25 03/29/25 03/29/25 22:59 06:59 14:59 Intake Total 480 / 1060 250 / 1310 123.333 / 123.333 Output Total 1150 / 3350 900 / 4250 200 / 200 Balance -670 / -2290 -650 / -2940 -76.667 / -76.667 Weight last 48 hrs Weight 148 lb 6.4 oz Weight 157 lb 11.2 oz Weight 154 lb 6.4 oz Weight 150 lb Physical Exam 2 Narrative: General: No apparent distress, healthy appearing, well nourished HENMT: normoceophalic Neck: No carotid bruit bilaterally Muskuloskeletal: Full ROM Respiratory: Normal respiratory effort, clear to auscultation bilaterally throughout all lung otero, no use of accessory muscles Cardio: No JVD, regular rate, regular rhythm, S1 S2 normal, no murmurs, peripheral pulses 2+ radial palpated bilaterally, 1+ monophasic DP and PT on the left and 2+ monophasic DP on the right delayed cap refill on the left with 3 seconds bilateral lower extremities warm without signs or symptoms of ischemia Extremities: Full ROM, normal, normal capillary refill, no cyanosis, 2+ pitting edema bilateral lower extremities Neuro: Alert and oriented x4, no focal motor deficits Psych: Affect normal, mental status grossly normal Skin: Left lower leg with slightly open area on the outside of the leg, no drainage or s/s of infection Data 03/29/25 02:00 03/29/25 02:00 A&P Assessment and plan (1) Severe mitral regurgitation: (2) New onset of congestive heart failure: (3) History of atrial fibrillation: (4) Hepatitis C: (5) Chronic anemia: (6) Severe protein-calorie malnutrition: (7) Peripheral arterial disease: Plan Patient has evidence of severe PAD with lower extremity claudication left more severe than the right. At this time, the plan is to take him to the manufacturing lab technician tomorrow for peripheral angiogram lower extremities and possible ferry captain, athrectomy, angioplasty and stenting of the left lower extremity. Patient agrees to proceed. PDMP PDMP Reviewed: Not Reviewed Attestations 2 Medical Necessity Statement*: Deferred to primary Coding Level of Care Code Acute Code for [facility] Diagnoses Severe mitral regurgitation I34.0 New onset of congestive heart failure I50.9 History of atrial fibrillation Z86.79 Chronic hepatitis C without hepatic coma B18.2 Viral hepatitis chronicity: chronic Hepatic coma status: without hepatic coma Chronic anemia D64.9 Severe protein-calorie malnutrition E43 Peripheral arterial disease I73.9
--- NOTE | 2025-03-29 09:29 | PC.NURSE ---
GI lab is requesting that patient's morning medications, except for his heart meds, be given after his EGD this morning.
--- NOTE | 2025-03-29 09:48 | P.PN_ITS ---
Subjective 2 Subjective: No melena, no hematochezia Vitals/I&O/Wt Last Vital Signs Temp 98.1 F 03/29/25 08:00 Pulse 87 03/29/25 08:31 Resp 20 H 03/29/25 08:31 BP 127/74 03/29/25 08:00 Pulse Ox 94 03/29/25 08:31 O2 Del Method Room Air 03/29/25 08:31 O2 Flow Rate 0.5 03/28/25 08:18 03/28/25 03/29/25 03/29/25 22:59 06:59 14:59 Intake Total 480 / 1060 250 / 1310 123.333 / 123.333 Output Total 1150 / 3350 900 / 4250 200 / 200 Balance -670 / -2290 -650 / -2940 -76.667 / -76.667 Weight last 48 hrs Weight 148 lb 6.4 oz Weight 157 lb 11.2 oz Weight 154 lb 6.4 oz Weight 150 lb Physical Exam 2 Narrative: Chest: Unlabored breathing room air. No lymphadenopathy. Heart: Regular rate and rhythm. Abdomen: Soft, nontender, nondistended. No masses or lymphadenopathy. Data 03/29/25 10:15 03/29/25 02:00 A&P Assessment and plan (1) Anemia: Plan 74-year-old male whom surgery was consulted for anemia. Rule out GI bleed. I have explained the risks and benefits of a diagnostic EGD with biopsy and the patient agrees to proceed. PDMP PDMP Reviewed: Not Reviewed Attestations 2 Medical Necessity Statement*: N/A Coding Level of Care Code 46987 Diagnoses Anemia D64.9
--- NOTE | 2025-03-29 10:10 | PC.NURSE ---
Dr. Solo asked nursing staff to resume heparin drip when patient returns from GI lab. Resume drip at current rate.
[2025-03-29 10:22] LABS: Basophils # 0.1 10^3/uL (0.0-0.1); Eosinophils # 0.5 10^3/uL (0.0-0.8); Eosinophils % 5.7 %; Hematocrit 29.3 % (37-53); Lymphocytes % 12.2 %; Mean Corpuscular HGB Conc 32.4 g/dL (30-55); Mean Corpuscular Hemoglobin 30.9 pg (27-33); Mean Corpuscular Volume 95.4 fl (82-101); Mean Platelet Volume 9.4 fL (7.4-10.4); Monocytes # 0.8 10^3/uL (0.2-0.9); Monocytes % 9.4 %; Neutrophils # 5.88 10^3/uL (1.8-7.7); Neutrophils % 71.2 %; Nucleated Red Blood Cells % 0 %; Platelet Count 430 10^3/cmm (157-399); Red Blood Count 3.07 10^6/uL (3.85-5.65); Red Cell Distribution Width 15.6 % (12.1-15.1); White Blood Count 8.26 10^3/uL (3.29-11.43)
--- NOTE | 2025-03-29 10:25 | ANES.PREANE2 ---
Pre-Anesthetic Assessment Height/Weight: Height 5 ft 9 in Weight 148 lb 6.4 oz Temp Pulse Resp BP Pulse Ox O2 Del Method O2 Flow Rate 98.1 F 87 20 H 127/74 94 Room Air 0.5 03/29/25 08:00 03/29/25 08:31 03/29/25 08:31 03/29/25 08:00 03/29/25 08:31 03/29/25 08:31 03/28/25 08:18 Preop Diagnosis: concern for GI bleed Operation Date: 03/29/25 11:00 Proposed Procedures p EGD(Not Applicable) - Manuel Gilliam MD Was Beta Silvina taken within 24 hours: Yes Was Clonidine taken within 24 hours: N/A Last intake: Intake Last Liquid Date 03/29/25 Last Liquid Time 08:35 Last Solid Date 03/28/25 Last Solid Time 18:00 Social Alcohol and Tobacco Exam alert and oriented x 3 Airway Submandibular: within normal limits Mallampati: Class III Comments: Comments: Edentulous Anesthetic Plan ASA status: 4 Anesthesia: MAC Other: Patient admitted 03/27/2025 with lower extremity swelling and inability to walk proBNP 22,000 in the ER Echo performed in the ER showing EF of 64% but severe mitral regurgitation with grade 3 diastolic dysfunction. Peak PA pressures 55 Patient was recently admitted with colitis and discharged on 03/23/2025. During hospitalization patient had A-fib with RVR and was treated with amiodarone. Hemoglobin 7 in the ER initially Patient has a history of COPD, current smoker. Nicotine and marijuana GERD on omeprazole Hep C, completed treatment Hypertension on lisinopril and metoprolol Labs from today, hemoglobin 9.5 Spoke with cardiology and they recommend proceeding with EGD at this time. Unsure of DEANDRE plans Plan for MAC anesthesia Medications/Allergies Home Medications ?Medication ?Instructions ?Recorded ?Confirmed ?Last Taken ?Type cetirizine 10 mg capsule 10 mg PO DAILY 10/16/19 03/27/25 03/16/25 History multivitamin 1 tab PO QAM 10/16/19 03/27/25 03/26/25 History apixaban 5 mg tablet (Eliquis) 5 mg PO BID #60 tabs 12/16/20 03/27/25 03/16/25 Rx Held on 03/23/25. Instructions: Resume on 03/23/25. furosemide 40 mg tablet 40 mg PO DAILY@0800 #30 tabs 12/16/20 03/27/25 03/26/25 Rx folic acid 1 mg tablet 1 mg PO DAILY #60 tabs 06/16/24 03/27/25 03/26/25 Rx ipratropium 20 mcg-albuterol 100 1 puff inhalation Q6H #4 grams 06/16/24 03/27/25 03/16/25 Rx mcg/actuation mist for inhalation (Combivent Respimat) cholecalciferol (vitamin D3) 50 50 mcg PO DAILY 03/17/25 03/27/25 03/26/25 History mcg (2,000 unit) capsule diclofenac sodium 3 % topical gel 1 applic topical BID PRN Pain 03/17/25 03/27/25 Unknown History ferrous gluconate 324 mg (37.5 mg 324 mg PO DAILY 03/17/25 03/27/25 03/26/25 History iron) tablet lisinopril 40 mg tablet 40 mg PO DAILY 03/17/25 03/27/25 03/16/25 History Held on 03/23/25. Instructions: Resume on 03/23/25. metoprolol tartrate 100 mg tablet 50 mg PO DAILY 03/17/25 03/27/25 03/27/25 History omeprazole 40 mg capsule,delayed 40 mg PO DAILY 03/17/25 03/27/25 03/16/25 History release rosuvastatin 10 mg tablet 5 mg PO BEDTIME 03/17/25 03/27/25 03/16/25 21:00 History thiamine HCl (vitamin B1) 100 mg 100 mg PO DAILY 03/17/25 03/27/25 03/26/25 History tablet trazodone 100 mg tablet 100 mg PO BEDTIME 03/17/25 03/27/25 03/26/25 20:00 History amiodarone 200 mg tablet (Pacerone) 200 mg PO DAILY 30 days #30 tabs 03/23/25 03/27/25 03/27/25 Rx ciprofloxacin HCl 500 mg tablet 500 mg PO BID@0900,2100 7 days #14 03/23/25 03/27/25 03/27/25 Rx tabs metronidazole 500 mg tablet 500 mg PO TID 7 days #21 tabs 03/23/25 03/27/25 03/27/25 Rx Allergies Allergy/AdvReac Type Severity Reaction Status Date / Time codeine Allergy rash Verified 12/12/20 20:57 Current Medications Generic Name Dose Route Start Last Admin Trade Name Marianne PRN Reason Stop Dose Admin Albuterol/Ipratropium 3 ml 03/27/25 16:52 03/28/25 08:22 Ipratropium-Albuterol 3 Ml Neb INHALATION 3 ml Q6H PRN Administration SHORTNESS OF BREATH Amiodarone HCl 200 mg 03/28/25 09:00 03/29/25 08:41 Amiodarone 200 Mg Tablet PO 200 mg DAILY GENIA Administration Atorvastatin Calcium 20 mg 03/27/25 21:00 03/28/25 20:48 Atorvastatin 10 Mg Tablet PO 20 mg BEDTIME GENIA Administration Cetirizine HCl 10 mg 03/28/25 09:00 03/28/25 09:19 Cetirizine 10 Mg Tablet PO 10 mg DAILY GENIA Administration Ciprofloxacin HCl 500 mg 03/27/25 21:00 03/28/25 20:48 Ciprofloxacin 500 Mg Tablet PO 500 mg BID@0900,2100 GENIA Administration Protocol Ferrous Gluconate 324 mg 03/28/25 09:00 03/28/25 09:18 Ferrous Gluconate 324 Mg Tablet PO 324 mg DAILY GENIA Administration Folic Acid 1 mg 03/28/25 09:00 03/28/25 09:18 Folic Acid 1 Mg Tablet PO 1 mg DAILY GENIA Administration Furosemide 40 mg 03/28/25 09:45 03/28/25 20:56 Furosemide 10 Mg/Ml Sdv 4ml IVP 40 mg Q12H GENIA Administration Heparin Sodium/Sodium Chloride 25,000 unit in 500 mls @ 0 mls/hr 03/28/25 18:00 03/29/25 07:05 Heparin Drip IV 0 unit/kg/hr CONT GENIA 0 mls/hr Protocol Titration Per Protocol Metronidazole 500 mg 03/27/25 21:00 03/28/25 20:48 Metronidazole 500 Mg Tablet PO 500 mg TID GENIA Administration Morphine Sulfate 2 mg 03/28/25 18:01 03/28/25 18:26 Morphine 4 Mg/Ml Sdv 1 Ml IVP 2 mg Q6H PRN Administration SEVERE PAIN Multivitamins Therapeutic 1 tab 03/28/25 06:00 03/29/25 06:36 Multivitamin Therapeutic Tablet PO Not Given QAM GENIA Nicotine 1 patch 03/27/25 20:02 03/28/25 09:17 Nicotine 21 Mg Patch TRANSDERMA 1 patch DAILY GENIA Administration Pantoprazole Sodium 40 mg 03/28/25 18:00 03/28/25 17:[address] 40 Mg Tablet PO 40 mg BID GENIA Administration Potassium Chloride 20 meq 03/28/25 09:00 03/28/25 09:18 Potassium Chloride Er 20 Meq Tablet PO 20 meq DAILY GENIA Administration Sodium Chloride 50 ml 03/28/25 16:51 03/28/25 20:51 Sodium Chloride 0.9% 100 Ml Bag IV 03/29/25 16:51 50 ml PRN PRN Administration Blood transfusion prime and flush Sucralfate 1 gm 03/28/25 17:00 03/29/25 06:36 Sucralfate 1 Gm Tablet PO Not Given BIDAC [facility] Thiamine Mononitrate 100 mg 03/28/25 09:00 03/28/25 09:18 Thiamine 100 Mg Tablet PO 100 mg DAILY GENIA Administration Trazodone HCl 100 mg 03/27/25 21:00 03/28/25 20:48 Trazodone 100 Mg Tablet PO 100 mg BEDTIME GENIA Administration Vitamin D 2,000 unit 03/28/25 09:00 03/28/25 09:18 Cholecalciferol (Vitamin D3) 1,000 Unit Tablet PO 2,000 unit DAILY GENIA Administration Additional Medication Information Current Medications Acetaminophen (Acetaminophen 325 Mg Tablet) 650 mg PO Q6H PRN PRN Reason: Mild/Mod Pain Or Temp >/= 101 Albuterol/Ipratropium (Ipratropium-Albuterol 3 Ml Neb) 3 ml INHALATION Q6H PRN PRN Reason: SHORTNESS OF BREATH Last Admin: 03/28/25 08:22 Dose: 3 ml Amiodarone HCl (Amiodarone 200 Mg Tablet) 200 mg PO DAILY [facility] Last Admin: 03/28/25 09:19 Dose: 200 mg Atorvastatin Calcium (Atorvastatin 10 Mg Tablet) 20 mg PO BEDTIME [facility] Last Admin: 03/28/25 20:48 Dose: 20 mg Cetirizine HCl (Cetirizine 10 Mg Tablet) 10 mg PO DAILY [facility] Last Admin: 03/28/25 09:19 Dose: 10 mg Ciprofloxacin HCl (Ciprofloxacin 500 Mg Tablet) 500 mg PO BID@0900,2100 [facility]; Protocol Last Admin: 03/28/25 20:48 Dose: 500 mg Ferrous Gluconate (Ferrous Gluconate 324 Mg Tablet) 324 mg PO DAILY [facility] Last Admin: 03/28/25 09:18 Dose: 324 mg Folic Acid (Folic Acid 1 Mg Tablet) 1 mg PO DAILY [facility] Last Admin: 03/28/25 09:18 Dose: 1 mg Furosemide (Furosemide 10 Mg/Ml Sdv 4ml) 40 mg IVP Q12H [facility] Last Admin: 03/28/25 20:56 Dose: 40 mg Heparin Sodium (Porcine) (Heparin 5,000 Unit/Ml Inj 1 Ml) 0 unit IVP PRN PRN; Protocol PRN Reason: Heparin Weight Based Protocol -Subsequent Bolus Sodium Chloride (Sodium Chloride 0.9%) 1,000 mls @ 50 mls/hr IV .Q20H ONE Stop: 03/29/25 12:37 Heparin Sodium/Sodium Chloride (Heparin Drip) 25,000 unit in 500 mls @ 0 mls/hr IV CONT [facility]; Protocol Last Titration: 03/29/25 07:05 Dose: 0 unit/kg/hr, 0 mls/hr Metronidazole (Metronidazole 500 Mg Tablet) 500 mg PO TID [facility] Last Admin: 03/28/25 20:48 Dose: 500 mg Morphine Sulfate (Morphine 4 Mg/Ml Sdv 1 Ml) 2 mg IVP Q6H PRN PRN Reason: SEVERE PAIN Last Admin: 03/28/25 18:26 Dose: 2 mg Multivitamins Therapeutic (Multivitamin Therapeutic Tablet) 1 tab PO QAM [facility] Last Admin: 03/29/25 06:36 Dose: Not Given Nicotine (Nicotine 21 Mg Patch) 1 patch TRANSDERMA DAILY [facility] Last Admin: 03/28/25 09:17 Dose: 1 patch Ondansetron HCl (Ondansetron 2 Mg/Ml Sdv 2 Ml) 4 mg IVP Q8H PRN PRN Reason: vomiting, or N/V if npo Pantoprazole Sodium (Pantoprazole Dr 40 Mg Tablet) 40 mg PO BID [facility] Last Admin: 03/28/25 17:42 Dose: 40 mg Potassium Chloride (Potassium Chloride Er 20 Meq Tablet) 20 meq PO DAILY [facility] Last Admin: 03/28/25 09:18 Dose: 20 meq Sodium Chloride (Sodium Chloride 0.9% 100 Ml Bag) 50 ml IV PRN PRN PRN Reason: Blood transfusion prime and flush Stop: 03/29/25 16:51 Last Admin: 03/28/25 20:51 Dose: 50 ml Sucralfate (Sucralfate 1 Gm Tablet) 1 gm PO BIDAC [facility] Last Admin: 03/29/25 06:36 Dose: Not Given Thiamine Mononitrate (Thiamine 100 Mg Tablet) 100 mg PO DAILY [facility] Last Admin: 03/28/25 09:18 Dose: 100 mg Trazodone HCl (Trazodone 100 Mg Tablet) 100 mg PO BEDTIME [facility] Last Admin: 03/28/25 20:48 Dose: 100 mg Vitamin D (Cholecalciferol (Vitamin D3) 1,000 Unit Tablet) 2,000 unit PO DAILY [facility] Last Admin: 03/28/25 09:18 Dose: 2,000 unit [facility] Anesthesia Medical History (Updated 03/29/25 @ 11:10 by Manuel Gilliam MD) Hypertension Hypotension Alcohol intoxication PTSD (post-traumatic stress disorder) COPD (chronic obstructive pulmonary disease) Hiatal hernia Diverticulosis Arthritis Hepatitis C Completed Epclusa in 2019 Surgical History History of laparoscopic appendectomy Bilateral inguinal hernia Bilateral repairs History of surgery on upper extremity L forearm fracture History of penile cancer local excision Family History Father Congestive heart failure (CHF) Other Dementia Social History Smoking and tobacco/nicotine status: current every day tobacco/nicotine user cigarettes Packs smoked per day: 0.5 Years cigarettes smoked: 55 [ Other cigarette details: Heavier smoker in the past. started smoking at age 15. ] Alcohol intake: current Alcohol intake frequency: few times a month Alcohol type: hard liquor Substance/Drug Use: never Current gender identity: Male Data Anesthesia 03/29/25 10:15 03/29/25 02:00 Short CBC 03/27/25 03/28/25 03/28/25 Range/Units 10:43 04:11 16:56 WBC 8.63 8.33 8.25 (3.29-11.43) 10^3/uL Hgb 7.80 L 7.30 L 7.30 L (11.27-16.99) g/dL Hct 25.5 L 22.9 L 23.2 L (37-53) % MCV 98.1 94.2 93.2 (82-101) fl Plt Count 392 321 449 H D (157-399) 10^3/cmm Neut % (Auto) 77.1 74.5 72.3 % Neut # (Auto) 6.66 6.21 5.96 (1.8-7.7) 10^3/uL 03/28/25 03/29/25 03/29/25 Range/Units 18:03 02:00 10:15 WBC 9.74 9.98 8.26 (3.29-11.43) 10^3/uL Hgb 8.20 L 9.00 L 9.50 L (11.27-16.99) g/dL Hct 26.5 L 27.4 L 29.3 L (37-53) % MCV 97.1 93.2 95.4 (82-101) fl Plt Count 458 H 455 H 430 H (157-399) 10^3/cmm Neut % (Auto) 70.3 66.9 71.2 % Neut # (Auto) 6.84 6.67 5.88 (1.8-7.7) 10^3/uL BMP 03/27/25 03/28/25 03/29/25 10:43 04:11 02:00 Sodium 139 139 136 Potassium 3.7 3.7 4.3 Chloride 109 H 109 H 105 Carbon Dioxide 19 L 20 L 22 BUN 12 11 13 Creatinine 1.2 1.1 1.1 Glucose 101 93 102 Calcium 7.5 L 7.3 L 7.9 L Cardiac Enzymes 03/27/25 03/27/25 03/27/25 Range/Units 10:43 12:20 16:31 Troponin T Baseline 62 H (0-15) ng/L Troponin T 120 Minute 58.81 H (0-15) ng/L Delta Troponin T -3.19 L (0-10) ABS# Troponin T Hi Sens 6Hr 58.45 H (0-15) ng/L Troponin T Hi Sens 6Hr Delta -3.55 L (0-12) ng/L NT-Pro-B Natriuret Pep 24673 H (0-450) pg/mL 03/28/25 Range/Units 04:11 Troponin T Baseline (0-15) ng/L Troponin T 120 Minute (0-15) ng/L Delta Troponin T (0-10) ABS# Troponin T Hi Sens 6Hr (0-15) ng/L Troponin T Hi Sens 6Hr Delta (0-12) ng/L NT-Pro-B Natriuret Pep 55591 H (0-450) pg/mL Liver Function 03/27/25 03/28/25 03/29/25 Range/Units 10:43 04:11 02:00 Total Bilirubin 0.2 0.2 0.4 (0.15-1.2) mg/dL AST 14 13 13 (0-40) U/L ALT 8 7 7 (0-41) U/L Alkaline Phosphatase 64 57 69 (40-130) U/L Albumin 2.7 L 2.3 L 2.6 L (3.5-5.2) g/dL Blood Bank 03/28/25 18:03 Blood Type O Positive Rho(D) Type Rh positive Antibody Screen Negative Coags 03/28/25 03/29/25 04:11 06:44 PT 15.70 H INR 1.17 APTT 28.7 Cardiac Studies: Echocardiogram 03/27/25 Echocardiogram Ultrasound 12/13/20
--- NOTE | 2025-03-29 10:42 | P.PN_ITS ---
Subjective 2 Subjective: seen this am no acute events overnight pt npo since midnight going for EGD this morning Vitals/I&O/Wt Last Vital Signs Temp 98.1 F 03/29/25 08:00 Pulse 87 03/29/25 08:31 Resp 20 H 03/29/25 08:31 BP 127/74 03/29/25 08:00 Pulse Ox 94 03/29/25 08:31 O2 Del Method Room Air 03/29/25 08:31 O2 Flow Rate 0.5 03/28/25 08:18 03/28/25 03/29/25 03/29/25 22:59 06:59 14:59 Intake Total 480 / 1060 250 / 1310 123.333 / 123.333 Output Total 1150 / 3350 900 / 4250 200 / 200 Balance -670 / -2290 -650 / -2940 -76.667 / -76.667 Weight last 48 hrs Weight 67.313 kg Weight 71.532 kg Weight 70.035 kg Physical Exam 2 Narrative: General: No acute distress, AO x3 HEENT: PERRLA, pupils bilaterally equal and reactive, pallors not present Chest: Normal vesicular breath sounds, no added sounds, equal good air entry bilaterally CVS: S1-S2 regular, no murmurs, no tachycardia, no gallops, no rubs Abdomen: Soft, nontender, no organomegaly, bowel sounds present Neuro: No focal deficits, no facial deformity, AO x3, 2+ edema b/l, pulses not palpable, both feet warm Data 03/29/25 10:15 03/29/25 02:00 A&P Assessment and plan (1) Grade III diastolic dysfunction: (2) Severe mitral regurgitation: (3) Severe protein-calorie malnutrition: (4) Edema: (5) New onset of congestive heart failure: (6) Chronic anemia: Plan #Bilateral lower extremity edema most likely secondary to diastolic heart failure #Diastolic heart failure #Severe mitral regurgitation #CKD #Hypertension #New onset congestive heart failure ? Continue diuresis with Lasix 40 IV daily ? Patient does have bilateral lower extremity edema. Will request for compression wraps ? Consult cardiology ? Continue amiodarone 200 daily, folic acid, ? Hold metoprolol tartrate ? Continue omeprazole, rosuvastatin, thiamine ? Ciprofloxacin given at time of discharge. We will continue at this time to complete a 7-day course as per previous hospitalization. Same with metronidazole. Continue to complete 7-day course. Diarrhea has resolved. ? Echo results as follows:Normal left ventricular size and systolic function, EF 64%. Mild concentric left-ventricular hypertrophy.no regional wall motion abnormalities. Grade II/IV diastolic dysfunction, moderately elevated filling pressures. Moderately increased left atrial size. Possibly severe mitral valve regurgitation. Mild mitral annular calcification. Thickened mitral valve. Thickened aortic valve. Trace to mild tricuspid valve regurgitation. Estimated pulmonary artery peak systolic pressure 55 mmHg. There is no pericardial effusion. There are no intracardiac masses. Compared to the study from 01/23/2024, there is worsening of the mitral regurgitation Dr. Crump was informed about these findings - EKG without acute ischemic changes ? BNP 22,000. This is likely secondary to poor renal clearance due to recent LINDSEY with component of severe mitral regurgitation. We will repeat in AM. ? Does have bilateral lower extremity edema. Will continue diuresis. ? Does have chronic anemia with hemoglobin stable at 7 range. FOBT positive however that may be in setting of recent colitis. ? Iron studies obtained a few days ago with iron 32, TIBC 83, percent saturation 38.5, ferritin 253. There is possibility of anemia of chronic disease secondary to kidney disease. ? Will recheck CBC in AM. - Continue to hold Eliquis at this time. full code dvt ppx: mechanical hold of on heparin/lovenox 03/28/2025 pt had arterial duplex done 03/18 indication severe PAD will check cta abd runoff, pt complains of right leg pain, will check pulses with doppler. will r/o acute limb ischemia continue lasix 40 IV daily HB 7.3 this am, transfuse for Hb < 7 add protonix 40 BID sucralfate 1g BID he will likely need GI workup going forward no active bleed at this time DEANDRE recommended by cardiology for eval of severe mitral regurg appreciate cardio recommendations continue diuresis today he does have a new O2 requirement of 2L, will continue 03/29/2025 plan for EGD today DEANDRE deferred for now per cardiology dr. mejia consulted for peripheral angiogram, tentative plan for tomorrow 03/30 npo since midnight continue protonix 40 bid sucralfate 1 gm bid continue heparin drip continue to check cbc q8h continue gentle diuresis further recommendations per cardio once EGD complete, will consider adding aspirin he was previously on eliquis which is being held at this time 2/ to possible GI bleed discussed with gen surgery, will hold off on colonoscopy due to recent collitis pt still completing antibiotics PDMP PDMP Reviewed: Not Reviewed Attestations 2 Medical Necessity Statement*: requires further workup and intervention for PAD, mitral regurgitation Diagnoses Grade III diastolic dysfunction I51.89 Severe mitral regurgitation I34.0 Severe protein-calorie malnutrition E43 Edema R60.9 New onset of congestive heart failure I50.9 Chronic anemia D64.9
--- NOTE | 2025-03-29 11:05 | PC.NURSE ---
Patient left CSU to GI Lab at 1055.
--- NOTE | 2025-03-29 11:28 | PM.MISC ---
Miscellaneous Note Note: EGD - no bleeding source
--- NOTE | 2025-03-29 11:51 | PC.NURSE ---
Patient returned to CSU from GI lab at 1151.
[2025-03-29] MEDS: pantoprazole DR 40 mg Tablet PO ×2 (12:48→17:45)
[2025-03-29] MEDS: cholecalciferol (vitamin D3) 1,000 unit Tablet 2000 UNIT PO (12:49)
[2025-03-29] MEDS: folic acid 1 mg Tablet PO (12:49)
[2025-03-29] MEDS: ferrous gluconate 324 mg Tablet PO (12:49)
[2025-03-29] MEDS: potassium chloride ER 20 mEq Tablet PO (12:50)
[2025-03-29] MEDS: cetirizine 10 mg Tablet PO (12:50)
[2025-03-29] MEDS: ciprofloxacin 500 mg Tablet PO ×2 (12:50→20:09)
[2025-03-29] MEDS: metroNIDAZOLE 500 MG Tablet PO ×2 (12:50→20:09)
[2025-03-29] MEDS: nicotine 21 mg Patch 1 PATCH TRANSDERMA (12:51)
[2025-03-29] MEDS: thiamine 100 mg Tablet PO (12:51)
[2025-03-29] MEDS: FUROsemide 10 mg/mL SDV 4mL 40 MG IVP ×2 (12:58→20:09)
[2025-03-29] MEDS: morphine 4 mg/mL SDV 1 mL 2 MG IVP (14:13)
--- NOTE | 2025-03-29 14:32 | PC.SOCIAL ---
IMM updated IMM dated and initialed, copy given to patient and copy placed in chart.
[2025-03-29] MEDS: sucralfate 1 gm Tablet PO (17:45)
[2025-03-29 18:29] LABS: Basophils # 0.1 10^3/uL (0.0-0.1); Basophils % 0.6 %; Eosinophils # 0.4 10^3/uL (0.0-0.8); Eosinophils % 3.8 %; Hematocrit 31.3 % (37-53); Lymphocytes # 1.3 10^3/uL (0.8-4.8); Lymphocytes % 14.2 %; Mean Corpuscular HGB Conc 29.7 g/dL (30-55); Mean Corpuscular Hemoglobin 29.9 pg (27-33); Mean Corpuscular Volume 100.6 fl (82-101); Mean Platelet Volume 9.3 fL (7.4-10.4); Monocytes # 0.8 10^3/uL (0.2-0.9); Monocytes % 8.7 %; Neutrophils # 6.81 10^3/uL (1.8-7.7); Neutrophils % 72.3 %; Nucleated Red Blood Cells % 0 %; Platelet Count 475 10^3/cmm (157-399); Red Blood Count 3.11 10^6/uL (3.85-5.65); Red Cell Distribution Width 15.9 % (12.1-15.1); White Blood Count 9.43 10^3/uL (3.29-11.43)
[2025-03-29 18:48] LABS: Partial Thromboplastin Time 28.5 SECONDS (23.9-36.7)
[2025-03-29] MEDS: trazodone 100 mg Tablet PO (20:08)
[2025-03-29] MEDS: ATORVASTATIN 10 MG TABLET 20 MG PO (20:09)
[2025-03-30] VITALS (12 sets, daily range): BP systolic 98–129; BP diastolic 56–70; PULSE 90–128; RESP 15–27; TEMP 36.4–36.8; O2SAT 91–98
[2025-03-30 02:52] LABS: Basophils # 0.1 10^3/uL (0.0-0.1); Basophils % 0.8 %; Eosinophils # 0.5 10^3/uL (0.0-0.8); Eosinophils % 6.3 %; Hematocrit 28.5 % (37-53); Lymphocytes % 13.7 %; Mean Corpuscular HGB Conc 32.3 g/dL (30-55); Mean Corpuscular Hemoglobin 30.9 pg (27-33); Mean Corpuscular Volume 95.6 fl (82-101); Mean Platelet Volume 9.5 fL (7.4-10.4); Monocytes # 0.7 10^3/uL (0.2-0.9); Monocytes % 9.7 %; Neutrophils # 5.04 10^3/uL (1.8-7.7); Neutrophils % 68.8 %; Nucleated Red Blood Cells % 0 %; Platelet Count 465 10^3/cmm (157-399); Red Blood Count 2.98 10^6/uL (3.85-5.65); Red Cell Distribution Width 15.5 % (12.1-15.1); White Blood Count 7.32 10^3/uL (3.29-11.43)
[2025-03-30 03:20] LABS: Anion Gap 14.1 (5-19); Blood Urea Nitrogen 11 mg/dL (8-23); Calcium 7.8 mg/dL (8.5-10.5); Carbon Dioxide 23 mmol/L (22-29); Chloride 104 mmol/L (98-107); Creatinine Clr Calc Pharmacy 52.1694; Glucose 93 mg/dL (65-115); Osmolality Calculated 283 mOsm/kg (285-295); Potassium 4.1 mmol/L (3.5-5.1); Sodium 137 mmol/L (136-145)
[2025-03-30 03:28] LABS: Partial Thromboplastin Time 61.5 SECONDS (23.9-36.7)
[2025-03-30] MEDS: heparin drip 25,000 UNIT/500 ML PREMIX 24 UNIT IV (05:41)
[2025-03-30] MEDS: sodium chloride 0.9% 1,000 ML 50 ML IV (06:29)
[2025-03-30] MEDS: diphenhydrAMINE 50 mg Capsule PO (07:30)
[2025-03-30] MEDS: aspirin 325 mg Tablet PO (07:30)
[2025-03-30] MEDS: morphine 4 mg/mL SDV 1 mL 2 MG IVP ×3 (07:36→20:35)
--- NOTE | 2025-03-30 08:42 | P.HPUD_ITS ---
Surgery/Procedure H&P Update DATE OF PROCEDURE: March 30, 2025 DATE H&P PERFORMED: 03/27/25 H&P UPDATE INFORMATION: I have reviewed H&P completed within last 30 days, I have examined patient prior to procedure and Changes to prior documentation as noted here CHANGES TO PREVIOUS DOCUMENTATION: Patient has been having significant bilateral lower extremity discomfort more prominent on the left lower leg. Minimal activities bringing it. Occasional resting symptoms. Plan for peripheral angiogram with possible intervention. Patient also has severe mitral regurgitation. Primary director pharmacology, Dr. Pinto has requested a left heart cath as patient may need intervention of mitral valve in the near future. PREOP DIAGNOSIS: Severe claudication/ Resting leg pain (occasional)/ Severe mitral regurg PRIMARY INDICATION FOR PROCEDURE: Severe claudication/ Resting leg pain (occasional)/ Severe mitral regurg PLANNED PROCEDURE: Operation Date: 03/30/25 08:30 Proposed Procedures p Peripheral Diagnostic with poss DUST BRUSH ASSEMBLER and Stenting of LLE(Left) - Chuck Almeida M.D Left heart cath PATIENT REASSESSED PRIOR TO SEDATION, WITH NO CHANGE NOTED: Yes PHYSICAL EXAM: alert, oriented x 3, clear to auscultation bilaterally and regular rate & rhythm OTHER PERTINENT EXAM FINDINGS: Grade 3/6 systolic murmur AIRWAY EVAL/ANESTHESIA PLAN: normal airway, ASA III, Local Anesthesia, Risks, benefits & alternatives of sedation and/or procedure discussed and Patient agrees to continue as planned ADDITIONAL INFORMATION: Moderate sedation
--- NOTE | 2025-03-30 08:51 | PC.NURSE ---
Patient left CSU for assistant laboratory director at 0835.
--- NOTE | 2025-03-30 09:27 | PM.PROC ---
Procedure Note: Date of procedure: 03/30/25 Pre-procedure diagnosis: Severe claudication/ Resting leg pain (occasional)/ Severe mitral regurg Post-procedure diagnosis: other (ELECTRICAL AND INSTRUMENTATION MANAGER of RCA. Severe bilateral peripheral artery disease) Procedure: Coronary angiogram: ELECTRICAL AND INSTRUMENTATION MANAGER of RCA. LAD and circumflex artery of separate ostia and are both patent. Peripheral angiogram: Left common iliac artery is ostially occluded. Reconstitution via collaterals of distal common femoral artery. SFA is diffusely diseased. Popliteal artery is patent. Below the knee has three-vessel runoff with diffuse disease. Right lower extremity has totally occluded SFA with reconstituation of mid to distal SFA. Below the knee has severe diffuse disease Given ostial occlusion of left common iliac artery with long chronic total occlusion, will recommend outpatient referral to vascular surgery for evaluation regarding possible bypass/intervention. Continue anticoagulation. Tonight can switch to eliquis. Add plavix Performing Provider: Chuck Almeida Estimated blood loss (mL): 10 Complications: None Condition: stable Disposition: floor Coding Level of Care Code Acute Code for Chg Fwd
[2025-03-30 09:48] LABS: Basophils # 0.1 10^3/uL (0.0-0.1); Eosinophils # 0.3 10^3/uL (0.0-0.8); Eosinophils % 5.3 %; Hematocrit 26.4 % (37-53); Lymphocytes # 0.8 10^3/uL (0.8-4.8); Lymphocytes % 12.8 %; Mean Corpuscular HGB Conc 32.2 g/dL (30-55); Mean Corpuscular Hemoglobin 29.8 pg (27-33); Mean Corpuscular Volume 92.6 fl (82-101); Mean Platelet Volume 9.1 fL (7.4-10.4); Monocytes # 0.7 10^3/uL (0.2-0.9); Monocytes % 10.8 %; Neutrophils # 4.37 10^3/uL (1.8-7.7); Neutrophils % 69.6 %; Nucleated Red Blood Cells % 0 %; Platelet Count 426 10^3/cmm (157-399); Red Blood Count 2.85 10^6/uL (3.85-5.65); Red Cell Distribution Width 15.6 % (12.1-15.1); White Blood Count 6.27 10^3/uL (3.29-11.43)
--- NOTE | 2025-03-30 09:50 | PC.NURSE ---
Addendum entered by Shawna Soria RN 03/30/25 10:59: Per Dr Almeida restart Heparin drip at current rate at 1530. Original Note: Patient returns to CSU from factory laborer with a Mynx closure in the right femoral. Run NS at 50ml/hr x 6 hours per cardiology and up time at 1330.
[2025-03-30] MEDS: ciprofloxacin 500 mg Tablet PO ×2 (10:23→20:36)
[2025-03-30] MEDS: metroNIDAZOLE 500 MG Tablet PO ×3 (10:23→20:36)
[2025-03-30] MEDS: pantoprazole DR 40 mg Tablet PO ×2 (10:24→17:09)
[2025-03-30] MEDS: ferrous gluconate 324 mg Tablet PO (10:24)
[2025-03-30] MEDS: potassium chloride ER 20 mEq Tablet PO (10:25)
[2025-03-30] MEDS: cholecalciferol (vitamin D3) 1,000 unit Tablet 2000 UNIT PO (10:25)
[2025-03-30] MEDS: amiodarone 200 mg Tablet PO (10:25)
[2025-03-30] MEDS: FUROsemide 10 mg/mL SDV 4mL 40 MG IVP ×2 (10:25→20:36)
[2025-03-30] MEDS: cetirizine 10 mg Tablet PO (10:25)
[2025-03-30] MEDS: thiamine 100 mg Tablet PO (10:25)
[2025-03-30] MEDS: folic acid 1 mg Tablet PO (10:25)
[2025-03-30] MEDS: nicotine 21 mg Patch 1 PATCH TRANSDERMA (10:26)
--- NOTE | 2025-03-30 11:11 | PC.NURSE ---
SENIOR FOREMAN walked past patient's room and patient was sitting on the side of the bed using the urinal. Patient is not able to get up yet, patient's up time is 1330. SENIOR FOREMAN came and got nurse to come to room. Patient is returned to bed, right femoral site is checked for bleeding, and patient is reeducated that he can not get up, move his right leg, or sit-up more that 30 degrees until after 1330. Patient states understanding.
--- NOTE | 2025-03-30 12:12 | P.PN_ITS ---
Subjective 2 Subjective: seen this morning going for peripheral angiogram on room air this morning Vitals/I&O/Wt Last Vital Signs Temp 98.2 F 03/30/25 11:00 Pulse 124 H 03/30/25 11:00 Resp 27 H 03/30/25 11:00 BP 129/70 03/30/25 11:00 Pulse Ox 98 03/30/25 11:00 O2 Del Method Room Air 03/30/25 11:00 O2 Flow Rate 6 03/29/25 11:30 03/29/25 03/30/25 03/30/25 22:59 06:59 14:59 Intake Total 1599.000 / 1842.333 217.667 / 2060.000 Output Total 1999 / 2800 750 / 3550 150 / 150 Balance -401.000 / -957.667 -532.333 / -1490.000 -150 / -150 Weight last 48 hrs Weight 66.281 kg Weight 67.313 kg Physical Exam 2 Narrative: General: No acute distress, AO x3 HEENT: PERRLA, pupils bilaterally equal and reactive, pallors not present Chest: Normal vesicular breath sounds, no added sounds, equal good air entry bilaterally CVS: S1-S2 regular, no murmurs, no tachycardia, no gallops, no rubs Abdomen: Soft, nontender, no organomegaly, bowel sounds present Neuro: No focal deficits, no facial deformity, AO x3, 2+ edema b/l, pulses not palpable manual ly, both feet warm Data 03/30/25 09:43 03/30/25 02:25 A&P Assessment and plan (1) Grade III diastolic dysfunction: (2) Severe mitral regurgitation: (3) Severe protein-calorie malnutrition: (4) Edema: (5) New onset of congestive heart failure: (6) Chronic anemia: Plan #Bilateral lower extremity edema most likely secondary to diastolic heart failure #Diastolic heart failure #Severe mitral regurgitation #CKD #Hypertension #New onset congestive heart failure ? Continue diuresis with Lasix 40 IV daily ? Patient does have bilateral lower extremity edema. Will request for compression wraps ? Consult cardiology ? Continue amiodarone 200 daily, folic acid, ? Hold metoprolol tartrate ? Continue omeprazole, rosuvastatin, thiamine ? Ciprofloxacin given at time of discharge. We will continue at this time to complete a 7-day course as per previous hospitalization. Same with metronidazole. Continue to complete 7-day course. Diarrhea has resolved. ? Echo results as follows:Normal left ventricular size and systolic function, EF 64%. Mild concentric left-ventricular hypertrophy.no regional wall motion abnormalities. Grade II/IV diastolic dysfunction, moderately elevated filling pressures. Moderately increased left atrial size. Possibly severe mitral valve regurgitation. Mild mitral annular calcification. Thickened mitral valve. Thickened aortic valve. Trace to mild tricuspid valve regurgitation. Estimated pulmonary artery peak systolic pressure 55 mmHg. There is no pericardial effusion. There are no intracardiac masses. Compared to the study from 01/23/2024, there is worsening of the mitral regurgitation Dr. Crump was informed about these findings - EKG without acute ischemic changes ? BNP 22,000. This is likely secondary to poor renal clearance due to recent LINDSEY with component of severe mitral regurgitation. We will repeat in AM. ? Does have bilateral lower extremity edema. Will continue diuresis. ? Does have chronic anemia with hemoglobin stable at 7 range. FOBT positive however that may be in setting of recent colitis. ? Iron studies obtained a few days ago with iron 32, TIBC 83, percent saturation 38.5, ferritin 253. There is possibility of anemia of chronic disease secondary to kidney disease. ? Will recheck CBC in AM. - Continue to hold Eliquis at this time. full code dvt ppx: mechanical hold of on heparin/lovenox 03/28/2025 pt had arterial duplex done 03/18 indication severe PAD will check cta abd runoff, pt complains of right leg pain, will check pulses with doppler. will r/o acute limb ischemia continue lasix 40 IV daily HB 7.3 this am, transfuse for Hb < 7 add protonix 40 BID sucralfate 1g BID he will likely need GI workup going forward no active bleed at this time DEANDRE recommended by cardiology for eval of severe mitral regurg appreciate cardio recommendations continue diuresis today he does have a new O2 requirement of 2L, will continue 03/29/2025 plan for EGD today DEANDRE deferred for now per cardiology dr. 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 will need vascular surgery evaluation outpatient Hb 8.5 this am EGD WNL, continue protonix 40 bid x 4 weeks colonoscopy deferred to outpatient continue to monitor HB will discuss with Dr. Pinto regarding eliquis plan for DEANDRE in AM continue thiamine complete flagyl and cipro at 7 days total patient states he will not be interested in any surgical procedures and wants to go home PDMP PDMP Reviewed: Not Reviewed Attestations 2 Medical Necessity Statement*: DEANDRE in AM Diagnoses Grade III diastolic dysfunction I51.89 Severe mitral regurgitation I34.0 Severe protein-calorie malnutrition E43 Edema R60.9 New onset of congestive heart failure I50.9 Chronic anemia D64.9
--- NOTE | 2025-03-30 12:25 | ECG_ITS ---
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 Measurements Intervals [place] Rate: 131 P: 0 IA: 0 QRS: -50 QRSD: 102 T: 53 QT: 305 QTc: 452 Interpretive Statements ATRIAL FLUTTER/TACHYCARDIA WITH RAPID VENTRICULAR RESPONSE LEFT ANTERIOR FASCICULAR BLOCK [QRS AXIS <= -45, QR IN I, RS IN II] POSSIBLE ANTERIOR MYOCARDIAL INFARCTION , OF INDETERMINATE AGE [30 ms Q WAVE IN V3/V4, OR R < 0.2 mV IN V4] Compared to ECG 03/27/2025 17:24:22 Left anterior fascicular block now present Myocardial infarct finding still present Electronically Signed On 04-01-2025 06:18:32 CDT by Leo Pinto M.D. [email or web address]
--- NOTE | 2025-03-30 12:25 | PC.NURSE ---
Addendum entered by Shawna Soria RN 03/30/25 13:46: Provider updated that patients heart rate is 70's-100. Addendum entered by Shawna oSria RN 03/30/25 13:03: Provider ordered cardizem and aspirin 81mg. provider is updated that he did have 325mg of aspirin prior to label cutter this morning - did you still want the 81 mg? Provider ordered to start the 81 mg aspirin tomorrow. Original Note: Provider is updated that Mr Rogers his heartrate is running 110-140 the last 30-40 minutes. It started when he rolled to urinate but is any better. Provider ordered an EKG.
[2025-03-30] MEDS: dilTIAZem 5 mg/mL SDV 5 mL 10 MG IVP (12:57)
--- NOTE | 2025-03-30 16:37 | PC.NURSE ---
Per Dr. Solo stop heparin drip 4 hours prior to DEANDRE on 03/31.
[2025-03-30] MEDS: sucralfate 1 gm Tablet PO (17:09)
--- NOTE | 2025-03-30 19:22 | PM.PN ---
Subjective Subjective: Patient underwent the cardiac catheterization and peripheral angiogram today. He was found to have no percutaneously revascularizable lesions in the extremities. The cardiac catheterization revealed CUT OFF SAW OPERATOR METAL of the right coronary artery. No significant disease in the other vessels. Medications: Medication Review Details: Current Medications Acetaminophen (Acetaminophen 325 Mg Tablet) 650 mg PO Q6H PRN PRN Reason: Mild/Mod Pain Or Temp >/= 101 Albuterol/Ipratropium (Ipratropium-Albuterol 3 Ml Neb) 3 ml INHALATION Q6H PRN PRN Reason: SHORTNESS OF BREATH Last Admin: 03/28/25 08:22 Dose: 3 ml Amiodarone HCl (Amiodarone 200 Mg Tablet) 200 mg PO DAILY [facility] Last Admin: 03/30/25 10:25 Dose: 200 mg Aspirin (Aspirin 81 Mg Ec Tablet) 81 mg PO DAILY [facility] Last Admin: 03/30/25 13:05 Dose: Not Given Atorvastatin Calcium (Atorvastatin 10 Mg Tablet) 20 mg PO BEDTIME [facility] Last Admin: 03/29/25 20:09 Dose: 20 mg Cetirizine HCl (Cetirizine 10 Mg Tablet) 10 mg PO DAILY [facility] Last Admin: 03/30/25 10:25 Dose: 10 mg Ciprofloxacin HCl (Ciprofloxacin 500 Mg Tablet) 500 mg PO BID@0900,2100 [facility]; Protocol Last Admin: 03/30/25 10:23 Dose: 500 mg Ferrous Gluconate (Ferrous Gluconate 324 Mg Tablet) 324 mg PO DAILY [facility] Last Admin: 03/30/25 10:24 Dose: 324 mg Folic Acid (Folic Acid 1 Mg Tablet) 1 mg PO DAILY [facility] Last Admin: 03/30/25 10:25 Dose: 1 mg Furosemide (Furosemide 10 Mg/Ml Sdv 4ml) 40 mg IVP Q12H GENIA Last Admin: 03/30/25 10:25 Dose: 40 mg Heparin Sodium (Porcine) (Heparin 5,000 Unit/Ml Inj 1 Ml) 0 unit IVP PRN PRN; Protocol PRN Reason: Heparin Weight Based Protocol -Subsequent Bolus Heparin Sodium/Sodium Chloride (Heparin Drip) 25,000 unit in 500 mls @ 0 mls/hr IV CONT GENIA; Protocol Last Titration: 03/30/25 15:26 Dose: 16.78 unit/kg/hr, 24 mls/hr Sodium Chloride (Sodium Chloride 0.9%) 1,000 mls @ 50 mls/hr IV .Q20H ONE Stop: 03/31/25 01:59 Last Admin: 03/30/25 06:29 Dose: 50 mls/hr Lidocaine HCl (Lidocaine 2% Viscous 15 Ml Udc) 1 ml TOPICAL PRN PRN On Hold: 03/29/25 12:00 Comment: Order held by Process Transfer PRN Reason: Anesthetic prior to IV start Metronidazole (Metronidazole 500 Mg Tablet) 500 mg PO TID [facility] Last Admin: 03/30/25 14:29 Dose: 500 mg Midazolam HCl (Midazolam 1 Mg/Ml Inj 2 Ml) 2 mg IVP Q5M PRN On Hold: 03/29/25 12:00 Comment: Order held by Process Transfer PRN Reason: Preop Anxiety Morphine Sulfate (Morphine 4 Mg/Ml Sdv 1 Ml) 2 mg IVP Q6H PRN PRN Reason: SEVERE PAIN Last Admin: 03/30/25 14:30 Dose: 2 mg Multivitamins Therapeutic (Multivitamin Therapeutic Tablet) 1 tab PO QAM [facility] Last Admin: 03/30/25 05:38 Dose: Not Given Nicotine (Nicotine 21 Mg Patch) 1 patch TRANSDERMA DAILY [facility] Last Admin: 03/30/25 10:26 Dose: 1 patch Ondansetron HCl (Ondansetron 2 Mg/Ml Sdv 2 Ml) 4 mg IVP Q8H PRN PRN Reason: vomiting, or N/V if npo Pantoprazole Sodium (Pantoprazole Dr 40 Mg Tablet) 40 mg PO BID [facility] Last Admin: 03/30/25 17:09 Dose: 40 mg Potassium Chloride (Potassium Chloride Er 20 Meq Tablet) 20 meq PO DAILY [facility] Last Admin: 03/30/25 10:25 Dose: 20 meq Sucralfate (Sucralfate 1 Gm Tablet) 1 gm PO BIDAC [facility] Last Admin: 03/30/25 17:09 Dose: 1 gm Thiamine Mononitrate (Thiamine 100 Mg Tablet) 100 mg PO DAILY [facility] Last Admin: 03/30/25 10:25 Dose: 100 mg Trazodone HCl (Trazodone 100 Mg Tablet) 100 mg PO BEDTIME [facility] Last Admin: 03/29/25 20:08 Dose: 100 mg Vitamin D (Cholecalciferol (Vitamin D3) 1,000 Unit Tablet) 2,000 unit PO DAILY [facility] Last Admin: 03/30/25 10:25 Dose: 2,000 unit Vitals/I&O/Wt Last Vital Signs Temp 97.6 F 03/30/25 15:21 Pulse 90 03/30/25 15:21 Resp 21 H 03/30/25 15:21 BP 118/68 03/30/25 15:21 Pulse Ox 95 03/30/25 15:21 O2 Del Method Room Air 03/30/25 15:21 O2 Flow Rate 6 03/29/25 11:30 03/30/25 03/30/25 03/30/25 06:59 14:59 22:59 Intake Total 217.667 / 2060.000 240 / 240 474 / 714 Output Total 750 / 3550 1125 / 1125 1150 / 2275 Balance -532.333 / -1490.000 -885 / -885 -676 / -1561 Weight last 48 hrs Weight 146 lb 2 oz Weight 148 lb 6.4 oz Physical Exam Narrative: GENERAL: The patient is alert and oriented times three. Not in any acute distress. HEENT: Moderate pallor, no icterus or lymphadenopathy.Oral cavity: There are no mucous membrane lesions. NECK: Trachea appears to be central. No masses noted. No JVD or thyromegaly appreciated. RESPIRATORY: Chest is symmetrical. No intercostals muscle retraction or any accessory muscle activation. There is no chest wall tenderness. Breath sounds are heard bilaterally. No rales or rhonchi heard. No evidence of any consolidation. BREASTS: Deferred. HEART: The heart sounds are normal. No S3 or S4. Short systolic murmur in the mitral area. No diastolic murmur. No pericardial rub ABDOMEN: No vessel pulsations or distention. No tenderness. No organomegaly appreciated. Bowel sounds are normally heard. : Deferred. RECTAL: Deferred. LYMPHATIC: No lymphadenopathy noted in the neck. EXTREMITIES: 1-2+ pitting edema both lower extremities. Has some pinkish discoloration of both legs. MUSCULOSKELETAL: No acute joint deformities or swelling SKIN: There are no significant rashes or ecchymosis NEUROPSYCHIATRIC: The patient is alert and oriented x3. Appears to be in a good mood. No tremors or rigidity noted. Data 03/31/25 04:11 03/31/25 04:11 A&P Assessment and plan (1) Chronic limb-threatening ischemia: Patient undergone the peripheral swallow to have flushed occlusion of the common iliac artery on the left side. Reconstitution at the level of the distal SFA. Three-vessel runoff to the leg. On the right side, there is total occlusion of the SFA at the takeoff of the profunda femoral artery with reconstitution distally in the SFA. One-vessel runoff to the ankle. There is retrograde filling of the ankle vessels distally (2) New onset of congestive heart failure: The cardiac catheterization revealed total occlusion of the right coronary artery with greater than 70 left to right collaterals. Mild to moderate diffuse disease in the left and descending artery and circumflex artery. Based on the angiogram findings, it would be appropriate treated medically. (3) Severe mitral regurgitation: the echocardiogram is suggestive of possibly severe eccentric mitral regurgitation. But based on the auscultation, the MR does not appear to be severe. this may need to be further evaluated To further evaluate the mitral regurgitation, a DEANDRE would be appropriate. (4) History of atrial fibrillation: Patient has been in and out of atrial fibrillation while being in the hospital. May continue on the current management for the time being (5) Hepatitis C: Management as per the primary. May continue on the current measures (6) Chronic anemia: No evidence of any upper GI bleed. Patient had a colitis recently which could be a contributing factor. Also seems to have features of chronic malnutrition. Hemoglobin is stable with no evidence of any active bleed Plan Discussed with the patient the need for the DEANDRE. Risk and benefits were discussed. The risk of aspiration, bleeding, soft tissue injury, perforation of the stomach/esophagus and other concomitant complications were explained to the patient in detail. The patient understood this well and consented to proceed Will go ahead and schedule for the procedure tomorrow. May be kept n.p.o. after midnight. Based on the DEANDRE findings, further recommendations will be made PDMP PDMP Reviewed: Not Reviewed Attestations Medical Necessity Statement*: Patient requires continued hospital stay for close monitoring and further management Coding Level of Care Code 36397 Diagnoses Chronic limb-threatening ischemia I70.229 New onset of congestive heart failure I50.9 Severe mitral regurgitation I34.0 History of atrial fibrillation Z86.79 Chronic hepatitis C without hepatic coma B18.2 Hepatic coma status: without hepatic coma Viral hepatitis chronicity: chronic Chronic anemia D64.9
[2025-03-30] MEDS: ATORVASTATIN 10 MG TABLET 20 MG PO (20:36)
[2025-03-30] MEDS: trazodone 100 mg Tablet PO (20:36)
[2025-03-30 22:28] LABS: Partial Thromboplastin Time 65.8 SECONDS (23.9-36.7)
[2025-03-31] VITALS (30 sets, daily range): BP systolic 86–117; BP diastolic 51–68; PULSE 82–132; RESP 14–26; TEMP 36.7–37.1; O2SAT 89–99
--- NOTE | 2025-03-31 | USCV_ITS ---
Lonnie Rogers Age: 74 Gender: M : 1950 Exam Date: 03/31/2025 13:38 Ordering Phys: Radha Solo MD Technologist: Exam Location: [facility] – [place], [place] Indication: mr BP: 98 / 61 HR: 78 Rhythm: Sinus Technical Quality: Adequate MEASUREMENTS (Male / Female) Normal Values DOPPLER LVOT Peak Velocity 82.0 cm/s MV Peak Velocity 127.0 cm/s Medications Patient given IV sedation by anesthesia service, for details please refer to the anesthesia report. Complications None. Proc. Components The patient was brought to the DEANDRE examination room in a fasting state after obtaining an informed consent. The DEANDRE probe was passed into the posterior pharynx , mid-esophagus, distal esophagus, and gastric fundus. FINDINGS Left Ventricle Mild diffuse hypokinesia of the left 2 and again with ejection fraction of 50% Right Ventricle The right ventricle is normal in size and function. Right Atrium The right atrium is normal in size. Left Atrium The left atrium is mildly dilated LA Appendage The LA appendage is mildly dilated with diminished normal contractility IA Septum The interatrial septum is normal. No evidence of any interatrial shunt either by color-flow or saline contrast injection Mitral Valve Moderately severe eccentric mitral regurgitation with the jet directed posteriorly. Thickened leaflets with moderate prolapse of the A2 scallop. Aortic Valve Minimally thickened aortic leaflets Tricuspid Valve Structurally normal tricuspid valve with trace of tricuspid regurgitation Pulmonic Valve Structurally normal pulmonic valve without significant stenosis. There is no pulmonic regurgitation. Pericardium Normal pericardium without effusion. Aorta Minimal plaque in the ascending aorta CONCLUSIONS Moderately severe eccentric mitral regurgitation with the jet directed posteriorly. Minimally thickened aortic leaflets Mild diffuse hypokinesia of the left 2 and again with ejection fraction of 50% The LA appendage is mildly dilated with diminished normal contractility The interatrial septum is normal. No evidence of any interatrial shunt either by color-flow or saline contrast injection Structurally normal tricuspid valve with trace of tricuspid regurgitation Thickened leaflets with moderate prolapse of the A2 scallop. There is no pericardial effusion. There are no intracardiac masses. No similar previous studies are available for comparison Dr Leo Pinto MD [facility] (Electronically Signed) Final Date: 02 April 2025 15:21 S
[2025-03-31] MEDS: dilTIAZem 5 mg/mL SDV 5 mL IVP (00:31)
[2025-03-31] MEDS: dilTIAZem 100 MG in sodium chloride 0.9% (add-van) 100 ML IV (00:32)
--- NOTE | 2025-03-31 01:13 | PC.NURSE ---
patient began having HR in the 120-130s contacted MD WENDY ordered cardizem IVP 5mg and to start a drip of cardizem, orders entered and performed
[2025-03-31] MEDS: morphine 4 mg/mL SDV 1 mL 2 MG IVP ×4 (02:59→21:07)
[2025-03-31 04:36] LABS: Basophils # 0.1 10^3/uL (0.0-0.1); Basophils % 0.8 %; Eosinophils # 0.4 10^3/uL (0.0-0.8); Eosinophils % 5.7 %; Hematocrit 26.9 % (37-53); Lymphocytes % 14.2 %; Mean Corpuscular HGB Conc 32.3 g/dL (30-55); Mean Corpuscular Hemoglobin 29.9 pg (27-33); Mean Corpuscular Volume 92.4 fl (82-101); Mean Platelet Volume 9.3 fL (7.4-10.4); Monocytes # 0.9 10^3/uL (0.2-0.9); Monocytes % 11.9 %; Neutrophils # 4.88 10^3/uL (1.8-7.7); Neutrophils % 66.9 %; Nucleated Red Blood Cells % 0 %; Platelet Count 498 10^3/cmm (157-399); Red Blood Count 2.91 10^6/uL (3.85-5.65); Red Cell Distribution Width 15.7 % (12.1-15.1); White Blood Count 7.31 10^3/uL (3.29-11.43)
[2025-03-31 04:59] LABS: Alanine Aminotransferase < 5 U/L (0-41); Albumin Level 2.4 g/dL (3.5-5.2); Alkaline Phosphatase 59 U/L (40-130); Anion Gap 12.6 (5-19); Aspartate Amino Transferase 11 U/L (0-40); Blood Urea Nitrogen 10 mg/dL (8-23); Calcium 7.6 mg/dL (8.5-10.5); Carbon Dioxide 23 mmol/L (22-29); Chloride 103 mmol/L (98-107); Creatinine Clr Calc Pharmacy 47.8697; Globulin 2.8 g/dL (1.3-4.6); Glucose 99 mg/dL (65-115); Magnesium 1.6 mg/dL (1.7-2.3); Osmolality Calculated 279 mOsm/kg (285-295); Potassium 3.6 mmol/L (3.5-5.1); Sodium 135 mmol/L (136-145); Total Bilirubin 0.2 mg/dL (0.15-1.2); Total Protein 5.2 g/dL (6.6-8.7)
[2025-03-31 05:00] LABS: Partial Thromboplastin Time 81.5 SECONDS (23.9-36.7)
[2025-03-31] MEDS: dilTIAZem 100 MG in sodium chloride 0.9% (add-van) 100 ML 15 MG IV (07:34)
--- NOTE | 2025-03-31 07:34 | PC.SOCIAL ---
IMM Update pg 2 of IMM Updated and reviewed w/ patient. Copy provided and copy dated, initialed and placed in chart.
[2025-03-31] MEDS: nicotine 21 mg Patch 1 PATCH TRANSDERMA (09:10)
[2025-03-31] MEDS: cholecalciferol (vitamin D3) 1,000 unit Tablet 2000 UNIT PO (09:13)
[2025-03-31] MEDS: aspirin 81 mg EC Tablet PO (09:13)
[2025-03-31] MEDS: ferrous gluconate 324 mg Tablet PO (09:13)
--- NOTE | 2025-03-31 09:13 | P.PN_ITS ---
Subjective 2 Subjective: Patient had the cardiac colorization and peripheral angiogram. He was found to have lesions in the peripheral arteries not amenable for percutaneous intervention. Surgical evaluation was recommended. Patient refused. Underwent DEANDRE to evaluate the mitral regurgitation. The mitral regurgitation was found to be moderately severe. Medications: Medication Review Details: Current Medications Acetaminophen (Acetaminophen 325 Mg Tablet) 650 mg PO Q6H PRN PRN Reason: Mild/Mod Pain Or Temp >/= 101 Albuterol/Ipratropium (Ipratropium-Albuterol 3 Ml Neb) 3 ml INHALATION Q6H PRN PRN Reason: SHORTNESS OF BREATH Last Admin: 03/28/25 08:22 Dose: 3 ml Amiodarone HCl (Amiodarone 200 Mg Tablet) 200 mg PO DAILY [facility] Last Admin: 03/30/25 10:25 Dose: 200 mg Aspirin (Aspirin 81 Mg Ec Tablet) 81 mg PO DAILY [facility] Last Admin: 03/30/25 13:05 Dose: Not Given Atorvastatin Calcium (Atorvastatin 10 Mg Tablet) 20 mg PO BEDTIME [facility] Last Admin: 03/30/25 20:36 Dose: 20 mg Cetirizine HCl (Cetirizine 10 Mg Tablet) 10 mg PO DAILY [facility] Last Admin: 03/30/25 10:25 Dose: 10 mg Ciprofloxacin HCl (Ciprofloxacin 500 Mg Tablet) 500 mg PO BID@0900,2100 [facility]; Protocol Last Admin: 03/30/25 20:36 Dose: 500 mg Ferrous Gluconate (Ferrous Gluconate 324 Mg Tablet) 324 mg PO DAILY [facility] Last Admin: 03/30/25 10:24 Dose: 324 mg Folic Acid (Folic Acid 1 Mg Tablet) 1 mg PO DAILY [facility] Last Admin: 03/30/25 10:25 Dose: 1 mg Heparin Sodium (Porcine) (Heparin 5,000 Unit/Ml Inj 1 Ml) 0 unit IVP PRN PRN; Protocol PRN Reason: Heparin Weight Based Protocol -Subsequent Bolus Heparin Sodium/Sodium Chloride (Heparin Drip) 25,000 unit in 500 mls @ 0 mls/hr IV CONT [facility]; Protocol Last Titration: 03/31/25 05:05 Dose: 16.08 unit/kg/hr, 23 mls/hr Diltiazem HCl 100 mg/ Sodium (Chloride) 100 mls @ 0 mls/hr IV .Q0M [facility]; Protocol Last Admin: 03/31/25 07:34 Dose: 15 mg/hr, 15 mls/hr Lidocaine HCl (Lidocaine 2% Viscous 15 Ml Udc) 1 ml TOPICAL PRN PRN On Hold: 03/29/25 12:00 Comment: Order held by Process Transfer PRN Reason: Anesthetic prior to IV start Metronidazole (Metronidazole 500 Mg Tablet) 500 mg PO TID [facility] Last Admin: 03/30/25 20:36 Dose: 500 mg Midazolam HCl (Midazolam 1 Mg/Ml Inj 2 Ml) 2 mg IVP Q5M PRN On Hold: 03/29/25 12:00 Comment: Order held by Process Transfer PRN Reason: Preop Anxiety Morphine Sulfate (Morphine 4 Mg/Ml Sdv 1 Ml) 2 mg IVP Q6H PRN PRN Reason: SEVERE PAIN Last Admin: 03/31/25 02:59 Dose: 2 mg Multivitamins Therapeutic (Multivitamin Therapeutic Tablet) 1 tab PO QAM [facility] Last Admin: 03/31/25 05:37 Dose: Not Given Nicotine (Nicotine 21 Mg Patch) 1 patch TRANSDERMA DAILY [facility] Last Admin: 03/30/25 10:26 Dose: 1 patch Ondansetron HCl (Ondansetron 2 Mg/Ml Sdv 2 Ml) 4 mg IVP Q8H PRN PRN Reason: vomiting, or N/V if npo Pantoprazole Sodium (Pantoprazole Dr 40 Mg Tablet) 40 mg PO BID [facility] Last Admin: 03/30/25 17:09 Dose: 40 mg Potassium Chloride (Potassium Chloride Er 20 Meq Tablet) 20 meq PO DAILY [facility] Last Admin: 03/30/25 10:25 Dose: 20 meq Sucralfate (Sucralfate 1 Gm Tablet) 1 gm PO BIDAC [facility] Last Admin: 03/31/25 05:37 Dose: Not Given Thiamine Mononitrate (Thiamine 100 Mg Tablet) 100 mg PO DAILY [facility] Last Admin: 03/30/25 10:25 Dose: 100 mg Trazodone HCl (Trazodone 100 Mg Tablet) 100 mg PO BEDTIME [facility] Last Admin: 03/30/25 20:36 Dose: 100 mg Vitamin D (Cholecalciferol (Vitamin D3) 1,000 Unit Tablet) 2,000 unit PO DAILY [facility] Last Admin: 03/30/25 10:25 Dose: 2,000 unit Vitals/I&O/Wt Last Vital Signs Temp 98.6 F 03/31/25 07:07 Pulse 85 03/31/25 09:07 Resp 20 H 03/31/25 09:07 BP 114/61 03/31/25 07:07 Pulse Ox 97 03/31/25 09:07 O2 Del Method Nasal Cannula 03/31/25 09:07 O2 Flow Rate 2 03/31/25 09:07 03/30/25 03/31/25 03/31/25 22:59 06:59 14:59 Intake Total 1251.2 / 1491.2 501.167 / 1992.367 / Output Total 1900 / 3025 750 / 3775 Balance -648.8 / -1533.8 -248.833 / -1782.633 . / Weight last 48 hrs Weight 142 lb 14.4 oz Weight 146 lb 2 oz Physical Exam 2 Narrative: GENERAL: The patient is alert and oriented times three. Not in any acute distress. HEENT: Moderate pallor, no icterus or lymphadenopathy.Oral cavity: There are no mucous membrane lesions. NECK: Trachea appears to be central. No masses noted. No JVD or thyromegaly appreciated. RESPIRATORY: Chest is symmetrical. No intercostals muscle retraction or any accessory muscle activation. There is no chest wall tenderness. Breath sounds are heard bilaterally. No rales or rhonchi heard. No evidence of any consolidation. BREASTS: Deferred. HEART: The heart sounds are normal. No S3 or S4. Short systolic murmur in the mitral area. No diastolic murmur. No pericardial rub ABDOMEN: No vessel pulsations or distention. No tenderness. No organomegaly appreciated. Bowel sounds are normally heard. : Deferred. RECTAL: Deferred. LYMPHATIC: No lymphadenopathy noted in the neck. EXTREMITIES: 1-2+ pitting edema both lower extremities. Has some pinkish discoloration of both legs. MUSCULOSKELETAL: No acute joint deformities or swelling SKIN: There are no significant rashes or ecchymosis NEUROPSYCHIATRIC: The patient is alert and oriented x3. Appears to be in a good mood. No tremors or rigidity noted. Data 04/01/25 05:29 04/01/25 05:29 Other Labs: Laboratory Last Values WBC 5.79 10^3/uL (3.29-11.43) 04/01/25 05:29 RBC 2.91 10^6/uL (3.85-5.65) L 04/01/25 05:29 Hgb 8.80 g/dL (11.27-16.99) L 04/01/25 05:29 Hct 28.1 % (37-53) L 04/01/25 05:29 MCV 96.6 fl (82-101) 04/01/25 05:29 MCH 30.2 pg (27-33) 04/01/25 05:29 MCHC 31.3 g/dL (30-55) 04/01/25 05:29 RDW 15.8 % (12.1-15.1) H 04/01/25 05:29 Plt Count 482 10^3/cmm (157-399) H 04/01/25 05:29 MPV 9.5 fL (7.4-10.4) 04/01/25 05:29 Neut % (Auto) 69.4 % 04/01/25 05:29 Lymph % (Auto) 13.8 % 04/01/25 05:29 Glasscock % (Auto) 11.2 % 04/01/25 05:29 Eos % (Auto) 3.5 % 04/01/25 05:29 Baso % (Auto) 1.6 % 04/01/25 05:29 Neut # (Auto) 4.02 10^3/uL (1.8-7.7) 04/01/25 05:29 Lymph # (Auto) 0.8 10^3/uL (0.8-4.8) 04/01/25 05:29 Glasscock # (Auto) 0.7 10^3/uL (0.2-0.9) 04/01/25 05:29 Eos # (Auto) 0.2 10^3/uL (0.0-0.8) 04/01/25 05:29 Baso # (Auto) 0.1 10^3/uL (0.0-0.1) 04/01/25 05:29 Nucleated RBC % (auto) 0 % 04/01/25 05:29 Nucleated RBCs # 0.0 /100WBC 04/01/25 05:29 PT 15.70 SECONDS (12.1-14.9) H 03/28/25 04:11 INR 1.17 (0.8-1.2) 03/28/25 04:11 APTT 98.4 SECONDS (23.9-36.7) H 04/01/25 05:29 Sodium 137 mmol/L (136-145) 04/01/25 05:29 Potassium 4.8 mmol/L (3.5-5.1) 04/01/25 05:29 Chloride 105 mmol/L (98-107) 04/01/25 05:29 Carbon Dioxide 23 mmol/L (22-29) 04/01/25 05:29 Anion Gap 13.8 (5-19) 04/01/25 05:29 BUN 8 mg/dL (8-23) 04/01/25 05:29 Creatinine 1.2 mg/dL (0.7-1.2) 04/01/25 05:29 GFR Calculation Not Reportable 04/01/25 05:29 Glucose 114 mg/dL (65-115) 04/01/25 05:29 Calculated Osmolality 283 mOsm/kg (285-295) L 04/01/25 05:29 Calcium 7.9 mg/dL (8.5-10.5) L 04/01/25 05:29 Magnesium 1.8 mg/dL (1.7-2.3) 04/01/25 05:29 Total Bilirubin 0.2 mg/dL (0.15-1.2) 03/31/25 04:11 AST 11 U/L (0-40) 03/31/25 04:11 ALT < 5 U/L (0-41) 03/31/25 04:11 Alkaline Phosphatase 59 U/L (40-130) 03/31/25 04:11 Troponin T Baseline 62 ng/L (0-15) H 03/27/25 10:43 Troponin T 120 Minute 58.81 ng/L (0-15) H 03/27/25 12:20 Delta Troponin T -3.19 ABS# (0-10) L 03/27/25 12:20 Troponin T Hi Sens 6Hr 58.45 ng/L (0-15) H 03/27/25 16:31 Troponin T Hi Sens 6Hr Delta -3.55 ng/L (0-12) L 03/27/25 16:31 NT-Pro-B Natriuret Pep 15955 pg/mL (0-450) H 03/28/25 04:11 Total Protein 5.2 g/dL (6.6-8.7) L 03/31/25 04:11 Albumin 2.4 g/dL (3.5-5.2) L 03/31/25 04:11 Globulin 2.8 g/dL (1.3-4.6) 03/31/25 04:11 Triglycerides 124 mg/dL (0-150) 03/27/25 10:43 Cholesterol 87 mg/dL (0-200) 03/27/25 10:43 LDL Cholesterol, Calc 32 mg/dL (50-129) L 03/27/25 10:43 Total VLDL Cholesterol 25 mg/dL (0-30) 03/27/25 10:43 HDL Cholesterol 30 mg/dL (60-100) L 03/27/25 10:43 Cholesterol/HDL Ratio 2.90 mg/dL (1.0-5.00) 03/27/25 10:43 Procalcitonin 0.09 ng/mL (0-0.5) 03/27/25 10:43 Blood Type O Positive 03/28/25 18:03 Rho(D) Type Rh positive 03/28/25 18:03 Antibody Screen Negative 03/28/25 18:03 Crossmatch See Detail 03/28/25 18:03 A&P Assessment and plan (1) Chronic limb-threatening ischemia: Patient undergone the peripheral swallow to have flushed occlusion of the common iliac artery on the left side. Reconstitution at the level of the distal SFA. Three-vessel runoff to the leg. On the right side, there is total occlusion of the SFA at the takeoff of the profunda femoral artery with reconstitution distally in the SFA. One-vessel runoff to the ankle. There is retrograde filling of the ankle vessels distally Continue the current management. If patient changes his mind, we will consider surgical referral. (2) New onset of congestive heart failure: The cardiac catheterization revealed total occlusion of the right coronary artery with greater than 70 left to right collaterals. Mild to moderate diffuse disease in the left and descending artery and circumflex artery. Based on the angiogram findings, it would be appropriate treated medically. Will continue on the current management (3) Severe mitral regurgitation: The DEANDRE reveals moderately severe mitral regurgitation. Will continue on the current management. (4) History of atrial fibrillation: Patient has been in and out of atrial fibrillation while being in the hospital. May continue on the current management for the time being. Will continue the amiodarone (5) Hepatitis C: Management as per the primary. May continue on the current measures (6) Chronic anemia: No evidence of any upper GI bleed. Patient had a colitis recently which could be a contributing factor. Also seems to have features of chronic malnutrition. Hemoglobin is stable with no evidence of any active bleed Plan Continue amiodarone Continue other medications as it is. Possible discharge home tomorrow PDMP PDMP Reviewed: Not Reviewed Attestations 2 Medical Necessity Statement*: Deferred to the primary Coding Level of Care Code Acute Code for g Fwd Diagnoses Chronic limb-threatening ischemia I70.229 New onset of congestive heart failure I50.9 Severe mitral regurgitation I34.0 History of atrial fibrillation Z86.79 Chronic hepatitis C without hepatic coma B18.2 Hepatic coma status: without hepatic coma Viral hepatitis chronicity: chronic Chronic anemia D64.9
[2025-03-31] MEDS: folic acid 1 mg Tablet PO (09:14)
[2025-03-31] MEDS: cetirizine 10 mg Tablet PO (09:14)
[2025-03-31] MEDS: thiamine 100 mg Tablet PO (09:14)
[2025-03-31] MEDS: pantoprazole DR 40 mg Tablet PO (09:14)
[2025-03-31] MEDS: potassium chloride ER 20 mEq Tablet PO (09:14)
[2025-03-31] MEDS: metroNIDAZOLE 500 MG Tablet PO ×3 (09:15→21:07)
[2025-03-31] MEDS: amiodarone 200 mg Tablet PO (09:15)
[2025-03-31] MEDS: ciprofloxacin 500 mg Tablet PO ×2 (09:22→21:52)
--- NOTE | 2025-03-31 10:10 | PC.NURSE ---
per written order from Dr Solo, patient's heparin stopped at 0945 in preparation for DEANDRE around 1300.
--- NOTE | 2025-03-31 12:44 | P.ANESASSM_ITS ---
Pre-Anesthetic Assessment Height/Weight: Height 5 ft 9 in Weight 142 lb 14.4 oz Temp Pulse Resp BP Pulse Ox O2 Del Method O2 Flow Rate 98.2 F 87 16 96/51 96 Nasal Cannula 2 03/31/25 11:39 03/31/25 11:39 03/31/25 11:39 03/31/25 11:39 03/31/25 11:39 03/31/25 11:39 03/31/25 09:07 Preop Diagnosis: Severe claudication/ Resting leg pain (occasional)/ Severe mitral regurg Operation Date: 03/29/25 11:00 Proposed Procedures p EGD(Not Applicable) - Manuel Gilliam MD Operation Date: 03/30/25 08:30 Proposed Procedures p Peripheral Diagnostic with poss [employer] and Stenting of LLE(Left) - Chuck Almeida M.D Was Beta Silvina taken within 24 hours: Yes Was Clonidine taken within 24 hours: N/A Last intake: Intake Last Liquid Date 03/29/25 Last Liquid Time 08:35 Last Solid Date 03/28/25 Last Solid Time 18:00 Social Alcohol and Tobacco Exam alert and oriented x 3 Airway Submandibular: within normal limits Mallampati: Class III Comments: Comments: Edentulous Anesthetic Plan ASA status: 4 Anesthesia: MAC Other: Patient admitted 03/27/2025 with lower extremity swelling and inability to walk proBNP 22,000 in the ER Patient had an EGD a few days ago for concern of upper GI bleed Echo performed in the ER showing EF of 64% but severe mitral regurgitation with grade 3 diastolic dysfunction. Peak PA pressures 55 Patient was recently admitted with colitis and discharged on 03/23/2025. During hospitalization patient had A-fib with RVR and was treated with amiodarone. Hemoglobin 7 in the ER initially Patient has a history of COPD, current smoker. Nicotine and marijuana GERD on omeprazole Hep C, completed treatment Hypertension on lisinopril and metoprolol Labs from today, hemoglobin 8.7 Patient has chronic limb ischemia, plan for transfer following DEANDRE Plan for MAC anesthesia Medications/Allergies Home Medications ?Medication ?Instructions ?Recorded ?Confirmed ?Last Taken ?Type cetirizine 10 mg capsule 10 mg PO DAILY 10/16/1903/1403/16/25 History multivitamin 1 tab PO QAM 10/16/1903/26/25 History apixaban 5 mg tablet (Eliquis) 5 mg PO BID #60 tabs 03/27/25 03/16/25 Rx Held on 03/23/25. Instructions: Resume on 03/23/25. furosemide 40 mg tablet 40 mg PO DAILY@0800 #30 tabs 12/16/20 03/27/25 03/26/25 Rx folic acid 1 mg tablet 1 mg PO DAILY #60 tabs 06/1603/27/25 03/26/25 Rx ipratropium 20 mcg-albuterol 100 1 puff inhalation Q6H #4 grams 06/16/24 03/27/25 03/16/25 Rx mcg/actuation mist for inhalation (Combivent Respimat) cholecalciferol (vitamin D3) 50 50 mcg PO DAILY 03/27/25 03/26/25 History mcg (2,000 unit) capsule diclofenac sodium 3 % topical gel 1 applic topical BID PRN Pain 03/17/25 03/27/25 Unknown History ferrous gluconate 324 mg (37.5 mg 324 mg PO DAILY 02/0503/27/25 03/26/25 History iron) tablet lisinopril 40 mg tablet 40 mg PO DAILY 03/17/2503/1403/16/25 History Held on 03/23/25. Instructions: Resume on 03/23/25. metoprolol tartrate 100 mg tablet 50 mg PO DAILY 03/1703/27/25 03/27/25 History omeprazole 40 mg capsule,delayed 40 mg PO DAILY 03/27/25 03/16/25 History release rosuvastatin 10 mg tablet 5 mg PO BEDTIME 03/17/2503/16/25 21:00 History thiamine HCl (vitamin B1) 100 mg 100 mg PO DAILY 03/1703/27/25 03/26/25 History tablet trazodone 100 mg tablet 100 mg PO BEDTIME 03/17/25 0 03/27/25 03/26/25 20:00 History amiodarone 200 mg tablet (Pacerone) 200 mg PO DAILY 30 days #30 tabs 03/23/25 03/27/25 03/27/25 Rx ciprofloxacin HCl 500 mg tablet 500 mg PO BID@0900,210 0 7 days #14 03/23/25 03/27/25 03/27/25 Rx tabs metronidazole 500 mg tablet 500 mg PO TID 7 days #21 t abs 03/23/25 03/27/25 03/27/25 Rx Allergies Allergy/AdvReac Type Severity Reaction Status Date / Time codeine Allergy rash Verified 12/12/20 20:57 Current Medications Generic Name Dose Route Start Last Admin Trade Name Marianne PRN Reason Stop Dose Admin Albuterol/Ipratropium 3 ml 03/27/25 16:52 03/28/25 08:22 Ipratropium-Albuterol 3 Ml Neb INHALATION 3 ml Q6H PRN Administration SHORTNESS OF BREATH Amiodarone HCl 200 mg 03/28/25 09:00 03/31/25 09:15 Amiodarone 200 Mg Tablet PO 200 mg DAILY [facility] Administration Aspirin 81 mg 03/30/25 12:20 03/31/25 09:13 Aspirin 81 Mg Ec Tablet PO 81 mg DAILY [facility] Administration Atorvastatin Calcium 20 mg 03/27/25 21:00 03/30/25 20:36 Atorvastatin 10 Mg Tablet PO 20 mg BEDTIME [facility] Administration Cetirizine HCl 10 mg 03/28/25 09:00 03/31/25 09:14 Cetirizine 10 Mg Tablet PO 10 mg DAILY [facility] Administration Ciprofloxacin HCl 500 mg 03/27/25 21:00 03/31/25 09:22 Ciprofloxacin 500 Mg Tablet PO 500 mg BID@0900,2100 [facility] Administration Protocol Ferrous Gluconate 324 mg 03/28/25 09:00 03/31/25 09:13 Ferrous Gluconate 324 Mg Tablet PO 324 mg DAILY [facility] Administration Folic Acid 1 mg 03/28/25 09:00 03/31/25 09:14 Folic Acid 1 Mg Tablet PO 1 mg DAILY [facility] Administration Heparin Sodium/Sodium Chloride 25,000 unit in 500 mls @ 0 mls/hr 03/28/25 18:00 03/31/25 10:09 Heparin Drip IV Infused CONT [facility] Titration Protocol Per Protocol Diltiazem HCl 100 mg/ Sodium 100 mls @ 0 mls/hr 03/31/25 00:19 03/31/25 12:35 Chloride IV 5 mg/hr .Q0M [facility] 5 mls/hr Protocol Titration Per Protocol Metronidazole 500 mg 03/27/25 21:00 03/31/25 09:15 Metronidazole 500 Mg Tablet PO 500 mg TID [facility] Administration Morphine Sulfate 2 mg 03/28/25 18:01 03/31/25 09:08 Morphine 4 Mg/Ml Sdv 1 Ml IVP 2 mg Q6H PRN Administration SEVERE PAIN Multivitamins Therapeutic 1 tab 03/28/25 06:00 03/31/25 05:37 Multivitamin Therapeutic Tablet PO Not Given QAM [facility] Nicotine 1 patch 03/27/25 20:02 03/31/25 09:10 Nicotine 21 Mg Patch TRANSDERMA 1 patch DAILY [facility] Administration Pantoprazole Sodium 40 mg 03/28/25 18:00 03/31/25 09:[address] 40 Mg Tablet PO 40 mg BID [facility] Administration Potassium Chloride 20 meq 03/28/25 09:00 03/31/25 09:14 Potassium Chloride Er 20 Meq Tablet PO 20 meq DAILY [facility] Administration Sucralfate 1 gm 03/28/25 17:00 03/31/25 05:37 Sucralfate 1 Gm Tablet PO Not Given BIDAC [facility] Thiamine Mononitrate 100 mg 03/28/25 09:00 03/31/25 09:14 Thiamine 100 Mg Tablet PO 100 mg DAILY [facility] Administration Trazodone HCl 100 mg 03/27/25 21:00 03/30/25 20:36 Trazodone 100 Mg Tablet PO 100 mg BEDTIME [facility] Administration Vitamin D 2,000 unit 03/28/25 09:00 03/31/25 09:13 Cholecalciferol (Vitamin D3) 1,000 Unit Tablet PO 2,000 unit DAILY [facility] Administration Additional Medication Information Current Medications Acetaminophen (Acetaminophen 325 Mg Tablet) 650 mg PO Q6H PRN PRN Reason: Mild/Mod Pain Or Temp >/= 101 Albuterol/Ipratropium (Ipratropium-Albuterol 3 Ml Neb) 3 ml INHALATION Q6H PRN PRN Reason: SHORTNESS OF BREATH Last Admin: 03/28/25 08:22 Dose: 3 ml Amiodarone HCl (Amiodarone 200 Mg Tablet) 200 mg PO DAILY [facility] Last Admin: 03/30/25 10:25 Dose: 200 mg Aspirin (Aspirin 81 Mg Ec Tablet) 81 mg PO DAILY [facility] Last Admin: 03/30/25 13:05 Dose: Not Given Atorvastatin Calcium (Atorvastatin 10 Mg Tablet) 20 mg PO BEDTIME [facility] Last Admin: 03/30/25 20:36 Dose: 20 mg Cetirizine HCl (Cetirizine 10 Mg Tablet) 10 mg PO DAILY [facility] Last Admin: 03/30/25 10:25 Dose: 10 mg Ciprofloxacin HCl (Ciprofloxacin 500 Mg Tablet) 500 mg PO BID@0900,2100 [facility]; Protocol Last Admin: 03/30/25 20:36 Dose: 500 mg Ferrous Gluconate (Ferrous Gluconate 324 Mg Tablet) 324 mg PO DAILY [facility] Last Admin: 03/30/25 10:24 Dose: 324 mg Folic Acid (Folic Acid 1 Mg Tablet) 1 mg PO DAILY [facility] Last Admin: 03/30/25 10:25 Dose: 1 mg Heparin Sodium (Porcine) (Heparin 5,000 Unit/Ml Inj 1 Ml) 0 unit IVP PRN PRN; Protocol PRN Reason: Heparin Weight Based Protocol -Subsequent Bolus Heparin Sodium/Sodium Chloride (Heparin Drip) 25,000 unit in 500 mls @ 0 mls/hr IV CONT [facility]; Protocol Last Titration: 03/31/25 05:05 Dose: 16.08 unit/kg/hr, 23 mls/hr Diltiazem HCl 100 mg/ Sodium (Chloride) 100 mls @ 0 mls/hr IV .Q0M [facility]; Protocol Last Admin: 03/31/25 07:34 Dose: 15 mg/hr, 15 mls/hr Lidocaine HCl (Lidocaine 2% Viscous 15 Ml Udc) 1 ml TOPICAL PRN PRN On Hold: 03/29/25 12:00 Comment: Order held by Process Transfer PRN Reason: Anesthetic prior to IV start Metronidazole (Metronidazole 500 Mg Tablet) 500 mg PO TID [facility] Last Admin: 03/30/25 20:36 Dose: 500 mg Midazolam HCl (Midazolam 1 Mg/Ml Inj 2 Ml) 2 mg IVP Q5M PRN On Hold: 03/29/25 12:00 Comment: Order held by Process Transfer PRN Reason: Preop Anxiety Morphine Sulfate (Morphine 4 Mg/Ml Sdv 1 Ml) 2 mg IVP Q6H PRN PRN Reason: SEVERE PAIN Last Admin: 03/31/25 02:59 Dose: 2 mg Multivitamins Therapeutic (Multivitamin Therapeutic Tablet) 1 tab PO QAM [facility] Last Admin: 03/31/25 05:37 Dose: Not Given Nicotine (Nicotine 21 Mg Patch) 1 patch TRANSDERMA DAILY [facility] Last Admin: 03/30/25 10:26 Dose: 1 patch Ondansetron HCl (Ondansetron 2 Mg/Ml Sdv 2 Ml) 4 mg IVP Q8H PRN PRN Reason: vomiting, or N/V if npo Pantoprazole Sodium (Pantoprazole Dr 40 Mg Tablet) 40 mg PO BID [facility] Last Admin: 03/30/25 17:09 Dose: 40 mg Potassium Chloride (Potassium Chloride Er 20 Meq Tablet) 20 meq PO DAILY [facility] Last Admin: 03/30/25 10:25 Dose: 20 meq Sucralfate (Sucralfate 1 Gm Tablet) 1 gm PO BIDAC [facility] Last Admin: 03/31/25 05:37 Dose: Not Given Thiamine Mononitrate (Thiamine 100 Mg Tablet) 100 mg PO DAILY [facility] Last Admin: 03/30/25 10:25 Dose: 100 mg Trazodone HCl (Trazodone 100 Mg Tablet) 100 mg PO BEDTIME [facility] Last Admin: 03/30/25 20:36 Dose: 100 mg Vitamin D (Cholecalciferol (Vitamin D3) 1,000 Unit Tablet) 2,000 unit PO DAILY [facility] Last Admin: 03/30/25 10:25 Dose: 2,000 unit [facility] Anesthesia Medical History (Updated 03/29/25 @ 21:14 by Leo Pinto MD) Hypertension Hypotension Alcohol intoxication PTSD (post-traumatic stress disorder) COPD (chronic obstructive pulmonary disease) Hiatal hernia Diverticulosis Arthritis Hepatitis C Completed Epclusa in 2019 Surgical History History of laparoscopic appendectomy Bilateral inguinal hernia Bilateral repairs History of surgery on upper extremity L forearm fracture History of penile cancer local excision Family History Father Congestive heart failure (CHF) Other Dementia Social History Smoking and tobacco/nicotine status: current every day tobacco/nicotine user cigarettes Packs smoked per day: 0.5 Years cigarettes smoked: 55 [ Other cigarette details: Heavier smoker in the past. started smoking at age 15. ] Alcohol intake: current Alcohol intake frequency: few times a month Alcohol type: hard liquor Substance/Drug Use: never Current gender identity: Male Data Anesthesia 03/31/25 04:11 03/31/25 04:11 Short CBC 03/29/25 03/30/25 03/30/25 Range/Units 18:00 02:25 09:43 WBC 9.43 7.32 6.27 (3.29-11.43) 10^3/uL Hgb 9.30 L 9.20 L 8.50 L (11.27-16.99) g/dL Hct 31.3 L 28.5 L 26.4 L (37-53) % MCV 100.6 D 95.6 92.6 (82-101) fl Plt Count 475 H 465 H 426 H (157-399) 10^3/cmm Neut % (Auto) 72.3 68.8 69.6 % Neut # (Auto) 6.81 5.04 4.37 (1.8-7.7) 10^3/uL 03/31/25 Range/Units 04:11 WBC 7.31 (3.29-11.43) 10^3/uL Hgb 8.70 L (11.27-16.99) g/dL Hct 26.9 L (37-53) % MCV 92.4 (82-101) fl Plt Count 498 H (157-399) 10^3/cmm Neut % (Auto) 66.9 % Neut # (Auto) 4.88 (1.8-7.7) 10^3/uL BMP 03/30/25 03/31/25 02:25 04:11 Sodium 137 135 L Potassium 4.1 3.6 Chloride 104 103 Carbon Dioxide 23 23 BUN 11 10 Creatinine 1.2 1.3 H Glucose 93 99 Calcium 7.8 L 7.6 L Liver Function 03/31/25 Range/Units 04:11 Total Bilirubin 0.2 (0.15-1.2) mg/dL AST 11 (0-40) U/L ALT < 5 (0-41) U/L Alkaline Phosphatase 59 (40-130) U/L Albumin 2.4 L (3.5-5.2) g/dL Coags 03/29/25 03/30/25 03/30/25 18:00 02:25 21:54 APTT 28.5 61.5 H D 65.8 H 03/31/25 04:11 APTT 81.5 H Cardiac Studies: 2 Echocardiogram 03/27/25 Echocardiogram Ultrasound 12/13/20
--- NOTE | 2025-03-31 12:52 | W.PM.OPSUD ---
Surgery/Procedure H&P Update DATE OF PROCEDURE: March 31, 2025 DATE H&P PERFORMED: 03/27/25 H&P UPDATE INFORMATION: I have reviewed H&P completed within last 30 days, I have examined patient prior to procedure and No changes to prior documentation PREOP DIAGNOSIS: Possibly severe MR by TTE PRIMARY INDICATION FOR PROCEDURE: Possible severe MR PLANNED PROCEDURE: Operation Date: 03/29/25 11:00 Proposed Procedures p EGD(Not Applicable) - Manuel Gilliam MD Operation Date: 03/30/25 08:30 Proposed Procedures p Peripheral Diagnostic with poss [employer] and Stenting of LLE(Left) - Chuck Almeida M.D
--- NOTE | 2025-03-31 13:31 | P.PN_ITS ---
Subjective 2 Subjective: seen this morning creatinine 1.3 this morning hemoglobin 8.70 today mag 1.6 today Vitals/I&O/Wt Last Vital Signs Temp 98.2 F 03/31/25 11:39 Pulse 87 03/31/25 11:39 Resp 16 03/31/25 11:39 BP 96/51 03/31/25 11:39 Pulse Ox 96 03/31/25 11:39 O2 Del Method Nasal Cannula 03/31/25 11:39 O2 Flow Rate 2 03/31/25 09:07 03/30/25 03/31/25 03/31/25 22:59 06:59 14:59 Intake Total 1251.2 / 1491.2 501.167 / 1992.367 232.30 / 232.30 Output Total 1900 / 3025 750 / 3775 Balance -648.8 / -1533.8 -248.833 / -1782.633 232.30 / 232.30 Weight last 48 hrs Weight 64.818 kg Weight 66.281 kg Physical Exam 2 Narrative: General: No acute distress, AO x3 HEENT: PERRLA, pupils bilaterally equal and reactive, pallors not present Chest: Normal vesicular breath sounds, no added sounds, equal good air entry bilaterally CVS: S1-S2 regular, no murmurs, no tachycardia, no gallops, no rubs Abdomen: Soft, nontender, bowel sounds present Neuro: No focal deficits, no facial deformity, AO x3, no edema b/l, both feet warm, wrinkling present on b/l LE sister at bedside Data 03/31/25 04:11 03/31/25 04:11 A&P Assessment and plan (1) Grade III diastolic dysfunction: (2) Severe mitral regurgitation: (3) Severe protein-calorie malnutrition: (4) Edema: (5) New onset of congestive heart failure: (6) Chronic anemia: Plan #Bilateral lower extremity edema most likely secondary to diastolic heart failure #Diastolic heart failure #Severe mitral regurgitation #CKD #Hypertension #New onset congestive heart failure ? Continue diuresis with Lasix 40 IV daily ? Patient does have bilateral lower extremity edema. Will request for compression wraps ? Consult cardiology ? Continue amiodarone 200 daily, folic acid, ? Hold metoprolol tartrate ? Continue omeprazole, rosuvastatin, thiamine ? Ciprofloxacin given at time of discharge. We will continue at this time to complete a 7-day course as per previous hospitalization. Same with metronidazole. Continue to complete 7-day course. Diarrhea has resolved. ? Echo results as follows:Normal left ventricular size and systolic function, EF 64%. Mild concentric left-ventricular hypertrophy.no regional wall motion abnormalities. Grade II/IV diastolic dysfunction, moderately elevated filling pressures. Moderately increased left atrial size. Possibly severe mitral valve regurgitation. Mild mitral annular calcification. Thickened mitral valve. Thickened aortic valve. Trace to mild tricuspid valve regurgitation. Estimated pulmonary artery peak systolic pressure 55 mmHg. There is no pericardial effusion. There are no intracardiac masses. Compared to the study from 01/23/2024, there is worsening of the mitral regurgitation Dr. Crump was informed about these findings - EKG without acute ischemic changes ? BNP 22,000. This is likely secondary to poor renal clearance due to recent LINDSEY with component of severe mitral regurgitation. We will repeat in AM. ? Does have bilateral lower extremity edema. Will continue diuresis. ? Does have chronic anemia with hemoglobin stable at 7 range. FOBT positive however that may be in setting of recent colitis. ? Iron studies obtained a few days ago with iron 32, TIBC 83, percent saturation 38.5, ferritin 253. There is possibility of anemia of chronic disease secondary to kidney disease. ? Will recheck CBC in AM. - Continue to hold Eliquis at this time. full code dvt ppx: mechanical hold of on heparin/lovenox 03/28/2025 pt had arterial duplex done 03/18 indication severe PAD will check cta abd runoff, pt complains of right leg pain, will check pulses with doppler. will r/o acute limb ischemia continue lasix 40 IV daily HB 7.3 this am, transfuse for Hb < 7 add protonix 40 BID sucralfate 1g BID he will likely need GI workup going forward no active bleed at this time DEANDRE recommended by cardiology for eval of severe mitral regurg appreciate cardio recommendations continue diuresis today he does have a new O2 requirement of 2L, will continue 03/29/2025 plan for EGD today DEANDRE deferred for now per cardiology dr. mejia consulted for peripheral angiogram, tentative plan for tomorrow 03/30 npo since midnight continue protonix 40 bid sucralfate 1 gm bid continue heparin drip continue to check cbc q8h continue gentle diuresis further recommendations per cardio once EGD complete, will consider adding aspirin he was previously on eliquis which is being held at this time 2/2 to possible GI bleed discussed with gen surgery, will hold off on colonoscopy due to recent collitis pt still completing antibiotics 03/30/2025 seen today went for peripheral angiogram, pre-turcios report [employer], peripherally occlusion present, final report pending. will need vascular surgery evaluation outpatient Hb 8.5 this am EGD WNL, continue protonix 40 bid x 4 weeks colonoscopy deferred to outpatient continue to monitor HB will discuss with Dr. Pinto regarding eliquis plan for DEANDRE in AM continue thiamine complete flagyl and cipro at 7 days total patient states he will not be interested in any surgical procedures and wants to go home 03/31/2025 cr 1.3 today stop lasix going forward order ns 75 cc/hr for 500 cc total DEANDRE today pt states he is interested in vascular surgery intervention and consultation and would like to be transferred to another hospital. sister at bedside who agrees to above. stop cipro and flagyl in am. pt will complete 7 days in AM. continue heparin gtt PDMP PDMP Reviewed: Not Reviewed Attestations 2 Medical Necessity Statement*: DEANDRE today Diagnoses Grade III diastolic dysfunction I51.89 Severe mitral regurgitation I34.0 Severe protein-calorie malnutrition E43 Edema R60.9 New onset of congestive heart failure I50.9 Chronic anemia D64.9
--- NOTE | 2025-03-31 14:25 | ANE.PACU2 ---
Inpatient post-anesthesia follow up: Airway intact: Yes Vital signs: Temperature 98.2 F Pulse Rate 87 Respiratory Rate 16 Blood Pressure 96/51 Pulse Oximetry 96 Oxygen Delivery Me thod Nasal Cannula Oxygen Flow Rate 2 Fraction of Inspir ed Oxygen Hydration adequate: Yes Nausea and vomiting: No Pain level: 1 Mental status: Baseline
[2025-03-31] MEDS: sodium chloride 0.9% 1,000 ML 999 ML IV (15:06)
--- NOTE | 2025-03-31 16:02 | PC.NURSE ---
heparin gtt stopped at 1420 due to patient's heart rate being in the 60s-80s. Patient is still afib, but rate controlled.
[2025-03-31 16:27] LABS: Partial Thromboplastin Time 37.8 SECONDS (23.9-36.7)
[2025-03-31 17:07] LABS: Blood Urea Nitrogen 9 mg/dL (8-23); Calcium 7.6 mg/dL (8.5-10.5); Carbon Dioxide 21 mmol/L (22-29); Chloride 104 mmol/L (98-107); Creatinine Clr Calc Pharmacy 51.4186; Glucose 83 mg/dL (65-115); Osmolality Calculated 282 mOsm/kg (285-295); Sodium 137 mmol/L (136-145)
[2025-03-31 17:12] LABS: Anion Gap 15.8 (5-19); Potassium 3.8 mmol/L (3.5-5.1)
--- NOTE | 2025-03-31 17:44 | PC.NURSE ---
patient refused sulcrufate and protonix stating his stomach was fine.
[2025-03-31] MEDS: ATORVASTATIN 10 MG TABLET 20 MG PO (21:06)
[2025-03-31] MEDS: trazodone 100 mg Tablet PO (21:07)
[2025-04-01] VITALS (9 sets, daily range): BP systolic 116–126; BP diastolic 56–72; PULSE 101–121; RESP 18–28; TEMP 36.6–37.3; O2SAT 92–94
[2025-04-01] LABS: Partial Thromboplastin Time 69.9 SECONDS (23.9-36.7)
[2025-04-01 05:46] LABS: Basophils # 0.1 10^3/uL (0.0-0.1); Basophils % 1.6 %; Eosinophils # 0.2 10^3/uL (0.0-0.8); Eosinophils % 3.5 %; Hematocrit 28.1 % (37-53); Lymphocytes # 0.8 10^3/uL (0.8-4.8); Lymphocytes % 13.8 %; Mean Corpuscular HGB Conc 31.3 g/dL (30-55); Mean Corpuscular Hemoglobin 30.2 pg (27-33); Mean Corpuscular Volume 96.6 fl (82-101); Mean Platelet Volume 9.5 fL (7.4-10.4); Monocytes # 0.7 10^3/uL (0.2-0.9); Monocytes % 11.2 %; Neutrophils # 4.02 10^3/uL (1.8-7.7); Neutrophils % 69.4 %; Nucleated Red Blood Cells % 0 %; Platelet Count 482 10^3/cmm (157-399); Red Blood Count 2.91 10^6/uL (3.85-5.65); Red Cell Distribution Width 15.8 % (12.1-15.1); White Blood Count 5.79 10^3/uL (3.29-11.43)
[2025-04-01] MEDS: morphine 4 mg/mL SDV 1 mL 2 MG IVP (06:01)
[2025-04-01] MEDS: sucralfate 1 gm Tablet PO (06:01)
[2025-04-01] MEDS: multivitamin therapeutic Tablet 1 TAB PO (06:01)
[2025-04-01 06:03] LABS: Anion Gap 13.8 (5-19); Blood Urea Nitrogen 8 mg/dL (8-23); Calcium 7.9 mg/dL (8.5-10.5); Carbon Dioxide 23 mmol/L (22-29); Chloride 105 mmol/L (98-107); Creatinine Clr Calc Pharmacy 52.4153; Glucose 114 mg/dL (65-115); Magnesium 1.8 mg/dL (1.7-2.3); Osmolality Calculated 283 mOsm/kg (285-295); Partial Thromboplastin Time 98.4 SECONDS (23.9-36.7); Potassium 4.8 mmol/L (3.5-5.1); Sodium 137 mmol/L (136-145)
[2025-04-01] MEDS: heparin drip 25,000 UNIT/500 ML PREMIX 22 UNIT IV (06:11)
[2025-04-01] MEDS: nicotine 21 mg Patch 1 PATCH TRANSDERMA (08:16)
[2025-04-01] MEDS: cetirizine 10 mg Tablet PO (08:16)
[2025-04-01] MEDS: amiodarone 200 mg Tablet PO (08:16)
[2025-04-01] MEDS: folic acid 1 mg Tablet PO (08:16)
[2025-04-01] MEDS: ciprofloxacin 500 mg Tablet PO (08:16)
[2025-04-01] MEDS: potassium chloride ER 20 mEq Tablet PO (08:16)
[2025-04-01] MEDS: metroNIDAZOLE 500 MG Tablet PO (08:16)
[2025-04-01] MEDS: thiamine 100 mg Tablet PO (08:16)
[2025-04-01] MEDS: cholecalciferol (vitamin D3) 1,000 unit Tablet 2000 UNIT PO (08:16)
[2025-04-01] MEDS: aspirin 81 mg EC Tablet PO (08:16)
[2025-04-01] MEDS: ferrous gluconate 324 mg Tablet PO (08:16)
[2025-04-01] MEDS: pantoprazole DR 40 mg Tablet PO (08:16)
--- NOTE | 2025-04-01 08:43 | PM.DCS ---
Discharge Providers Date of Admission: 03/27/25 15:33 Date of Discharge: April 01, 2025 Attending Provider at Admission: Radha Solo MD Attending Provider at Discharge: Radha Solo MD Primary Care Provider: Hyun Mittal MD Diagnoses at Discharge Discharge Diagnosis (1) Chronic limb-threatening ischemia: Status: Acute (2) New onset of congestive heart failure: Status: Acute (3) Severe mitral regurgitation: Status: Acute (4) History of atrial fibrillation: Status: Acute (5) Hepatitis C: Status: Acute Qualifiers: Viral hepatitis chronicity: chronic Hepatic coma status: without hepatic coma Qualified Code(s): B18.2 - Chronic viral hepatitis C Permanent problem details: Completed Epclusa in 2019 (6) Chronic anemia: Status: Acute Reason for Visit Reason for Visit: swelling in legs-leaking Discharge Data Studies Completed and Pending Completed Studies During Hospitalization Category Date Time Status CTA abdominal aorta [CT angio abd aorta runof [id number]] Cat Scan 03/28/25 12:13 Completed Stat XR chest 1V portable [id number] Stat Exams 03/27/25 10:33 Completed CV. echo complete* [id number] Stat Ultrasound 03/27/25 12:10 Completed Pending at discharge Category Date Time Status [employer] request for service Routine Exams 03/30/25 08:00 Taken Occult Blood Stool [Immunochemical Fecal OCB] Routine Lab 03/28/25 16:50 Uncollected PTT [Partial Thromboplastin Time] Timed Lab 04/01/25 12:00 Ordered Radiology Impressions Chest X-Ray 03/27/25 10:33 IMPRESSION: Increased left basilar consolidation and small left pleural effusion. Aorta w/Runoff CTA 03/28/25 12:13 IMPRESSION: 1. Extensive vascular disease with occlusion of the left iliac arteries in the pelvis. Moderate to severe bilateral femoral artery stenoses. High-grade stenosis of the right popliteal artery and probable occlusion of the left popliteal artery. Details discussed above. 2. Possible hepatic cirrhosis. Laboratory Results WBC 5.79 10^3/uL (3.29-11.43) 04/01/25 05:29 RBC 2.91 10^6/uL (3.85-5.65) L 04/01/25 05:29 Hgb 8.80 g/dL (11.27-16.99) L 04/01/25 05:29 Hct 28.1 % (37-53) L 04/01/25 05:29 MCV 96.6 fl (82-101) 04/01/25 05:29 MCH 30.2 pg (27-33) 04/01/25 05:29 MCHC 31.3 g/dL (30-55) 04/01/25 05:29 RDW 15.8 % (12.1-15.1) H 04/01/25 05:29 Plt Count 482 10^3/cmm (157-399) H 04/01/25 05:29 MPV 9.5 fL (7.4-10.4) 04/01/25 05:29 Neut % (Auto) 69.4 % 04/01/25 05:29 Lymph % (Auto) 13.8 % 04/01/25 05:29 [place] % (Auto) 11.2 % 04/01/25 05:29 Eos % (Auto) 3.5 % 04/01/25 05:29 Baso % (Auto) 1.6 % 04/01/25 05:29 Neut # (Auto) 4.02 10^3/uL (1.8-7.7) 04/01/25 05:29 Lymph # (Auto) 0.8 10^3/uL (0.8-4.8) 04/01/25 05:29 [place] # (Auto) 0.7 10^3/uL (0.2-0.9) 04/01/25 05:29 Eos # (Auto) 0.2 10^3/uL (0.0-0.8) 04/01/25 05:29 Baso # (Auto) 0.1 10^3/uL (0.0-0.1) 04/01/25 05:29 Nucleated RBC % (auto) 0 % 04/01/25 05:29 Nucleated RBCs # 0.0 /100WBC 04/01/25 05:29 PT 15.70 SECONDS (12.1-14.9) H 03/28/25 04:11 INR 1.17 (0.8-1.2) 03/28/25 04:11 APTT 98.4 SECONDS (23.9-36.7) H 04/01/25 05:29 Sodium 137 mmol/L (136-145) 04/01/25 05:29 Potassium 4.8 mmol/L (3.5-5.1) 04/01/25 05:29 Chloride 105 mmol/L (98-107) 04/01/25 05:29 Carbon Dioxide 23 mmol/L (22-29) 04/01/25 05:29 Anion Gap 13.8 (5-19) 04/01/25 05:29 BUN 8 mg/dL (8-23) 04/01/25 05:29 Creatinine 1.2 mg/dL (0.7-1.2) 04/01/25 05:29 GFR Calculation Not Reportable 04/01/25 05:29 Glucose 114 mg/dL (65-115) 04/01/25 05:29 Calculated Osmolality 283 mOsm/kg (285-295) L 04/01/25 05:29 Calcium 7.9 mg/dL (8.5-10.5) L 04/01/25 05:29 Magnesium 1.8 mg/dL (1.7-2.3) 04/01/25 05:29 Total Bilirubin 0.2 mg/dL (0.15-1.2) 03/31/25 04:11 AST 11 U/L (0-40) 03/31/25 04:11 ALT < 5 U/L (0-41) 03/31/25 04:11 Alkaline Phosphatase 59 U/L (40-130) 03/31/25 04:11 Troponin T Baseline 62 ng/L (0-15) H 03/27/25 10:43 Troponin T 120 Minute 58.81 ng/L (0-15) H 03/27/25 12:20 Delta Troponin T -3.19 ABS# (0-10) L 03/27/25 12:20 Troponin T Hi Sens 6Hr 58.45 ng/L (0-15) H 03/27/25 16:31 Troponin T Hi Sens 6Hr Delta -3.55 ng/L (0-12) L 03/27/25 16:31 NT-Pro-B Natriuret Pep 30064 pg/mL (0-450) H 03/28/25 04:11 Total Protein 5.2 g/dL (6.6-8.7) L 03/31/25 04:11 Albumin 2.4 g/dL (3.5-5.2) L 03/31/25 04:11 Globulin 2.8 g/dL (1.3-4.6) 03/31/25 04:11 Triglycerides 124 mg/dL (0-150) 03/27/25 10:43 Cholesterol 87 mg/dL (0-200) 03/27/25 10:43 LDL Cholesterol, Calc 32 mg/dL (50-129) L 03/27/25 10:43 Total VLDL Cholesterol 25 mg/dL (0-30) 03/27/25 10:43 HDL Cholesterol 30 mg/dL (60-100) L 03/27/25 10:43 Cholesterol/HDL Ratio 2.90 mg/dL (1.0-5.00) 03/27/25 10:43 Procalcitonin 0.09 ng/mL (0-0.5) 03/27/25 10:43 Blood Type O Positive 03/28/25 18:03 Rho(D) Type Rh positive 03/28/25 18:03 Antibody Screen Negative 03/28/25 18:03 Crossmatch See Detail 03/28/25 18:03 Vitals Last Vital Signs Temp 99.1 F 04/01/25 08:00 Pulse 116 H 04/01/25 08:12 Resp 18 04/01/25 08:12 BP 124/70 04/01/25 08:00 Pulse Ox 94 04/01/25 08:12 O2 Del Method Nasal Cannula 04/01/25 08:12 O2 Flow Rate 2 04/01/25 08:12 Discharge Plan Discharge Patient Disposition: Home Condition: Stable Prescriptions: New potassium chloride [Klor-Con M20] 20 mEq Tablet,Er Particles/Crystals 20 meq PO DAILY Qty: 30 0RF pantoprazole 40 mg Tablet,Delayed Release (Dr/Ec) 40 mg PO DAILY Qty: 30 0RF aspirin [Lindsay Aspirin] 325 mg tablet 325 mg PO DAILY Qty: 30 0RF Continued cetirizine 10 mg capsule 10 mg PO DAILY multivitamin Tablet 1 tab PO QAM furosemide 40 mg Tablet 40 mg PO DAILY@0800 Qty: 30 0RF amiodarone [Pacerone] 200 mg Tablet 200 mg PO DAILY 30 Days Qty: 30 0RF folic acid 1 mg Tablet 1 mg PO DAILY Qty: 60 0RF Combivent Respimat 20-100 mcg/actuation mist 1 puff inhalation Q6H Qty: 4 4RF diclofenac sodium 3 % Gel 1 applic TOPICAL BID PRN (Reason: Pain) ferrous gluconate 324 mg (37.5 mg iron) Tablet 324 mg PO DAILY thiamine HCl (vitamin B1) 100 mg Tablet 100 mg PO DAILY omeprazole 40 mg Capsule,Delayed Release(Dr/Ec) 40 mg PO DAILY trazodone 100 mg Tablet 100 mg PO BEDTIME rosuvastatin 10 mg Tablet 5 mg PO BEDTIME cholecalciferol (vitamin D3) 50 mcg (2,000 unit) Capsule 50 mcg PO DAILY Held Eliquis 5 mg tablet 5 mg PO BID Qty: 60 0RF Hold Instructions: see cardiology Discontinued lisinopril 40 mg Tablet 40 mg PO DAILY metronidazole 500 mg Tablet 500 mg PO TID 7 Days Qty: 21 0RF ciprofloxacin HCl 500 mg Tablet 500 mg PO BID@0900,2100 7 Days Qty: 14 0RF No Action metoprolol tartrate 100 mg Tablet 50 mg PO DAILY Other Ambulatory Orders: Complete Blood Count w/Auto (Routine) Timeframe: 3 Days Location: Determined by Patient Ordered By: Radha Solo Referrals: Stuart Banks [Other, Vascular Surgery] - 4-7 days Referral Note: He will see patient on April 07Saturday, please call for appointment time. Problems: Peripheral arterial disease; Chronic limb-threatening ischemia [facility] [Outside] - 1-3 days Referral Note: Recent collitis, pt may need colonoscopy as part of work up of anemia. Also has Hep C. Problems: Hepatitis C; Anemia Hyun Mittal MD [Primary Care Provider, Family Practice] - 04/09/25 10:30 am Pati Silverman FNP [Nurse Practitioner, Cardiology] - 04/08/25 4:00 pm David Johnston MD [Hospitalist, Oncology] - 4-7 days Problems: Chronic anemia; Anemia Discharge Diet: Cardiac Discharge Activity: Resume usual activity Patient Instructions: Peripheral Vascular Angioplasty (DC), GI Post Discharge Instructions w/ Anesthesia, Opioid Safety, Pain Management Activity Restrictions/Additional Instructions: Thank you for choosing [facility] for your healthcare needs today. You have been screened and evaluated and felt safe for discharge. Health conditions do change or evolve sometimes and as such it is important that you follow up with your Primary Doctor to be re checked, 3-5 days is a general good time frame for follow up. You are always welcome to return to the ED for re assessment if your symptoms are worsening or you have new concerns Please follow-up with vascular surgery in [place] on April 07Saturday. I called Dr. Alexander over the phone and he said he will see you on Saturday. Please call his clinic to ask for appointment time. Also follow-up with cardiology in [place] on April 08 at 4 PM as scheduled above. We have placed you on high-dose aspirin 325 mg daily. Secondary to your low hemoglobin we are avoiding Eliquis at this time. If you notice any blood in stool blood in vomitus blood in urine please return to the ER immediately. I am also giving you repeat labs to do to check your hemoglobin levels. When you go to see cardiology next week if your hemoglobin levels are stable we will consider placing you back on Eliquis. You have completed your treatment for colitis you do not need to take antibiotics any longer. Please follow-up with gastroenterology in next 1-2 weeks to schedule a colonoscopy. Coding Level of Care Code Acute Code for [facility] Fwd Diagnoses Chronic limb-threatening ischemia I70.229 New onset of congestive heart failure I50.9 Severe mitral regurgitation I34.0 History of atrial fibrillation Z86.79 Chronic hepatitis C without hepatic coma B18.2 Viral hepatitis chronicity: chronic Hepatic coma status: without hepatic coma Chronic anemia D64.9
--- NOTE | 2025-04-01 10:55 | PC.NURSE ---
Faxed referral paperwork to [facility] for appointment @10:50a.m.
--- NOTE | 2025-04-01 12:57 | PC.NURSE ---
Patient discharged to home. Instruction provided regarding follow up needs, medications with changes and disease processes. CHF stoplight provided. New Rx transmitted to [facility]. Patient verbalized understanding. Instruction was also provided to patient's sister as she is his housekeeper caregiver. Patient taken by wheelchair to private vehicle.
== END 2025-04-01 13:10 | disposition home or self-care (01) | DRG 286 ==
LOC: ER 15:32 → CSU 15:45
PROVIDERS: Internal Medicine; Nurse Practitioner Family; Student in an Organized Health Care Education/Training Program; Admitting Provider Internal Medicine; Emergency Provider Emergency Medicine; PCP Family Medicine; Visit Provider Internal Medicine
PROC: 0DJ08ZZ Inspection of Upper Intestinal Tract, Via Natural or Artificial Opening Endoscopic (ICD-10-PCS; principal; 2025-03-29 11:00)
PROC: B2111ZZ Fluoroscopy of Multiple Coronary Arteries using Low Osmolar Contrast (ICD-10-PCS; principal; 2025-03-30 08:30)
PROC: B2111ZZ Fluoroscopy of Multiple Coronary Arteries using Low Osmolar Contrast (ICD-10-PCS; 2025-03-30 08:30)
DX: I70.223 Atherosclerosis of native arteries of extremities with rest pain, bilateral legs (principal); E43 Unspecified severe protein-calorie malnutrition; I50.31 Acute diastolic (congestive) heart failure; I13.0 Hypertensive heart and chronic kidney disease with heart failure and stage 1 through stage 4 chronic kidney disease, or unspecified chronic kidney disease; I34.0 Nonrheumatic mitral (valve) insufficiency; F43.10 Post-traumatic stress disorder, unspecified; J44.9 Chronic obstructive pulmonary disease, unspecified; F17.210 Nicotine dependence, cigarettes, uncomplicated; D64.9 Anemia, unspecified; I48.91 Unspecified atrial fibrillation; B18.2 Chronic viral hepatitis C; N18.9 Chronic kidney disease, unspecified; I25.82 Chronic total occlusion of coronary artery; Z79.01 Long term (current) use of anticoagulants; Z79.899 Other long term (current) drug therapy; Z88.5 Allergy status to narcotic agent; Z68.22 Body mass index [BMI] 22.0-22.9, adult
CPT/HCPCS: 36415; 43235; 71045; 75625; 75635; 75716; 80048; 80053; 80061; 83735; 83880; 84145; 84484; 85025; 85347; 85610; 85730; 86850; 86900; 86920; 93005; 93306; 93312; 93320; 93325; 93454; 94640; 94760; 96374; 96376; 97161; 97165; 99152; 99153; 99285; C1760; C1769; C1887; C1894; G0269; J1644; J1938; J2250; J2270; J2704; J3010; J3475; J3490; J7030; J9999; P9040; Q0163; Q9967

== ENCOUNTER → 2025-04-08 15:48 | Outpatient (BNVA) | payer OTHER, SELFPAY | PROVIDERS: PCP Family Medicine; Visit Provider Nurse Practitioner Family | DX: I11.0 Hypertensive heart disease with heart failure (principal); I50.9 Heart failure, unspecified; Z09 Encounter for follow-up examination after completed treatment for conditions other than malignant neoplasm; I70.229 Atherosclerosis of native arteries of extremities with rest pain, unspecified extremity; I48.91 Unspecified atrial fibrillation; Z79.01 Long term (current) use of anticoagulants; Z79.82 Long term (current) use of aspirin; I34.0 Nonrheumatic mitral (valve) insufficiency; F17.210 Nicotine dependence, cigarettes, uncomplicated | CPT/HCPCS: 99214 ==

== ENCOUNTER → 2025-06-08 08:00 | Outpatient (BNVA) | payer OTHER, SELFPAY | PROVIDERS: PCP Family Medicine; Visit Provider Thoracic Surgery (Cardiothoracic Vascular Surgery) | DX: I96 Gangrene, not elsewhere classified (principal); L97.521 Non-pressure chronic ulcer of other part of left foot limited to breakdown of skin; L97.221 Non-pressure chronic ulcer of left calf limited to breakdown of skin; L97.421 Non-pressure chronic ulcer of left heel and midfoot limited to breakdown of skin | CPT/HCPCS: 97597 ==

== ENCOUNTER → 2025-06-17 07:56 | Outpatient (BNVA) | payer OTHER, SELFPAY | PROVIDERS: PCP Family Medicine; Visit Provider Thoracic Surgery (Cardiothoracic Vascular Surgery) | DX: I96 Gangrene, not elsewhere classified (principal); L97.821 Non-pressure chronic ulcer of other part of left lower leg limited to breakdown of skin; L97.521 Non-pressure chronic ulcer of other part of left foot limited to breakdown of skin | CPT/HCPCS: 97597 ==

== ENCOUNTER → 2025-06-24 08:28 | Outpatient (BNVA) | payer OTHER, SELFPAY | PROVIDERS: PCP Family Medicine; Visit Provider Thoracic Surgery (Cardiothoracic Vascular Surgery) | DX: I73.9 Peripheral vascular disease, unspecified (principal); L97.821 Non-pressure chronic ulcer of other part of left lower leg limited to breakdown of skin; L97.521 Non-pressure chronic ulcer of other part of left foot limited to breakdown of skin | CPT/HCPCS: 97597; A6210 ==

== ENCOUNTER → 2025-07-01 08:25 | Outpatient (BNVA) | payer OTHER, SELFPAY | PROVIDERS: PCP Family Medicine; Visit Provider Thoracic Surgery (Cardiothoracic Vascular Surgery) | DX: I73.9 Peripheral vascular disease, unspecified (principal); L97.521 Non-pressure chronic ulcer of other part of left foot limited to breakdown of skin; L97.421 Non-pressure chronic ulcer of left heel and midfoot limited to breakdown of skin; Z09 Encounter for follow-up examination after completed treatment for conditions other than malignant neoplasm | CPT/HCPCS: 97597; A6210 ==

== ENCOUNTER 2025-07-08 08:08 | Outpatient (CLI) | payer OTHER, SELFPAY ==
--- NOTE | 2025-07-08 08:11 | XR_ITS ---
WS: [id number] Exam: XR foot LT min 3V* [id number] Date/Time of Exam: 07/08/2025 8:11 AM Reason For Exam: I70.242 - Atherosclerosis of [place] arteries of left leg ... No acute fracture. There is severe demineralization of the proximal lateral aspect of the first distal phalanx. Mild DJD in the IP joints, the first MP joint and the midfoot joints. Soft tissue swelling over the dorsum of the foot. There is soft tissue swelling and possible skin ulceration of the great toe. XR/XR foot LT min 3V* [id number] IMPRESSION: 1. Severe demineralization of the first distal phalanx with possibly some loss of cortex. Findings suspicious for acute osteomyelitis. There is associated sof t tissue swelling and skin ulceration of the great toe. Marked soft tissue swel ling of the forefoot. 2. No other sign of bone destruction. Mild degenerative changes.
== END 2025-07-08 08:09 | disposition home or self-care (01) ==
LOC: RAD 08:09
PROVIDERS: PCP Family Medicine; Visit Provider Thoracic Surgery (Cardiothoracic Vascular Surgery)
DX: I70.242 Atherosclerosis of native arteries of left leg with ulceration of calf (principal); M85.872 Other specified disorders of bone density and structure, left ankle and foot; M86.172 Other acute osteomyelitis, left ankle and foot; R22.42 Localized swelling, mass and lump, left lower limb
CPT/HCPCS: 73630; 97597; A6210; A6212

== ENCOUNTER → 2025-07-15 08:41 | Outpatient (BNVA) | payer OTHER, SELFPAY | PROVIDERS: PCP Family Medicine; Visit Provider Thoracic Surgery (Cardiothoracic Vascular Surgery) | DX: I96 Gangrene, not elsewhere classified (principal); L97.421 Non-pressure chronic ulcer of left heel and midfoot limited to breakdown of skin | CPT/HCPCS: 97597; A6210 ==

== ENCOUNTER → 2025-07-29 08:45 | Outpatient (BNVA) | payer OTHER, SELFPAY | PROVIDERS: PCP Family Medicine; Visit Provider Thoracic Surgery (Cardiothoracic Vascular Surgery) | DX: Z09 Encounter for follow-up examination after completed treatment for conditions other than malignant neoplasm (principal); Z87.2 Personal history of diseases of the skin and subcutaneous tissue | CPT/HCPCS: 99212 ==

== ENCOUNTER → 2025-08-31 08:31 | Outpatient (BNVA) | payer OTHER, SELFPAY | PROVIDERS: PCP Family Medicine; Visit Provider Podiatrist Foot & Ankle Surgery | DX: I73.9 Peripheral vascular disease, unspecified (principal); L60.3 Nail dystrophy; L84 Corns and callosities | CPT/HCPCS: 11055; 11721; 99203 ==